=== PATIENT | female | born 1970 | race Caucasian/White ===

== ENCOUNTER → 2016-05-30 | Outpatient (CLI) | payer OTHER ==
--- NOTE | 2016-05-30 16:48 | CT ---
EXAMINATION TYPE: CT iac w con DATE OF EXAM: 05/30/2016 4:41 PM COMPARISON: CT brain April 06, 2016. CT mastoids February 25, 2015. MRI IAC February 23, 2016 HISTORY: Bilateral ear pain per patient. Chronic mastoiditis left ear per order CT DLP: 217 mGycm Automated exposure control for dose reduction was used. CONTRAST: CT scan of the IACs is performed with IV Contrast, patient injected with 100 mL of Omnipaque 300. FINDINGS: The external auditory canals are patent bilaterally. There is redemonstration of left tempo ral or mastoid surgery. There is persistent partial opacification of left sided mastoid air cells. T he middle ear ossicles are symmetric and unremarkable. There is no evidence of suspicious surroundin g soft tissue density to suggest cholesteatoma. The scutum is preserved bilaterally. The cochlea an d the semicircular canals are symmetric and unremarkable. Vestibular aqueduct and internal carotid c anal appear unremarkable. Temporomandibular joints are maintained bilaterally. Small mucous retention cyst or polyp in right sphenoid sinus is redemonstrated. No suspicious enhance ment is seen. IMPRESSION: Prior left mastoid or temporal surgery redemonstrated. Persistent partial opacification o f left mastoid air cells raises concern for mastoiditis. No middle ear infection noted. No significan t change from prior studies.
== END | disposition home or self-care (01) ==
LOC: RADCTMAIN 16:17
PROVIDERS: ATTEND Otolaryngology
DX: R93.0 Abnormal findings on diagnostic imaging of skull and head, not elsewhere classified (principal); Z79.890 Hormone replacement therapy
CPT/HCPCS: 70481; Q9967

== ENCOUNTER 2016-10-15 02:15 | Emergency (ER) | payer OTHER ==
[2016-10-15 02:22] VITALS: RESP 18; TEMP 97.6
[2016-10-15] MEDS ORDERED: diphenhydrAMINE 50 MG/ML 1 ML VIAL IVP STA (02:33)
[2016-10-15] MEDS ORDERED: METOCLOPRAMIDE 5 MG/ML 2 ML VIAL IVP STA (02:34)
[2016-10-15] MEDS ORDERED: DIHYDROERGOTAMINE MESYLATE 1 MG/ML 1 ML AMP IVP STA (02:34)
[2016-10-15] MEDS ORDERED: SODIUM CHLORIDE 0.9% 500 ML IV ONE (02:34)
--- NOTE | 2016-10-15 02:40 | ED ---
General Adult HPI - General Chief complaint: Headache Stated complaint: Headache Time Seen by Provider: 10/15/16 02:20 Source: patient, RN notes reviewed Mode of arrival: ambulatory Limitations: no limitations - History of Present Illness Initial comments: This is a [age] female with past history significant for migraine headaches. Patient states she's had them for years. Patient states this headache is no different than any other headache however her medications are not helping and so she came to the emergency department. Patient states she is photophobic and nauseated. Patient states headache is on the top and goes down to the back of her head a little bit. Patient denies any numbness weakness. Patient denies any features that are new with this headache she states all of her symptoms are similar to the previous migraine she's had for years. Patient denies any recent fever or chills. Patient denies any trauma. Patient denies any chest pain difficulty breathing [place] of breath. Patient denies any abdominal pain patient denies nausea vomiting or diarrhea. - Related Data Home Medications Medication Instructions Recorded Confirmed Cyclobenzaprine [Flexeril] 10 mg PO TID PRN 12/26/15 04/06/16 Cetirizine HCl 10 mg PO DAILY 12/27/15 04/06/16 Meclizine [Antivert] 1 tab PO TID PRN 12/27/15 04/06/16 Nicotine 21Mg/24Hr Patch [Habitrol] 1 patch TOPICAL DAILY 01/23/16 04/06/16 Topiramate [Topamax] 100 mg PO BID 01/23/16 04/06/16 Previous Rx's Medication Instructions Recorded Albuterol Inhaler [Ventolin Hfa 1 puff INHALATION RT-Q6H PRN #0 12/12/15 Inhaler] puff Escitalopram [Lexapro] 20 mg PO DAILY #30 tab 12/12/15 clonazePAM [KlonoPIN] 1 mg PO TID PRN #60 tab 12/12/15 traZODone HCL [Desyrel] 150 mg PO HS #90 tab 12/12/15 Allergies Allergy/AdvReac Type Severity Reaction Status Date / Time Penicillins Allergy Unknown Verified 10/15/16 02:22 sumatriptan [From Imitrex] Allergy Unknown Verified 10/15/16 02:22 sumatriptan succinate Allergy Unknown Verified 10/15/16 02:22 [From Imitrex] NSAIDS (Non-Steroidal AdvReac Unknown Verified 10/15/16 02:22 Anti-Inflamma Review of Systems ROS Statement: Those systems with pertinent positive or pertinent negative responses have been documented in the HPI. ROS Other: All systems not noted in ROS Statement are negative. Past Medical History Past Medical History: Asthma, Hypertension Additional Past Medical History / Comment(s): 2012 mastoditis/L otitis with SIRS , vertigo, falls, migraines, low blood sugars, chronic back pain, DJD. History of Any Multi-Drug Resistant Organisms: None Reported Past Surgical History: Adenoidectomy, Appendectomy, Bariatric Surgery, Breast Surgery, Cholecystectomy, Ear Surgery, Hernia Repair, Hysterectomy, Orthopedic Surgery, Tonsillectomy, Tubal Ligation Additional Past Surgical History / Comment(s): Gastric bypass in 2008 with weight loss of 170 pounds, abdominoplasty, L ear perforation with surgery, R knee surgery x 2 arthroscopic, R breast bx-benign, 2 umbilical hernias and 1 diaphragmatic hernia repairs, arthroscopic bilateral knee meniscus repair, mastoidectomy with Dr. Valderrama at [facility]. Past Anesthesia/Blood Transfusion Reactions: No Reported Reaction Past Psychological History: Anxiety, Depression Additional Psychological History / Comment(s): Pt states she attempted suicide after her father's May 2015. Pt resides with her boyfriend. She is independent normally. She has had falls r/t vertigo from L ear problems. Smoking Status: Former smoker Past Alcohol Use History: None Reported Additional Past Alcohol Use History / Comment(s): Pt started smoking at age 13 or 14 yrs. She smokes about 1 1/[address] She denies any street drug or alcohol use. Past Drug Use History: None Reported - Past Family History Father Additional Family Medical History / Comment(s): Father from a aneurysm at the age of 72 yrs. he also had history of prostate cancer, aortic aneurysm, renal artery aneurysm. Mother Family Medical History: COPD Additional Family Medical History / Comment(s): Mother is 71 yrs old and has emphysema and hypertension. Brother(s) Additional Family Medical History / Comment(s): She has one brother with hypertension and plaque psoriasis. Sister(s) Additional Family Medical History / Comment(s): She has one sister with hypertension. Son(s) Additional Family Medical History / Comment(s): Patient has 3 children, one boy with ureteral obstruction and renal failure. 2 girls that are healthy without major medical problems. General Exam - General Exam Comments Initial Comments: GENERAL: Patient is well-developed and well-nourished. Patient is nontoxic and well- hydrated and is in mild distress. ENT: Neck is soft and supple. No significant lymphadenopathy is noted. Oropharynx is clear. Moist mucous membranes. Neck has full range of motion without eliciting any pain. EYES: The sclera were anicteric and conjunctiva were pink and moist. Extraocular movements were intact and pupils were equal round and reactive to light. Eyelids were unremarkable. PULMONARY: Unlabored respirations. Good breath sounds bilaterally. No audible rales rhonchi or wheezing was noted. CARDIOVASCULAR: There is a regular rate and rhythm without any murmurs gallops or rubs. ABDOMEN: Soft and nontender with normal bowel sounds. No palpable organomegaly was noted. There is no palpable pulsatile mass. SKIN: Skin is clear with no lesions or rashes and otherwise unremarkable. NEUROLOGIC: Patient is alert and oriented x3. Cranial nerves II through XII are grossly intact. Motor and sensory are also intact. Normal speech, volume and content. Symmetrical smile. MUSCULOSKELETAL: Normal extremities with adequate strength and full range of motion. No lower extremity swelling or edema. No calf tenderness. LYMPHATICS: No significant lymphadenopathy is noted PSYCHIATRIC: Normal psychiatric evaluation. Limitations: no limitations Course Vital Signs 10/15/16 02:21 Temperature 97.6 F Pulse Rate 73 Respiratory 18 Rate Blood Pressure 127/83 O2 Sat by Pulse 99 Oximetry Medical Decision Making - Medical Decision Making Patient's headache is vastly improved with the medication. Patient states she' s a 2 out of 10 patient is comfortable going home at this time. Disposition Clinical Impression: Migraine Disposition: HOME SELF-CARE Condition: Good Instructions: Migraine Headache (ED) Referrals: Saleem Page DO [Primary Care Provider] - 1-2 days Time of Disposition: 03:52
[2016-10-15] MEDS ORDERED: KETOROLAC 30 MG/ML 1 ML VIAL IVP STA (03:27)
[2016-10-15 04:02] VITALS: BP 140/88; PULSE 77
== END 2016-10-15 04:01 | disposition home or self-care (01) ==
LOC: EC 02:15
DX: G43.909 Migraine, unspecified, not intractable, without status migrainosus (principal); Z87.891 Personal history of nicotine dependence; Z79.899 Other long term (current) drug therapy; Z88.0 Allergy status to penicillin; Z88.6 Allergy status to analgesic agent; Z88.8 Allergy status to other drugs, medicaments and biological substances
CPT/HCPCS: 99283; 96374; 96375 ×3; 96361; J1110; J1200; J2765; J1885

== ENCOUNTER 2017-01-02 13:00 | Emergency (ER) | payer OTHER ==
[2017-01-02 13:07] VITALS: RESP 18
--- NOTE | 2017-01-02 13:52 | ED ---
General Adult HPI - General Chief complaint: Extremity Injury, Lower Stated complaint: Leg Injury Time Seen by Provider: 01/02/17 13:11 Source: patient Mode of arrival: wheelchair Limitations: no limitations - Related Data Home Medications Medication Instructions Recorded Confirmed Cyclobenzaprine [Flexeril] 10 mg PO TID PRN 12/26/15 01/02/17 Cetirizine HCl 10 mg PO DAILY PRN 12/27/15 01/02/17 Topiramate [Topamax] 100 mg PO BID 01/23/16 01/02/17 HYDROcodone/APAP 10-325MG [[place] 1 tab PO TID 01/02/17 01/02/17 10-325] buPROPion XL [Wellbutrin Xl] 300 mg PO DAILY 01/02/17 01/02/17 Previous Rx's Medication Instructions Recorded Albuterol Inhaler [Ventolin Hfa 1 puff INHALATION RT-Q6H PRN #0 12/12/15 Inhaler] puff Allergies Allergy/AdvReac Type Severity Reaction Status Date / Time Penicillins Allergy Unknown Verified 01/02/17 13:24 sumatriptan [From Imitrex] Allergy Unknown Verified 01/02/17 13:24 sumatriptan succinate Allergy Unknown Verified 01/02/17 13:24 [From Imitrex] NSAIDS (Non-Steroidal AdvReac Unknown Verified 01/02/17 13:24 Anti-Inflamma Review of Systems ROS Statement: Those systems with pertinent positive or pertinent negative responses have been documented in the HPI. ROS Other: All systems not noted in ROS Statement are negative. Past Medical History Past Medical History: Asthma, Hypertension Additional Past Medical History / Comment(s): 2013 mastoditis/L otitis with SIRS , vertigo, falls, migraines, low blood sugars, chronic back pain, DJD. History of Any Multi-Drug Resistant Organisms: None Reported Past Surgical History: Adenoidectomy, Appendectomy, Bariatric Surgery, Breast Surgery, Cholecystectomy, Ear Surgery, Hernia Repair, Hysterectomy, Orthopedic Surgery, Tonsillectomy, Tubal Ligation Additional Past Surgical History / Comment(s): Gastric bypass in 2008 with weight loss of 170 pounds, abdominoplasty, L ear perforation with surgery, R knee surgery x 2 arthroscopic, R breast bx-benign, 2 umbilical hernias and 1 diaphragmatic hernia repairs, arthroscopic bilateral knee meniscus repair, mastoidectomy with Dr. Valderrama at [facility]. Past Anesthesia/Blood Transfusion Reactions: No Reported Reaction Past Psychological History: Anxiety, Depression Smoking Status: Former smoker Past Alcohol Use History: None Reported Past Drug Use History: None Reported - Past Family History Father Additional Family Medical History / Comment(s): Father from a aneurysm at the age of 72 yrs. he also had history of prostate cancer, aortic aneurysm, renal artery aneurysm. Mother Family Medical History: COPD Additional Family Medical History / Comment(s): Mother is 71 yrs old and has emphysema and hypertension. Brother(s) Additional Family Medical History / Comment(s): She has one brother with hypertension and plaque psoriasis. Sister(s) Additional Family Medical History / Comment(s): She has one sister with hypertension. Son(s) Additional Family Medical History / Comment(s): Patient has 3 children, one boy with ureteral obstruction and renal failure. 2 girls that are healthy without major medical problems. General Exam Limitations: no limitations Course Vital Signs 01/02/17 13:04 Temperature 98.7 F Pulse Rate 80 Respiratory 18 Rate Blood Pressure 167/96 O2 Sat by Pulse 100 Oximetry Medical Decision Making - Medical Decision Making Patient's x-ray reviewed and is negative for any acute fracture dislocation. Was discussed with patient about following up in 7-10 days for repeat x-rays if symptoms persist. Patient states understanding at this time. Patient used Tylenol. She states she has not allowed to take NSAIDs. Advised to continue to ice elevate affected area. Disposition Clinical Impression: Contusion of leg, left Disposition: HOME SELF-CARE Condition: Good Instructions: Contusion in Adults (ED) Additional Instructions: Please use medication as discussed. Please follow-up with family doctor in 7- 10 days if symptoms persist. Please return to emergency room if the symptoms increase or worsen or for any other concerns. Referrals: Saleem Page DO [Primary Care Provider] - 1-2 days Time of Disposition: 14:28
--- NOTE | 2017-01-02 14:25 | XR ---
Left leg HISTORY: Trauma and pain 2 views of the left leg Correlation to prior exam 04/06/2016 There is soft tissue swelling suspected. Bone mineralization is mildly reduced. Alignment and joint s paces are maintained. IMPRESSION: No fracture or dislocation is evident, follow-up as indicated.
[2017-01-02 14:47] VITALS: BP 177/95; PULSE 94; TEMP 98.1
--- NOTE | 2017-01-05 08:58 | CDI ---
Documentation Clarification OP Dear Dr. Rufus Bazan Please do addendum to ED report for missing HPI and Physical examination. Thank you, Zina Hutson Ballet Teacher If you have any questions, please contact [employer] at [phone] [facility]
== END 2017-01-02 14:47 | disposition home or self-care (01) ==
LOC: EC 13:00
DX: S80.12XA Contusion of left lower leg, initial encounter (principal); G89.29 Other chronic pain; F32.9 Major depressive disorder, single episode, unspecified; Z87.891 Personal history of nicotine dependence; Z79.891 Long term (current) use of opiate analgesic; Z79.899 Other long term (current) drug therapy; Z88.0 Allergy status to penicillin; Z88.6 Allergy status to analgesic agent; Z88.8 Allergy status to other drugs, medicaments and biological substances; Z86.69 Personal history of other diseases of the nervous system and sense organs; Z98.890 Other specified postprocedural states; W20.8XXA Other cause of strike by thrown, projected or falling object, initial encounter; Y93.89 Activity, other specified
CPT/HCPCS: 99283

== ENCOUNTER 2017-12-24 02:36 | Emergency (ER) | payer SELFPAY ==
[2017-12-24] MEDS ORDERED: KETOROLAC 30 MG/ML 1 ML VIAL IVP STA (03:06)
[2017-12-24] MEDS ORDERED: SODIUM CHLORIDE 0.9% 1,000 ML IV ONE (03:06)
[2017-12-24] MEDS ORDERED: diphenhydrAMINE 50 MG/ML 1 ML VIAL IVP STA (03:06)
[2017-12-24] MEDS ORDERED: METOCLOPRAMIDE 5 MG/ML 2 ML VIAL IVP STA (03:06)
--- NOTE | 2017-12-24 03:15 | ED ---
Headache HPI - General Mode of arrival: ambulatory Limitations: no limitations <Yenni Damon - Last Filed: 12/24/17 04:32> <Ember Vallejo - Last Filed: 12/24/17 06:19> - General Chief Complaint: Headache Stated Complaint: Migraine Time Seen by Provider: 12/24/17 02:51 - History of Present Illness Initial Comments: 47-year-old female patient presents to the emergency department today for evaluation of migraine headache. Patient states that the pain encompasses her entire head and is now radiating into her neck. States it started at 12:00 this afternoon. States she has taken Tylenol, Motrin, and Benadryl multiple times without relief of symptoms. Patient states that she is feeling nauseated and dizzy with this. She has not vomited. States that she does have a history of migraine headache and her symptoms are typical of her usual migraine pattern. She denies any numbness, tingling, or weakness to her extremities. Patient denies any recent rash, fever, chills, shortness breath, chest pain, abdominal pain, diarrhea, constipation, back pain, hematuria, dysuria, urinary urgency, urinary frequency, or any other complaints. (Yenni Damon) - Related Data Home Medications Medication Instructions Recorded Confirmed Topiramate [Topamax] 100 mg PO BID 01/23/16 01/02/17 ALPRAZolam [Xanax] 1 mg PO HS 12/24/17 12/24/17 Previous Rx's Medication Instructions Recorded Albuterol Inhaler [Ventolin Hfa 1 puff INHALATION RT-Q6H PRN #0 12/12/15 Inhaler] puff Allergies Allergy/AdvReac Type Severity Reaction Status Date / Time Penicillins Allergy Unknown Verified 12/24/17 02:49 sumatriptan [From Imitrex] Allergy Unknown Verified 12/24/17 02:49 sumatriptan succinate Allergy Unknown Verified 12/24/17 02:49 [From Imitrex] NSAIDS (Non-Steroidal AdvReac Unknown Verified 12/24/17 02:49 Anti-Inflamma Review of Systems ROS Other: All systems not noted in ROS Statement are negative. <Yenni Damon - Last Filed: 12/24/17 04:32> ROS Other: All systems not noted in ROS Statement are negative. <Ember Vallejo P - Last Filed: 12/24/17 06:19> ROS Statement: Those systems with pertinent positive or pertinent negative responses have been documented in the HPI. Past Medical History Past Medical History: Asthma, Hypertension Additional Past Medical History / Comment(s): 2013 mastoditis/L otitis with SIRS , vertigo, falls, migraines, low blood sugars, chronic back pain, DJD. History of Any Multi-Drug Resistant Organisms: None Reported Past Surgical History: Adenoidectomy, Appendectomy, Bariatric Surgery, Breast Surgery, Cholecystectomy, Ear Surgery, Hernia Repair, Hysterectomy, Orthopedic Surgery, Tonsillectomy, Tubal Ligation Additional Past Surgical History / Comment(s): Gastric bypass in 2008 with weight loss of 170 pounds, abdominoplasty, L ear perforation with surgery, R knee surgery x 2 arthroscopic, R breast bx-benign, 2 umbilical hernias and 1 diaphragmatic hernia repairs, arthroscopic bilateral knee meniscus repair, mastoidectomy with Dr. Valderrama at [facility]. Past Anesthesia/Blood Transfusion Reactions: No Reported Reaction Past Psychological History: Anxiety, Depression Smoking Status: Current every day smoker Past Alcohol Use History: None Reported Past Drug Use History: None Reported - Past Family History Father Additional Family Medical History / Comment(s): Father from a aneurysm at the age of 72 yrs. he also had history of prostate cancer, aortic aneurysm, renal artery aneurysm. Mother Family Medical History: COPD Additional Family Medical History / Comment(s): Mother is 71 yrs old and has emphysema and hypertension. Brother(s) Additional Family Medical History / Comment(s): She has one brother with hypertension and plaque psoriasis. Sister(s) Additional Family Medical History / Comment(s): She has one sister with hypertension. Son(s) Additional Family Medical History / Comment(s): Patient has 3 children, one boy with ureteral obstruction and renal failure. 2 girls that are healthy without major medical problems. <Yenni Damon M - Last Filed: 12/24/17 04:32> General Exam Limitations: no limitations General appearance: alert, in no apparent distress, other (This is a well- developed, well-nourished adult female patient in no acute distress. Vital signs upon presentation are temperature 97.8F, pulse 79, respirations 20, blood pressure 136/92, pulse ox 100% on room air.) Eye exam: Present: normal appearance, PERRL, EOMI. Absent: scleral icterus, conjunctival injection, periorbital swelling ENT exam: Present: normal exam, normal oropharynx, mucous membranes moist Neck exam: Present: normal inspection. Absent: tenderness, meningismus, lymphadenopathy Respiratory exam: Present: normal lung sounds bilaterally. Absent: respiratory distress, wheezes, rales, rhonchi, stridor Cardiovascular Exam: Present: regular rate, normal rhythm, normal heart sounds. Absent: systolic murmur, diastolic murmur, rubs, gallop, clicks GI/Abdominal exam: Present: soft, normal bowel sounds. Absent: distended, tenderness, guarding, rebound, rigid Neurological exam: Present: alert, oriented X3, CN II-XII intact, other ( Strength in all 4 extremities is 5/5) Psychiatric exam: Present: normal affect, normal mood Skin exam: Present: warm, dry, intact, normal color. Absent: rash <Yenni Damon - Last Filed: 12/24/17 04:32> Vital Signs 12/24/17 12/24/17 02:45 04:43 Temperature 97.8 F 97.2 F L Pulse Rate 79 74 Respiratory 20 16 Rate Blood Pressure 136/92 124/85 O2 Sat by Pulse 100 100 Oximetry Medical Decision Making <Yenni Damon - Last Filed: 12/24/17 04:32> <Ember Vallejo - Last Filed: 12/24/17 06:19> - Medical Decision Making 47-year-old female patient presents to the emergency department today for evaluation of migraine headache. Patient reported that symptoms are consistent with her usual migraine pattern. Physical examination was unremarkable, she was neurologically intact. Patient did receive Toradol, Reglan, and Benadryl IV as well as 1 L of normal saline. Patient states her symptoms are much improved upon reevaluation. She'll be discharged home to follow-up with her primary care physician for recheck in 1-2 days. Return parameters discussed in detail. She verbalizes understanding and agrees with this plan. (Yenni Damon) The patient was seen and evaluated by the mid-level provider. I was present and available for consultation regarding the patients care but was not asked to evaluate the patient. I have reviewed and agree with the mid-level provider's findings including all diagnostic interpretations and the treatment plans has written unless otherwise stated in my note. (Ember Vallejo) Disposition Is patient prescribed a controlled substance at d/c from ED?: No Time of Disposition: 04:16 <Yenni Damon - Last Filed: 12/24/17 04:32> <Ember Vallejo - Last Filed: 12/24/17 06:19> Clinical Impression: Migraine headache Disposition: HOME SELF-CARE Condition: Good Instructions: Migraine Headache (ED) Additional Instructions: Increase fluids. Follow-up through primary care physician for recheck in 1-2 days. Return here immediately for any new, worsening, or concerning symptoms. Referrals: Saleem Page DO [Primary Care Provider] - 1-2 days
[2017-12-24 04:44] VITALS: BP 124/85; PULSE 74; RESP 16; TEMP 97.2
== END 2017-12-24 04:47 | disposition home or self-care (01) ==
LOC: EC 02:36
DX: G43.909 Migraine, unspecified, not intractable, without status migrainosus (principal); F41.9 Anxiety disorder, unspecified; F17.200 Nicotine dependence, unspecified, uncomplicated; Z98.84 Bariatric surgery status; Z98.890 Other specified postprocedural states; Z79.899 Other long term (current) drug therapy; Z88.0 Allergy status to penicillin; Z88.6 Allergy status to analgesic agent; Z88.8 Allergy status to other drugs, medicaments and biological substances
CPT/HCPCS: 99283; 96374; 96375 ×2; 96361; J1200; J2765; J1885

== ENCOUNTER 2018-10-07 12:30 | Observation (INO) | payer OTHER ==
[2018-10-07] MEDS ORDERED: HYDROmorphone 0.5 MG/0.5 ML SYRINGE IVP STA ×2 (12:47→14:12)
[2018-10-07] MEDS ORDERED: SODIUM CHLORIDE 0.9% 1,000 ML IV STA (12:47)
[2018-10-07 13:13] LABS: Appearance,Urine Clear (Clear); Bilirubin,Urine Negative (Negative); Blood,Urine Negative (Negative); Color,Urine Light Yellow; Glucose,Urine (UA) Negative (Negative); Ketones,Urine Negative (Negative); Leukocyte Esterase,Urine Negative (Negative); Nitrite,Urine Negative (Negative); PH, Urine 5.5 (5.0-8.0); Protein,Urine Negative (Negative); Specific Gravity,Urine 1.004 (1.001-1.035); Urobilinogen,Urine <2.0 mg/dL (<2.0)
[2018-10-07 13:18] LABS: Basophils # (A) 0.1 k/uL (0-0.2); Basophils % (A) 1 %; Eosinophils # (A) 0.8 k/uL (0-0.7); Eosinophils % (A) 5 %; HCT 39.4 % (34.0-46.0); HGB 12.8 gm/dL (11.4-16.0); Lymphocytes # (A) 2.9 k/uL (1.0-4.8); Lymphocytes % (A) 19 %; MCH 30.5 pg (25.0-35.0); MCHC 32.4 g/dL (31.0-37.0); MCV 94.3 fL (80.0-100.0); Mean Platelet Volume 7.3; Monocytes # (A) 0.4 k/uL (0-1.0); Monocytes % (A) 3 %; Neutrophils # (A) 11.1 k/uL (1.3-7.7); Neutrophils % (A) 72 %; Platelet Count 491 k/uL (150-450); RBC 4.18 m/uL (3.80-5.40); RDW 14.4 % (11.5-15.5); WBC 15.5 k/uL (3.8-10.6)
[2018-10-07 13:19] LABS: ALT 16 U/L (9-52); AST 15 U/L (14-36); Albumin 4.2 g/dL (3.5-5.0); Alkaline Phosphatase 84 U/L (38-126); Amylase 45 U/L (30-110); Anion Gap 7 mmol/L; Blood Urea Nitrogen 10 mg/dL (7-17); Calcium 9.8 mg/dL (8.4-10.2); Carbon Dioxide 24 mmol/L (22-30); Chloride 111 mmol/L (98-107); Glucose 86 mg/dL (74-99); Lipase 82 U/L (23-300); Potassium 4.3 mmol/L (3.5-5.1); Sodium 142 mmol/L (137-145); Total Bilirubin 0.5 mg/dL (0.2-1.3); Total Protein 7.1 g/dL (6.3-8.2)
--- NOTE | 2018-10-07 13:23 | ED ---
General Adult HPI - General Chief complaint: Back Pain/Injury Stated complaint: Poss kidney stone Time Seen by Provider: 10/07/18 12:37 Source: patient, RN notes reviewed, old records reviewed Mode of arrival: ambulatory Limitations: no limitations - History of Present Illness Initial comments: 48-year-old female presented for evaluation of left flank pain. Patient has previous history of kidney stones. She states her pain began suddenly at approximately 6 AM today. Patient also reports left lower quadrant abdominal pain. No change in bowel movements. No diarrhea. She has had some nausea without vomiting. No upper abdominal pain. No chest pain or dyspnea. No fever but states that she has had some chills. - Related Data Home Medications Medication Instructions Recorded Confirmed ALPRAZolam [Xanax] 2 mg PO TID PRN 10/07/18 10/07/18 Acetaminophen Tab [Tylenol Tab] 1,000 mg PO Q6HR PRN 10/07/18 10/07/18 Albuterol Inhaler [Ventolin Hfa 2 puff INHALATION RT-Q6H PRN 10/07/18 10/07/18 Inhaler] Losartan Potassium [Cozaar] 100 mg PO DAILY@1400 10/07/18 10/07/18 Allergies Allergy/AdvReac Type Severity Reaction Status Date / Time Penicillins Allergy Unknown Verified 10/07/18 12:39 sumatriptan [From Imitrex] Allergy Unknown Verified 10/07/18 12:39 sumatriptan succinate Allergy Unknown Verified 10/07/18 12:39 [From Imitrex] NSAIDS (Non-Steroidal AdvReac Unknown Verified 10/07/18 12:39 Anti-Inflamma Review of Systems ROS Statement: Those systems with pertinent positive or pertinent negative responses have been documented in the HPI. ROS Other: All systems not noted in ROS Statement are negative. Past Medical History Past Medical History: Asthma, Hypertension Additional Past Medical History / Comment(s): 2013 mastoditis/L otitis with SIRS, vertigo, falls, migraines, low blood sugars, chronic back pain, DJD, kidney stones History of Any Multi-Drug Resistant Organisms: None Reported Past Surgical History: Adenoidectomy, Appendectomy, Bariatric Surgery, Breast Surgery, Cholecystectomy, Ear Surgery, Hernia Repair, Hysterectomy, Orthopedic Surgery, Tonsillectomy, Tubal Ligation Additional Past Surgical History / Comment(s): Gastric bypass in 2008 with weight loss of 170 pounds, abdominoplasty, L ear perforation with surgery, R knee surgery x 2 arthroscopic, R breast bx-benign, 2 umbilical hernias and 1 diaphragmatic hernia repairs, arthroscopic bilateral knee meniscus repair, mastoidectomy with Dr. Valderrama at [facility]. Past Anesthesia/Blood Transfusion Reactions: No Reported Reaction Past Psychological History: Anxiety, Depression Smoking Status: Current every day smoker Past Alcohol Use History: None Reported Past Drug Use History: None Reported - Past Family History Father Additional Family Medical History / Comment(s): Father from a aneurysm at the age of 72 yrs. he also had history of prostate cancer, aortic aneurysm, renal artery aneurysm. Mother Family Medical History: COPD Additional Family Medical History / Comment(s): Mother is 71 yrs old and has emphysema and hypertension. Brother(s) Additional Family Medical History / Comment(s): She has one brother with hypertension and plaque psoriasis. Sister(s) Additional Family Medical History / Comment(s): She has one sister with hy pertension. Son(s) Additional Family Medical History / Comment(s): Patient has 3 children, one boy with ureteral obstruction and renal failure. 2 girls that are healthy without major medical problems. General Exam Limitations: no limitations General appearance: alert, in no apparent distress Head exam: Present: atraumatic, normocephalic Eye exam: Present: normal appearance, PERRL ENT exam: Present: normal exam Neck exam: Present: normal inspection. Absent: tenderness, meningismus Respiratory exam: Present: normal lung sounds bilaterally. Absent: respiratory distress, wheezes Cardiovascular Exam: Present: regular rate, normal rhythm GI/Abdominal exam: Present: soft, tenderness (Mild left lower quadrant tenderness to palpation). Absent: distended Extremities exam: Present: normal inspection, normal capillary refill. Absent: pedal edema Back exam: Present: normal inspection, full ROM, CVA tenderness (L) Neurological exam: Present: alert, oriented X3, CN II-XII intact. Absent: motor sensory deficit Psychiatric exam: Present: normal affect, normal mood Skin exam: Present: warm, dry, intact. Absent: cyanosis, diaphoretic Course Vital Signs 10/07/18 12:31 Temperature 98.3 F Pulse Rate 90 Respiratory 18 Rate Blood Pressure 142/93 O2 Sat by Pulse 98 Oximetry Medical Decision Making - Medical Decision Making 48-year-old female presenting with left flank pain and left lower quadrant abdominal pain. History is initially concerning for renal colic. She does have previous history of kidney stones. Urinalysis is negative for any hemorrhage or infection. CT was performed of the abdomen with IV contrast. This shows edematous change in the ascending colon. This does not directly correspond with the patient's left-sided abdominal pain. X-ray was obtained and this is negative for obstruction. She has an elevated white blood cell count of 15.4. She has normal CMP, normal urinalysis. She started on antibiotics including Levaquin and Flagyl. She is given multiple doses of pain medication the emergency department without significant improvement in her pain. She does appear to be in moderate to severe pain. She will be admitted for pain control, gastroenterology on consult. Case is discussed with the admitting physician. - Lab Data Result diagrams: 10/07/18 12:58 10/07/18 12:58 Lab Results 10/07/18 10/07/18 10/07/18 Range/Units 12:58 12:58 12:58 WBC 15.5 H (3.8-10.6) k/uL RBC 4.18 (3.80-5.40) m/uL Hgb 12.8 (11.4-16.0) gm/dL Hct 39.4 (34.0-46.0) % MCV 94.3 (80.0-100.0) fL MCH 30.5 (25.0-35.0) pg MCHC 32.4 (31.0-37.0) g/dL RDW 14.4 (11.5-15.5) % Plt Count 491 H (150-450) k/uL Neutrophils % 72 % Lymphocytes % 19 % Monocytes % 3 % Eosinophils % 5 % Basophils % 1 % Neutrophils # 11.1 H (1.3-7.7) k/uL Lymphocytes # 2.9 (1.0-4.8) k/uL Monocytes # 0.4 (0-1.0) k/uL Eosinophils # 0.8 H (0-0.7) k/uL Basophils # 0.1 (0-0.2) k/uL Sodium 142 (137-145) mmol/L Potassium 4.3 (3.5-5.1) mmol/L Chloride 111 H (98-107) mmol/L Carbon Dioxide 24 (22-30) mmol/L Anion Gap 7 mmol/L BUN 10 (7-17) mg/dL Creatinine 0.54 (0.52-1.04) mg/dL Est GFR (CKD-EPI)AfAm >90 (>60 ml/min/1.73 sqM) Est GFR (CKD-EPI)NonAf >90 (>60 ml/min/1.73 sqM) Glucose 86 (74-99) mg/dL Calcium 9.8 (8.4-10.2) mg/dL Total Bilirubin 0.5 (0.2-1.3) mg/dL AST 15 (14-36) U/L ALT 16 (9-52) U/L Alkaline Phosphatase 84 (38-126) U/L Total Protein 7.1 (6.3-8.2) g/dL Albumin 4.2 (3.5-5.0) g/dL Amylase 45 (30-110) U/L Lipase 82 (23-300) U/L Urine Color Light Yellow Urine Appearance Clear (Clear) Urine pH 5.5 (5.0-8.0) Ur Specific [place] 1.004 (1.001-1.035) Urine Protein Negative (Negative) Urine Glucose (UA) Negative (Negative) Urine Ketones Negative (Negative) Urine Blood Negative (Negative) Urine Nitrite Negative (Negative) Urine Bilirubin Negative (Negative) Urine Urobilinogen <2.0 (<2.0) mg/dL Ur Leukocyte Esterase Negative (Negative) Disposition Clinical Impression: Intractable abdominal pain, Colitis Disposition: [facility]MITTED [facility] Condition: Stable Is patient prescribed a controlled substance at d/c from ED?: No Referrals: Saleem Page DO [Primary Care Provider] - 1-2 days Decision to Admit Reason: Admit from EC Decision Date: 10/07/18 Decision Time: 15:31
--- NOTE | 2018-10-07 13:24 | XR ---
EXAMINATION TYPE: XR KUB DATE OF EXAM: 10/07/2018 CLINICAL DATA: 48-year-old female with abdominal pain, PHH COMPARISON: None FINDINGS: Lung bases are clear. No evidence for free intraperitoneal air. Possible enlarged liver measuring up to 25 cm. No dilated small bowel or air-fluid levels. Scattered air and stool seen throughout the colon extendi ng distally into the rectum. Mild overall stool. Cholecystectomy clips. Surgical staple line at the GE junction. Rounded densities in the pelvis measuring up to 4 mm probably represent phleboliths. IMPRESSION: 1. No evidence of bowel obstruction or free intraperitoneal air. 2. Rounded calcifications in the pelvis measuring up to 4 mm probably represent phleboliths. 3. There may be hepatomegaly measuring up to 25 cm.
--- NOTE | 2018-10-07 14:19 | CT ---
EXAMINATION TYPE: CT abdomen pelvis w con DATE OF EXAM: 10/07/2018 COMPARISON: NONE HISTORY: 48-year-old female with right lower quadrant and right flank pain with urination changes TECHNIQUE: Contiguous axial scanning of the abdomen and pelvis following administration of 100 ml Iso abdoulaye 300 IV contrast. Delayed images through the kidneys and coronal/sagittal reconstructions perform ed. CT DLP: 729.3 mGycm Automated exposure control for dose reduction was used. FINDINGS: Normal size without pericardial effusion. Lung bases clear without pleural effusion. Postsurgical changes of Jv-en-Y gastric bypass with a small hiatal hernia demonstrated. There is a focal mural based soft tissue thickening along the anterior wall of the GE junction, axial image 9. No focal liver lesion or biliary ductal dilatation. Portal venous system is patent. Adrenal glands, spleen with hilar splenule, pancreas within normal limits. 1.5 cm cortical cyst posterior upper pole right kidney. Symmetric uptake and excretion of contrast fr om both kidneys. Prior ventral abdominal wall mesh repair. No dilated small bowel, free fluid, or free air. No mesenteric or retroperitoneal lymphadenopathy. Some postsurgical changes at the inferior aspect of the cecum suggest prior appendectomy and can be c orrelated clinically. There is mild generalized colonic wall thickening which may in part be due to nondistention but with more moderate edematous wall thickening of the ascending colon, for example, refer to axial image 37. No pericolonic inflammatory change. Bladder is urine distended. Uterus surgically absent. Left ovary is visualized. Right ovary not clear ly seen. Small amount of cul-de-sac free fluid is noted. No pelvic lymphadenopathy. Bones: Degenerative changes at the hips. Moderate generative disc disease L4-L5 and L5-S1 with facet arthropathy. IMPRESSION: 1. Mild pancolonic wall thickening with more moderate edematous circumferential wall thickening along the ascending colon. Correlate for infectious or inflammatory colitis. 2. Suspect prior appendectomy. 3. Status post Jv-en-Y gastric bypass with a small hiatal hernia. There is some focal soft tissue t hickening along the anterior wall of the GE junction (axial image 9) that could represent redundant m ucosa. Direct visualization as clinically indicated to exclude underlying neoplasm. 4. Small amount of cul-de-sac free fluid likely physiologic. This could also be reactive to the colon ic inflammation.
[2018-10-07] MEDS ORDERED: metroNIDAZOLE-NS PMX 500 MG in SALINE 1 100ML.BAG IVPB STA (14:38)
[2018-10-07] MEDS ORDERED: LEVOFLOXACIN 500MG-D5W PMX 500 MG in DEXTROSE/WATER 1 100ML.BAG IVPB STA (14:38)
[2018-10-07] MEDS ORDERED: HYDROmorphone 1 MG/ML 1 ML SYRINGE IVP STA (15:08)
[2018-10-07] MEDS ORDERED: HYDROmorphone 1 MG/ML 1 ML SYRINGE IVP PRN (15:25)
[2018-10-07] MEDS ORDERED: HYDROmorphone 0.5 MG/0.5 ML SYRINGE IVP PRN (15:25)
[2018-10-07] MEDS ORDERED: NALOXONE 0.4 MG/ML 1 ML VIAL IV PRN (15:25)
[2018-10-07] MEDS ORDERED: ONDANSETRON 4 MG/2 ML VIAL IVP PRN ×2 (15:25→18:56)
[2018-10-07] MEDS ORDERED: SODIUM CHLORIDE 0.9% 1,000 ML IV SCH ×2 (15:30→17:00)
[2018-10-07] MEDS ORDERED: ALPRAZolam 1 MG TAB PO PRN ×2 (15:35→17:01)
[2018-10-07] MEDS ORDERED: traMADol 50 MG TAB PO PRN (17:00)
--- NOTE | 2018-10-07 17:08 | P.HPIM ---
History of Present Illness H&P Date: 10/07/18 48 years old female patient of Dr. Page with past medical history of hypertension and asthma history of gastric bypass in 2009 done in [place], history of anxiety presents in with an acute abdominal pain started at 6 AM in the morning radiating down to the groin. Patient has history of renal stone in the past and thought it to be kidney stone. She denies any nausea or vomiting or any diarrhea episode. Patient denies any melena or bright red blood per rectum. She denies any previous episodes similar to this. On evaluation in the ER, vital signs suggest temp of 98.3 pulse 90 blood pressure 142/93 saturating well on room air. Laboratory evaluation suggestive WBC count of 15.5 hemoglobin 12.8 hematocrit 39.4 with platelet of 491 BNP suggestive sodium 142 potassium 4.3 chloride 111 bicarb 24 B1 [address] abdomen was done suggested pancolonic wall thickening with moderate edematous circumferential wall thickening along the ascending colon. Patient initiated on levofloxacin and Flagyl for colitis. With gastroenterology consult. In normal saline to be continued at 75 mL per hour patient would need colonoscopy in couple of weeks for evaluation. Review of Systems Constitutional: Denies chills, Denies fever, Denies lethargy, Denies malaise, Denies poor appetite, Denies weakness, Denies weight loss Eyes: denies decreased vision, denies diplopia, denies discharge, denies pain Ears: deny: decreased hearing Ears, nose, mouth and throat: Denies dental pain, Denies headache, Denies nasal discharge, Denies nose pain Cardiovascular: Denies chest pain, Denies decreased exercise tolerance, Denies edema, Denies high blood pressure, Denies irregular heart beat, Denies palpitations, Denies paroxysmal nocturnal dyspnea, Denies rapid heart beat, Denies shortness of breath Respiratory: Denies congestion, Denies cough, Denies cough with sputum, Denies dyspnea, Denies home oxygen, Denies wheezing Gastrointestinal: Endorses abdominal pain, Denies change in bowel habits, Denies coffee ground emesis, Denies early satiety, endorses excessive gas, Denies heartburn, Denies hematemesis, Denies hematochezia, Denies loss of appetite, Denies nausea, Denies vomiting Genitourinary: Denies dysuria, Denies flank pain, Denies kidney stones, Denies menorrhagia, Denies urgency, Denies urinary frequency Musculoskeletal: Denies gait dysfunction, Denies limitation of motion, Denies morning stiffness, Denies muscle cramps Integumentary: Denies rash, Denies wounds, Denies brittle nails, Denies change in hair/nails, Denies darkening of skin Neurological: Denies balance difficulties, Denies change in speech, Denies double vision, Denies gait dysfunction, Denies loss of vision, Denies motor disturbance, Denies numbness, Denies paralysis, Denies paresthesias, Denies seizures Psychiatric: Denies anxiety, Denies depression Endocrine: Denies excessive sweating, Denies excessive thirst, Denies high blood sugars, Denies palpitations Hematologic/Lymphatic: Denies easy bruising, Denies lymphadenopathy Past Medical History Past Medical History: Asthma, Hypertension Additional Past Medical History / Comment(s): Past L mastoiditis with L otitis/vertigo and falls-had surgery and no longer a problem, nephrolithiasis, migraines, past chronic low back pain but pt states not much of a problem anymore, DJD, hypoglycemia, History of Any Multi-Drug Resistant Organisms: None Reported Past Surgical History: Adenoidectomy, Appendectomy, Bariatric Surgery, Breast Surgery, Cholecystectomy, Ear Surgery, Hernia Repair, Hysterectomy, Orthopedic Surgery, Tonsillectomy, Tubal Ligation Additional Past Surgical History / Comment(s): Gastric bypass in 2008 with weight loss of 170 pounds, panniculectomy, L ear perforation with surgery, R knee open surgery as a child and x 2 arthroscopicL knee surgeries, R breast bx- benign, 2 umbilical hernias and 1 diaphragmatic hernia repairs, colonoscopy, mastoidectomy with Dr. Valderrama at [facility]. Past Anesthesia/Blood Transfusion Reactions: No Reported Reaction Smoking Status: Current every day smoker (Smokes half a pack a day since age of 16) - Past Family History Father Additional Family Medical History / Comment(s): Father from a aneurysm at the age of 72 yrs. he also had history of prostate cancer, aortic aneurysm, renal artery aneurysm. Mother Family Medical History: COPD Additional Family Medical History / Comment(s): Mother is 75 yrs old and has em physema and hypertension. Brother(s) Additional Family Medical History / Comment(s): She has one brother with hypertension and plaque psoriasis. Sister(s) Additional Family Medical History / Comment(s): She has one sister with hypertension. Son(s) Additional Family Medical History / Comment(s): Patient has 3 children, one boy with ureteral obstruction and renal failure. 2 girls that are healthy without major medical problems. Medications and Allergies Home Medications Medication Instructions Recorded Confirmed Type ALPRAZolam [Xanax] 2 mg PO TID PRN 10/07/18 10/07/18 History Acetaminophen Tab [Tylenol Tab] 1,000 mg PO Q6HR PRN 10/07/18 10/07/18 History Albuterol Inhaler [Ventolin Hfa 2 puff INHALATION RT-Q6H PRN 10/07/18 10/07/18 History Inhaler] Losartan Potassium [Cozaar] 100 mg PO DAILY@1400 10/07/18 10/07/18 History Allergies Allergy/AdvReac Type Severity Reaction Status Date / Time Penicillins Allergy Unknown Verified 10/07/18 12:39 sumatriptan [From Imitrex] Allergy Unknown Verified 10/07/18 12:39 sumatriptan succinate Allergy Unknown Verified 10/07/18 12:39 [From Imitrex] NSAIDS (Non-Steroidal AdvReac Unknown Verified 10/07/18 12:39 Anti-Inflamma Physical Exam Vitals: Vital Signs Temp Pulse Resp BP Pulse Ox 10/07/18 12:31 98.3 F 90 18 142/93 98 Intake and Output 10/07/18 10/07/18 10/07/18 06:59 14:59 22:59 Other: Weight 63.503 kg - Constitutional General appearance: cooperative, no acute distress, obese - EENT Eyes: anicteric sclerae, PERRLA, normal appearance ENT: hearing grossly normal - Neck Neck: no lymphadenopathy, normal ROM, no other, no rigidity, no stridor, no thyromegaly - Respiratory Respiratory: bilateral: CTA, negative: diminished, dullness, rales, rhonchi - Cardiovascular Rhythm: regular Heart sounds: normal: S1, S2 Abnormal Heart Sounds: no systolic murmur, no diastolic murmur, no rub, no S3 Gallop, no S4 Gallop, no click, no other - Gastrointestinal General gastrointestinal: normal bowel sounds, soft tender diffusely, si gnificantly tender in the right lower quadrant and left upper quadrant, no umblicus - Integumentary Integumentary: no rash - Neurologic Neurologic: CNII-XII intact - Musculoskeletal Musculoskeletal: gait normal, strength equal bilaterally - Psychiatric Psychiatric: A&O x's 3, appropriate affect Results CBC & Chem 7: 10/07/18 12:58 10/07/18 12:58 Labs: Abnormal Lab Results - Last 24 Hours (Table) 10/07/18 10/07/18 Range/Units 12:58 12:58 WBC 15.5 H (3.8-10.6) k/uL Plt Count 491 H (150-450) k/uL Neutrophils # 11.1 H (1.3-7.7) k/uL Eosinophils # 0.8 H (0-0.7) k/uL Chloride 111 H (98-107) mmol/L Thrombosis Risk Factor Assmnt - DVT/VTE Prophylaxis DVT/VTE Prophylaxis: Pharmacologic Prophylaxis ordered - Choose All That Apply Any of the Below Risk Factors Present?: Yes Each Factor Represents 1 point: Age 41-60 years Other Risk Factors: No Other congenital or acquired thrombophilia - If yes, enter type in comment: No Thrombosis Risk Factor Assessment Total Risk Factor Score: 1 Thrombosis Risk Factor Assessment Level: Low Risk Assessment and Plan Plan: #1 acute colitis with positive SIRS. We will start patient on Cipro and Flagyl. Gastroenterology consult. Clear liquid diet. Normal saline at [address] abdomen and colitis with moderate edema in the ascending colon lactic acid ordered to rule out ischemic colitis. Differential currently inflammatory versus infectious colitis. Infectious disease consulted , pain controlled on Ultram and morphine as needed #2 hypertension continue losartan 100 mg by mouth daily #3 Anxiety patient is on 2 mg 3 times a day of Xanax was reduced to 1 mg 3 times a day as needed for anxiety #4 tobacco use patient smokes half a pack a day. Declined nicotine patch consult on smoking cessation #5 Code status full code #6 DVT prophylaxis with heparin every 12
[2018-10-07] MEDS: MORPHINE SULFATE 4 MG/ML SYRINGE IVP PRN ×2 (17:45→22:26)
[2018-10-07] MEDS ORDERED: PANTOPRAZOLE 40 MG/10 ML VIAL IVP SCH (21:00)
--- NOTE | 2018-10-07 22:06 | P.CONS ---
History of Present Illness - Reason for Consult Consult date: 10/07/18 Colitis Requesting physician: Madhavi Cage - Chief Complaint Left flank pain since this morning - History of Present Illness Patient is a 48-year-old female presenting to the ER at [facility] with the left flank pain that started about 6:30 this morning patient says she has excruciating pain in the left flank area with intensity of almost 10 out of 10 with some radiation to the front, the patient has felt nauseated but no vomiting did have a normal bowel movement this morning patient denies having any fever or any chills and no other member of the family are sick with similar illnesses patient did not took any antibiotic in the recent past with the Center the patient was evaluated by the physician on arrival to the area the patient has been afebrile she was noticed to have elevated white count of 15.5 lactic acid was normal a CT of abdominal pelvis was completed we did shows evidence of mild pancolitis more marked in the ascending colon area with evidence of previous appendectomy patient has been started on Levaquin and Flagyl admitted to the hospital infectious disease was consulted for further recommendation of antibiotic therapy, patient to have history of penicillin ALLERGY with a rash she has taken Keflex with some GI side effects of nausea but no rash Review of Systems CONSTITUTIONAL: Positive for weakness. Denies any Fever EYES: No complaint. ENT:No complaint. RESPIRATORY: No complaint. CARDIOVASCULAR: No complaint. GENITOURINARY: No complaint. GASTROINTESTINAL: As per history of present illness MUSCULOSKELETAL: No complaint. INTEGUMENTARY: No complaint. PSYCHOLOGICAL: No complaint. ENDOCRINE: No complaint. NEUROLOGIC: No complaint. Past Medical History Past Medical History: Asthma, Hypertension Additional Past Medical History / Comment(s): Past L mastoiditis with L otitis/vertigo and falls-had surgery and no longer a problem, nephrolithiasis, migraines, past chronic low back pain but pt states not much of a problem anymore, DJD, hypoglycemia, History of Any Multi-Drug Resistant Organisms: None Reported Past Surgical History: Adenoidectomy, Appendectomy, Bariatric Surgery, Breast Surgery, Cholecystectomy, Ear Surgery, Hernia Repair, Hysterectomy, Orthopedic Surgery, Tonsillectomy, Tubal Ligation Additional Past Surgical History / Comment(s): Gastric bypass in 2008 with weight loss of 170 pounds, panniculectomy, L ear perforation with surgery, R knee open surgery as a child and x 2 arthroscopicL knee surgeries, R breast bx- benign, 2 umbilical hernias and 1 diaphragmatic hernia repairs, colonoscopy, mastoidectomy with Dr. Valderrama at [facility]. Past Anesthesia/Blood Transfusion Reactions: No Reported Reaction Smoking Status: Current every day smoker (Smokes half a pack a day since age of 16) - Past Family History Father Additional Family Medical History / Comment(s): Father from a aneurysm at the age of 72 yrs. he also had history of prostate cancer, aortic aneurysm, renal artery aneurysm. Mother Family Medical History: COPD Additional Family Medical History / Comment(s): Mother is 75 yrs old and has emphysema and hypertension. Brother(s) Additional Family Medical History / Comment(s): She has one brother with hypertension and plaque psoriasis. Sister(s) Additional Family Medical History / Comment(s): She has one sister with hypertension. Son(s) Additional Family Medical History / Comment(s): Patient has 3 children, one boy with ureteral obstruction and renal failure. 2 girls that are healthy without major medical problems. Medications and Allergies Home Medications Medication Instructions Recorded Confirmed Type ALPRAZolam [Xanax] 2 mg PO TID PRN 10/07/18 10/07/18 History Acetaminophen Tab [Tylenol Tab] 1,000 mg PO Q6HR PRN 10/07/18 10/07/18 History Albuterol Inhaler [Ventolin Hfa 2 puff INHALATION RT-Q6H PRN 10/07/18 10/07/18 History Inhaler] Losartan Potassium [Cozaar] 100 mg PO DAILY@1400 10/07/18 10/07/18 History Allergies Allergy/AdvReac Type Severity Reaction Status Date / Time Penicillins Allergy Unknown Verified 10/07/18 12:39 sumatriptan [From Imitrex] Allergy Unknown Verified 10/07/18 12:39 sumatriptan succinate Allergy Unknown Verified 10/07/18 12:39 [From Imitrex] NSAIDS (Non-Steroidal AdvReac Unknown Verified 10/07/18 12:39 Anti-Inflamma Physical Exam Vitals: Vital Signs Temp Pulse Pulse Resp BP BP Pulse Ox 10/07/18 17:15 97.6 F 67 17 125/84 98 10/07/18 12:31 98.3 F 90 18 142/93 98 Intake and Output 10/07/18 10/07/18 10/07/18 06:59 14:59 22:59 Other: Weight 63.503 kg GENERAL DESCRIPTION: Middle-aged female lying in bed, no distress. No tachypnea or accessory muscle of respiration use. HEENT: Shows Pallor , no scleral icterus. Oral mucous membrane is dry. No pharyngeal erythema or thrush NECK: Trachea central, no thyromegaly. LUNGS: Unlabored breathing. Clear to auscultation anteriorly. No wheeze or crackle. HEART: S1, S2, regular rate and rhythm. No loud murmur ABDOMEN: Soft, mildly tender left lower quadrant tenderness , no guarding or rigidity, no organomegaly EXTREMITIES: No edema of feet. SKIN: No rash, no masses palpable. NEUROLOGICAL: The patient is awake, alert, oriented x3, mood and affect normal. Results CBC & Chem 7: 10/07/18 12:58 10/07/18 12:58 Labs: Abnormal Lab Results - Last 24 Hours (Table) 10/07/18 10/07/18 10/07/18 Range/Units 12:58 12:58 17:09 WBC 15.5 H (3.8-10.6) k/uL Plt Count 491 H (150-450) k/uL Neutrophils # 11.1 H (1.3-7.7) k/uL Eosinophils # 0.8 H (0-0.7) k/uL Chloride 111 H (98-107) mmol/L Plasma Lactic Acid Alexis <0.5 L (0.7-2.0) mmol/L Assessment and Plan Assessment: 1-patient presented to hospital with acute left flank pain with some radiation to the anterior abdominal area and this patient who did have elevated white count but no fever normal lactic acid with evidence of pancolitis more marked in the ascending colitis suspicious is high for possible inflammatory bowel disease underlying infectious colitis less likely but not entirely excluded will need to cover for the enteric gram-negative both aerobes and anaerobes 2-patient with a history of penicillin G with a rash, has taken Keflex with some GI side effects of nausea but no rash Plan: 1-discontinue the Levaquin 2-start the patient on Rocephin 2 g daily and continue with the Flagyl 500 every 8 hours 3-if the patient started with diarrhea to obtain stool studies We will follow-up on clinical condition and cultures to further adjust medication if needed Thank you for this consultation will follow this patient along with you Time with Patient: Greater than 30
[2018-10-07] MEDS: ALPRAZolam 1 MG TAB PO PRN (22:27)
[2018-10-07 23:20] VITALS: RESP 16
[2018-10-08] MEDS: metroNIDAZOLE-NS PMX 500 MG in SALINE 1 100ML.BAG IVPB SCH ×2 (00:17→08:35)
[2018-10-08] MEDS: ACETAMINOPHEN TAB 325 MG TAB PO PRN ×2 (02:54→08:34)
[2018-10-08] MEDS: ALPRAZolam 1 MG TAB PO PRN ×2 (05:43→10:52)
[2018-10-08 08:12] LABS: Basophils % (A) 1 %; Eosinophils # (A) 0.5 k/uL (0-0.7); Eosinophils % (A) 6 %; HCT 34.8 % (34.0-46.0); HGB 10.8 gm/dL (11.4-16.0); Lymphocytes # (A) 3.7 k/uL (1.0-4.8); Lymphocytes % (A) 43 %; Mean Platelet Volume 6.7; Monocytes # (A) 0.4 k/uL (0-1.0); Monocytes % (A) 5 %; Neutrophils # (A) 3.7 k/uL (1.3-7.7); Neutrophils % (A) 44 %; Platelet Count 426 k/uL (150-450); RBC 3.59 m/uL (3.80-5.40); RDW 14.1 % (11.5-15.5); WBC 8.4 k/uL (3.8-10.6)
[2018-10-08 08:18] LABS: ALT 17 U/L (9-52); AST 11 U/L (14-36); Albumin 3.1 g/dL (3.5-5.0); Alkaline Phosphatase 63 U/L (38-126); Anion Gap 4 mmol/L; Blood Urea Nitrogen 5 mg/dL (7-17); Carbon Dioxide 26 mmol/L (22-30); Chloride 110 mmol/L (98-107); Glucose 81 mg/dL (74-99); Potassium 4.3 mmol/L (3.5-5.1); Sodium 140 mmol/L (137-145); Total Bilirubin 0.2 mg/dL (0.2-1.3); Total Protein 5.4 g/dL (6.3-8.2)
--- NOTE | 2018-10-08 09:11 | P.CONS ---
History of Present Illness - Reason for Consult Consult date: 10/08/18 colitis Requesting physician: Alexia arteaga) - Chief Complaint abdominal pain - History of Present Illness 48-year-old female with a past medical history of Jv-en-Y gastric bypass several years ago in [place], nephrolithiasis, asthma, hypertension, multiple abdominal surgeries hernia repairs admitted with left flank/left sided abdominal pain 2 days. Patient thought she was passing a kidney stone. CT abdomen and pelvis reported a mild hernandes colonic wall thickening with more moderate edematous circumferential wall thickening along the ascending colon possible infectious possible inflammatory colitis. Focal soft tissue thickening along the anterior wall of the GE junction that could represent redundant mucosa. Direct visualization clinically indicated to exclude underlying neoplasm. Denies fever chills hematemesis hematochezia or melena. Patient has one to 2 soft bowel movements daily. She's noticed a small address change clerk the past week may be 3 bowel movements a day but would qualify to his diarrhea. No constipation. No weight loss. No recent changes in diet sick contacts or travels. She works in a halfway. No recent antibiotics. No history of personal or familial flatter bowel disease. Last colonoscopy 8 years ago to her memory was normal no polyps removed. Last EGD was just prior to her gastric bypass. Takes Zantac as needed no daily PPI. No aspirin alcohol or NSAIDs. Presently she reports improvement in her abdominal pain. White count 15.5 improved to 8.4. He will been 10.8. LFTs within normal limits. Amylase lipase unremarkable. Review of Systems Constitutional: Denies fever, chills, sweats, weight gain, or loss. HEENT: Negative for migraines, blurred vision or loss, earaches, drainage, tinnitus, oral mucosal lesions, dysphagia, or odynophagia. CARDIAC: Negative for chest pain, arrhythmias, or palpitation. RESPIRATORY: Negative for shortness of breath, hemoptysis, cough, or sputum production. GI: See HPI for pertinent findings. : Negative for hematuria, urgency, frequency, polyuria, or dysuria. GYNc: Denies possibility of . Negative vaginal discharge. MUSCULOSKELETAL: Negative for muscle aches, swelling, arthritis, and arthralgias. NEUROLOGIC: Negative for stroke or TIA. ENDOCRINE: Negative for thyroid problems. SKIN: Negative for rash or itching. PSYCHIATRIC: Negative history for depression and anxiety Past Medical History Past Medical History: Asthma, Hypertension Additional Past Medical History / Comment(s): Past L mastoiditis with L otitis/vertigo and falls-had surgery and no longer a problem, nephrolithiasis, migraines, past chronic low back pain but pt states not much of a problem anymore, DJD, hypoglycemia, History of Any Multi-Drug Resistant Organisms: None Reported Past Surgical History: Adenoidectomy, Appendectomy, Bariatric Surgery, Breast Surgery, Cholecystectomy, Ear Surgery, Hernia Repair, Hysterectomy, Orthopedic Surgery, Tonsillectomy, Tubal Ligation Additional Past Surgical History / Comment(s): Gastric bypass in 2008 with weight loss of 170 pounds, panniculectomy, L ear perforation with surgery, R knee open surgery as a child and x 2 arthroscopicL knee surgeries, R breast bx- benign, 2 umbilical hernias and 1 diaphragmatic hernia repairs, colonoscopy, mas toidectomy with Dr. Valderrama at [facility]. Past Anesthesia/Blood Transfusion Reactions: No Reported Reaction Smoking Status: Current every day smoker (Smokes half a pack a day since age of 16) - Past Family History Father Additional Family Medical History / Comment(s): Father from a aneurysm at the age of 72 yrs. he also had history of prostate cancer, aortic aneurysm, renal artery aneurysm. Mother Family Medical History: COPD Additional Family Medical History / Comment(s): Mother is 75 yrs old and has emphysema and hypertension. Brother(s) Additional Family Medical History / Comment(s): She has one brother with hypertension and plaque psoriasis. Sister(s) Additional Family Medical History / Comment(s): She has one sister with hypertension. Son(s) Additional Family Medical History / Comment(s): Patient has 3 children, one boy with ureteral obstruction and renal failure. 2 girls that are healthy without major medical problems. Medications and Allergies Home Medications Medication Instructions Recorded Confirmed Type ALPRAZolam [Xanax] 2 mg PO TID PRN 10/07/18 10/07/18 History Acetaminophen Tab [Tylenol Tab] 1,000 mg PO Q6HR PRN 10/07/18 10/07/18 History Albuterol Inhaler [Ventolin Hfa 2 puff INHALATION RT-Q6H PRN 10/07/18 10/07/18 History Inhaler] Losartan Potassium [Cozaar] 100 mg PO DAILY@1400 10/07/18 10/07/18 History Allergies Allergy/AdvReac Type Severity Reaction Status Date / Time Penicillins Allergy Unknown Verified 10/07/18 12:39 sumatriptan [From Imitrex] Allergy Unknown Verified 10/07/18 12:39 sumatriptan succinate Allergy Unknown Verified 10/07/18 12:39 [From Imitrex] NSAIDS (Non-Steroidal AdvReac Unknown Verified 10/07/18 12:39 Anti-Inflamma Physical Exam Vitals: Vital Signs Temp Pulse Pulse Resp BP BP Pulse Ox 10/08/18 05:00 97.7 F 75 16 114/72 96 10/07/18 20:45 97.4 F L 76 16 129/86 96 10/07/18 17:15 97.6 F 67 17 125/84 98 10/07/18 12:31 98.3 F 90 18 142/93 98 Intake and Output 10/07/18 10/08/18 10/08/18 22:59 06:59 14:59 Other: Voiding Method Toilet # Voids 2 General appearance: The patient is alert, oriented, in no acute distress. HET: Head is normocephalic and atraumatic. Pupils are equal and reactive. Oropharynx is clear without lesions. Neck: Supple without lymphadenopathy. Trachea midline. Heart: S1 S2. Regular rate and rhythm. Lungs: No crackles or wheezes are heard. Abdomen: Soft, very mild tenderness to the left flank region, nondistended with bowel sounds. No peritoneal signs. No palpable organomegaly or masses. Extremities: Normal skin color and turgor. No cyanosis, rash, ulceration, clubbing, or edema. Radial and pedal pulses are 2/4 bilaterally. Neurological: No focal deficits. Strength and sensation are grossly intact. Results CBC & Chem 7: 10/08/18 07:38 10/08/18 07:38 Labs: Abnormal Lab Results - Last 24 Hours (Table) 10/07/18 10/07/18 10/07/18 Range/Units 12:58 12:58 17:09 WBC 15.5 H (3.8-10.6) k/uL RBC (3.80-5.40) m/uL Hgb (11.4-16.0) gm/dL Plt Count 491 H (150-450) k/uL Neutrophils # 11.1 H (1.3-7.7) k/uL Eosinophils # 0.8 H (0-0.7) k/uL Chloride 111 H (98-107) mmol/L BUN (7-17) mg/dL Plasma Lactic Acid Alexis <0.5 L (0.7-2.0) mmol/L AST (14-36) U/L Total Protein (6.3-8.2) g/dL Albumin (3.5-5.0) g/dL 10/08/18 10/08/18 Range/Units 07:38 07:38 WBC (3.8-10.6) k/uL RBC 3.59 L (3.80-5.40) m/uL Hgb 10.8 L (11.4-16.0) gm/dL Plt Count (150-450) k/uL Neutrophils # (1.3-7.7) k/uL Eosinophils # (0-0.7) k/uL Chloride 110 H (98-107) mmol/L BUN 5 L (7-17) mg/dL Plasma Lactic Acid Alexis (0.7-2.0) mmol/L AST 11 L (14-36) U/L Total Protein 5.4 L (6.3-8.2) g/dL Albumin 3.1 L (3.5-5.0) g/dL CT scan - abdomen: report reviewed (Dr. Steen) Assessment and Plan (1) Abdominal pain Narrative/Plan: 48-year-old female history of Jv-en-Y gastric bypass admitted with acute abdominal pain left flank left-sided abdominal region mild leukocytosis CT reported hernandes colitis possible infectious possible inflammatory with mild leukocy tosis without fever or bleeding. Some focal soft tissue thickening along the anterior wall the GE junction possible redundant mucosa underlying neoplasm could not be excluded. Empiric antibiotic started with clinical improvement. Current Visit: Yes Status: Acute Code(s): R10.9 - UNSPECIFIED ABDOMINAL PAIN SNOMED Code(s): 36700987 (2) Colitis Current Visit: Yes Status: Acute Code(s): K52.9 - NONINFECTIVE GASTROENTERITIS AND COLITIS, UNSPECIFIED SNOMED Code(s): 02162646 (3) History of Jv-en-Y gastric bypass Current Visit: Yes Status: Acute Code(s): Z98.84 - BARIATRIC SURGERY STATUS SNOMED Code(s): 450034371 Plan: 1. EGD colonoscopy was recommended and offered as inpatient however patient declined. Patient states she would like to pursue this as an outpatient and will call the GI office next week with her schedule; to further discuss. She is requesting diet advancement and discharge. Presently reports no abdominal pain. Will allow low residue diet. Antibiotics per ID. Discharge per medicine. Follow-up GI visit provided. Thank you for this kind referral and the opportunity to participate in the care of your patient. This consultation was discussed with Dr. Steen. The impression and plan of care have been directed as dictated.
--- NOTE | 2018-10-08 11:32 | P.DS ---
Providers Date of admission: 10/07/18 15:25 Attending physician: Madhavi Cage MD Consults: 10/07/18 15:25 Consult Physician Routine Consulting Provider: Ayaan Ashton Consult Reason/Comments: Abdominal pain, colitis Do you want consulting provider notified?: Yes 10/07/18 17:08 Consult Physician Routine Consulting Provider: Sona Brandon Consult Reason/Comments: pancolitis Do you want consulting provider notified?: Yes Primary care physician: Saleem Page [facility] Course: 48 years old female patient of Dr. Page with past medical history of hypertension and asthma history of gastric bypass in 2008 done in [place], history of anxiety presents in with an acute abdominal pain started at 6 AM in the morning radiating down to the groin. Patient has history of renal stone in the past and thought it to be kidney stone. She denies any nausea or vomiting or any diarrhea episode. Patient denies any melena or bright red blood per rectum. She denies any previous episodes similar to this. On evaluation in the ER, vital signs suggest temp of 98.3 pulse 90 blood pressure 142/93 saturating well on room air. Laboratory evaluation suggestive WBC count of 15.5 hemoglobin 12.8 hematocrit 39.4 with platelet of 491 BNP suggestive sodium 142 potassium 4.3 chloride 111 bicarb 24 B[address] abdomen was done suggested pancolonic wall thickening with moderate edematous circumferential wall thickening along the ascending colon. Patient initiated on levofloxacin and Flagyl for colitis. With gastroenterology consult. In normal saline to be continued at 75 mL per hour patient would need colonoscopy in couple of weeks for evaluation. Patient hematocrit bedside denies any abdominal pain, nausea, vomiting or diarrhea. She denies any cardiovascular disease in the past denies any history of heart attacks. GI evaluated the patient yesterday and recommended EGD and colonoscopy however patient refused inpatient endoscopy and colonoscopy and would follow up as outpatient. There is pancolitis there is a possibility of inflammatory bowel disease versus infectious bowel disease. Patient is able to tolerate her breakfast without any difficulty. No episode of fever overnight temp 97.7 pulse 75 history rate 16 blood pressure 114/72. WBC is 8.4 hemoglobin 10.8 chloride 110 B UN 5 lactic acid 0.5. Continue antibiotic ciprofloxacin and Flagyl for another 13 days. Patient warned on alarming signs including significant worsening abdominal pain and bloody stools hypertension dizziness nausea and vomiting for an impending perforation and to seek medical help if the symptoms occur Discharge diagnoses #1 acute colitis with positive SIRS. #2 hypertension #3 Anxiety #4 tobacco use #5 history of gastric bypass with possible redundant mucosa requires diuretic visualization to rule out underlying neoplasm CC a copy of discharge to Dr. Worthy disposition home follow up with gastroenterology and ID Patient Condition at Discharge: Stable Plan - Discharge Summary Discharge Rx Participant: No New Discharge Prescriptions: New metroNIDAZOLE [Flagyl] 500 mg PO TID #39 tab Ciprofloxacin HCl [Cipro] 500 mg PO Q12HR #26 tablet Continue Losartan Potassium [Cozaar] 100 mg PO DAILY@1400 ALPRAZolam [Xanax] 2 mg PO TID PRN PRN Reason: Anxiety Discontinued Albuterol Inhaler [Ventolin Hfa Inhaler] 2 puff INHALATION RT-Q6H PRN PRN Reason: Shortness Of Breath Acetaminophen Tab [Tylenol Tab] 1,000 mg PO Q6HR PRN PRN Reason: Pain Discharge Medication List ALPRAZolam [Xanax] 2 mg PO TID PRN 10/07/18 [History] Losartan Potassium [Cozaar] 100 mg PO DAILY@1400 10/07/18 [History] Ciprofloxacin HCl [Cipro] 500 mg PO Q12HR #26 tablet 10/08/18 [Rx] metroNIDAZOLE [Flagyl] 500 mg PO TID #39 tab 10/08/18 [Rx] Follow up Appointment(s)/Referral(s): Saleem Page DO [Primary Care Provider] - 1-2 days Oral Steen MD [STAFF PHYSICIAN] - 10/29/18 8:00 am Discharge Disposition: HOME SELF-CARE
[2018-10-08 12:17] VITALS: BP 128/86; PULSE 70; TEMP 97.5
[2018-10-08] MEDS ORDERED: LOSARTAN 50 MG TAB PO SCH (14:00)
--- NOTE | 2018-10-08 14:42 | PN ---
PROGRESS NOTE DATE OF SERVICE: 10/08/2018. REASON FOR FOLLOW UP: Zepeda colitis, question of infectious versus inflammatory bowel disease. INTERVAL HISTORY: The patient is afebrile. The patient overall is feeling much better. The patient abdominal pain has improved down to about 2 out of 10. No further nausea, vomiting. Has been tolerating regular diet. Did have small bowel movement. PHYSICAL EXAMINATION: Blood pressure 128/86 with a pulse of 70. Temperature 97.5. She is 97% on room air. General description is a middle-aged female up in the bed in no distress. Respiratory system: Unlabored breathing clear to auscultation. Heart: S1, S2. Regular rate and rhythm. Abdomen soft, no tenderness. LABS: Hemoglobin is 10.8, white count 8.4, BUN of 5, creatinine 0.53. DIAGNOSTIC IMPRESSION AND PLAN: Patient admitted to the hospital with acute abdominal pain with evidence of pancolitis mostly involving the ascending colon concern for possible ischemic bowel disease versus infectious. The patient has shown overall clinical improvement very quickly and insists on going home. Antibiotics have been switched over to Cipro and Flagyl for about 10 days with close outpatient followup. GI has seen the patient and will do a colonoscopy in the outpatient setting. Patient advised if any worsening recurrence of abdominal pain or any fever to let us know right away. MMODL / IJN: [id number] /
[2018-10-08] MEDS ORDERED: LEVOFLOXACIN 500MG-D5W PMX 500 MG in DEXTROSE/WATER 1 100ML.BAG IVPB SCH (15:00)
[2018-10-08] MEDS ORDERED: metroNIDAZOLE 500 MG TAB PO SCH (16:00)
== END 2018-10-08 12:50 | disposition home or self-care (01) ==
LOC: EC 12:30 → INTOOBSV 15:25 → 3NMEDONC 15:25
PROVIDERS: ADMIT Internal Medicine; ATTEND Internal Medicine
DX: K52.9 Noninfective gastroenteritis and colitis, unspecified (principal); R65.10 Systemic inflammatory response syndrome (SIRS) of non-infectious origin without acute organ dysfunction; I10 Essential (primary) hypertension; J45.909 Unspecified asthma, uncomplicated; M19.90 Unspecified osteoarthritis, unspecified site; D72.829 Elevated white blood cell count, unspecified; G89.29 Other chronic pain; M54.5 Low back pain; K44.9 Diaphragmatic hernia without obstruction or gangrene; R42 Dizziness and giddiness; G43.909 Migraine, unspecified, not intractable, without status migrainosus; F41.9 Anxiety disorder, unspecified; F32.9 Major depressive disorder, single episode, unspecified; F17.210 Nicotine dependence, cigarettes, uncomplicated; Z79.899 Other long term (current) drug therapy; Z88.0 Allergy status to penicillin; Z88.6 Allergy status to analgesic agent; Z88.8 Allergy status to other drugs, medicaments and biological substances; Z91.81 History of falling; Z90.49 Acquired absence of other specified parts of digestive tract; Z90.710 Acquired absence of both cervix and uterus; Z86.69 Personal history of other diseases of the nervous system and sense organs; Z87.442 Personal history of urinary calculi; Z98.84 Bariatric surgery status; Z82.49 Family history of ischemic heart disease and other diseases of the circulatory system; Z80.42 Family history of malignant neoplasm of prostate; Z82.5 Family history of asthma and other chronic lower respiratory diseases; Z84.0 Family history of diseases of the skin and subcutaneous tissue; Z84.1 Family history of disorders of kidney and ureter
CPT/HCPCS: 96376 ×2; 96366 ×2; 96367; 96375 ×2; 96361; 96365; 99285; 36415; 80053 ×2; 82150; 83605; 83690; 85025 ×2; 81003; 74018; 74177; G0378 ×3; J2270; J2405; J1956; J0696; J1170 ×2; Q9967

== ENCOUNTER 2019-01-20 17:19 | Observation (INO) | payer OTHER ==
[2019-01-20] MEDS ORDERED: NITROGLYCERIN OINT 1 INCH/GM PACKET TOPICAL STA (17:35)
[2019-01-20] MEDS ORDERED: ASPIRIN 81 MG PO STA (17:38)
--- NOTE | 2019-01-20 18:01 | ED ---
Headache HPI - General Chief Complaint: Chest Pain Stated Complaint: chest pressure, SOB, left arm pain Time Seen by Provider: 01/20/19 17:21 Mode of arrival: ambulatory Limitations: no limitations - History of Present Illness Initial Comments: Pleasant 49-year-old female with history of previous gastric bypass, hypertension, every day smoker, chronic migraines presents today for chief complaint chest pressure, shortness of breath, left arm pain. Patient states that 30 minutes prior to arrival she was getting in her car to go to work which she began experiencing chest pressure, shortness of breath and left arm pain. Patient states she was scared to drive. Patient states she also concurrently had a migraine she states this has been ongoing for the past 3 days she states is very typical in character sick of her chronic migraine that she expresses and takes Fioricet for it. Patient denies any specific changes that were alarming about the headache she states if it was only the headaches were not present to the emergency department today. Patient denies any history of coronary artery disease that is known she denies any premature cardiovascular disease within the family. However family does have history of CAD. Patient denies history of DVT or pulmonary embolism denies recent surgical procedures denies hemoptysis leg swelling calf pain. Patient states she did feel slightly nauseous at the time. Denies diaphoresis. Patient states that time she had neck pain. Patient states she is photophobic due to the migraine and this is very typical characteristic of her migraines. Patient denies any fever or neck stiffness. Remaining review of systems negative. Upon arrival patient appears uncomfortable. Vital signs stable. - Related Data Home Medications Medication Instructions Recorded Confirmed Losartan Potassium [Cozaar] 100 mg PO DAILY@1400 10/07/18 01/20/19 ALPRAZolam [Xanax] 1 mg PO HS 01/20/19 01/20/19 Butalb/APAP/Caff 50-325-40Mg 1 tab PO Q4H PRN 01/20/19 01/20/19 [Fioricet 50-325-40] Cyclobenzaprine HCl 10 mg PO HS 01/20/19 01/20/19 diphenhydrAMINE HCL [Benadryl] 25 mg PO HS PRN 01/20/19 01/20/19 Allergies Allergy/AdvReac Type Severity Reaction Status Date / Time Penicillins Allergy Unknown Verified 01/20/19 17:36 sumatriptan [From Imitrex] Allergy Unknown Verified 01/20/19 17:36 sumatriptan succinate Allergy Unknown Verified 01/20/19 17:36 [From Imitrex] NSAIDS (Non-Steroidal AdvReac Unknown Verified 01/20/19 17:36 Anti-Inflamma Review of Systems ROS Statement: Those systems with pertinent positive or pertinent negative responses have been documented in the HPI. ROS Other: All systems not noted in ROS Statement are negative. Past Medical History Past Medical History: Asthma, Hypertension Additional Past Medical History / Comment(s): Past L mastoiditis with L otitis/vertigo and falls-had surgery and no longer a problem, nephrolithiasis, migraines, past chronic low back pain but pt states not much of a problem anymore, DJD, hypoglycemia, History of Any Multi-Drug Resistant Organisms: None Reported Past Surgical History: Adenoidectomy, Appendectomy, Bariatric Surgery, Breast Surgery, Cholecystectomy, Ear Surgery, Hernia Repair, Hysterectomy, Orthopedic Surgery, Tonsillectomy, Tubal Ligation Additional Past Surgical History / Comment(s): Gastric bypass in 2008 with weight loss of 170 pounds, panniculectomy, L ear perforation with surgery, R knee open surgery as a child and x 2 arthroscopicL knee surgeries, R breast bx- benign, 2 umbilical hernias and 1 diaphragmatic hernia repairs, colonoscopy, mastoidectomy with Dr. Valderrama at [facility]. Past Anesthesia/Blood Transfusion Reactions: No Reported Reaction Past Psychological History: Anxiety, Depression Smoking Status: Current every day smoker Past Alcohol Use History: None Reported Past Drug Use History: None Reported - Past Family History Father Additional Family Medical History / Comment(s): Father from a aneurysm at the age of 72 yrs. he also had history of prostate cancer, aortic aneurysm, renal artery aneurysm. Mother Family Medical History: COPD Additional Family Medical History / Comment(s): Mother is 75 yrs old and has emphysema and hypertension. Brother(s) Additional Family Medical History / Comment(s): She has one brother with hypertension and plaque psoriasis. Sister(s) Additional Family Medical History / Comment(s): She has one sister with hypertension. Son(s) Additional Family Medical History / Comment(s): Patient has 3 children, one boy with ureteral obstruction and renal failure. 2 girls that are healthy without major medical problems. General Exam - General Exam Comments Initial Comments: General: The patient is awake and alert, patient was wearing sunglasses initally (removed for eye exam). Eye: +3 mm pupils are equal, round and reactive to light, extra-ocular movements are intact. No nystagmus. There is normal conjunctiva bilaterally. No signs of icterus. Ears, nose, mouth and throat: There are moist mucous membranes and no oral lesions. Neck: The neck is supple, there is no tenderness or JVD. Cardiovascular: There is a regular rate and rhythm. No murmur, rub or gallop is appreciated. Respiratory: Lungs are clear to auscultation, respirations are non-labored, breath sounds are equal. No wheezes, stridor, rales, or rhonchi. Gastrointestinal: Soft, non-distended, non-tender abdomen without masses or organomegaly noted. There is no rebound or guarding present. Musculoskeletal: Normal ROM, no tenderness. Strength 5/5. Sensation intact. Radial pulses equal bilaterally 2+. Neurological: A&O x 3. CN II-XII intact, There are no obvious motor or sensory deficits. Coordination appears grossly intact. Speech is normal. Sensation intact of the upper and lower extremities equal and comparison bilaterally drift of the upper or lower extremities. Skin: Skin is warm and dry and no rashes or lesions are noted. No LE edema. Psychiatric: Cooperative, appropriate mood & affect, normal judgment. Limitations: no limitations Course Vital Signs 01/20/19 01/20/19 01/20/19 17:24 17:38 19:50 Temperature 98.6 F Pulse Rate 100 71 Pulse Rate [ 98 Pulse Oximetery ] Respiratory 16 18 Rate Blood Pressure 127/84 129/92 O2 Sat by Pulse 99 99 Oximetry Medical Decision Making - Medical Decision Making 9-year-old female presenting for atypical chest pain symptoms. Patient is given aspirin chew upon arrival. Patient also concurrent headache. CT of the brain r evealed no acute intracranial process and there is no focal neurological deficits. Patient denies any new character 6 of the headache. Patient was more SO concerned about her heart. Initial troponin negative. No findings consistent with a cute cornea syndrome on EKG. EKG was repeated 30 minutes apart from the initial. Patient was given a Nitrol ointment she states this did alleviate symptoms. Patient's headache was reduced from a 10 to a 4 out of 10 after morphine. Patient was administered Toradol which she states usually takes with her migraines. Patient was evaluated by myself as well as my attending provider at this time we are concerned for acute coronary syndrome such as numbness elevation NE and feel that admission is appropriate for serial troponins, as well as cardiology evaluation and possible stress testing. Patient is agreeable to this admission. She continues to be on telemetry. Currently denies any chest pain or shortness of breath. Headache resolving. Chest CTA was ordered by attending provider, revealing no acute process. No aneurysm are noted pulmonary embolism. No noted nodules. Patient transferred to the floor in stable crit addition. - Lab Data Result diagrams: 01/20/19 17:55 01/20/19 17:55 Lab Results 01/20/19 01/20/19 01/20/19 Range/Units 17:55 17:55 17:55 WBC 10.9 H (3.8-10.6) k/uL RBC 4.18 (3.80-5.40) m/uL Hgb 12.9 (11.4-16.0) gm/dL Hct 39.6 (34.0-46.0) % MCV 94.8 (80.0-100.0) fL MCH 30.8 (25.0-35.0) pg MCHC 32.5 (31.0-37.0) g/dL RDW 14.6 (11.5-15.5) % Plt Count 467 H (150-450) k/uL Neutrophils % 58 % Lymphocytes % 32 % Monocytes % 4 % Eosinophils % 6 % Basophils % 1 % Neutrophils # 6.3 (1.3-7.7) k/uL Lymphocytes # 3.4 (1.0-4.8) k/uL Monocytes # 0.4 (0-1.0) k/uL Eosinophils # 0.6 (0-0.7) k/uL Basophils # 0.1 (0-0.2) k/uL PT 9.5 (9.0-12.0) sec INR 0.9 (<1.2) APTT 26.0 (22.0-30.0) sec D-Dimer 0.44 (<0.60) mg/L FEU Sodium 141 (137-145) mmol/L Potassium 4.4 (3.5-5.1) mmol/L Chloride 110 H (98-107) mmol/L Carbon Dioxide 24 (22-30) mmol/L Anion Gap 7 mmol/L BUN 9 (7-17) mg/dL Creatinine 0.52 (0.52-1.04) mg/dL Est GFR (CKD-EPI)AfAm >90 (>60 ml/min/1.73 sqM) Est GFR (CKD-EPI)NonAf >90 (>60 ml/min/1.73 sqM) Glucose 89 (74-99) mg/dL Calcium 9.6 (8.4-10.2) mg/dL Magnesium 2.1 (1.6-2.3) mg/dL Total Bilirubin 0.2 (0.2-1.3) mg/dL AST 29 (14-36) U/L ALT 32 (9-52) U/L Alkaline Phosphatase 94 (38-126) U/L Troponin I (0.000-0.034) ng/mL Total Protein 7.0 (6.3-8.2) g/dL Albumin 4.0 (3.5-5.0) g/dL 01/20/19 Range/Units 17:55 WBC (3.8-10.6) k/uL RBC (3.80-5.40) m/uL Hgb (11.4-16.0) gm/dL Hct (34.0-46.0) % MCV (80.0-100.0) fL MCH (25.0-35.0) pg MCHC (31.0-37.0) g/dL RDW (11.5-15.5) % Plt Count (150-450) k/uL Neutrophils % % Lymphocytes % % Monocytes % % Eosinophils % % Basophils % % Neutrophils # (1.3-7.7) k/uL Lymphocytes # (1.0-4.8) k/uL Monocytes # (0-1.0) k/uL Eosinophils # (0-0.7) k/uL Basophils # (0-0.2) k/uL PT (9.0-12.0) sec INR (<1.2) APTT (22.0-30.0) sec D-Dimer (<0.60) mg/L FEU Sodium (137-145) mmol/L Potassium (3.5-5.1) mmol/L Chloride (98-107) mmol/L Carbon Dioxide (22-30) mmol/L Anion Gap mmol/L BUN (7-17) mg/dL Creatinine (0.52-1.04) mg/dL Est GFR (CKD-EPI)AfAm (>60 ml/min/1.73 sqM) Est GFR (CKD-EPI)NonAf (>60 ml/min/1.73 sqM) Glucose (74-99) mg/dL Calcium (8.4-10.2) mg/dL Magnesium (1.6-2.3) mg/dL Total Bilirubin (0.2-1.3) mg/dL AST (14-36) U/L ALT (9-52) U/L Alkaline Phosphatase (38-126) U/L Troponin I <0.012 (0.000-0.034) ng/mL Total Protein (6.3-8.2) g/dL Albumin (3.5-5.0) g/dL - EKG Data EKG Comments: EKG #1: Ventricular rate 89 bpm, AK interval 162 ms, QRS duration 88 ms, QT/QTC 384/467 ms. This is normal sinus. possible left atrial enlargement. no st elevation or depression. nonspecific t-wave. ekg obtained at 1741. EKG #2: Ventricular rate 84 bpm, AK interval 156 ms, QRS duration 88 ms, QT/QTC 390/460 ms. Normal sinus rhythm. Again noted left atrial enlargement. No ST elevation or depression nonspecific T-wave. No changes from previous this EKG was obtained at 1810. EKGs were reviewed by my attending provider Dr. Bazan Disposition Clinical Impression: Chest pressure, SOB (shortness of breath), Left arm pain, Headache Disposition: ADMITTED IP TO THIS HOSP Condition: Stable Is patient prescribed a controlled substance at d/c from ED?: No Referrals: Saleem Page DO [Primary Care Provider] - 1-2 days Time of Disposition: 20:49 Decision to Admit Reason: Admit from EC Decision Date: 01/20/19 Decision Time: 18:40
[2019-01-20] MEDS ORDERED: ONDANSETRON 4 MG/2 ML VIAL IVP STA (18:06)
[2019-01-20] MEDS ORDERED: MORPHINE SULFATE 2 MG/ML SYRINGE IVP STA (18:06)
[2019-01-20 18:25] LABS: Basophils # (A) 0.1 k/uL (0-0.2); Basophils % (A) 1 %; Eosinophils # (A) 0.6 k/uL (0-0.7); Eosinophils % (A) 6 %; HCT 39.6 % (34.0-46.0); HGB 12.9 gm/dL (11.4-16.0); Lymphocytes # (A) 3.4 k/uL (1.0-4.8); Lymphocytes % (A) 32 %; MCH 30.8 pg (25.0-35.0); MCHC 32.5 g/dL (31.0-37.0); MCV 94.8 fL (80.0-100.0); Mean Platelet Volume 7.4; Monocytes # (A) 0.4 k/uL (0-1.0); Monocytes % (A) 4 %; Neutrophils # (A) 6.3 k/uL (1.3-7.7); Neutrophils % (A) 58 %; Platelet Count 467 k/uL (150-450); RBC 4.18 m/uL (3.80-5.40); RDW 14.6 % (11.5-15.5); WBC 10.9 k/uL (3.8-10.6)
[2019-01-20 18:29] LABS: D-Dimer 0.44 mg/L FEU (<0.60); INR 0.9 (<1.2); Prothrombin Time 9.5 sec (9.0-12.0)
[2019-01-20 18:31] LABS: ALT 32 U/L (9-52); AST 29 U/L (14-36); African American GFR (CKD) >90 (>60 ml/min/1.73 sqM); Alkaline Phosphatase 94 U/L (38-126); Anion Gap 7 mmol/L; Blood Urea Nitrogen 9 mg/dL (7-17); Calcium 9.6 mg/dL (8.4-10.2); Carbon Dioxide 24 mmol/L (22-30); Chloride 110 mmol/L (98-107); Glucose 89 mg/dL (74-99); Magnesium 2.1 mg/dL (1.6-2.3); Potassium 4.4 mmol/L (3.5-5.1); Sodium 141 mmol/L (137-145); Total Bilirubin 0.2 mg/dL (0.2-1.3)
[2019-01-20] MEDS ORDERED: SODIUM CHLORIDE 0.9% 1,000 ML IV ONE (18:32)
--- NOTE | 2019-01-20 18:34 | XR ---
EXAMINATION TYPE: XR chest 2V DATE OF EXAM: 01/20/2019 COMPARISON: 04/06/2016 HISTORY: Chest pain TECHNIQUE: Frontal and lateral views of the chest are obtained. FINDINGS: Heart and mediastinum are normal. Lungs are clear of infiltrate. There is no pleural effus ion. There are no hilar masses. Bony thorax is intact. IMPRESSION: No active cardiopulmonary disease. There is no evidence of a right pulmonary nodule. Normal heart.
--- NOTE | 2019-01-20 18:57 | CT ---
EXAMINATION TYPE: CT brain wo con DATE OF EXAM: 01/20/2019 COMPARISON: 04/06/2016 HISTORY: Headache. CT DLP: 1099.4 mGycm. Automated Exposure Control for Dose Reduction was Utilized. TECHNIQUE: CT scan of the head is performed without contrast. FINDINGS: Ventricles have normal size. There is no mass effect nor midline shift. There is no sign of intracranial hemorrhage. The calvarium is intact. Skull base is intact. IMPRESSION: Negative CT scan of the brain. No change.
[2019-01-20] MEDS ORDERED: KETOROLAC 30 MG/ML 1 ML VIAL IVP STA (18:59)
[2019-01-20] MEDS ORDERED: NITROGLYCERIN SL TABS 0.4 MG TAB SUBLINGUAL PRN (19:11)
--- NOTE | 2019-01-20 20:34 | CT ---
EXAMINATION TYPE: CT angio chest DATE OF EXAM: 01/20/2019 8:17 PM COMPARISON: None HISTORY: Chest pain and weakness. CT DLP: 278.9 mGycm Automated exposure control for dose reduction was used. CONTRAST: CTA scan of the thorax is performed with IV Contrast, patient injected with 66ml mL of Isovue 370, pu lmonary embolism protocol. . There are 3-D post processed images. FINDINGS: The lungs are clear of infiltrate. There is no pleural effusion. There is mild hiatal hernia. Heart s ize is normal. There is no pericardial effusion. There is no mediastinal adenopathy. There are no hilar masses. There is normal contrast opacification of the pulmonary arteries. I see no filling defect. There is no evidence of aortic aneurysm or dissection. Ascending aorta measures 3.7 cm. The bony thor ax is intact. IMPRESSION: PREVIOUS GASTRIC SURGERY. HIATAL HERNIA. NO EVIDENCE OF PULMONARY EMBOLISM.
[2019-01-20] MEDS ORDERED: NICOTINE 14MG/24HR PATCH TRANSDERM STA (21:11)
[2019-01-20] MEDS ORDERED: ALPRAZolam 0.5 MG TAB PO STA (21:12)
[2019-01-20] MEDS ORDERED: ALPRAZolam 1 MG TAB PO SCH (21:15)
[2019-01-20] MEDS: BUTALB/APAP/CAFF 50-325-40MG TAB PO PRN (21:55)
[2019-01-21] MEDS: BUTALB/APAP/CAFF 50-325-40MG TAB PO PRN ×3 (01:10→07:52)
[2019-01-21 05:28] VITALS: TEMP 97.5
[2019-01-21 06:21] LABS: Cholesterol 154 mg/dL (<200); HDL Cholesterol 38 mg/dL (40-60); LDL Cholesterol,Calculated 102 mg/dL (0-99); Triglycerides 69 mg/dL (<150)
[2019-01-21 08:03] VITALS: BP 97/67; PULSE 71; RESP 16
[2019-01-21] MEDS ORDERED: ALPRAZolam 1 MG TAB PO PRN (08:40)
[2019-01-21] MEDS ORDERED: ASPIRIN 81 MG PO SCH (09:00)
[2019-01-21] MEDS ORDERED: ASPIRIN 325 MG TAB PO SCH (09:00)
--- NOTE | 2019-01-21 10:24 | ECHOF ---
Referral Reason: MEASUREMENTS -------- HEIGHT: 157.5 cm WEIGHT: 61.2 kg BP: 97/67 RVIDd: 3.4 cm (< 3.3) IVSd: 1.2 cm (0.6 - 1.1) LVIDd: 3.2 cm (3.9 - 5.3) LVPWd: 1.1 cm (0.6 - 1.1) IVSs: 1.4 cm LVIDs: 1.9 cm LVPWs: 1.4 cm LA Diam: 2.8 cm (2.7 - 3.8) LAESV Index (A-L): 25.97 ml/m Ao Diam: 3.1 cm (2.0 - 3.7) AV Cusp: 2.1 cm (1.5 - 2.6) MV EXCURSION: 14.967 mm (> 18.000) MV EF SLOPE: 65 mm/s (70 - 150) EPSS: 0.5 cm MV E Freedom: 0.94 m/s MV DecT: 165 ms MV A Freedom: 0.61 m/s MV E/A Ratio: 1.54 RAP: 5.00 mmHg RVSP: 28.31 mmHg FINDINGS -------- Sinus rhythm. This was a technically adequate study. The left ventricular size is normal. There is borderline concentric left ventricular hypertrophy. Overall left ventricular systolic function is normal with, an EF between 60 - 65 %. The right ventricle is mildly enlarged. Normal LA size by volume 22+/-6 ml/m2. The right atrium is normal in size. Aneurysmal Interatrial septum. The aortic valve is trileaflet and appears structurally normal. There is trace mitral regurgitation. Mild tricuspid regurgitation present. Right ventricular systolic pressure is normal at < 35 mmHg. There is no pulmonic regurgitation present. The aortic root size is normal. Normal inferior vena cava with normal inspiratory collapse consistent with estimated right atrial pre ssure of 5 mmHg. The inferior vena cava is mildly dilated. There is no pericardial effusion. CONCLUSIONS -------- 1. Sinus rhythm. 2. This was a technically adequate study. 3. The left ventricular size is normal. 4. There is borderline concentric left ventricular hypertrophy. 5. Overall left ventricular systolic function is normal with, an EF between 60 - 65 %. 6. The right ventricle is mildly enlarged. 7. Normal LA size by volume 22+/-6 ml/m2. 8. The right atrium is normal in size. 9. Aneurysmal Interatrial septum. 10. The aortic valve is trileaflet and appears structurally normal. 11. There is trace mitral regurgitation. 12. Mild tricuspid regurgitation present. 13. Right ventricular systolic pressure is normal at < 35 mmHg. 14. There is no pulmonic regurgitation present. 15. The aortic root size is normal. 16. Normal inferior vena cava with normal inspiratory collapse consistent with estimated right atrial pressure of 5 mmHg. 17. The inferior vena cava is mildly dilated. 18. There is no pericardial effusion. BRUSH HOLDER INSPECTOR: Catherine Ramirez RDCS
--- NOTE | 2019-01-21 11:10 | P.CRDCN ---
History of Present Illness History of present illness: This is a pleasant 49-year-old female past medical history significant for asthma, hypertension and chronic nicotine dependence. We've been asked to see her in consultation secondary to chest discomfort. She states she has had a migraine headache for the previous 3 days. Yesterday she started having some discomfort in her neck as well as shortness of breath and pain down the left arm. This episode lasted for approximately 40 minutes. There is no specific aggravating factor. She states she does suffer from anxiety and has had pain attacks in the past. This did feel somewhat similar to previous panic attack however she did not feel the significant palpitations that she had typically with panic attacks. Upon arrival to the emergency department she continued to have shortness of breath. She was given morphine and Nitropaste and her symptoms did subside after about 25 minutes. She is seen and examined sitting up in bed. She continues to have no ongoing headache. She denies any further symptoms of shortness of breath or discomfort in the left arm. She denies ever having had any symptoms of chest discomfort. EKG reveals sinus mechanism with no acute ST or T wave abnormalities noted. Chest x-ray negative for an acute cardiopulmonary process. CTA chest negative for PE, evidence of hiatal hernia. Laboratory data reviewed, WBC 10.9, hemoglobin 12.9, platelets 467, d-dimer 0.44, sodium 141, potassium 4.4, creatinine 0.52, magnesium 2.1, cardiac enzymes negative 3, proBNP 63, LDL 102 and HDL 38. Current cardiac medications include losartan 100 mg daily. At the time of my exam: CONSTITUTIONAL: Denies fever. Denies chills. EYES: Denies blurred vision. Denies vision changes. Denies eye pain. EARS, NOSE, MOUTH & THROAT: Complains of headache with photophobia. Denies sore throat. Denies ear pain. CARDIOVASCULAR: Denies chest pain. Denies shortness of breath. Denies orthopnea. Denies PND. Denies palpitations. RESPIRATORY: Denies cough. GASTROINTESTINAL: Denies abdominal pain. Denies diarrhea. Denies constipation. Denies nausea. Denies vomiting. MUSCULOSKELETAL: Denies myalgias. INTEGUMENTARY: Denies pruitis. Denies rash. NEUROLOGIC: Denies numbness. Denies tingling. Denies weakness. PSYCHIATRIC: Denies anxiety. Denies depression. ENDOCRINE: Denies fatigue. Denies weight change. Denies polydipsia. Denies polyurina. GENITOURINARY: Denies burning, hematuria or urgency with micturation. HEMATOLOGIC: Denies history of anemia. Denies bleeding. Blood pressure 97/67 heart rate 71 afebrile maintaining oxygen saturation on room air GENERAL: This is a 49-year-old in no apparent distress at the time of my examination. HEENT: Head is atraumatic, normocephalic. Pupils are equal, round. Sclerae anicteric. Conjunctivae are clear. Mucous membranes of the mouth are moist. Neck is supple. There is no jugular venous distention. No carotid bruit is heard. LUNGS: Clear to auscultation no wheezes, rales or rhonchi. No chest wall tenderness is noted on palpation or with deep breathing. HEART: Regular rate and rhythm without murmurs, rubs or gallops. S1 and S2 heard. ABDOMEN: Soft, nontender. Bowel sounds are heard. No organomegaly noted. EXTREMITIES: No evidence of peripheral edema and no calf tenderness noted. VASCULAR: Radial and dorsalis pedis pulses palpated, no evidence of clubbing. NEUROLOGIC: Patient is awake, alert and oriented x3. ASSESSMENT Chest pain, atypical. An acute coronary event has been ruled out. Hypertension, maintained on losartan 100 mg per the patient states her blood pressure has been running on the low side recently. Chronic nicotine dependence PLAN An acute coronary event has been ruled out. Obtain 2-D echocardiogram and Doppler study to assess cardiac structure and function. Recommend close monitoring of blood pressure at home without taking losartan and only take as needed if her blood pressures greater then 130/90. Smoking cessation has been recommended. Outpatient stress testing in the office has been scheduled once her migraine headache has subsided. Follow-up with Dr. Cheek. Thank you kindly for this consultation. Nurse Practitioner note has been reviewed, I agree with a documented findings and plan of care. Patient was seen and examined. Past Medical History Past Medical History: Asthma, Hypertension Additional Past Medical History / Comment(s): Past L mastoiditis with L otitis/vertigo and falls-had surgery and no longer a problem, nephrolithiasis, migraines, past chronic low back pain but pt states not much of a problem anymore, DJD, hypoglycemia, History of Any Multi-Drug Resistant Organisms: None Reported Past Surgical History: Adenoidectomy, Appendectomy, Bariatric Surgery, Breast Surgery, Cholecystectomy, Ear Surgery, Hernia Repair, Hysterectomy, Orthopedic Surgery, Tonsillectomy, Tubal Ligation Additional Past Surgical History / Comment(s): Gastric bypass in 2008 with weight loss of 170 pounds, panniculectomy, L ear perforation with surgery, R knee open surgery as a child and x 2 arthroscopicL knee surgeries, R breast bx- benign, 2 umbilical hernias and 1 diaphragmatic hernia repairs, colonoscopy, mastoidectomy with Dr. Valderrama at [facility]. Past Anesthesia/Blood Transfusion Reactions: No Reported Reaction Past Psychological History: Anxiety, Depression Additional Psychological History / Comment(s): Pt lives with her tishaYenni. She is independent. She states her depression is stable. She has had past suicide attempts but no longer a problem. Smoking Status: Current every day smoker Past Alcohol Use History: None Reported Additional Past Alcohol Use History / Comment(s): Pt started smoking at age 13 or 14 yrs. She smokes about 1/[address] denies [address] drug or alcohol use. Past Drug Use History: None Reported - Past Family History Father Additional Family Medical History / Comment(s): Father from a aneurysm at the age of 72 yrs. he also had history of prostate cancer, aortic aneurysm, renal artery aneurysm. Mother Family Medical History: COPD Additional Family Medical History / Comment(s): Mother is 75 yrs old and has emphysema and hypertension. Brother(s) Additional Family Medical History / Comment(s): She has one brother with hypertension and plaque psoriasis. Sister(s) Additional Family Medical History / Comment(s): She has one sister with hypertension. Son(s) Additional Family Medical History / Comment(s): Patient has 3 children, one boy with ureteral obstruction and renal failure. 2 girls that are healthy without major medical problems. Medications and Allergies Home Medications Medication Instructions Recorded Confirmed Type Losartan Potassium [Cozaar] 100 mg PO DAILY@1400 10/07/18 01/20/19 History ALPRAZolam [Xanax] 1 mg PO HS 01/20/19 01/20/19 History Butalb/APAP/Caff 50-325-40Mg 1 tab PO Q4H PRN 01/20/19 01/20/19 History [Fioricet 50325-40] Cyclobenzaprine HCl 10 mg PO HS 01/20/19 01/20/19 History Phenazopyridine HCl BID 01/20/19 History diphenhydrAMINE HCL [Benadryl] 25 mg PO HS PRN 01/20/19 01/20/19 History Escitalopram [Lexapro] 10 mg PO DAILY #30 tablet 01/21/19 Rx Allergies Allergy/AdvReac Type Severity Reaction Status Date / Time Penicillins Allergy Unknown Verified 01/20/19 17:36 sumatriptan [From Imitrex] Allergy Unknown Verified 01/20/19 17:36 sumatriptan succinate Allergy Unknown Verified 01/20/19 17:36 [From Imitrex] NSAIDS (Non-Steroidal AdvReac Unknown Verified 01/20/19 17:36 Anti-Inflamma Physical Exam Vitals: Vital Signs Temp Pulse Pulse Resp BP BP Pulse Ox 01/21/19 07:35 97.5 F L 71 16 97/67 98 01/21/19 04:00 97.5 F L 67 18 115/76 97 01/21/19 00:00 97.7 F 78 18 105/68 92 L 01/20/19 22:00 84 18 01/20/19 21:50 97.5 F L 84 18 117/81 98 01/20/19 19:50 71 18 129/92 99 01/20/19 17:38 98 01/20/19 17:24 98.6 F 100 16 127/84 99 Intake and Output 01/20/19 01/21/19 01/21/19 22:59 06:59 14:59 Other: # Voids 1 Weight 61.235 kg Results 01/20/19 17:55 01/20/19 17:55 Cardiac Enzymes 01/20/19 01/20/19 01/20/19 Range/Units 00:01 17:55 17:55 AST 29 (14-36) U/L Troponin I <0.012 <0.012 (0.000-0.034) ng/mL 01/21/19 Range/Units 05:58 AST (14-36) U/L Troponin I <0.012 (0.000-0.034) ng/mL Coagulation 01/20/19 Range/Units 17:55 PT 9.5 (9.0-12.0) sec APTT 26.0 (22.0-30.0) sec Lipids 01/21/19 Range/Units 05:58 Triglycerides 69 (<150) mg/dL Cholesterol 154 (<200) mg/dL HDL Cholesterol 38 L (40-60) mg/dL CBC 01/20/19 Range/Units 17:55 WBC 10.9 H (3.8-10.6) k/uL RBC 4.18 (3.80-5.40) m/uL Hgb 12.9 (11.4-16.0) gm/dL Hct 39.6 (34.0-46.0) % Plt Count 467 H (150-450) k/uL Comprehensive Metabolic Panel 01/20/19 Range/Units 17:55 Sodium 141 (137-145) mmol/L Potassium 4.4 (3.5-5.1) mmol/L Chloride 110 H (98-107) mmol/L Carbon Dioxide 24 (22-30) mmol/L BUN 9 (7-17) mg/dL Creatinine 0.52 (0.52-1.04) mg/dL Glucose 89 (74-99) mg/dL Calcium 9.6 (8.4-10.2) mg/dL AST 29 (14-36) U/L ALT 32 (9-52) U/L Alkaline Phosphatase 94 (38-126) U/L Total Protein 7.0 (6.3-8.2) g/dL Albumin 4.0 (3.5-5.0) g/dL Current Medications Generic Name Dose Route Start Last Admin Trade Name Freq PRN Reason Stop Dose Admin Acetaminophen/Butalbital/Caffeine 1 each 01/20/19 21:12 01/21/19 07:52 Fioricet 50-325-40 PO 1 each Q4H PRN Administration Migraine Headache Alprazolam 1 mg 01/20/19 21:15 01/20/19 21:20 Xanax PO 1 mg HS YELENA Administration Aspirin 325 mg 01/21/19 09:00 Aspirin PO DAILY YELENA Nitroglycerin 0.4 mg 01/20/19 19:11 Nitrostat SUBLINGUAL Q5M PRN Chest Pain Intake and Output 01/20/19 01/21/19 01/21/19 22:59 06:59 14:59 Other: # Voids 1 Weight 61.235 kg 01/20/19 17:55 01/20/19 17:55
--- NOTE | 2019-01-25 21:32 | P.HPIM ---
History of Present Illness H&P Date: 01/21/19 Chief Complaint: chest pain This will serve both an h and p and discharge summary 48 years old female patient of Dr. Page with past medical history of hypertension and asthma history of gastric bypass in 2008 done in [place], admitted thru the ER at [facility] secondary to chest pressure. this started having discomfort in the neck radiating to left arm accompanied by shortness of breath, there is no fever or cough or pleurisy. she thinsk this is similar to her preious presentation of panic attacks. she is a current smoker without any history of dvt or pe in the past, no hemoptyisis, she currently smokes. She was getting to her car when chest pain occured, has been having increase in stress as the daughter is getting and is giving up the [facility] residence, pateint has no place to stay next month, as she currently lives with the daughter this time and is moving out of the home as a result of the wedding in the ER, ekg shows sinus rhythm without acute st/t changes. chest xray engatvie for cardiopumonary process, chest CT was negative for pulmonary emboli or disection. she has evidency of hital hernia. troponin is negative x 3, probnp 63 d-dimer 0.44. nitroglycerine had relief of symtpoms but now has a headache, she takes fioricet for mighraines, her brain ct is negative for any pathologies Review of Systems Constitutional: Reports as per HPI, Denies anorexia, Denies chills, Denies chronic headaches, Denies chronic pain, Denies daytime sleepiness, Denies fati anna, Denies fever, Denies lethargy, Denies malaise, Denies night sweats, Denies poor appetite, Denies sweats, Denies weakness, Denies weight gain, Denies weight loss Ears, nose, mouth and throat: Reports as per HPI, Denies ant. neck pain, Denies bleeding gums, Denies dental pain, Denies dysphagia, Denies epistaxis, Denies headache, Denies hoarseness, Denies mouth pain, Denies nasal congestion, Denies nasal discharge, Denies neck fullness/pressure, Denies neck lump, Denies nose pain, Denies odynophagia, Denies post-nasal drip, Denies sinus pain, Denies sinus pressure, Denies swelling in mouth, Denies swelling in throat, Denies sore throat, Denies vertigo, Denies voice changes Cardiovascular: Reports as per HPI, Reports chest pain Respiratory: Denies as per HPI, Denies congestion, Denies cough, Denies cough with sputum, Denies dyspnea, Denies excessive sputum, Denies hemoptysis, Denies home oxygen, Denies pain, Denies pain on inspiration, Denies pleurisy, Denies respiratory infections, Denies sleep apnea, Denies snoring, Denies wheezing Gastrointestinal: Reports as per HPI, Denies abdominal pain, Denies belching, Denies bloating, Denies BRBPR, Denies change in bowel habits, Denies coffee ground emesis, Denies constipation, Denies diarrhea, Denies dyspepsia, Denies early satiety, Denies excessive gas, Denies heartburn, Denies hematemesis, Denies hematochezia, Denies indigestion, Denies jaundice, Denies lactose intolerance, Denies loss of appetite, Denies melena, Denies nausea, Denies vomiting Genitourinary: Reports as per HPI Menstruation: Reports as per HPI Integumentary: Reports as per HPI, Denies acne, Denies boils, Denies brittle nails, Denies change in hair/nails, Denies color changes, Denies darkening of skin, Denies depigmentation, Denies dryness, Denies foot/leg ulcers, Denies growths, Denies hirsutism, Denies lesions, Denies onychomycosis, Denies pruritus, Denies rash, Denies sores, Denies striae, Denies unusual bruising, Denies wounds Neurological: Reports as per HPI Psychiatric: Denies as per HPI, Denies anhedonia, Denies anxiety, Denies anxiety attacks, Denies change in appetite, Denies change in libido, Denies change in sleep habits, Denies confusion, Denies depression, Denies difficulty concentrating, Denies disorientation, Denies hallucinations, Denies hopelessness, Denies hypersomnia, Denies insomnia, Denies irritability, Denies memory loss, Denies mood swings, Denies paranoia, Denies sadness/tearfulness, Denies sleep disturbances, Denies suicidal ideation Endocrine: Reports as per HPI Hematologic/Lymphatic: Reports as per HPI Allergic/Immunologic: Reports as per HPI Past Medical History Past Medical History: Asthma, Hypertension Additional Past Medical History / Comment(s): Past L mastoiditis with L otitis/vertigo and falls-had surgery and no longer a problem, nephrolithiasis, migraines, past chronic low back pain but pt states not much of a problem anymore, DJD, hypoglycemia, History of Any Multi-Drug Resistant Organisms: None Reported Past Surgical History: Adenoidectomy, Appendectomy, Bariatric Surgery, Breast Mcmillan rgery, Cholecystectomy, Ear Surgery, Hernia Repair, Hysterectomy, Orthopedic Surgery, Tonsillectomy, Tubal Ligation Additional Past Surgical History / Comment(s): Gastric bypass in 2009 with weight loss of 170 pounds, panniculectomy, L ear perforation with surgery, R knee open surgery as a child and x 2 arthroscopicL knee surgeries, R breast bx- benign, 2 umbilical hernias and 1 diaphragmatic hernia repairs, colonoscopy, mastoidectomy with Dr. Valderrama at [facility]. Past Anesthesia/Blood Transfusion Reactions: No Reported Reaction Past Psychological History: Anxiety, Depression Additional Psychological History / Comment(s): Pt lives with her tishaYenni. She is independent. She states her depression is stable. She has had past suicide attempts but no longer a problem. Smoking Status: Current every day smoker Past Alcohol Use History: None Reported Additional Past Alcohol Use History / Comment(s): Pt started smoking at age 13 or 14 yrs. She smokes about 1/2 [address] She denies any street drug or alcohol use. Past Drug Use History: None Reported - Past Family History Father Additional Family Medical History / Comment(s): Father from a aneurysm at the age of 72 yrs. he also had history of prostate cancer, aortic aneurysm, renal artery aneurysm. Mother Family Medical History: COPD Additional Family Medical History / Comment(s): Mother is 75 yrs old and has emphysema and hypertension. Brother(s) Additional Family Medical History / Comment(s): She has one brother with hypertension and plaque psoriasis. Sister(s) Additional Family Medical History / Comment(s): She has one sister with hypert ension. Son(s) Additional Family Medical History / Comment(s): Patient has 3 children, one boy with ureteral obstruction and renal failure. 2 girls that are healthy without major medical problems. Medications and Allergies Home Medications Medication Instructions Recorded Confirmed Type ALPRAZolam [Xanax] 1 mg PO HS 01/20/19 01/20/19 History Butalb/APAP/Caff 50-325-40Mg 1 tab PO Q4H PRN 01/20/19 01/20/19 History [Fioricet 50-325-40] Cyclobenzaprine HCl 10 mg PO HS 01/20/19 01/20/19 History Phenazopyridine HCl BID 01/20/19 History diphenhydrAMINE HCL [Benadryl] 25 mg PO HS PRN 01/20/19 01/20/19 History Escitalopram [Lexapro] 10 mg PO DAILY #30 tablet 01/21/19 Rx Losartan [Cozaar] 25 mg PO DAILY #90 tab 01/21/19 Rx Allergies Allergy/AdvReac Type Severity Reaction Status Date / Time Penicillins Allergy Unknown Verified 01/20/19 17:36 sumatriptan [From Imitrex] Allergy Unknown Verified 01/20/19 17:36 sumatriptan succinate Allergy Unknown Verified 01/20/19 17:36 [From Imitrex] NSAIDS (Non-Steroidal AdvReac Unknown Verified 01/20/19 17:36 Anti-Inflamma Physical Exam Vitals: Vital Signs Temp Pulse Pulse Resp BP BP Pulse Ox 01/21/19 07:35 97.5 F L 71 16 97/67 98 01/21/19 04:00 97.5 F L 67 18 115/76 97 01/21/19 00:00 97.7 F 78 18 105/68 92 L 01/20/19 22:00 84 18 01/20/19 21:50 97.5 F L 84 18 117/81 98 01/20/19 19:50 71 18 129/92 99 01/20/19 17:38 98 01/20/19 17:24 98.6 F 100 16 127/84 99 Intake and Output 01/20/19 01/21/19 01/21/19 22:59 06:59 14:59 Other: # Voids 1 Weight 61.235 kg - Constitutional General appearance: average body habitus, cooperative, no acute distress - EENT Eyes: EOMI, PERRLA, normal appearance ENT: NA/AT, normal oropharynx - Neck Neck: normal ROM - Respiratory Respiratory: bilateral: CTA, negative: diminished, dullness - Gastrointestinal General gastrointestinal: no absent bowel sounds, no decreased bowel sounds, no distended, no hepatomegaly, no hyperactive bowel sounds, no normal bowel sounds, no organomegaly, no rigid, no scaphoid, soft, no splenomegaly, no tenderness, no umbilical hernia, no ventral hernia - Integumentary Integumentary: normal - Neurologic Neurologic: CNII-XII intact - Musculoskeletal Musculoskeletal: gait normal, strength equal bilaterally - Psychiatric Psychiatric: A&O x's 3 Results CBC & Chem 7: 01/20/19 17:55 01/20/19 17:55 Labs: Abnormal Lab Results - Last 24 Hours (Table) 01/20/19 01/20/19 01/21/19 Range/Units 17:55 17:55 05:58 WBC 10.9 H (3.8-10.6) k/uL Plt Count 467 H (150-450) k/uL Chloride 110 H (98-107) mmol/L LDL Cholesterol, Calc 102 H (0-99) mg/dL HDL Cholesterol 38 L (40-60) mg/dL Laboratory Results WBC 10.9 k/uL (3.8-10.6) H 01/20/19 17:55 RBC 4.18 m/uL (3.80-5.40) 01/20/19 17:55 Hgb 12.9 gm/dL (11.4-16.0) 01/20/19 17:55 Hct 39.6 % (34.0-46.0) 01/20/19 17:55 MCV 94.8 fL (80.0-100.0) 01/20/19 17:55 MCH 30.8 pg (25.0-35.0) 01/20/19 17:55 MCHC 32.5 g/dL (31.0-37.0) 01/20/19 17:55 RDW 14.6 % (11.5-15.5) 01/20/19 17:55 Plt Count 467 k/uL (150-450) H 01/20/19 17:55 Neutrophils % 58 % 01/20/19 17:55 Lymphocytes % 32 % 01/20/19 17:55 Monocytes % 4 % 01/20/19 17:55 Eosinophils % 6 % 01/20/19 17:55 Basophils % 1 % 01/20/19 17:55 Neutrophils # 6.3 k/uL (1.3-7.7) 01/20/19 17:55 Lymphocytes # 3.4 k/uL (1.0-4.8) 01/20/19 17:55 Monocytes # 0.4 k/uL (0-1.0) 01/20/19 17:55 Eosinophils # 0.6 k/uL (0-0.7) 01/20/19 17:55 Basophils # 0.1 k/uL (0-0.2) 01/20/19 17:55 PT 9.5 sec (9.0-12.0) 01/20/19 17:55 INR 0.9 (<1.2) 01/20/19 17:55 APTT 26.0 sec (22.0-30.0) 01/20/19 17:55 D-Dimer 0.44 mg/L FEU (<0.60) 01/20/19 17:55 Sodium 141 mmol/L (137-145) 01/20/19 17:55 Potassium 4.4 mmol/L (3.5-5.1) 01/20/19 17:55 Chloride 110 mmol/L (98-107) H 01/20/19 17:55 Carbon Dioxide 24 mmol/L (22-30) 01/20/19 17:55 Anion Gap 7 mmol/L 01/20/19 17:55 BUN 9 mg/dL (7-17) 01/20/19 17:55 Creatinine 0.52 mg/dL (0.52-1.04) 01/20/19 17:55 Est GFR (CKD-EPI)AfAm >90 (>60 ml/min/1.73 sqM) 01/20/19 17:55 Est GFR (CKD-EPI)NonAf >90 (>60 ml/min/1.73 sqM) 01/20/19 17:55 Glucose 89 mg/dL (74-99) 01/20/19 17:55 Calcium 9.6 mg/dL (8.4-10.2) 01/20/19 17:55 Magnesium 2.1 mg/dL (1.6-2.3) 01/20/19 17:55 Total Bilirubin 0.2 mg/dL (0.2-1.3) 01/20/19 17:55 AST 29 U/L (14-36) 01/20/19 17:55 ALT 32 U/L (9-52) 01/20/19 17:55 Alkaline Phosphatase 94 U/L (38-126) 01/20/19 17:55 Troponin I <0.012 ng/mL (0.000-0.034) 01/21/19 05:58 NT-Pro-B Natriuret Pep 63 pg/mL 01/21/19 05:58 Total Protein 7.0 g/dL (6.3-8.2) 01/20/19 17:55 Albumin 4.0 g/dL (3.5-5.0) 01/20/19 17:55 Triglycerides 69 mg/dL (<150) 01/21/19 05:58 Cholesterol 154 mg/dL (<200) 01/21/19 05:58 LDL Cholesterol, Calc 102 mg/dL (0-99) H 01/21/19 05:58 HDL Cholesterol 38 mg/dL (40-60) L 01/21/19 05:58 Thrombosis Risk Factor Assmnt - Choose All That Apply Any of the Below Risk Factors Present?: Yes Each Factor Represents 1 point: Acute VA, Age 41-60 years Other Risk Factors: No Other congenital or acquired thrombophilia - If yes, enter type in comment: No Thrombosis Risk Factor Assessment Total Risk Factor Score: 2 Thrombosis Risk Factor Assessment Level: Low Risk Assessment and Plan Plan: 1. atypical chest pain with increase in stressors at home, patient was seen by cardiology and is cleared for discharge to home with stress test that will be done as OP. she has 3 negative cardiac enzymes. lipid profile and echo cardiogram showed ef 60% borderline lvh, aneusrymal interatrial septum, no pulmonary hypertension 2 hypertension continue losartan 100 mg by mouth daily 3 Anxiety patient is on 2 mg 3 times a day of Xanax was reduced to 1 mg 3 times a day as needed for anxiety 4 tobacco use patient smokes half a pack a day. Declined nicotine patch patient was educated on permanent smoking cessation, she currently is not ready to quit tob with increase in family stress 5 Code status full code 6 DVT prophylaxis
== END 2019-01-21 13:35 | disposition home or self-care (01) ==
LOC: EC 17:19 → 1SOBS 20:48
PROVIDERS: ADMIT Family Medicine; ATTEND Family Medicine
DX: R07.89 Other chest pain (principal); I10 Essential (primary) hypertension; G43.909 Migraine, unspecified, not intractable, without status migrainosus; F41.9 Anxiety disorder, unspecified; J45.909 Unspecified asthma, uncomplicated; M19.90 Unspecified osteoarthritis, unspecified site; M79.602 Pain in left arm; Z73.3 Stress, not elsewhere classified; F32.9 Major depressive disorder, single episode, unspecified; F17.210 Nicotine dependence, cigarettes, uncomplicated; K44.9 Diaphragmatic hernia without obstruction or gangrene; F41.0 Panic disorder [episodic paroxysmal anxiety]; Z79.899 Other long term (current) drug therapy; Z88.0 Allergy status to penicillin; Z88.6 Allergy status to analgesic agent; Z88.8 Allergy status to other drugs, medicaments and biological substances; Z98.84 Bariatric surgery status; Z87.442 Personal history of urinary calculi; Z86.39 Personal history of other endocrine, nutritional and metabolic disease; Z90.49 Acquired absence of other specified parts of digestive tract; Z90.710 Acquired absence of both cervix and uterus; Z91.81 History of falling; Z86.69 Personal history of other diseases of the nervous system and sense organs; Z91.5 Personal history of self-harm; Z84.0 Family history of diseases of the skin and subcutaneous tissue; Z82.49 Family history of ischemic heart disease and other diseases of the circulatory system; Z80.42 Family history of malignant neoplasm of prostate; Z82.5 Family history of asthma and other chronic lower respiratory diseases; Z84.1 Family history of disorders of kidney and ureter
CPT/HCPCS: 96361; 96374; 96375; 99285; 36415; 93005; 93306; 85379; 83880; 80061; 80053; 83735; 84484 ×2; 85025; 85610; 85730; 71046; 70450; 71275; G0378 ×2; S4990; J2405; J1885; J2270; Q9967

== ENCOUNTER 2019-03-25 23:39 | Emergency (ER) | payer OTHER ==
[2019-03-25 23:47] VITALS: TEMP 97.4
[2019-03-26 00:07] LABS: Appearance,Urine Slightly Cloudy (Clear)
[2019-03-26 00:08] LABS: Color,Urine Dark Orange
[2019-03-26 00:12] LABS: Bacteria,Urine Rare /hpf; Mucus,Urine Few /hpf; RBC,Urine 3 /hpf (0-5); Squamous Epithelial Cell,Urine 4 /hpf (0-4)
[2019-03-26] MEDS ORDERED: MORPHINE SULFATE 4 MG/ML SYRINGE IV STA (00:25)
[2019-03-26 00:46] LABS: Basophils # (A) 0.2 k/uL (0-0.2); Basophils % (A) 2 %; Eosinophils # (A) 0.6 k/uL (0-0.7); Eosinophils % (A) 5 %; HCT 37.4 % (34.0-46.0); HGB 12.3 gm/dL (11.4-16.0); Lymphocytes # (A) 3.5 k/uL (1.0-4.8); Lymphocytes % (A) 31 %; MCH 31.4 pg (25.0-35.0); MCV 95.1 fL (80.0-100.0); Mean Platelet Volume 6.5; Monocytes # (A) 0.6 k/uL (0-1.0); Monocytes % (A) 5 %; Neutrophils # (A) 6.4 k/uL (1.3-7.7); Neutrophils % (A) 56 %; Platelet Count 426 k/uL (150-450); RBC 3.93 m/uL (3.80-5.40); RDW 13.6 % (11.5-15.5); WBC 11.4 k/uL (3.8-10.6)
[2019-03-26 01:05] LABS: ALT 34 U/L (9-52); AST 29 U/L (14-36); African American GFR (CKD) >90 (>60 ml/min/1.73 sqM); Alkaline Phosphatase 95 U/L (38-126); Amylase 34 U/L (30-110); Anion Gap 5 mmol/L; Blood Urea Nitrogen 11 mg/dL (7-17); Calcium 9.4 mg/dL (8.4-10.2); Carbon Dioxide 26 mmol/L (22-30); Chloride 109 mmol/L (98-107); Glucose 93 mg/dL (74-99); Potassium 4.3 mmol/L (3.5-5.1); Sodium 140 mmol/L (137-145); Total Bilirubin 0.2 mg/dL (0.2-1.3); Total Protein 6.9 g/dL (6.3-8.2)
[2019-03-26] MEDS ORDERED: KETOROLAC 30 MG/ML 1 ML VIAL IVP STA (01:34)
[2019-03-26] MEDS ORDERED: SULFAMETHOX-TMP 800-160MG 1 EACH TAB PO STA (01:35)
--- NOTE | 2019-03-26 02:02 | ED ---
Abdominal Pain HPI - General Chief Complaint: Abdominal Pain Stated Complaint: Abd/ Back Pain Time Seen by Provider: 03/25/19 23:52 Source: patient Mode of arrival: ambulatory Limitations: no limitations - History of Present Illness Initial Comments: is a 49-year-old woman who presents with complaint of suprapubic abdominal pain. The patient states she had been in her usual state of health until yesterday she did have a little bit of bilateral low back pain. She states the low abdominal pain had started couple of hours ago. She states that she was at rest at the time. She did not have any trauma. Patient describes the pain as constant and sharp. She has not noted any relieving factors. The pain is a little bit worse with urination. She denies any nausea or vomiting. There has been no change in bowel movements. MD Complaint: abdominal pain Onset/Timin -: hour(s) Location: suprapubic Radiation: none Severity: moderate Quality: sharp Consistency: constant Improves With: nothing Worsens With: other (Urination) Associated Symptoms: denies other symptoms - Related Data Home Medications Medication Instructions Recorded Confirmed ALPRAZolam [Xanax] 1 mg PO HS 01/20/19 01/20/19 Butalb/APAP/Caff 50-325-40Mg 1 tab PO Q4H PRN 01/20/19 01/20/19 [Fioricet 50-325-40] Cyclobenzaprine HCl 10 mg PO HS 01/20/19 01/20/19 Phenazopyridine HCl BID 01/20/19 diphenhydrAMINE HCL [Benadryl] 25 mg PO HS PRN 01/20/19 01/20/19 Previous Rx's Medication Instructions Recorded Escitalopram [Lexapro] 10 mg PO DAILY #30 tablet 01/21/19 Losartan [Cozaar] 25 mg PO DAILY #90 tab 01/21/19 Phenazopyridine [Pyridium] 100 mg PO TID #6 tablet 03/26/19 Sulfamethox-Tmp 800-160Mg [Bactrim 1 each PO Q12HR #6 tab 03/26/19 Ds] Allergies Allergy/AdvReac Type Severity Reaction Status Date / Time Penicillins Allergy Unknown Verified 01/20/19 17:36 sumatriptan [From Imitrex] Allergy Unknown Verified 01/20/19 17:36 sumatriptan succinate Allergy Unknown Verified 01/20/19 17:36 [From Imitrex] NSAIDS (Non-Steroidal AdvReac Unknown Verified 01/20/19 17:36 Anti-Inflamma Review of Systems ROS Statement: Those systems with pertinent positive or pertinent negative responses have been documented in the HPI. ROS Other: All systems not noted in ROS Statement are negative. Constitutional: Denies: fever, chills Respiratory: Denies: cough, dyspnea Cardiovascular: Denies: chest pain, palpitations, edema Gastrointestinal: Reports: as per HPI, abdominal pain. Denies: nausea, vomiting, diarrhea, constipation Genitourinary: Reports: frequency. Denies: dysuria, hematuria Musculoskeletal: Reports: as per HPI, back pain Skin: Denies: rash Neurological: Denies: headache, weakness, numbness Past Medical History Past Medical History: Asthma, Hypertension Additional Past Medical History / Comment(s): Past L mastoiditis with L otitis/vertigo and falls-had surgery and no longer a problem, nephrolithiasis, migraines, past chronic low back pain but pt states not much of a problem anymore, DJD, hypoglycemia, History of Any Multi-Drug Resistant Organisms: None Reported Past Surgical History: Adenoidectomy, Appendectomy, Bariatric Surgery, Breast Surgery, Cholecystectomy, Ear Surgery, Hernia Repair, Hysterectomy, Orthopedic Surgery, Tonsillectomy, Tubal Ligation Additional Past Surgical History / Comment(s): Gastric bypass in 2008 with weight loss of 170 pounds, panniculectomy, L ear perforation with surgery, R knee open surgery as a child and x 2 arthroscopicL knee surgeries, R breast bx- benign, 2 umbilical hernias and 1 diaphragmatic hernia repairs, colonoscopy, mastoidectomy with Dr. Valderrama at [facility]. Past Anesthesia/Blood Transfusion Reactions: No Reported Reaction Past Psychological History: Anxiety, Depression Smoking Status: Current every day smoker Past Alcohol Use History: None Reported Past Drug Use History: None Reported - Past Family History Father Additional Family Medical History / Comment(s): Father from a aneurysm at the age of 72 yrs. he also had history of prostate cancer, aortic aneurysm, renal artery aneurysm. Mother Family Medical History: COPD Additional Family Medical History / Comment(s): Mother is 75 yrs old and has emphysema and hypertension. Brother(s) Additional Family Medical History / Comment(s): She has one brother with hypertension and plaque psoriasis. Sister(s) Additional Family Medical History / Comment(s): She has one sister with hypertension. Son(s) Additional Family Medical History / Comment(s): Patient has 3 children, one boy with ureteral obstruction and renal failure. 2 girls that are healthy without major medical problems. General Exam Limitations: no limitations General appearance: alert, in no apparent distress Head exam: Present: atraumatic, normocephalic Eye exam: Present: normal appearance. Absent: scleral icterus, conjunctival injection ENT exam: Present: normal oropharynx Respiratory exam: Present: normal lung sounds bilaterally. Absent: respiratory distress, wheezes, rales, rhonchi, stridor Cardiovascular Exam: Present: regular rate (Heart rate is 92 at my exam), normal rhythm, normal heart sounds. Absent: systolic murmur, diastolic murmur, rubs, gallop GI/Abdominal exam: Present: soft, normal bowel sounds. Absent: distended, tenderness, guarding, rebound, rigid, mass, pulsatile mass, hernia Extremities exam: Present: normal inspection, normal capillary refill. Absent: pedal edema, calf tenderness Back exam: Present: normal inspection, paraspinal tenderness. Absent: CVA tenderness (R), CVA tenderness (L) Neurological exam: Present: alert Skin exam: Present: warm, dry, intact, normal color. Absent: rash Course Vital Signs 03/25/19 23:44 Temperature 97.4 F L Pulse Rate 103 H Respiratory 18 Rate Blood Pressure 113/75 O2 Sat by Pulse 98 Oximetry Medical Decision Making - Lab Data Result diagrams: 03/26/19 00:32 03/26/19 00:32 Lab Results 03/25/19 03/26/19 03/26/19 Range/Units 23:56 00:32 00:32 WBC 11.4 H (3.8-10.6) k/uL RBC 3.93 (3.80-5.40) m/uL Hgb 12.3 (11.4-16.0) gm/dL Hct 37.4 (34.0-46.0) % MCV 95.1 (80.0-100.0) fL MCH 31.4 (25.0-35.0) pg MCHC 33.0 (31.0-37.0) g/dL RDW 13.6 (11.5-15.5) % Plt Count 426 (150-450) k/uL Neutrophils % 56 % Lymphocytes % 31 % Monocytes % 5 % Eosinophils % 5 % Basophils % 2 % Neutrophils # 6.4 (1.3-7.7) k/uL Lymphocytes # 3.5 (1.0-4.8) k/uL Monocytes # 0.6 (0-1.0) k/uL Eosinophils # 0.6 (0-0.7) k/uL Basophils # 0.2 (0-0.2) k/uL Sodium 140 (137-145) mmol/L Potassium 4.3 (3.5-5.1) mmol/L Chloride 109 H (98-107) mmol/L Carbon Dioxide 26 (22-30) mmol/L Anion Gap 5 mmol/L BUN 11 (7-17) mg/dL Creatinine 0.74 (0.52-1.04) mg/dL Est GFR (CKD-EPI)AfAm >90 (>60 ml/min/1.73 sqM) Est GFR (CKD-EPI)NonAf >90 (>60 ml/min/1.73 sqM) Glucose 93 (74-99) mg/dL Calcium 9.4 (8.4-10.2) mg/dL Total Bilirubin 0.2 (0.2-1.3) mg/dL AST 29 (14-36) U/L ALT 34 (9-52) U/L Alkaline Phosphatase 95 (38-126) U/L Total Protein 6.9 (6.3-8.2) g/dL Albumin 4.0 (3.5-5.0) g/dL Amylase 34 (30-110) U/L Lipase 147 (23-300) U/L Urine Color Dark [place] Urine Appearance Slightly Cloudy H (Clear) Urine RBC 3 (0-5) /hpf Urine WBC 17 H (0-5) /hpf Ur Squamous Epith Cells 4 (0-4) /hpf Urine Bacteria Rare H (None) /hpf Urine Mucus Few H (None) /hpf Disposition Clinical Impression: Urinary tract infection Disposition: HOME SELF-CARE Condition: Good Instructions (If sedation given, give patient instructions): Urinary Tract Infection in Women (ED) Prescriptions: Sulfamethox-Tmp 800-160Mg [Bactrim Ds] 1 each PO Q12HR #6 tab Phenazopyridine [Pyridium] 100 mg PO TID #6 tablet Is patient prescribed a controlled substance at d/c from ED?: No Referrals: Saleem Page DO [Primary Care Provider] - 1-2 days
[2019-03-26 02:18] VITALS: BP 122/91; PULSE 69; RESP 16
== END 2019-03-26 02:19 | disposition home or self-care (01) ==
LOC: EC 23:39
DX: N39.0 Urinary tract infection, site not specified (principal); F41.9 Anxiety disorder, unspecified; G89.29 Other chronic pain; F17.200 Nicotine dependence, unspecified, uncomplicated; Z88.0 Allergy status to penicillin; Z88.6 Allergy status to analgesic agent; Z88.8 Allergy status to other drugs, medicaments and biological substances; Z79.891 Long term (current) use of opiate analgesic; Z79.899 Other long term (current) drug therapy; Z90.49 Acquired absence of other specified parts of digestive tract; Z98.84 Bariatric surgery status; Z84.1 Family history of disorders of kidney and ureter
CPT/HCPCS: 36415; 80053; 82150; 83690; 85025; 81001; 87086; 99284; 96374; 96375; J2270; J1885

== ENCOUNTER 2019-05-23 08:25 | Emergency (ER) | payer OTHER ==
[2019-05-23 08:34] VITALS: TEMP 98.3
[2019-05-23] MEDS ORDERED: IPRATROPIUM-ALBUTEROL 3 ML NEB INHALATION STA (08:56)
[2019-05-23] MEDS ORDERED: methylPREDNISolone SOD SUCCI 125 MG/2 ML VIAL IV STA (08:56)
[2019-05-23] MEDS ORDERED: SODIUM CHLORIDE 0.9% 500 ML 500 ML IV STA (08:56)
[2019-05-23] MEDS ORDERED: MORPHINE SULFATE 4 MG/ML SYRINGE IV STA (09:01)
--- NOTE | 2019-05-23 09:01 | ED ---
General Adult HPI - General Chief complaint: Shortness of Breath Stated complaint: Sob Time Seen by Provider: 05/23/19 08:47 Source: patient, RN notes reviewed Mode of arrival: wheelchair Limitations: no limitations - History of Present Illness Initial comments: Patient is a pleasant 49-year-old female presenting to the emergency Department with complaints of cough and difficulty in breathing. Onset of symptoms was 6 days ago. Patient has taken azithromycin and prednisone 50 mg without improvement of symptoms. Symptoms continued to worsen. Patient does have cough that is dry nonproductive. Patient occasionally has low-grade fevers. Patient has some right-sided thorax discomfort posterior more than anterior with deep breaths and cough. No leg pain or leg swelling. Patient does have history of asthma with similar symptoms previously. - Related Data Home Medications Medication Instructions Recorded Confirmed ALPRAZolam [Xanax] 1 mg PO TID PRN 01/20/19 05/23/19 Butalb/APAP/Caff 50-325-40Mg 1 tab PO TID PRN 01/20/19 05/23/19 [Fioricet 50-325-40] Acetaminophen Tab [Tylenol Tab] 1,000 mg PO Q6HR PRN 05/23/19 05/23/19 Albuterol Nebulized [Ventolin 2.5 mg INHALATION RT-Q6H PRN 05/23/19 05/23/19 Nebulized] Albuterol Sulfate [Ventolin HFA] 1 - 2 puff INHALATION RT-Q6H PRN 05/23/1904/26 Previous Rx's Medication Instructions Recorded Losartan [Cozaar] 25 mg PO DAILY #90 tab 01/21/19 Levofloxacin [Levaquin] 750 mg PO DAILY #7 tab 05/23/19 Allergies Allergy/AdvReac Type Severity Reaction Status Date / Time Penicillins Allergy Unknown Verified 05/23/19 09:39 sumatriptan [From Imitrex] Allergy Unknown Verified 05/23/19 09:39 sumatriptan succinate Allergy Unknown Verified 05/23/19 09:39 [From Imitrex] NSAIDS (Non-Steroidal AdvReac Unknown Verified 05/23/19 09:39 Anti-Inflamma Review of Systems ROS Statement: Those systems with pertinent positive or pertinent negative responses have been documented in the HPI. ROS Other: All systems not noted in ROS Statement are negative. Constitutional: Reports: as per HPI, fever Eyes: Denies: eye pain ENT: Denies: ear pain Respiratory: Reports: cough, dyspnea Cardiovascular: Reports: as per HPI Endocrine: Denies: fatigue Gastrointestinal: Denies: abdominal pain Genitourinary: Denies: dysuria Musculoskeletal: Reports: as per HPI Skin: Denies: rash Neurological: Denies: weakness Past Medical History Past Medical History: Asthma, Hypertension Additional Past Medical History / Comment(s): Past L mastoiditis with L otitis/vertigo and falls-had surgery and no longer a problem, nephrolithiasis, migraines, past chronic low back pain but pt states not much of a problem anymore, DJD, hypoglycemia, History of Any Multi-Drug Resistant Organisms: None Reported Past Surgical History: Adenoidectomy, Appendectomy, Bariatric Surgery, Breast Surgery, Cholecystectomy, Ear Surgery, Hernia Repair, Hysterectomy, Orthopedic Surgery, Tonsillectomy, Tubal Ligation Additional Past Surgical History / Comment(s): Gastric bypass in 2008 with weight loss of 170 pounds, panniculectomy, L ear perforation with surgery, R knee open surgery as a child and x 2 arthroscopicL knee surgeries, R breast bx- benign, 2 umbilical hernias and 1 diaphragmatic hernia repairs, colonoscopy, mastoidectomy with Dr. Valderrama at [facility]. Past Anesthesia/Blood Transfusion Reactions: No Reported Reaction Past Psychological History: Anxiety, Depression Smoking Status: Current every day smoker Past Alcohol Use History: None Reported Past Drug Use History: None Reported - Past Family History Father Additional Family Medical History / Comment(s): Father from a aneurysm at the age of 72 yrs. he also had history of prostate cancer, aortic aneurysm, renal artery aneurysm. Mother Family Medical History: COPD Additional Family Medical History / Comment(s): Mother is 75 yrs old and has emphysema and hypertension. Brother(s) Additional Family Medical History / Comment(s): She has one brother with hypertension and plaque psoriasis. Sister(s) Additional Family Medical History / Comment(s): She has one sister with hypertension. Son(s) Additional Family Medical History / Comment(s): Patient has 3 children, one boy with ureteral obstruction and renal failure. 2 girls that are healthy without major medical problems. General Exam Limitations: no limitations General appearance: alert, in no apparent distress Head exam: Present: normocephalic Eye exam: Present: normal appearance, PERRL ENT exam: Present: normal oropharynx Neck exam: Present: normal inspection Respiratory exam: Present: wheezes (With cough). Absent: chest wall tenderness Cardiovascular Exam: Present: regular rate, normal rhythm Expanded Peripheral pulses: 2+: Radial (R), Radial (L), Posterior Tibialis (R), Posterior Tibialis (L) GI/Abdominal exam: Present: soft. Absent: distended, tenderness Extremities exam: Present: normal inspection. Absent: pedal edema, calf tender ness Back exam: Present: normal inspection. Absent: tenderness Neurological exam: Present: alert Psychiatric exam: Present: normal affect, normal mood Skin exam: Present: normal color Course Vital Signs 05/23/19 05/23/19 05/23/19 08:32 09:21 09:31 Temperature 98.3 F Pulse Rate 94 92 99 Respiratory 20 Rate Blood Pressure 127/86 O2 Sat by Pulse 97 Oximetry 05/23/19 11:09 Temperature Pulse Rate 79 Respiratory 18 Rate Blood Pressure 131/91 O2 Sat by Pulse 98 Oximetry - Reevaluation(s) Reevaluation #1: 05/23/19 11:08 Patient does meet sepsis criteria diagnosed at 11:08 AM. Blood culture and lactic acid and IV antibiotics will be ordered. EKG Findings - EKG Comments: EKG Findings:: Normal sinus rhythm 84. TX 154. QRS 86. QT 400. QTc 472. Normal axis. Normal QRS. No acute ST change. Medical Decision Making - Medical Decision Making Patient reevaluated and updated. Dr. Thompson has been paged for admission. Patient however refuses admission. Family is present and also attempted to talk patient into admission and I did evaluate patient if third time and she still refuses admission. Lung sounds have improved. Patient is aware that technically she does meet criteria for sepsis although this could be false based on recent steroid use. Patient is strongly recommended for admission. Patient also consult to discontinue smoking. Patient does demonstrate medical decision making. Patient is aware that symptoms worsen this could be life-threatening. Despite this patient refuses admission and will leave AGAINST MEDICAL ADVICE. Patient is agreeable to follow-up with her doctor and to return if symptoms worsen. Patient states family will check on her. - Lab Data Result diagrams: 05/23/19 08:54 05/23/19 08:54 Lab Results 05/23/19 05/23/19 05/23/19 Range/Units 08:54 08:54 08:54 WBC 14.8 H (3.8-10.6) k/uL RBC 3.72 L (3.80-5.40) m/uL Hgb 11.3 L (11.4-16.0) gm/dL Hct 34.4 (34.0-46.0) % MCV 92.6 (80.0-100.0) fL MCH 30.3 (25.0-35.0) pg MCHC 32.7 (31.0-37.0) g/dL RDW 14.6 (11.5-15.5) % Plt Count 811 H (150-450) k/uL Neutrophils % 59 % Lymphocytes % 32 % Monocytes % 5 % Eosinophils % 3 % Basophils % 0 % Neutrophils # 8.7 H (1.3-7.7) k/uL Lymphocytes # 4.8 (1.0-4.8) k/uL Monocytes # 0.7 (0-1.0) k/uL Eosinophils # 0.4 (0-0.7) k/uL Basophils # 0.1 (0-0.2) k/uL PT 9.3 (9.0-12.0) sec INR 0.8 (<1.2) APTT 23.9 (22.0-30.0) sec D-Dimer 1.25 H (<0.60) mg/L FEU Sodium 140 (137-145) mmol/L Potassium 4.4 (3.5-5.1) mmol/L Chloride 110 H (98-107) mmol/L Carbon Dioxide 21 L (22-30) mmol/L Anion Gap 9 mmol/L BUN 7 (7-17) mg/dL Creatinine 0.52 (0.52-1.04) mg/dL Est GFR (CKD-EPI)AfAm >90 (>60 ml/min/1.73 sqM) Est GFR (CKD-EPI)NonAf >90 (>60 ml/min/1.73 sqM) Glucose 81 (74-99) mg/dL Calcium 9.3 (8.4-10.2) mg/dL Magnesium 2.2 (1.6-2.3) mg/dL Total Bilirubin 0.3 (0.2-1.3) mg/dL AST 52 H (14-36) U/L ALT 112 H (4-34) U/L Alkaline Phosphatase 203 H (38-126) U/L NT-Pro-B Natriuret Pep pg/mL Total Protein 6.6 (6.3-8.2) g/dL Albumin 3.6 (3.5-5.0) g/dL Influenza Type A RNA (Not Detectd) Influenza Type B (PCR) (Not Detectd) 05/23/19 05/23/19 Range/Units 08:54 09:21 WBC (3.8-10.6) k/uL RBC (3.80-5.40) m/uL Hgb (11.4-16.0) gm/dL Hct (34.0-46.0) % MCV (80.0-100.0) fL MCH (25.0-35.0) pg MCHC (31.0-37.0) g/dL RDW (11.5-15.5) % Plt Count (150-450) k/uL Neutrophils % % Lymphocytes % % Monocytes % % Eosinophils % % Basophils % % Neutrophils # (1.3-7.7) k/uL Lymphocytes # (1.0-4.8) k/uL Monocytes # (0-1.0) k/uL Eosinophils # (0-0.7) k/uL Basophils # (0-0.2) k/uL PT (9.0-12.0) sec INR (<1.2) APTT (22.0-30.0) sec D-Dimer (<0.60) mg/L FEU Sodium (137-145) mmol/L Potassium (3.5-5.1) mmol/L Chloride (98-107) mmol/L Carbon Dioxide (22-30) mmol/L Anion Gap mmol/L BUN (7-17) mg/dL Creatinine (0.52-1.04) mg/dL Est GFR (CKD-EPI)AfAm (>60 ml/min/1.73 sqM) Est GFR (CKD-EPI)NonAf (>60 ml/min/1.73 sqM) Glucose (74-99) mg/dL Calcium (8.4-10.2) mg/dL Magnesium (1.6-2.3) mg/dL Total Bilirubin (0.2-1.3) mg/dL AST (14-36) U/L ALT (4-34) U/L Alkaline Phosphatase (38-126) U/L NT-Pro-B Natriuret Pep 113 pg/mL Total Protein (6.3-8.2) g/dL Albumin (3.5-5.0) g/dL Influenza Type A RNA Not Detected (Not Detectd) Influenza Type B (PCR) Not Detected (Not Detectd) - Radiology Data Radiology results: report reviewed (Computed tomography scan of the chest negative for pulmonary embolism. New multi lobular infiltrates versus edema), image reviewed (Chest x-ray shows no acute process) Disposition Clinical Impression: Pneumonia Disposition: Left Against Medical Advice Additional Instructions: Please follow-up with primary care physician as soon as possible. Return for increased difficulty in breathing, fevers, discomfort of the chest, any wors ening symptoms or any other concerns. You are leaving AGAINST MEDICAL ADVICE. Recommendation was for admission. Continue inhalers as needed. Prescription sent here pharmacy on Prescriptions: Levofloxacin [Levaquin] 750 mg PO DAILY #7 tab Is patient prescribed a controlled substance at d/c from ED?: No Referrals: Saleem Page DO [Primary Care Provider] - 1-2 days Decision Time: 11:09
[2019-05-23 09:34] LABS: ALT 112 U/L (4-34); AST 52 U/L (14-36); African American GFR (CKD) >90 (>60 ml/min/1.73 sqM); Albumin 3.6 g/dL (3.5-5.0); Alkaline Phosphatase 203 U/L (38-126); Anion Gap 9 mmol/L; Blood Urea Nitrogen 7 mg/dL (7-17); Calcium 9.3 mg/dL (8.4-10.2); Carbon Dioxide 21 mmol/L (22-30); Chloride 110 mmol/L (98-107); Glucose 81 mg/dL (74-99); Magnesium 2.2 mg/dL (1.6-2.3); Non-African American GFR(CKD) >90 (>60 ml/min/1.73 sqM); Potassium 4.4 mmol/L (3.5-5.1); Sodium 140 mmol/L (137-145); Total Bilirubin 0.3 mg/dL (0.2-1.3); Total Protein 6.6 g/dL (6.3-8.2)
[2019-05-23 09:40] LABS: Basophils # (A) 0.1 k/uL (0-0.2); Basophils % (A) 0 %; Eosinophils # (A) 0.4 k/uL (0-0.7); Eosinophils % (A) 3 %; HCT 34.4 % (34.0-46.0); HGB 11.3 gm/dL (11.4-16.0); Lymphocytes # (A) 4.8 k/uL (1.0-4.8); Lymphocytes % (A) 32 %; MCH 30.3 pg (25.0-35.0); MCHC 32.7 g/dL (31.0-37.0); MCV 92.6 fL (80.0-100.0); Mean Platelet Volume 7.3; Monocytes # (A) 0.7 k/uL (0-1.0); Monocytes % (A) 5 %; Neutrophils # (A) 8.7 k/uL (1.3-7.7); Neutrophils % (A) 59 %; Platelet Count 811 k/uL (150-450); RBC 3.72 m/uL (3.80-5.40); RDW 14.6 % (11.5-15.5); WBC 14.8 k/uL (3.8-10.6)
[2019-05-23 09:42] LABS: INR 0.8 (<1.2); Partial Thromboplastin Time 23.9 sec (22.0-30.0); Prothrombin Time 9.3 sec (9.0-12.0)
[2019-05-23 09:54] LABS: D-Dimer 1.25 mg/L FEU (<0.60)
--- NOTE | 2019-05-23 10:13 | XR ---
EXAMINATION TYPE: XR chest 2V DATE OF EXAM: 05/23/2019 COMPARISON: Chest x-ray and CTA chest January 20, 2019 HISTORY: Difficulty in breathing. TECHNIQUE: Frontal and lateral views of the chest are obtained. FINDINGS: Overlying EKG leads are present. There is no focal air space opacity, pleural effusion, or pneumothorax seen. The cardiac silhouette size is within normal limits. Retrocardiac opacity consis tent with small to moderate-sized hiatal hernia redemonstrated. The osseous structures are intact. Ch olecystectomy clips are redemonstrated. IMPRESSION: No suspicious new acute cardiopulmonary process.
[2019-05-23] MEDS ORDERED: KETOROLAC 30 MG/ML 1 ML VIAL IVP STA (10:38)
--- NOTE | 2019-05-23 11:04 | CT ---
EXAMINATION TYPE: CT angio chest DATE OF EXAM: 05/23/2019 COMPARISON: CTA chest January 20, 2019. HISTORY: SOB, Dyspnea CT DLP: 241.3 mGycm. Automated Exposure Control for Dose Reduction was Utilized. CONTRAST: CTA scan of the thorax is performed without and with IV Contrast, patient injected with 100 ml mL of Isovue 370, pulmonary embolism protocol. MIP Images are created on CT scanner and reviewed. FINDINGS: LUNGS: Multifocal areas of groundglass opacity are present bilaterally. Involvement of upper and lowe r lungs. No suspicious focal consolidation. No nodules or masses. No pleural effusion or pneumothorax bilaterally. MEDIASTINUM: There is satisfactory enhancement of the pulmonary artery and its branches, there is no CT evidence for pulmonary embolism. There are persistent enlarged bilateral hilar lymph nodes along with prominent but subcentimeter AP window and subcarinal lymph nodes. No cardiomegaly or pericardi al effusion is seen. OTHER: Persistent surgical change epigastric region with fixed moderate size hiatal hernia. Mild mult ilevel spurring in the spine. IMPRESSION: 1. No CT evidence for acute pulmonary embolism. 2. New bilateral multilobar alveolar edema and/or infiltrates.
[2019-05-23] MEDS ORDERED: IPRATROPIUM-ALBUTEROL 3 ML NEB INHALATION PRN (11:10)
[2019-05-23] MEDS ORDERED: PNEUMONIA PROTOCOL UTILIZED 1 EACH MISC PO PRN (11:10)
[2019-05-23 11:11] VITALS: BP 131/91; PULSE 79; RESP 18
[2019-05-23] MEDS ORDERED: SODIUM CHLORIDE 0.9% 1,000 ML IV SCH (11:15)
[2019-05-23] MEDS ORDERED: LEVOFLOXACIN 750 MG TAB PO STA (11:33)
[2019-05-23] MEDS ORDERED: IPRATROPIUM-ALBUTEROL 3 ML NEB INHALATION SCH (12:00)
== END 2019-05-23 12:10 | disposition left against medical advice (07) ==
LOC: EC 08:25 → UNDOADMIN 11:10 → 6NMEDSUR 11:10 → EC 12:10
DX: J18.9 Pneumonia, unspecified organism (principal); F41.9 Anxiety disorder, unspecified; F32.9 Major depressive disorder, single episode, unspecified; I10 Essential (primary) hypertension; J45.909 Unspecified asthma, uncomplicated; F17.200 Nicotine dependence, unspecified, uncomplicated; Z88.0 Allergy status to penicillin; Z88.6 Allergy status to analgesic agent; Z88.8 Allergy status to other drugs, medicaments and biological substances; Z98.84 Bariatric surgery status
CPT/HCPCS: 99285; 96374; 96375 ×2; 96361 ×2; 36415; 94640; 93005; 85379; 83880; 80053; 83735; 85025; 85610; 85730; 87040; 87502; 71046; 71275; J2270; J2930; J1885; Q9967

== ENCOUNTER 2019-08-12 02:09 | Emergency (ER) | payer OTHER ==
[2019-08-12] MEDS ORDERED: SODIUM CHLORIDE 0.9% 1,000 ML IV STA (02:47)
[2019-08-12] MEDS ORDERED: ONDANSETRON 4 MG/2 ML VIAL IVP STA (02:47)
[2019-08-12] MEDS ORDERED: HYDROmorphone 0.5 MG/0.5 ML SYRINGE IVP STA (02:47)
[2019-08-12] MEDS ORDERED: KETOROLAC 30 MG/ML 1 ML VIAL IVP STA (02:47)
[2019-08-12 03:17] LABS: Glucose,Whole Blood 97 mg/dL (75-99)
[2019-08-12 03:18] LABS: Basophils % (A) 0 %; Eosinophils # (A) 0.4 k/uL (0-0.7); Eosinophils % (A) 3 %; HCT 38.3 % (34.0-46.0); HGB 12.1 gm/dL (11.4-16.0); Lymphocytes # (A) 4.8 k/uL (1.0-4.8); Lymphocytes % (A) 31 %; MCHC 31.7 g/dL (31.0-37.0); MCV 88.5 fL (80.0-100.0); Mean Platelet Volume 7.2; Monocytes # (A) 0.7 k/uL (0-1.0); Monocytes % (A) 5 %; Neutrophils # (A) 9.2 k/uL (1.3-7.7); Neutrophils % (A) 60 %; Platelet Count 524 k/uL (150-450); RBC 4.32 m/uL (3.80-5.40); RDW 15.1 % (11.5-15.5); WBC 15.3 k/uL (3.8-10.6)
--- NOTE | 2019-08-12 03:27 | ED ---
Abdominal Pain HPI - General Chief Complaint: Abdominal Pain Stated Complaint: Abdominal and back pain Time Seen by Provider: 08/12/19 02:31 Source: patient Mode of arrival: ambulatory Limitations: no limitations - History of Present Illness Initial Comments: 49-year-old female patient presents to the emergency department today for evaluation of right upper quadrant pain with radiation through to her back. Patient states she is nauseated with this but has not vomited. Patient denies any hematuria, dysuria, urinary frequency, or urinary urgency. She states the pain started approximately an hour prior to arrival and has been worsening. States her bowel movements have been normal. States that throughout the day she is eating and drinking without difficulty. States that she does have a history of kidney stones but this feels much different. Patient has had cholecystectomy, multiple hernia repairs, and [id number] gastric bypass surgery. - Related Data Home Medications Medication Instructions Recorded Confirmed ALPRAZolam [Xanax] 1 mg PO TID PRN 01/20/19 05/23/19 Butalb/APAP/Caff 50-325-40Mg 1 tab PO TID PRN 01/20/19 05/23/19 [Fioricet 50-325-40] Acetaminophen Tab [Tylenol Tab] 1,000 mg PO Q6HR PRN 05/23/19 05/23/19 Albuterol Nebulized [Ventolin 2.5 mg INHALATION RT-Q6H PRN 05/23/19 05/23/19 Nebulized] Albuterol Sulfate [Ventolin HFA] 1 - 2 puff INHALATION RT-Q6H PRN 05/23/1904/26 Previous Rx's Medication Instructions Recorded Losartan [Cozaar] 25 mg PO DAILY #90 tab 01/21/19 Levofloxacin [Levaquin] 750 mg PO DAILY #7 tab 05/23/19 Allergies Allergy/AdvReac Type Severity Reaction Status Date / Time Penicillins Allergy Unknown Verified 05/23/19 09:39 sumatriptan [From Imitrex] Allergy Unknown Verified 05/23/19 09:39 sumatriptan succinate Allergy Unknown Verified 05/23/19 09:39 [From Imitrex] NSAIDS (Non-Steroidal AdvReac Unknown Verified 05/23/19 09:39 Anti-Inflamma Review of Systems ROS Statement: Those systems with pertinent positive or pertinent negative responses have been documented in the HPI. ROS Other: All systems not noted in ROS Statement are negative. Past Medical History Past Medical History: Asthma, Hypertension Additional Past Medical History / Comment(s): Past L mastoiditis with L otitis/vertigo and falls-had surgery and no longer a problem, nephrolithiasis, migraines, past chronic low back pain but pt states not much of a problem anymore, DJD, hypoglycemia, History of Any Multi-Drug Resistant Organisms: None Reported Past Surgical History: Adenoidectomy, Appendectomy, Bariatric Surgery, Breast Surgery, Cholecystectomy, Ear Surgery, Hernia Repair, Hysterectomy, Orthopedic Surgery, Tonsillectomy, Tubal Ligation Additional Past Surgical History / Comment(s): Gastric bypass in 2009 with weight loss of 170 pounds, panniculectomy, L ear perforation with surgery, R knee open surgery as a child and x 2 arthroscopicL knee surgeries, R breast bx- benign, 2 umbilical hernias and 1 diaphragmatic hernia repairs, colonoscopy, mastoidectomy with Dr. Valderrama at [facility]. Past Anesthesia/Blood Transfusion Reactions: No Reported Reaction Past Psychological History: Anxiety, Depression Smoking Status: Current every day smoker Past Alcohol Use History: None Reported Past Drug Use History: None Reported - Past Family History Father Additional Family Medical History / Comment(s): Father from a aneurysm at the age of 72 yrs. he also had history of prostate cancer, aortic aneurysm, renal artery aneurysm. Mother Family Medical History: COPD Additional Family Medical History / Comment(s): Mother is 75 yrs old and has emphysema and hypertension. Brother(s) Additional Family Medical History / Comment(s): She has one brother with hypertension and plaque psoriasis. Sister(s) Additional Family Medical History / Comment(s): She has one sister with hypertension. Son(s) Additional Family Medical History / Comment(s): Patient has 3 children, one boy with ureteral obstruction and renal failure. 2 girls that are healthy without major medical problems. General Exam Limitations: no limitations General appearance: alert, in no apparent distress, other (This is a well- developed, well-nourished adult female patient in mild distress related to pain. Vital signs upon presentation are temperature 97.8F, pulse 91, respirations 18, blood pressure 131/89, pulse ox 97% on room air.) ENT exam: Present: normal exam, normal oropharynx, mucous membranes moist Respiratory exam: Present: normal lung sounds bilaterally. Absent: respiratory distress, wheezes, rales, rhonchi, stridor Cardiovascular Exam: Present: regular rate, normal rhythm, normal heart sounds. Absent: systolic murmur, diastolic murmur, rubs, gallop, clicks GI/Abdominal exam: Present: soft, tenderness (Right lower quadrant and right upper quadrant tenderness), normal bowel sounds. Absent: distended, guarding, rebound, rigid Neurological exam: Present: alert, oriented X3, CN II-XII intact Psychiatric exam: Present: normal affect, normal mood Skin exam: Present: warm, dry, intact, normal color. Absent: rash Course Vital Signs 08/12/19 08/12/19 08/12/19 02:16 03:00 04:00 Temperature 97.8 F Pulse Rate 91 77 73 Respiratory 18 16 16 Rate Blood Pressure 131/89 117/91 109/79 O2 Sat by Pulse 97 95 97 Oximetry 08/12/19 05:00 Temperature 97.6 F Pulse Rate 78 Respiratory 16 Rate Blood Pressure 110/90 O2 Sat by Pulse 98 Oximetry Medical Decision Making - Medical Decision Making 49-year-old female patient presented to the emergency department today for evaluation of right upper quadrant and right flank pain. Physical examination did reveal tenderness over the right upper quadrant and right flank. There is no skin changes. Labs reviewed and did reveal elevated white blood cell count at 15.3 with no other abnormalities. Urinalysis is negative for infection or signs of red blood cells. KUB was unremarkable. CT abdomen and pelvis was obtained and was unremarkable. Patient is afebrile with normal vital signs. Patient did have some improvement with pain medication but still having pain. We did discuss the possibility of an early shingles infection as a cause for her symptoms. She'll be discharged home to follow-up with her primary care physician for recheck in 1-2 days. Return parameters were discussed in detail. She verbalizes understanding and agrees this plan. - Lab Data Result diagrams: 08/12/19 03:09 08/12/19 03:09 Lab Results 08/12/19 08/12/19 08/12/19 Range/Units 03:09 03:09 03:09 WBC 15.3 H (3.8-10.6) k/uL RBC 4.32 (3.80-5.40) m/uL Hgb 12.1 (11.4-16.0) gm/dL Hct 38.3 (34.0-46.0) % MCV 88.5 (80.0-100.0) fL MCH 28.0 (25.0-35.0) pg MCHC 31.7 (31.0-37.0) g/dL RDW 15.1 (11.5-15.5) % Plt Count 524 H (150-450) k/uL Neutrophils % 60 % Lymphocytes % 31 % Monocytes % 5 % Eosinophils % 3 % Basophils % 0 % Neutrophils # 9.2 H (1.3-7.7) k/uL Lymphocytes # 4.8 (1.0-4.8) k/uL Monocytes # 0.7 (0-1.0) k/uL Eosinophils # 0.4 (0-0.7) k/uL Basophils # 0.0 (0-0.2) k/uL Sodium 137 (137-145) mmol/L Potassium 4.3 (3.5-5.1) mmol/L Chloride 107 (98-107) mmol/L Carbon Dioxide 23 (22-30) mmol/L Anion Gap 7 mmol/L BUN 11 (7-17) mg/dL Creatinine 0.56 (0.52-1.04) mg/dL Est GFR (CKD-EPI)AfAm >90 (>60 ml/min/1.73 sqM) Est GFR (CKD-EPI)NonAf >90 (>60 ml/min/1.73 sqM) Glucose 88 (74-99) mg/dL POC Glucose (mg/dL) (75-99) mg/dL POC Glu [employer] Safe ID Plasma Lactic Acid Alexis 1.1 (0.7-2.0) mmol/L Calcium 9.3 (8.4-10.2) mg/dL Total Bilirubin 0.1 L (0.2-1.3) mg/dL AST 27 (14-36) U/L ALT 18 (4-34) U/L Alkaline Phosphatase 89 (38-126) U/L Total Protein 7.0 (6.3-8.2) g/dL Albumin 4.1 (3.5-5.0) g/dL Amylase 47 (30-110) U/L Lipase 162 (23-300) U/L Urine Color Urine Appearance (Clear) Urine pH (5.0-8.0) Ur Specific [place] (1.001-1.035) Urine Protein (Negative) Urine Glucose (UA) (Negative) Urine Ketones (Negative) Urine Blood (Negative) Urine Nitrite (Negative) Urine Bilirubin (Negative) Urine Urobilinogen (<2.0) mg/dL Ur Leukocyte Esterase (Negative) 08/12/19 08/12/19 Range/Units 03:15 03:44 WBC (3.8-10.6) k/uL RBC (3.80-5.40) m/uL Hgb (11.4-16.0) gm/dL Hct (34.0-46.0) % MCV (80.0-100.0) fL MCH (25.0-35.0) pg MCHC (31.0-37.0) g/dL RDW (11.5-15.5) % Plt Count (150-450) k/uL Neutrophils % % Lymphocytes % % Monocytes % % Eosinophils % % Basophils % % Neutrophils # (1.3-7.7) k/uL Lymphocytes # (1.0-4.8) k/uL Monocytes # (0-1.0) k/uL Eosinophils # (0-0.7) k/uL Basophils # (0-0.2) k/uL Sodium (137-145) mmol/L Potassium (3.5-5.1) mmol/L Chloride (98-107) mmol/L Carbon Dioxide (22-30) mmol/L Anion Gap mmol/L BUN (7-17) mg/dL Creatinine (0.52-1.04) mg/dL Est GFR (CKD-EPI)AfAm (>60 ml/min/1.73 sqM) Est GFR (CKD-EPI)NonAf (>60 ml/min/1.73 sqM) Glucose (74-99) mg/dL POC Glucose (mg/dL) 97 (75-99) mg/dL POC Glu [employer] Safe ID Marta Frederick Plasma Lactic Acid Alexis (0.7-2.0) mmol/L Calcium (8.4-10.2) mg/dL Total Bilirubin (0.2-1.3) mg/dL AST (14-36) U/L ALT (4-34) U/L Alkaline Phosphatase (38-126) U/L Total Protein (6.3-8.2) g/dL Albumin (3.5-5.0) g/dL Amylase (30-110) U/L Lipase (23-300) U/L Urine Color Yellow Urine Appearance Clear (Clear) Urine pH 6.0 (5.0-8.0) Ur Specific [place] 1.029 (1.001-1.035) Urine Protein Trace H (Negative) Urine Glucose (UA) Negative (Negative) Urine Ketones Negative (Negative) Urine Blood Negative (Negative) Urine Nitrite Negative (Negative) Urine Bilirubin Negative (Negative) Urine Urobilinogen 3.0 (<2.0) mg/dL Ur Leukocyte Esterase Negative (Negative) - Radiology Data Radiology results: report reviewed, image reviewed CT abdomen and pelvis with contrast was obtained. Report was reviewed in its entirety. Impression by Dr. Lobo shows no sign of acute abdomen and pelvis. Hiatal hernia. Previous surgery. Do not see across right-sided flank pain. KUB x-ray was obtained. Report was reviewed in its entirety. Impression by Dr. Lobo shows nonacute abdomen. No change. Disposition Clinical Impression: Abdominal pain Disposition: HOME SELF-CARE Condition: Good Instructions (If sedation given, give patient instructions): Abdominal Pain (ED) Additional Instructions: Rest. Increase fluids. Follow up with your primary care physician for recheck in 1-2 days. Return to the emergency department for any new, worsening, or concerning symptoms. Is patient prescribed a controlled substance at d/c from ED?: No Referrals: Saleem Page DO [Primary Care Provider] - 1-2 days Time of Disposition: 05:04
[2019-08-12 03:28] LABS: ALT 18 U/L (4-34); AST 27 U/L (14-36); African American GFR (CKD) >90 (>60 ml/min/1.73 sqM); Albumin 4.1 g/dL (3.5-5.0); Alkaline Phosphatase 89 U/L (38-126); Amylase 47 U/L (30-110); Anion Gap 7 mmol/L; Blood Urea Nitrogen 11 mg/dL (7-17); Calcium 9.3 mg/dL (8.4-10.2); Carbon Dioxide 23 mmol/L (22-30); Chloride 107 mmol/L (98-107); Glucose 88 mg/dL (74-99); Non-African American GFR(CKD) >90 (>60 ml/min/1.73 sqM); Potassium 4.3 mmol/L (3.5-5.1); Sodium 137 mmol/L (137-145); Total Bilirubin 0.1 mg/dL (0.2-1.3)
--- NOTE | 2019-08-12 03:43 | XR ---
EXAMINATION TYPE: XR KUB DATE OF EXAM: 08/12/2019 COMPARISON: 10/07/2018 HISTORY: Flank pain TECHNIQUE: 2 views upright FINDINGS: There is no sign of intestinal obstruction or pneumoperitoneum. Fecal pattern is normal. Th ere are surgical clips over the right mid abdomen. Lung bases are clear. Liver is enlarged and extend s below the right iliac crest. IMPRESSION: Nonacute abdomen. No change.
[2019-08-12] MEDS ORDERED: HYDROmorphone 1 MG/ML 1 ML SYRINGE IVP STA (03:51)
[2019-08-12 03:54] LABS: Appearance,Urine Clear (Clear); Bilirubin,Urine Negative (Negative); Blood,Urine Negative (Negative); Color,Urine Yellow; Glucose,Urine (UA) Negative (Negative); Ketones,Urine Negative (Negative); Leukocyte Esterase,Urine Negative (Negative); Nitrite,Urine Negative (Negative); Protein,Urine Trace (Negative); Specific Gravity,Urine 1.029 (1.001-1.035)
[2019-08-12 04:03] VITALS: RESP 16
--- NOTE | 2019-08-12 04:57 | CT ---
EXAMINATION TYPE: CT abdomen pelvis w con DATE OF EXAM: 08/12/2019 COMPARISON: 10/07/2018 HISTORY: RLQ pain CT DLP: 854.1 mGycm Automated exposure control for dose reduction was used. CONTRAST: Performed with IV Contrast, patient injected with 100 mL of Isovue 300. The lung bases are clear. There is no pleural effusion. There is minimal subsegmental atelectasis at the lung bases. There is hiatal hernia. There is gastric. Surgery. Liver spleen pancreas appear yolanda l. There are clips from cholecystectomy. The bile ducts are not dilated. There is no adrenal mass. Ki dneys show satisfactory contrast opacification. There is no hydronephrosis. There is no retroperitoneal adenopathy. There is no ascites or free air. Ureters are not dilated. Saurabh dder is almost empty. There is no free fluid in the pelvis. There is no inguinal hernia. Appendix is not seen. There is no sign of thickened appendix. There is no mesenteric edema. There are a few distended fluid-filled loops of small bowel in the lowe r abdomen. Small bowel however only measures up to 2.3 cm which is within normal limits. Lumbar vertebra have normal alignment. There is L4-5 disc space narrowing. There is no compression fr acture. Bony pelvis is intact. IMPRESSION: No sign of acute abdomen and pelvis. Hiatal hernia. Previous surgery. I do not see a cause for right- sided flank pain.
[2019-08-12] MEDS ORDERED: ACET/COD 300 MG/30 MG STARTER PACK 6 TAB BTL PO STA (05:05)
[2019-08-12 05:18] VITALS: BP 110/90; PULSE 78; TEMP 97.6
== END 2019-08-12 05:29 | disposition home or self-care (01) ==
LOC: EC 02:09
DX: R10.11 Right upper quadrant pain (principal); M54.9 Dorsalgia, unspecified; J45.909 Unspecified asthma, uncomplicated; I10 Essential (primary) hypertension; F41.9 Anxiety disorder, unspecified; F32.9 Major depressive disorder, single episode, unspecified; F17.200 Nicotine dependence, unspecified, uncomplicated; Z88.0 Allergy status to penicillin; Z88.6 Allergy status to analgesic agent; Z88.8 Allergy status to other drugs, medicaments and biological substances; Z98.84 Bariatric surgery status; Z90.49 Acquired absence of other specified parts of digestive tract; Z90.89 Acquired absence of other organs
CPT/HCPCS: 36415; 80053; 82150; 83605; 83690; 85025; 81003; 74018; 74177; 99284; 96374; 96375 ×2; 96376; 96361; J2405; J1885; J1170 ×2; Q9967

== ENCOUNTER 2019-10-19 13:42 | Emergency (ER) | payer OTHER ==
[2019-10-19 13:52] VITALS: RESP 18; TEMP 98.1
[2019-10-19] MEDS ORDERED: HYDROmorphone 1 MG/ML 1 ML SYRINGE IM STA (15:30)
[2019-10-19] MEDS ORDERED: METOCLOPRAMIDE 5 MG/ML 2 ML VIAL IM STA (15:30)
--- NOTE | 2019-10-19 15:33 | ED ---
General Adult HPI - General Chief complaint: Headache Stated complaint: Headache Time Seen by Provider: 10/19/19 15:00 Source: patient, RN notes reviewed, old records reviewed Mode of arrival: wheelchair Limitations: no limitations - History of Present Illness Initial comments: Patient is a pleasant 49-year-old female presenting to the emergency Department with complaints of headache. Onset of headache was yesterday morning. Headache was gradual onset and has progressively worsened since that time. Headache is starting to become severe. Patient does have nausea. Patient has photophobia. Headache is mostly on the top of the head. Patient does have history of chronic headaches similar to this and previously diagnosed with migraines. No con fusion. No speech problems. No weakness. - Related Data Home Medications Medication Instructions Recorded Confirmed ALPRAZolam [Xanax] 1 mg PO TID PRN 01/20/19 05/23/19 Butalb/APAP/Caff 50-325-40Mg 1 tab PO TID PRN 01/20/19 05/23/19 [Fioricet 50-325-40] Acetaminophen Tab [Tylenol Tab] 1,000 mg PO Q6HR PRN 05/23/19 05/23/19 Albuterol Nebulized [Ventolin 2.5 mg INHALATION RT-Q6H PRN 05/23/19 05/23/19 Nebulized] Albuterol Sulfate [Ventolin HFA] 1 - 2 puff INHALATION RT-Q6H PRN 05/23/19 05/23/19 Previous Rx's Medication Instructions Recorded Losartan [Cozaar] 25 mg PO DAILY #90 tab 01/21/19 Levofloxacin [Levaquin] 750 mg PO DAILY #7 tab 05/23/19 Allergies Allergy/AdvReac Type Severity Reaction Status Date / Time Penicillins Allergy Unknown Verified 10/19/19 13:52 sumatriptan [From Imitrex] Allergy Unknown Verified 10/19/19 13:52 sumatriptan succinate Allergy Unknown Verified 10/19/19 13:52 [From Imitrex] NSAIDS (Non-Steroidal AdvReac Unknown Verified 10/19/19 13:52 Anti-Inflamma Review of Systems ROS Statement: Those systems with pertinent positive or pertinent negative responses have been documented in the HPI. ROS Other: All systems not noted in ROS Statement are negative. Constitutional: Denies: fever Eyes: Denies: eye pain ENT: Denies: ear pain Respiratory: Denies: cough, dyspnea Cardiovascular: Denies: chest pain Endocrine: Denies: fatigue Gastrointestinal: Denies: abdominal pain Genitourinary: Denies: dysuria Musculoskeletal: Denies: back pain Skin: Denies: rash Neurological: Reports: headache. Denies: weakness, confusion Past Medical History Past Medical History: Asthma, Hypertension Additional Past Medical History / Comment(s): Past L mastoiditis with L otitis/vertigo and falls-had surgery and no longer a problem, nephrolithiasis, migraines, past chronic low back pain but pt states not much of a problem an ymore, DJD, hypoglycemia, History of Any Multi-Drug Resistant Organisms: None Reported Past Surgical History: Adenoidectomy, Appendectomy, Bariatric Surgery, Breast Surgery, Cholecystectomy, Ear Surgery, Hernia Repair, Hysterectomy, Orthopedic Surgery, Tonsillectomy, Tubal Ligation Additional Past Surgical History / Comment(s): Gastric bypass in 2008 with weight loss of 170 pounds, panniculectomy, L ear perforation with surgery, R knee open surgery as a child and x 2 arthroscopicL knee surgeries, R breast bx- benign, 2 umbilical hernias and 1 diaphragmatic hernia repairs, colonoscopy, mastoidectomy with Dr. Valderrama at [facility]. Past Anesthesia/Blood Transfusion Reactions: No Reported Reaction Past Psychological History: Anxiety, Depression Smoking Status: Current every day smoker Past Alcohol Use History: None Reported Past Drug Use History: None Reported - Past Family History Father Additional Family Medical History / Comment(s): Father from a aneurysm at the age of 72 yrs. he also had history of prostate cancer, aortic aneurysm, renal artery aneurysm. Mother Family Medical History: COPD Additional Family Medical History / Comment(s): Mother is 75 yrs old and has emphysema and hypertension. Brother(s) Additional Family Medical History / Comment(s): She has one brother with hypertension and plaque psoriasis. Sister(s) Additional Family Medical History / Comment(s): She has one sister with hypertension. Son(s) Additional Family Medical History / Comment(s): Patient has 3 children, one boy with ureteral obstruction and renal failure. 2 girls that are healthy without major medical problems. General Exam Limitations: no limitations General appearance: alert, in no apparent distress Head exam: Present: normocephalic Eye exam: Present: normal appearance, PERRL, EOMI ENT exam: Present: normal oropharynx, TM's normal bilaterally Neck exam: Present: normal inspection Respiratory exam: Present: normal lung sounds bilaterally. Absent: respiratory distress Cardiovascular Exam: Present: regular rate, normal rhythm Extremities exam: Present: normal inspection, full ROM Neurological exam: Present: alert, oriented X3, CN II-XII intact. Absent: motor sensory deficit Expanded Neurological exam: Present: protecting the airway Speech: Present: fluid speech Cranial nerves: EOM's Intact: Normal, Facial Sensation: Normal Sensory exam: Upper Extremity Light Touch: Normal, Lower Extremity Light Touch: Normal Motor strength exam: RUE: 5, LUE: 5, RLE: 5, LLE: 5 Eye Response: (4) open spontaneously Motor Response: (6) obeys commands Verbal Response: (5) oriented Psychiatric exam: Present: normal affect, normal mood Skin exam: Present: normal color Course Vital Signs 10/19/19 13:49 Temperature 98.1 F Pulse Rate 68 Respiratory 18 Rate Blood Pressure 131/87 O2 Sat by Pulse 97 Oximetry Medical Decision Making - Medical Decision Making Patient is receptive to receiving injections for pain and nausea and discharge Disposition Clinical Impression: Headache Disposition: HOME SELF-CARE Condition: Stable Instructions (If sedation given, give patient instructions): Acute Headache (ED) Additional Instructions: Please follow-up with primary care physician in the next couple days for recheck. Return for confusion, weakness, change in mental status, visual changes, persistent vomiting, worsening or changing symptoms or other concerns. Is patient prescribed a controlled substance at d/c from ED?: No Referrals: Saleem Page DO [Primary Care Provider] - 1-2 days Time of Disposition: 15:33
[2019-10-19 16:09] VITALS: BP 128/72; PULSE 78
== END 2019-10-19 16:09 | disposition home or self-care (01) ==
LOC: EC 13:42
DX: R51 Headache (principal); R11.0 Nausea; H53.149 Visual discomfort, unspecified; J45.909 Unspecified asthma, uncomplicated; F17.200 Nicotine dependence, unspecified, uncomplicated; Z79.51 Long term (current) use of inhaled steroids; Z88.0 Allergy status to penicillin; Z88.6 Allergy status to analgesic agent; Z88.8 Allergy status to other drugs, medicaments and biological substances; Z86.69 Personal history of other diseases of the nervous system and sense organs
CPT/HCPCS: 96372 ×2; 99283; J2765; J1170

== ENCOUNTER 2019-10-19 22:37 | Emergency (ER) | payer OTHER ==
[2019-10-19 22:48] VITALS: RESP 18
[2019-10-19] MEDS ORDERED: KETOROLAC 30 MG/ML 1 ML VIAL IVP STA (23:12)
[2019-10-19] MEDS ORDERED: diphenhydrAMINE 50 MG/ML 1 ML VIAL IVP STA (23:12)
[2019-10-19] MEDS ORDERED: SODIUM CHLORIDE 0.9% 1,000 ML IV ONE (23:12)
[2019-10-19] MEDS ORDERED: METOCLOPRAMIDE 5 MG/ML 2 ML VIAL IVP STA (23:12)
--- NOTE | 2019-10-19 23:19 | ED ---
Headache HPI - General Chief Complaint: Headache Stated Complaint: Migraine Time Seen by Provider: 10/19/19 22:56 Mode of arrival: ambulatory Limitations: no limitations - History of Present Illness Initial Comments: This patient is a 49-year-old woman with history of chronic migraines who states that she is having a flareup of one of her usual migraines. She states that the pain is of the same location and sensation as usual it was just not resolving with her home medications. She was seen here earlier in the day and did have good relief but went home and had recurrence of vomiting so could not take any further home medication. The patient denies any new or unusual symptoms related this migraine. No fever, neck stiffness, or neurologic symptoms. MD Complaint: "migraine" Onset/Timin -: days(s) Onset Description: gradual Severity: severe Quality: aching Consistency: constant Improves With: medication Worsens With: light Context: occurred at rest Associated Symptoms: nausea, vomiting, photophobia, sensitivity to sound Treatments Prior to Arrival: migraine medication - Related Data Home Medications Medication Instructions Recorded Confirmed ALPRAZolam [Xanax] 1 mg PO TID PRN 01/20/19 05/23/19 Butalb/APAP/Caff 50-325-40Mg 1 tab PO TID PRN 01/20/19 05/23/19 [Fioricet 50-325-40] Acetaminophen Tab [Tylenol Tab] 1,000 mg PO Q6HR PRN 05/23/19 05/23/19 Albuterol Nebulized [Ventolin 2.5 mg INHALATION RT-Q6H PRN 05/23/19 05/23/19 Nebulized] Albuterol Sulfate [Ventolin HFA] 1 - 2 puff INHALATION RT-Q6H PRN 05/23/19 05/23/19 Previous Rx's Medication Instructions Recorded Losartan [Cozaar] 25 mg PO DAILY #90 tab 01/21/19 Levofloxacin [Levaquin] 750 mg PO DAILY #7 tab 05/23/19 Allergies Allergy/AdvReac Type Severity Reaction Status Date / Time Penicillins Allergy Unknown Verified 10/19/19 22:48 sumatriptan [From Imitrex] Allergy Unknown Verified 10/19/19 22:48 sumatriptan succinate Allergy Unknown Verified 10/19/19 22:48 [From Imitrex] NSAIDS (Non-Steroidal AdvReac Unknown Verified 10/19/19 22:48 Anti-Inflamma Review of Systems ROS Statement: Those systems with pertinent positive or pertinent negative responses have been documented in the HPI. ROS Other: All systems not noted in ROS Statement are negative. Constitutional: Denies: fever, chills Eyes: Denies: eye pain, vision change ENT: Denies: ear pain, hearing loss Respiratory: Denies: cough, dyspnea Cardiovascular: Denies: chest pain, palpitations Gastrointestinal: Reports: nausea, vomiting. Denies: abdominal pain Musculoskeletal: Denies: back pain Neurological: Reports: as per HPI, headache. Denies: weakness, numbness, paresthesias, confusion Past Medical History Past Medical History: Asthma, Hypertension Additional Past Medical History / Comment(s): Past L mastoiditis with L otitis/vertigo and falls-had surgery and no longer a problem, nephrolithiasis, migraines, past chronic low back pain but pt states not much of a problem anymore, DJD, hypoglycemia, History of Any Multi-Drug Resistant Organisms: None Reported Past Surgical History: Adenoidectomy, Appendectomy, Bariatric Surgery, Breast Surgery, Cholecystectomy, Ear Surgery, Hernia Repair, Hysterectomy, Orthopedic Surgery, Tonsillectomy, Tubal Ligation Additional Past Surgical History / Comment(s): Gastric bypass in 2008 with weight loss of 170 pounds, panniculectomy, L ear perforation with surgery, R knee open surgery as a child and x 2 arthroscopicL knee surgeries, R breast bx- benign, 2 umbilical hernias and 1 diaphragmatic hernia repairs, colonoscopy, mastoidectomy with Dr. Valderrama at [facility]. Past Anesthesia/Blood Transfusion Reactions: No Reported Reaction Past Psychological History: Anxiety, Depression Smoking Status: Current every day smoker Past Alcohol Use History: None Reported Past Drug Use History: None Reported - Past Family History Father Additional Family Medical History / Comment(s): Father from a aneurysm at the age of 72 yrs. he also had history of prostate cancer, aortic aneurysm, renal artery aneurysm. Mother Family Medical History: COPD Additional Family Medical History / Comment(s): Mother is 75 yrs old and has emphysema and hypertension. Brother(s) Additional Family Medical History / Comment(s): She has one brother with hypertension and plaque psoriasis. Sister(s) Additional Family Medical History / Comment(s): She has one sister with hypertension. Son(s) Additional Family Medical History / Comment(s): Patient has 3 children, one boy with ureteral obstruction and renal failure. 2 girls that are healthy without major medical problems. General Exam Limitations: no limitations General appearance: alert, in no apparent distress Head exam: Present: atraumatic, normocephalic, normal inspection ENT exam: Present: normal oropharynx Neck exam: Present: normal inspection, full ROM. Absent: meningismus GI/Abdominal exam: Present: soft. Absent: distended, tenderness, guarding, rebound, rigid, mass Extremities exam: Present: normal inspection, normal capillary refill. Absent: pedal edema, calf tenderness Back exam: Present: normal inspection. Absent: CVA tenderness (R), CVA tenderness (L) Neurological exam: Present: alert, oriented X3, CN II-XII intact. Absent: motor sensory deficit Skin exam: Present: warm, dry, intact, normal color. Absent: rash Course Vital Signs 10/19/19 22:44 Temperature 97.5 F L Pulse Rate 96 Respiratory 18 Rate Blood Pressure 107/72 O2 Sat by Pulse 100 Oximetry Disposition Clinical Impression: Migraine headache Disposition: HOME SELF-CARE Condition: Good Instructions (If sedation given, give patient instructions): Acute Headache (ED) Is patient prescribed a controlled substance at d/c from ED?: No Referrals: Saleem Page DO [Primary Care Provider] - 1-2 days
[2019-10-20 01:12] VITALS: BP 119/83; PULSE 67; TEMP 98.4
== END 2019-10-20 01:11 | disposition home or self-care (01) ==
LOC: EC 22:37
DX: G43.709 Chronic migraine without aura, not intractable, without status migrainosus (principal); J45.909 Unspecified asthma, uncomplicated; I10 Essential (primary) hypertension; F41.9 Anxiety disorder, unspecified; F32.9 Major depressive disorder, single episode, unspecified; F17.200 Nicotine dependence, unspecified, uncomplicated; Z88.0 Allergy status to penicillin; Z88.8 Allergy status to other drugs, medicaments and biological substances; Z88.6 Allergy status to analgesic agent; Z98.84 Bariatric surgery status
CPT/HCPCS: 99283 ×3; 96374 ×2; 96375 ×3; 96361 ×2; 96372; J1200; J2765 ×2; J1885; J1170

== ENCOUNTER → 2020-03-06 | Outpatient (CLI) | payer OTHER | END | disposition home or self-care (01) | LOC: LABWHC1 08:31 | PROVIDERS: ATTEND Family Medicine | DX: Z20.828 Contact with and (suspected) exposure to other viral communicable diseases (principal) | CPT/HCPCS: U0003; C9803 ==

== ENCOUNTER 2020-03-29 05:35 | Emergency (ER) | payer OTHER ==
[2020-03-29] MEDS ORDERED: SODIUM CHLORIDE 0.9% 1,000 ML IV ONE (06:06)
[2020-03-29 06:10] LABS: Basophils # (A) 0.1 k/uL (0-0.2); Basophils % (A) 1 %; Eosinophils # (A) 0.8 k/uL (0-0.7); Eosinophils % (A) 6 %; HCT 40.1 % (34.0-46.0); HGB 12.7 gm/dL (11.4-16.0); Lymphocytes # (A) 4.6 k/uL (1.0-4.8); Lymphocytes % (A) 36 %; MCHC 31.7 g/dL (31.0-37.0); MCV 94.6 fL (80.0-100.0); Mean Platelet Volume 6.9; Monocytes # (A) 0.7 k/uL (0-1.0); Monocytes % (A) 5 %; Neutrophils # (A) 6.6 k/uL (1.3-7.7); Neutrophils % (A) 51 %; Platelet Count 556 k/uL (150-450); RBC 4.24 m/uL (3.80-5.40); RDW 14.6 % (11.5-15.5); WBC 12.9 k/uL (3.8-10.6)
[2020-03-29] MEDS ORDERED: MORPHINE SULFATE 4 MG/ML SYRINGE IVP STA (06:11)
[2020-03-29] MEDS ORDERED: ONDANSETRON 4 MG/2 ML VIAL IVP STA (06:11)
[2020-03-29 06:17] LABS: Appearance,Urine Clear (Clear); Bacteria,Urine Rare /hpf; Bilirubin,Urine 1+ (Negative); Blood,Urine Trace (Negative); Color,Urine Dark Brown; Glucose,Urine (UA) Negative (Negative); Ketones,Urine Negative (Negative); Leukocyte Esterase,Urine Negative (Negative); Mucus,Urine Rare /hpf; Nitrite,Urine Positive (Negative); PH, Urine 5.5 (5.0-8.0); Protein,Urine 1+ (Negative); RBC,Urine 9 /hpf (0-5); Specific Gravity,Urine 1.018 (1.001-1.035); Squamous Epithelial Cell,Urine 1 /hpf (0-4); WBC,Urine 2 /hpf (0-5)
[2020-03-29 06:19] LABS: ALT 19 U/L (4-34); AST 27 U/L (14-36); African American GFR (CKD) >90 (>60 ml/min/1.73 sqM); Albumin 4.1 g/dL (3.5-5.0); Alkaline Phosphatase 108 U/L (38-126); Anion Gap 5 mmol/L; Blood Urea Nitrogen 12 mg/dL (7-17); Calcium 9.3 mg/dL (8.4-10.2); Carbon Dioxide 24 mmol/L (22-30); Chloride 111 mmol/L (98-107); Glucose 79 mg/dL (74-99); Non-African American GFR(CKD) >90 (>60 ml/min/1.73 sqM); Potassium 4.4 mmol/L (3.5-5.1); Sodium 140 mmol/L (137-145); Total Bilirubin 0.4 mg/dL (0.2-1.3); Total Protein 7.5 g/dL (6.3-8.2)
--- NOTE | 2020-03-29 06:20 | ED ---
General Adult HPI - General Chief complaint: Back Pain/Injury Stated complaint: poss kidney stone Time Seen by Provider: 03/29/20 06:03 Source: patient, family, RN notes reviewed Mode of arrival: ambulatory Limitations: no limitations - History of Present Illness Initial comments: 50-year-old female with a past medical history of asthma, hypertension, n ephrolithiasis presents to the emergency room for a chief complaint of bilateral flank pain. Patient reports that she notices pain a few days ago but thought it might be due to straining her back from lifting her grandchildren. However she states that progressively this pain has worsened on both sides. Patient states that she started to have bladder spasms last night around 8 PM. These worsen after she urinates. Patient has not noticed any fevers. Patient denies any significant abdominal pain.Patient has no other complaints at this time including shortness of breath, chest pain, abdominal pain, nausea or vomiting, headache, or visual changes. - Related Data Home Medications Medication Instructions Recorded Confirmed ALPRAZolam [Xanax] 1 mg PO TID PRN 01/20/19 05/23/19 Butalb/APAP/Caff 50-325-40Mg 1 tab PO TID PRN 01/20/19 05/23/19 [Fioricet 50-325-40] Acetaminophen Tab [Tylenol Tab] 1,000 mg PO Q6HR PRN 05/23/19 05/23/19 Albuterol Nebulized [Ventolin 2.5 mg INHALATION RT-Q6H PRN 05/23/19 05/23/19 Nebulized] Albuterol Sulfate [Ventolin HFA] 1 - 2 puff INHALATION RT-Q6H PRN 05/23/19 05/23/19 Previous Rx's Medication Instructions Recorded Losartan [Cozaar] 25 mg PO DAILY #90 tab 01/21/19 Levofloxacin [Levaquin] 750 mg PO DAILY #7 tab 05/23/19 Ciprofloxacin HCl [Cipro] 500 mg PO Q12H 7 Days #14 tab 03/29/20 Allergies Allergy/AdvReac Type Severity Reaction Status Date / Time Penicillins Allergy Unknown Verified 03/29/20 05:41 sumatriptan [From Imitrex] Allergy Unknown Verified 03/29/20 05:41 sumatriptan succinate Allergy Unknown Verified 03/29/20 05:41 [From Imitrex] NSAIDS (Non-Steroidal AdvReac Unknown Verified 03/29/20 05:41 Anti-Inflamma Review of Systems ROS Statement: Those systems with pertinent positive or pertinent negative responses have been documented in the HPI. ROS Other: All systems not noted in ROS Statement are negative. Past Medical History Past Medical History: Asthma, Hypertension Additional Past Medical History / Comment(s): Past L mastoiditis with L otitis/vertigo and falls-had surgery and no longer a problem, nephrolithiasis, migraines, past chronic low back pain but pt states not much of a problem anymore, DJD, hypoglycemia, History of Any Multi-Drug Resistant Organisms: None Reported Past Surgical History: Adenoidectomy, Appendectomy, Bariatric Surgery, Breast Surgery, Cholecystectomy, Ear Surgery, Hernia Repair, Hysterectomy, Orthopedic Surgery, Tonsillectomy, Tubal Ligation Additional Past Surgical History / Comment(s): Gastric bypass in 2008 with weight loss of 170 pounds, panniculectomy, L ear perforation with surgery, R knee open surgery as a child and x 2 arthroscopicL knee surgeries, R breast bx- benign, 2 umbilical hernias and 1 diaphragmatic hernia repairs, colonoscopy, mastoidectomy with Dr. Valderrama at [facility]. Past Anesthesia/Blood Transfusion Reactions: No Reported Reaction Past Psychological History: Anxiety, Depression Smoking Status: Current every day smoker Past Alcohol Use History: None Reported Past Drug Use History: None Reported - Past Family History Father Additional Family Medical History / Comment(s): Father from a aneurysm at the age of 72 yrs. he also had history of prostate cancer, aortic aneurysm, renal artery aneurysm. Mother Family Medical History: COPD Additional Family Medical History / Comment(s): Mother is 75 yrs old and has emphysema and hypertension. Brother(s) Additional Family Medical History / Comment(s): She has one brother with hyp ertension and plaque psoriasis. Sister(s) Additional Family Medical History / Comment(s): She has one sister with hypertension. Son(s) Additional Family Medical History / Comment(s): Patient has 3 children, one boy with ureteral obstruction and renal failure. 2 girls that are healthy without major medical problems. General Exam Limitations: no limitations General appearance: alert, in no apparent distress Head exam: Present: atraumatic, normocephalic, normal inspection Eye exam: Present: normal appearance, PERRL, EOMI. Absent: scleral icterus, conjunctival injection, periorbital swelling ENT exam: Present: normal exam, mucous membranes moist Neck exam: Present: normal inspection, full ROM. Absent: tenderness, meningismus, lymphadenopathy Respiratory exam: Present: normal lung sounds bilaterally. Absent: respiratory distress, wheezes, rales, rhonchi, stridor Cardiovascular Exam: Present: regular rate, normal rhythm, normal heart sounds. Absent: systolic murmur, diastolic murmur, rubs, gallop, clicks GI/Abdominal exam: Present: soft, normal bowel sounds. Absent: distended, tend erness, guarding, rebound, rigid Back exam: Present: CVA tenderness (R), CVA tenderness (L) Course Vital Signs 03/29/20 03/29/20 05:38 07:45 Temperature 97.5 F L 97.8 F Pulse Rate 111 H 70 Respiratory 20 18 Rate Blood Pressure 137/88 97/72 O2 Sat by Pulse 97 98 Oximetry Medical Decision Making - Medical Decision Making Vitals are stable. Patient is well-appearing although is uncomfortable at initial examination. CBC shows leukocytosis with reactive ambo cytosis. CMP is unremarkable. Urinalysis does show positive nitrites with rare bacteria and red and white blood cells. Given patient's history of kidney stones with no evidence UTI versus pyelonephritis CT abdomen and pelvis without contrast was ordered. At this time no hydronephrosis or nephrolithiasis. There is a mild hiatal hernia with evidence of prior bowel surgeries. Enlarged liver with mild nodular surface, possibly early cirrhotic morphology. I did discuss these findings with patient and she will follow-up with her doctor. Patient was given pain medication and fluids and IV antibiotics initially much better at this time. Vitals are stable on discharge. Patient was sent home with Tylenol 3. Patient reports that Keflex sometimes causes her reaction and she usually takes Cipro. Therefore I will give patient Cipro to treat a pyelonephritis given her flank pain. She will follow up with primary care. Discussed strict return parameters. - Lab Data Result diagrams: 03/29/20 06:01 03/29/20 06:01 Lab Results 03/29/20 03/29/20 03/29/20 Range/Units 06:01 06:01 06:01 WBC 12.9 H (3.8-10.6) k/uL RBC 4.24 (3.80-5.40) m/uL Hgb 12.7 (11.4-16.0) gm/dL Hct 40.1 (34.0-46.0) % MCV 94.6 (80.0-100.0) fL MCH 30.0 (25.0-35.0) pg MCHC 31.7 (31.0-37.0) g/dL RDW 14.6 (11.5-15.5) % Plt Count 556 H (150-450) k/uL Neutrophils % 51 % Lymphocytes % 36 % Monocytes % 5 % Eosinophils % 6 % Basophils % 1 % Neutrophils # 6.6 (1.3-7.7) k/uL Lymphocytes # 4.6 (1.0-4.8) k/uL Monocytes # 0.7 (0-1.0) k/uL Eosinophils # 0.8 H (0-0.7) k/uL Basophils # 0.1 (0-0.2) k/uL Sodium 140 (137-145) mmol/L Potassium 4.4 (3.5-5.1) mmol/L Chloride 111 H (98-107) mmol/L Carbon Dioxide 24 (22-30) mmol/L Anion Gap 5 mmol/L BUN 12 (7-17) mg/dL Creatinine 0.57 (0.52-1.04) mg/dL Est GFR (CKD-EPI)AfAm >90 (>60 ml/min/1.73 sqM) Est GFR (CKD-EPI)NonAf >90 (>60 ml/min/1.73 sqM) Glucose 79 (74-99) mg/dL Calcium 9.3 (8.4-10.2) mg/dL Total Bilirubin 0.4 (0.2-1.3) mg/dL AST 27 (14-36) U/L ALT 19 (4-34) U/L Alkaline Phosphatase 108 (38-126) U/L Total Protein 7.5 (6.3-8.2) g/dL Albumin 4.1 (3.5-5.0) g/dL Urine Color Dark Brown Urine Appearance Clear (Clear) Urine pH 5.5 (5.0-8.0) Ur Specific [place] 1.018 (1.001-1.035) Urine Protein 1+ H (Negative) Urine Glucose (UA) Negative (Negative) Urine Ketones Negative (Negative) Urine Blood Trace H (Negative) Urine Nitrite Positive H (Negative) Urine Bilirubin 1+ H (Negative) Urine Urobilinogen 6.0 (<2.0) mg/dL Ur Leukocyte Esterase Negative (Negative) Urine RBC 9 H (0-5) /hpf Urine WBC 2 (0-5) /hpf Ur Squamous Epith Cells 1 (0-4) /hpf Urine Bacteria Rare H (None) /hpf Urine Mucus Rare H (None) /hpf Disposition Clinical Impression: Pyelonephritis Disposition: HOME SELF-CARE Condition: Good Instructions (If sedation given, give patient instructions): Kidney Infection (ED) Additional Instructions: Please take antibiotic as directed. Drink plenty of fluids. If you're having worsening symptoms are getting fevers he must return to the emergency room. Otherwise follow-up with your doctor for a recheck and to discuss CT results. Prescriptions: Ciprofloxacin HCl [Cipro] 500 mg PO Q12H 7 Days #14 tab Is patient prescribed a controlled substance at d/c from ED?: No Referrals: Saleem Page DO [Primary Care Provider] - 1-2 days Time of Disposition: 07:37
[2020-03-29] MEDS ORDERED: cefTRIAXone IN SWFI 1,000 MG/10 ML SYRINGE IVP STA (06:28)
[2020-03-29] MEDS ORDERED: HYDROmorphone 0.5 MG/0.5 ML SYRINGE IVP STA (07:02)
--- NOTE | 2020-03-29 07:19 | CT ---
EXAM: CT Abdomen and Pelvis Without Intravenous Contrast CLINICAL HISTORY: ITS.REASON CT Reason: flank pain TECHNIQUE: Axial computed tomography images of the abdomen and pelvis without intravenous contrast. CTDI is 11.47 mGy and DLP is 567.6 mGy-cm. This CT exam was performed using one or more of the following dose reduction techniques: automated exposure control, adjustment of the mA and/or kV according to patient size, and/or use of iterative reconstruction technique. COMPARISON: 08/12/2019 FINDINGS: Lung bases: No mass. No consolidation. ABDOMEN: Liver: Enlarged with mild nodularity. Gallbladder and bile ducts: Removed. Pancreas: No ductal dilation. Spleen: Unremarkable. Adrenals: Unremarkable. Kidneys and ureters: No obstructing stones. No hydronephrosis. Stomach and bowel: No bowel obstruction. No bowel wall thickening. Prior gastric surgery. Mild hiatal hernia. Prior bowel surgery. PELVIS: Appendix: No evidence of appendicitis. Bladder: No stones. Reproductive: Unremarkable. ABDOMEN and PELVIS: Intraperitoneal space: Unremarkable. Bones/joints: No acute fractures. Soft tissues: Unremarkable. Vasculature: No abdominal aortic aneurysm. Lymph nodes: No enlarged lymph nodes. IMPRESSION: 1. No hydronephrosis or nephrolithiasis. 2. Mild hiatal hernia. Prior bowel surgeries. 3. Enlarged liver with mild nodular surface. Possibly early cirrhotic morphology.
[2020-03-29] MEDS ORDERED: ACET/COD 300 MG/30 MG STARTER PACK 6 TAB BTL PO STA (07:57)
[2020-03-29 08:42] VITALS: BP 97/72; PULSE 70; RESP 18; TEMP 97.8
== END 2020-03-29 08:03 | disposition home or self-care (01) ==
LOC: EC 05:35
DX: N12 Tubulo-interstitial nephritis, not specified as acute or chronic (principal); R16.0 Hepatomegaly, not elsewhere classified; F41.9 Anxiety disorder, unspecified; F32.9 Major depressive disorder, single episode, unspecified; J45.909 Unspecified asthma, uncomplicated; F17.200 Nicotine dependence, unspecified, uncomplicated; Z88.0 Allergy status to penicillin; Z88.6 Allergy status to analgesic agent; Z88.8 Allergy status to other drugs, medicaments and biological substances; Z90.49 Acquired absence of other specified parts of digestive tract; Z90.710 Acquired absence of both cervix and uterus; Z98.51 Tubal ligation status
CPT/HCPCS: 36415; 80053; 85025; 81001; 74176; 87086; 99284; 96374; 96375 ×3; 96361 ×2; J2270; J2405; J0696; J1170

== ENCOUNTER 2020-08-10 12:14 | Emergency (ER) | payer OTHER ==
[2020-08-10 12:25] VITALS: RESP 16; TEMP 97.4
--- NOTE | 2020-08-10 12:44 | ED ---
General Adult HPI - General Chief complaint: Recheck/Abnormal Lab/Rx Stated complaint: lab/recheck Time Seen by Provider: 08/10/20 12:42 Source: patient Mode of arrival: ambulatory Limitations: no limitations - History of Present Illness Initial comments: Patient presents the ED with her daughter for evaluation. Patient states that she had lab work ordered by her primary care provider yesterday, and she states that she was told that her hemoglobin level was low, so she was advised to come to the emergency department today. Patient states that she has been feeling generally weak for the past month or so. Patient states that she has also noticed that her stool is been darker than usual and she has been experiencing generalized abdominal cramping over the past 2 months or so. Patient denies having any abdominal pain at this time. Patient admits taking ibuprofen and aspirin almost daily for management of her migraine headaches. Patient denies any other anticoagulant medication use. Patient denies trauma or injury, fever or chills, headache currently, chest pain, dyspnea, palpitations, dizziness, syncope, nausea or vomiting, diarrhea or constipation, bright red blood per rectum, rectal pain, dysuria/hematuria/urinary symptoms, or any other symptoms or complaints. - Related Data Home Medications Medication Instructions Recorded Confirmed ALPRAZolam [Xanax] 1 mg PO BID PRN 01/20/19 08/10/20 Butalb/APAP/Caff 50-325-40Mg 1 tab PO TID PRN 01/20/19 08/10/20 [Fioricet 50-325-40] Albuterol Sulfate [Proair Hfa] 2 puff INHALATION RT-QID PRN 08/10/20 08/10/20 Calc/Magnes/Vit D 1 tab PO DAILY 08/10/20 08/10/20 Losartan Potassium 100 mg PO HS 08/10/20 08/10/20 Allergies Allergy/AdvReac Type Severity Reaction Status Date / Time Penicillins Allergy Unknown Verified 08/10/20 13:43 sumatriptan [From Imitrex] Allergy Unknown Verified 08/10/20 13:43 sumatriptan succinate Allergy Unknown Verified 08/10/20 13:43 [From Imitrex] NSAIDS (Non-Steroidal AdvReac Unknown Verified 08/10/20 13:43 Anti-Inflamma Review of Systems ROS Statement: Those systems with pertinent positive or pertinent negative responses have been documented in the HPI. ROS Other: All systems not noted in ROS Statement are negative. Past Medical History Past Medical History: Asthma, Hypertension Additional Past Medical History / Comment(s): Past L mastoiditis with L otitis/vertigo and falls-had surgery and no longer a problem, nephrolithiasis, migraines, past chronic low back pain but pt states not much of a problem anymore, DJD, hypoglycemia, History of Any Multi-Drug Resistant Organisms: None Reported Past Surgical History: Adenoidectomy, Appendectomy, Bariatric Surgery, Breast Surgery, Cholecystectomy, Ear Surgery, Hernia Repair, Hysterectomy, Orthopedic Surgery, Tonsillectomy, Tubal Ligation Additional Past Surgical History / Comment(s): Gastric bypass in 2009 with weight loss of 170 pounds, panniculectomy, L ear perforation with surgery, R knee open surgery as a child and x 2 arthroscopicL knee surgeries, R breast bx- benign, 2 umbilical hernias and 1 diaphragmatic hernia repairs, colonoscopy, mastoidectomy with Dr. Valderrama at [facility]. Past Anesthesia/Blood Transfusion Reactions: No Reported Reaction Past Psychological History: Anxiety, Depression Smoking Status: Current every day smoker Past Alcohol Use History: None Reported Past Drug Use History: None Reported - Past Family History Father Additional Family Medical History / Comment(s): Father from a aneurysm at the age of 72 yrs. he also had history of prostate cancer, aortic aneurysm, renal artery aneurysm. Mother Family Medical History: COPD Additional Family Medical History / Comment(s): Mother is 75 yrs old and has emphysema and hypertension. Brother(s) Additional Family Medical History / Comment(s): She has one brother with hypertension and plaque psoriasis. Sister(s) Additional Family Medical History / Comment(s): She has one sister with hyperte nsion. Son(s) Additional Family Medical History / Comment(s): Patient has 3 children, one boy with ureteral obstruction and renal failure. 2 girls that are healthy without major medical problems. General Exam Limitations: no limitations General appearance: alert, in no apparent distress Head exam: Present: atraumatic, normocephalic Eye exam: Present: normal appearance, EOMI ENT exam: Present: mucous membranes moist Neck exam: Present: other (Trachea is in midline) Respiratory exam: Present: normal lung sounds bilaterally. Absent: respiratory distress, wheezes, rales, rhonchi, stridor Cardiovascular Exam: Present: regular rate, normal rhythm, normal heart sounds, other (Normal radial pulses bilaterally) GI/Abdominal exam: Present: soft, normal bowel sounds, other (Mild generalized tenderness). Absent: distended, guarding, rebound Rectal exam: Present: normal rectal tone, other (Brown stool was noted in the rectal vault; ED nurse Yasemin Blake was present during rectal examination). Absent: hemorrhoids, tenderness Extremities exam: Absent: tenderness, pedal edema Neurological exam: Present: alert, oriented X3. Absent: motor sensory deficit Psychiatric exam: Present: normal affect, normal mood Skin exam: Present: warm, dry, intact, normal color Course Vital Signs 08/10/20 12:21 Temperature 97.4 F L Pulse Rate 91 Respiratory 16 Rate Blood Pressure 110/76 O2 Sat by Pulse 97 Oximetry - Reevaluation(s) Reevaluation #1: 08/10/20 14:28 Patient denies development of any new symptoms while in the ED. Patient remains alert and breathing comfortably. Patient is aware of her test results, and she feels comfortable going home at this time. Patient was counseled about weakness , and she was clearly explained return and follow-up instructions. Patient was instructed to follow up closely with her primary care provider. Patient feels comfortable with this plan. Medical Decision Making - Medical Decision Making Patient's hemoglobin level today is 12.0 and within normal limits. I strongly suspect that her low hemoglobin level from yesterday (6.6) was due to lab error. Patient's labs are all fairly unremarkable and her stool occult blood is negative. Patient's CT abdomen and pelvis is also negative for any acute f inding. Will discharge patient home at this time with instructions for close outpatient PCP follow-up. Patient feels comfortable with this plan. - Lab Data Result diagrams: 08/10/20 13:12 08/10/20 13:12 Lab Results 08/10/20 08/10/20 08/10/20 Range/Units 13:12 13:12 13:12 WBC 13.8 H (3.8-10.6) k/uL RBC 4.05 (3.80-5.40) m/uL Hgb 12.0 (11.4-16.0) gm/dL Hct 36.1 (34.0-46.0) % MCV 89.2 (80.0-100.0) fL MCH 29.7 (25.0-35.0) pg MCHC 33.3 (31.0-37.0) g/dL RDW 15.2 (11.5-15.5) % Plt Count 427 (150-450) k/uL MPV 7.3 Neutrophils % 67 % Lymphocytes % 22 % Monocytes % 5 % Eosinophils % 5 % Basophils % 0 % Neutrophils # 9.3 H (1.3-7.7) k/uL Lymphocytes # 3.0 (1.0-4.8) k/uL Monocytes # 0.7 (0-1.0) k/uL Eosinophils # 0.7 (0-0.7) k/uL Basophils # 0.0 (0-0.2) k/uL PT 9.5 (9.0-12.0) sec INR 0.9 (<1.2) APTT 24.2 (22.0-30.0) sec Sodium (137-145) mmol/L Potassium (3.5-5.1) mmol/L Chloride (98-107) mmol/L Carbon Dioxide (22-30) mmol/L Anion Gap mmol/L BUN (7-17) mg/dL Creatinine (0.52-1.04) mg/dL Est GFR (CKD-EPI)AfAm (>60 ml/min/1.73 sqM) Est GFR (CKD-EPI)NonAf (>60 ml/min/1.73 sqM) Glucose (74-99) mg/dL Plasma Lactic Acid Alexis (0.7-2.0) mmol/L Calcium (8.4-10.2) mg/dL Total Bilirubin (0.2-1.3) mg/dL AST (14-36) U/L ALT (4-34) U/L Alkaline Phosphatase (38-126) U/L Total Protein (6.3-8.2) g/dL Albumin (3.5-5.0) g/dL Stool Occult Blood Negative (Negative) Blood Type Blood Type Recheck Bld Type Recheck Status Antibody Screen Spec Expiration Date 08/10/20 08/10/20 08/10/20 Range/Units 13:12 13:12 13:19 WBC (3.8-10.6) k/uL RBC (3.80-5.40) m/uL Hgb (11.4-16.0) gm/dL Hct (34.0-46.0) % MCV (80.0-100.0) fL MCH (25.0-35.0) pg MCHC (31.0-37.0) g/dL RDW (11.5-15.5) % Plt Count (150-450) k/uL MPV Neutrophils % % Lymphocytes % % Monocytes % % Eosinophils % % Basophils % % Neutrophils # (1.3-7.7) k/uL Lymphocytes # (1.0-4.8) k/uL Monocytes # (0-1.0) k/uL Eosinophils # (0-0.7) k/uL Basophils # (0-0.2) k/uL PT (9.0-12.0) sec INR (<1.2) APTT (22.0-30.0) sec Sodium 140 (137-145) mmol/L Potassium 4.5 (3.5-5.1) mmol/L Chloride 109 H (98-107) mmol/L Carbon Dioxide 25 (22-30) mmol/L Anion Gap 6 mmol/L BUN 9 (7-17) mg/dL Creatinine 0.54 (0.52-1.04) mg/dL Est GFR (CKD-EPI)AfAm >90 (>60 ml/min/1.73 sqM) Est GFR (CKD-EPI)NonAf >90 (>60 ml/min/1.73 sqM) Glucose 92 (74-99) mg/dL Plasma Lactic Acid Alexis 1.1 (0.7-2.0) mmol/L Calcium 9.8 (8.4-10.2) mg/dL Total Bilirubin 0.4 (0.2-1.3) mg/dL AST 28 (14-36) U/L ALT 22 (4-34) U/L Alkaline Phosphatase 97 (38-126) U/L Total Protein 6.9 (6.3-8.2) g/dL Albumin 4.0 (3.5-5.0) g/dL Stool Occult Blood (Negative) Blood Type A Positive Blood Type Recheck A Pos Bld Type Recheck Status No Antibody Screen NEGATIVE Spec Expiration Date 08/13/20202318 - Radiology Data Radiology results: report reviewed (CT abdomen/pelvis with IV contrast: Gastric bypass changes redemonstrated, no new or acute findings identified) Disposition Clinical Impression: Weakness Narrative: Lab error Disposition: HOME SELF-CARE Condition: Stable Instructions (If sedation given, give patient instructions): Weakness (ED) Additional Instructions: Return to the ER immediately should you develop any bleeding, increased weakness, any significant pain, a fever, chest pain, shortness of breath, feeling dizzy or faint, or new or worsening symptoms. Follow up closely with your primary care provider. Is patient prescribed a controlled substance at d/c from ED?: No Referrals: Saleem Page DO [Primary Care Provider] - 1-2 days Time of Disposition: 14:35
[2020-08-10] MEDS ORDERED: SODIUM CHLORIDE 0.9% 1,000 ML IV STA (12:52)
[2020-08-10 13:36] LABS: Basophils % (A) 0 %; Eosinophils # (A) 0.7 k/uL (0-0.7); Eosinophils % (A) 5 %; HCT 36.1 % (34.0-46.0); Lymphocytes % (A) 22 %; MCH 29.7 pg (25.0-35.0); MCHC 33.3 g/dL (31.0-37.0); MCV 89.2 fL (80.0-100.0); Mean Platelet Volume 7.3; Monocytes # (A) 0.7 k/uL (0-1.0); Monocytes % (A) 5 %; Neutrophils # (A) 9.3 k/uL (1.3-7.7); Neutrophils % (A) 67 %; Platelet Count 427 k/uL (150-450); RBC 4.05 m/uL (3.80-5.40); RDW 15.2 % (11.5-15.5); WBC 13.8 k/uL (3.8-10.6)
[2020-08-10 13:45] LABS: INR 0.9 (<1.2); Partial Thromboplastin Time 24.2 sec (22.0-30.0); Prothrombin Time 9.5 sec (9.0-12.0)
[2020-08-10 13:54] LABS: ALT 22 U/L (4-34); AST 28 U/L (14-36); African American GFR (CKD) >90 (>60 ml/min/1.73 sqM); Alkaline Phosphatase 97 U/L (38-126); Anion Gap 6 mmol/L; Blood Urea Nitrogen 9 mg/dL (7-17); Calcium 9.8 mg/dL (8.4-10.2); Carbon Dioxide 25 mmol/L (22-30); Chloride 109 mmol/L (98-107); Glucose 92 mg/dL (74-99); Non-African American GFR(CKD) >90 (>60 ml/min/1.73 sqM); Potassium 4.5 mmol/L (3.5-5.1); Sodium 140 mmol/L (137-145); Total Bilirubin 0.4 mg/dL (0.2-1.3); Total Protein 6.9 g/dL (6.3-8.2)
--- NOTE | 2020-08-10 14:06 | CT ---
EXAMINATION TYPE: CT abdomen pelvis w con DATE OF EXAM: 08/10/2020 HISTORY: Abdominal pain, Anemia, Melena CT DLP: 929.9mGycm Automated Exposure Control for Dose Reduction was Utilized. CONTRAST: CT scan of the abdomen and pelvis is performed without oral but with IV Contrast, patient injected wi th 100 mL of Isovue 300. COMPARISON: CT abdomen and pelvis March 29, 2020 FINDINGS: LUNG BASES: No significant abnormality is appreciated. LIVER/GB: Cholecystectomy clips redemonstrated. Prominent right hepatic lobe redemonstrated. PANCREAS: No significant abnormality is seen. SPLEEN: No significant abnormality is seen. ADRENALS: No significant abnormality is seen. KIDNEYS: Symmetric cortical medullary uptake and excretion without hydronephrosis seen bilaterally. O ccasional hypodense lesion upper pole bilateral kidneys too small to further characterize presumed be nign noted. BOWEL: Suboptimal evaluation of bowel without enteric contrast. No suspicious small or large bowel di latation. Surgical changes from gastric bypass procedure redemonstrated stable small sized hiatal her tay with air-fluid level in moderately dilated distal esophagus. UTERUS/ADNEXA: Scattered bilateral pelvic phleboliths. Uterus surgically absent. LYMPH NODES: No greater than 1cm abdominal or pelvic lymph nodes are appreciated. OSSEOUS STRUCTURES: No significant abnormality is seen. OTHER: Evidence of prior ventral wall hernia repair surgery with overlying curvilinear mesh on curren t study. IMPRESSION: Gastric bypass changes redemonstrated. No new or acute findings identified.
[2020-08-10 14:52] VITALS: BP 130/82; PULSE 81
== END 2020-08-10 14:52 | disposition home or self-care (01) ==
LOC: EC 12:14
DX: R53.1 Weakness (principal); F17.200 Nicotine dependence, unspecified, uncomplicated; I10 Essential (primary) hypertension; J45.909 Unspecified asthma, uncomplicated; F31.9 Bipolar disorder, unspecified; F41.9 Anxiety disorder, unspecified; Z90.710 Acquired absence of both cervix and uterus; Z90.49 Acquired absence of other specified parts of digestive tract; Z90.09 Acquired absence of other part of head and neck; Z98.51 Tubal ligation status
CPT/HCPCS: 36415; 86900; 86901; 80053; 83605; 85025; 85610; 85730; 86850; 82272; 74177; 99285; 96360; 96361; Q9967; 96376

== ENCOUNTER 2020-09-08 23:00 | Emergency (ER) | payer OTHER ==
--- NOTE | 2020-09-08 23:47 | ED ---
General Adult HPI - General Chief complaint: Shortness of Breath Stated complaint: Sore throat, SOB Time Seen by Provider: 09/08/20 23:13 Source: patient Mode of arrival: ambulatory Limitations: no limitations - Related Data Home Medications Medication Instructions Recorded Confirmed ALPRAZolam [Xanax] 1 mg PO BID PRN 01/20/19 08/10/20 Butalb/APAP/Caff 50-325-40Mg 1 tab PO TID PRN 01/20/19 08/10/20 [Fioricet 50-325-40] Albuterol Sulfate [Proair Hfa] 2 puff INHALATION RT-QID PRN 08/10/20 08/10/20 Calc/Magnes/Vit D 1 tab PO DAILY 08/10/20 08/10/20 Losartan Potassium 100 mg PO HS 08/10/20 08/10/20 Previous Rx's Medication Instructions Recorded Azithromycin [Zithromax Z-pack (6 0 mg PO DIRECTED #1 pack 09/09/20 tabs)] predniSONE 50 mg PO DAILY #4 tab 09/09/20 Allergies Allergy/AdvReac Type Severity Reaction Status Date / Time Penicillins Allergy Unknown Verified 09/08/20 23:10 sumatriptan [From Imitrex] Allergy Unknown Verified 09/08/20 23:10 sumatriptan succinate Allergy Unknown Verified 09/08/20 23:10 [From Imitrex] NSAIDS (Non-Steroidal AdvReac Unknown Verified 09/08/20 23:10 Anti-Inflamma Review of Systems ROS Statement: Those systems with pertinent positive or pertinent negative responses have been documented in the HPI. ROS Other: All systems not noted in ROS Statement are negative. Past Medical History Past Medical History: Asthma, Hypertension Additional Past Medical History / Comment(s): Past L mastoiditis with L otitis/vertigo and falls-had surgery and no longer a problem, nephrolithiasis, migraines, past chronic low back pain but pt states not much of a problem anymore, DJD, hypoglycemia, History of Any Multi-Drug Resistant Organisms: None Reported Past Surgical History: Adenoidectomy, Appendectomy, Bariatric Surgery, Breast Surgery, Cholecystectomy, Ear Surgery, Hernia Repair, Hysterectomy, Orthopedic Surgery, Tonsillectomy, Tubal Ligation Additional Past Surgical History / Comment(s): Gastric bypass in 2008 with weight loss of 170 pounds, panniculectomy, L ear perforation with surgery, R knee open surgery as a child and x 2 arthroscopicL knee surgeries, R breast bx- benign, 2 umbilical hernias and 1 diaphragmatic hernia repairs, colonoscopy, mastoidectomy with Dr. Valderrama at [facility]. Past Anesthesia/Blood Transfusion Reactions: No Reported Reaction Past Psychological History: Anxiety, Depression Smoking Status: Current every day smoker Past Alcohol Use History: None Reported Past Drug Use History: None Reported - Past Family History Father Additional Family Medical History / Comment(s): Father from a aneurysm at the age of 72 yrs. he also had history of prostate cancer, aortic aneurysm, renal artery aneurysm. Mother Family Medical History: COPD Additional Family Medical History / Comment(s): Mother is 75 yrs old and has emphysema and hypertension. Brother(s) Additional Family Medical History / Comment(s): She has one brother with hypertension and plaque psoriasis. Sister(s) Additional Family Medical History / Comment(s): She has one sister with hypertension. Son(s) Additional Family Medical History / Comment(s): Patient has 3 children, one boy with ureteral obstruction and renal failure. 2 girls that are healthy without major medical problems. General Exam Limitations: no limitations Course Vital Signs 09/08/20 09/09/20 23:06 00:04 Temperature 98.2 F 98.7 F Pulse Rate 112 H 92 Respiratory 19 18 Rate Blood Pressure 133/88 115/80 O2 Sat by Pulse 100 99 Oximetry Medical Decision Making - Lab Data Lab Results 09/08/20 Range/Units 23:16 Coronavirus (PCR) Not Detected (Not Detectd) Disposition Clinical Impression: Bronchitis Disposition: HOME SELF-CARE Condition: Stable Instructions (If sedation given, give patient instructions): Acute Bronchitis (ED) Additional Instructions: Take prescribed medication As directed. Return to emergency department if symptoms worsen. Prescriptions: predniSONE 50 mg PO DAILY #4 tab Azithromycin [Zithromax Z-pack (6 tabs)] 0 mg PO DIRECTED #1 pack Is patient prescribed a controlled substance at d/c from ED?: No Referrals: Saleem Page DO [Primary Care Provider] - 1-2 days Time of Disposition: 00:17
--- NOTE | 2020-09-08 23:47 | XR ---
EXAMINATION TYPE: XR chest 2V DATE OF EXAM: 09/08/2020 COMPARISON: 05/23/2019 HISTORY: Cough. Short of breath. TECHNIQUE: FINDINGS: Heart and mediastinum are normal. Lungs are clear of infiltrate. There is no heart failure. There are no hilar masses. Bony thorax is intact. There is probably a hiatal hernia. IMPRESSION: No cardiopulmonary disease. No adverse change. Small hiatal hernia.
[2020-09-09 00:07] VITALS: BP 115/80; PULSE 92; RESP 18; TEMP 98.7
[2020-09-09] MEDS ORDERED: predniSONE 20 MG TAB PO STA (00:14)
== END 2020-09-09 00:35 | disposition home or self-care (01) ==
LOC: EC 23:00
DX: J40 Bronchitis, not specified as acute or chronic (principal)
CPT/HCPCS: 87635; 71046; 99285; J7512

== ENCOUNTER → 2020-09-13 | Outpatient (CLI) | payer OTHER | END | disposition home or self-care (01) | LOC: LABWHC1 16:14 | PROVIDERS: ATTEND Family Medicine | DX: Z03.818 Encounter for observation for suspected exposure to other biological agents ruled out (principal); Z20.822 Contact with and (suspected) exposure to COVID-19 | CPT/HCPCS: U0003; C9803 ==

== ENCOUNTER 2020-10-19 01:03 | Observation (INO) | payer OTHER ==
[2020-10-19] MEDS ORDERED: MORPHINE SULFATE 4 MG/ML SYRINGE IV STA ×2 (01:24→03:06)
[2020-10-19] MEDS ORDERED: METOCLOPRAMIDE 5 MG/ML 2 ML VIAL IVP STA (01:24)
[2020-10-19] MEDS ORDERED: diphenhydrAMINE 50 MG/ML 1 ML VIAL IVP STA (01:24)
[2020-10-19] MEDS ORDERED: SODIUM CHLORIDE 0.9% 500 ML 500 ML IV STA (01:25)
--- NOTE | 2020-10-19 01:25 | CT ---
EXAMINATION TYPE: CT brain wo con for TPA DATE OF EXAM: 10/19/2020 COMPARISON: 01/20/2019 HISTORY: Code Stroke CT DLP: 1065 mGycm Automated exposure control for dose reduction was used. Ventricles and sulci appear normal. There is no mass effect nor midline shift. There is no sign of in tracranial hemorrhage. Calvarium is intact. There is previous surgery on the left mastoid sinus. Ther e is mild mucosal thickening in the maxillary and ethmoid sinuses. IMPRESSION: No acute intracranial abnormality. Brain unchanged compared to old exam. Mild sinusitis is increased compared to old exam.
--- NOTE | 2020-10-19 01:28 | XR ---
EXAMINATION TYPE: XR chest 1V DATE OF EXAM: 10/19/2020 COMPARISON: 09/08/2020 HISTORY: Cough TECHNIQUE: Single view FINDINGS: Heart and mediastinum are normal. Lungs are clear. Diaphragm is normal. Bony thorax is inta ct. IMPRESSION: Normal chest. No change.
[2020-10-19 01:29] LABS: Glucose,Whole Blood 90 mg/dL (75-99)
[2020-10-19 01:31] LABS: Basophils # (A) 0.1 k/uL (0-0.2); Basophils % (A) 1 %; Eosinophils # (A) 0.6 k/uL (0-0.7); Eosinophils % (A) 5 %; HCT 33.2 % (34.0-46.0); HGB 11.1 gm/dL (11.4-16.0); Lymphocytes # (A) 4.6 k/uL (1.0-4.8); Lymphocytes % (A) 41 %; MCH 28.9 pg (25.0-35.0); MCHC 33.5 g/dL (31.0-37.0); MCV 86.3 fL (80.0-100.0); Monocytes # (A) 0.5 k/uL (0-1.0); Monocytes % (A) 4 %; Neutrophils # (A) 5.3 k/uL (1.3-7.7); Neutrophils % (A) 48 %; Platelet Count 437 k/uL (150-450); RBC 3.84 m/uL (3.80-5.40); RDW 14.8 % (11.5-15.5); WBC 11.2 k/uL (3.8-10.6)
[2020-10-19] MEDS ORDERED: Alteplase PER PHARMACY Stroke 1 EACH MISC MISCELLANE PRN (01:32)
--- NOTE | 2020-10-19 01:33 | CT ---
EXAMINATION TYPE: CT angio head neck DATE OF EXAM: 10/19/2020 COMPARISON: None HISTORY: Code Stroke, Left Side weakness CT DLP: 408.9 mGycm Automated exposure control for dose reduction was used. CONTRAST: Performed with IV Contrast, patient injected with 65 mL of Isovue 370. Images obtained from the aortic arch to the vertex of the brain with IV contrast. There are 3-D post processed images. There is normal branching pattern of the great vessels on the aortic arch. There is bilateral arteria l flow in the subclavian arteries. There is arterial flow in the common internal and external carotid arteries bilaterally. There is wid e patency of the carotid artery bifurcations. There is arterial flow in both vertebral arteries. Ther e is no evidence of carotid or vertebral artery aneurysm or dissection. There is normal arterial flow in the vertebrobasilar artery system. There is arterial flow in the anterior middle and posterior cerebral arteries. I see no evidence of i ntracranial hemodynamic stenosis. There is no mass effect. There is no sign of intracranial aneurysm or neovascularity. There is normal contrast opacification of the venous sinuses. IMPRESSION: Negative CT angiogram of the neck. Negative CT angiogram of the brain.
[2020-10-19 01:40] LABS: ALT 11 U/L (4-34); AST 17 U/L (14-36); African American GFR (CKD) >90 (>60 ml/min/1.73 sqM); Albumin 3.3 g/dL (3.5-5.0); Alkaline Phosphatase 87 U/L (38-126); Anion Gap 4 mmol/L; Blood Urea Nitrogen 9 mg/dL (7-17); Carbon Dioxide 23 mmol/L (22-30); Chloride 111 mmol/L (98-107); Glucose 80 mg/dL (74-99); Non-African American GFR(CKD) >90 (>60 ml/min/1.73 sqM); Potassium 3.8 mmol/L (3.5-5.1); Sodium 138 mmol/L (137-145); Total Bilirubin <0.1 mg/dL (0.2-1.3)
[2020-10-19 01:44] LABS: INR 0.9 (<1.2); Prothrombin Time 9.7 sec (9.0-12.0)
[2020-10-19] MEDS ORDERED: ALTEPLASE 55 MG in EMPTY BAG 1 BAG IV ONE (01:45)
[2020-10-19] MEDS ORDERED: ALTEPLASE BOLUS 6 MG in EMPTY SYRINGE 1 SYR IV ONE (01:45)
--- NOTE | 2020-10-19 02:34 | ED ---
Neuro HPI - General Chief Complaint: Neuro Symptoms/Deficit Stated Complaint: Stroke Time Seen by Provider: 10/19/20 01:05 Source: patient, EMS Mode of arrival: EMS Limitations: no limitations - History of Present Illness Is the patient presenting with stroke symptoms?: Yes Last Known Well Date: 10/19/20 Last Known Well Time: 12:08 -: minutes(s) Initial Comments: This patient is a 50-year-old woman who presents with complaint of weakness of the left arm and left facial droop. The patient states that she was watching television just after midnight when she had the onset of numbness of the left arm. This was followed rapidly by developing weakness and left facial droop. The patient called her daughter at 1208, when this was coming on. EMS was then called and they brought the patient directly here. Patient other than the neck is complaining of what which she is describing as migraine headache which had been going on for most of the day. She did take fioricet, but it did not provide relief. Location: left face, left arm History of same: No Place: home Severity: moderate Quality: weak, numb Improves With: none Worsens With: none On Anticoagulants: No Context: sudden onset Associated Symptoms: headaches Treatments Prior to Arrival: other medication (Fioricet) - Related Data Home Medications: Home Medications Medication Instructions Recorded Confirmed ALPRAZolam [Xanax] 1 mg PO BID PRN 01/20/19 10/19/20 Butalb/APAP/Caff 50-325-40Mg 1 tab PO TID PRN 01/20/19 10/19/20 [Fioricet 50-325-40] Albuterol Sulfate [Proair Hfa] 2 puff INHALATION RT-QID PRN 08/10/20 10/19/20 Calc/Magnes/Vit D 1 tab PO DAILY 08/10/20 10/19/20 Losartan Potassium 100 mg PO HS 08/10/20 10/19/20 Previous Rx's Medication Instructions Recorded Amitriptyline HCl [Elavil] 25 mg PO HS #30 tab 10/20/20 Atorvastatin [Lipitor] 40 mg PO DAILY #30 tab 10/20/20 Clopidogrel [Plavix] 75 mg PO DAILY #30 tab 10/20/20 Nicotine 14Mg/24Hr Patch [Habitrol] 1 patch TRANSDERM DAILY #30 patch 10/20/20 amLODIPine [Norvasc] 2.5 mg PO BID PRN #60 tab 10/20/20 amLODIPine [Norvasc] 5 mg PO DAILY #30 tab 10/20/20 Allergies/Adverse Reactions: Allergies Allergy/AdvReac Type Severity Reaction Status Date / Time Penicillins Allergy Unknown Verified 10/19/20 06:13 sumatriptan [From Imitrex] Allergy Unknown Verified 10/19/20 06:13 sumatriptan succinate Allergy Unknown Verified 10/19/20 06:13 [From Imitrex] NSAIDS (Non-Steroidal AdvReac Unknown Verified 10/19/20 06:13 Anti-Inflamma Review of Systems ROS Statement: Those systems with pertinent positive or pertinent negative responses have been documented in the HPI. ROS Other: All systems not noted in ROS Statement are negative. Constitutional: Denies: fever, chills, weakness Eyes: Denies: eye pain, vision change ENT: Denies: ear pain, hearing loss Respiratory: Denies: cough, dyspnea Cardiovascular: Denies: chest pain, palpitations, syncope Gastrointestinal: Denies: abdominal pain, nausea, vomiting Genitourinary: Denies: dysuria, hematuria Musculoskeletal: Denies: back pain Skin: Denies: rash, lesions Neurological: Reports: as per HPI, headache, weakness, numbness. Denies: confusion, vertigo Hematological/Lymphatic: Denies: easy bleeding General Exam Limitations: no limitations General appearance: alert, in no apparent distress Head exam: Present: atraumatic, normocephalic Eye exam: Present: normal appearance, PERRL, EOMI. Absent: scleral icterus, conjunctival injection, nystagmus ENT exam: Present: normal exam, mucous membranes moist Neck exam: Present: normal inspection, full ROM. Absent: tenderness, meningismus Respiratory exam: Present: normal lung sounds bilaterally. Absent: respiratory distress, wheezes, rales, rhonchi, stridor Cardiovascular Exam: Present: regular rate, normal rhythm, normal heart sounds. Absent: systolic murmur, diastolic murmur, rubs, gallop GI/Abdominal exam: Present: soft. Absent: distended, tenderness, guarding, rebound, rigid Extremities exam: Present: normal inspection, normal capillary refill. Absent: pedal edema, calf tenderness Back exam: Present: normal inspection Neurological exam: Present: alert, oriented X3 Expanded Neurological exam: Present: protecting the airway. Absent: inattentive, memory loss-remote event, memory loss-recent event, ataxia, receptive aphasia, expressive aphasia, total aphasia, tremor Patient oriented to: Present: person, place, time Speech: Present: fluid speech. Absent: receptive aphasia, expressive aphasia, total aphasia Cranial nerves: EOM's Intact: Normal, Gag Reflex: Normal, Tongue Deviation: Abnormal Left, Nystagmus: Normal, Facial Sensation: Normal, Facial Palsy without Forehead Movement: Abnormal Left Upper motor neuron: Cal[place] Neglect: Normal Motor strength exam: RUE: 5, LUE: 4, RLE: 5, LLE: 4 Eye Response: (4) open spontaneously Motor Response: (6) obeys commands Verbal Response: (5) oriented [place] Total: 15 Skin exam: Present: warm, dry, intact, normal color. Absent: rash Stroke MDM - Lab Data Result diagrams: 10/20/20 04:19 10/20/20 04:19 Lab Results 10/19/20 10/19/20 10/19/20 Range/Units 01:20 01:22 01:22 WBC 11.2 H (3.8-10.6) k/uL RBC 3.84 (3.80-5.40) m/uL Hgb 11.1 L (11.4-16.0) gm/dL Hct 33.2 L (34.0-46.0) % MCV 86.3 (80.0-100.0) fL MCH 28.9 (25.0-35.0) pg MCHC 33.5 (31.0-37.0) g/dL RDW 14.8 (11.5-15.5) % Plt Count 437 (150-450) k/uL MPV 7.0 Neutrophils % 48 % Lymphocytes % 41 % Monocytes % 4 % Eosinophils % 5 % Basophils % 1 % Neutrophils # 5.3 (1.3-7.7) k/uL Lymphocytes # 4.6 (1.0-4.8) k/uL Monocytes # 0.5 (0-1.0) k/uL Eosinophils # 0.6 (0-0.7) k/uL Basophils # 0.1 (0-0.2) k/uL PT 9.7 (9.0-12.0) sec INR 0.9 (<1.2) APTT 24.0 (22.0-30.0) sec Sodium (137-145) mmol/L Potassium (3.5-5.1) mmol/L Chloride (98-107) mmol/L Carbon Dioxide (22-30) mmol/L Anion Gap mmol/L BUN (7-17) mg/dL Creatinine (0.52-1.04) mg/dL Est GFR (CKD-EPI)AfAm (>60 ml/min/1.73 sqM) Est GFR (CKD-EPI)NonAf (>60 ml/min/1.73 sqM) Glucose (74-99) mg/dL POC Glucose (mg/dL) 90 (75-99) mg/dL POC Glu Case Management Director ID Oliva [address] Glu mg/dL Hemoglobin A1c (4.0-6.0) % Calcium (8.4-10.2) mg/dL Total Bilirubin (0.2-1.3) mg/dL AST (14-36) U/L ALT (4-34) U/L Alkaline Phosphatase (38-126) U/L Troponin I (0.000-0.034) ng/mL Total Protein (6.3-8.2) g/dL Albumin (3.5-5.0) g/dL TSH (0.465-4.680) mIU/L 10/19/20 10/19/20 10/19/20 Range/Units 01:22 01:22 01:22 WBC (3.8-10.6) k/uL RBC (3.80-5.40) m/uL Hgb (11.4-16.0) gm/dL Hct (34.0-46.0) % MCV (80.0-100.0) fL MCH (25.0-35.0) pg MCHC (31.0-37.0) g/dL RDW (11.5-15.5) % Plt Count (150-450) k/uL MPV Neutrophils % % Lymphocytes % % Monocytes % % Eosinophils % % Basophils % % Neutrophils # (1.3-7.7) k/uL Lymphocytes # (1.0-4.8) k/uL Monocytes # (0-1.0) k/uL Eosinophils # (0-0.7) k/uL Basophils # (0-0.2) k/uL PT (9.0-12.0) sec INR (<1.2) APTT (22.0-30.0) sec Sodium 138 (137-145) mmol/L Potassium 3.8 (3.5-5.1) mmol/L Chloride 111 H (98-107) mmol/L Carbon Dioxide 23 (22-30) mmol/L Anion Gap 4 mmol/L BUN 9 (7-17) mg/dL Creatinine 0.60 (0.52-1.04) mg/dL Est GFR (CKD-EPI)AfAm >90 (>60 ml/min/1.73 sqM) Est GFR (CKD-EPI)NonAf >90 (>60 ml/min/1.73 sqM) Glucose 80 (74-99) mg/dL POC Glucose (mg/dL) (75-99) mg/dL POC Glu Case Management Director ID Estimated Ave Glu mg/dL Hemoglobin A1c (4.0-6.0) % Calcium 9.0 (8.4-10.2) mg/dL Total Bilirubin <0.1 L (0.2-1.3) mg/dL AST 17 (14-36) U/L ALT 11 (4-34) U/L Alkaline Phosphatase 87 (38-126) U/L Troponin I <0.012 (0.000-0.034) ng/mL Total Protein 6.0 L (6.3-8.2) g/dL Albumin 3.3 L (3.5-5.0) g/dL TSH 2.770 (0.465-4.680) mIU/L 10/19/20 Range/Units 01:22 WBC (3.8-10.6) k/uL RBC (3.80-5.40) m/uL Hgb (11.4-16.0) gm/dL Hct (34.0-46.0) % MCV (80.0-100.0) fL MCH (25.0-35.0) pg MCHC (31.0-37.0) g/dL RDW (11.5-15.5) % Plt Count (150-450) k/uL MPV Neutrophils % % Lymphocytes % % Monocytes % % Eosinophils % % Basophils % % Neutrophils # (1.3-7.7) k/uL Lymphocytes # (1.0-4.8) k/uL Monocytes # (0-1.0) k/uL Eosinophils # (0-0.7) k/uL Basophils # (0-0.2) k/uL PT (9.0-12.0) sec INR (<1.2) APTT (22.0-30.0) sec Sodium (137-145) mmol/L Potassium (3.5-5.1) mmol/L Chloride (98-107) mmol/L Carbon Dioxide (22-30) mmol/L Anion Gap mmol/L BUN (7-17) mg/dL Creatinine (0.52-1.04) mg/dL Est GFR (CKD-EPI)AfAm (>60 ml/min/1.73 sqM) Est GFR (CKD-EPI)NonAf (>60 ml/min/1.73 sqM) Glucose (74-99) mg/dL POC Glucose (mg/dL) (75-99) mg/dL POC Glu Case Management Director ID Estimated Ave Glu mg/dL 117 Hemoglobin A1c 5.7 (4.0-6.0) % Calcium (8.4-10.2) mg/dL Total Bilirubin (0.2-1.3) mg/dL AST (14-36) U/L ALT (4-34) U/L Alkaline Phosphatase (38-126) U/L Troponin I (0.000-0.034) ng/mL Total Protein (6.3-8.2) g/dL Albumin (3.5-5.0) g/dL TSH (0.465-4.680) mIU/L - EKG Data -: EKG Interpreted by [facility] EKG shows normal: sinus rhythm (Rate 95 bpm), axis (Normal), intervals (HI interval 150 ms, QRS duration 88 ms, both normal. QTC 487 ms, prolonged.), QRS complexes (Normal), ST-T waves (Normal) Rate: normal Past Medical History Past Medical History: Asthma, Hypertension Additional Past Medical History / Comment(s): Past L mastoiditis with L otiti s/vertigo and falls-had surgery and no longer a problem, nephrolithiasis, migraines, past chronic low back pain but pt states not much of a problem anymore, DJD, hypoglycemia, History of Any Multi-Drug Resistant Organisms: None Reported Past Surgical History: Adenoidectomy, Appendectomy, Bariatric Surgery, Breast Surgery, Cholecystectomy, Ear Surgery, Hernia Repair, Hysterectomy, Orthopedic Surgery, Tonsillectomy, Tubal Ligation Additional Past Surgical History / Comment(s): Gastric bypass in 2009 with weight loss of 170 pounds, panniculectomy, L ear perforation with surgery, R knee open surgery as a child and x 2 arthroscopicL knee surgeries, R breast bx- benign, 2 umbilical hernias and 1 diaphragmatic hernia repairs, colonoscopy, mastoidectomy with Dr. Valderrama at [facility]. Past Anesthesia/Blood Transfusion Reactions: No Reported Reaction Past Psychological History: Anxiety, Depression Smoking Status: Current every day smoker Past Alcohol Use History: None Reported Past Drug Use History: None Reported - Past Family History Father Additional Family Medical History / Comment(s): Father from a aneurysm at the age of 72 yrs. he also had history of prostate cancer, aortic aneurysm, renal artery aneurysm. Mother Family Medical History: COPD Additional Family Medical History / Comment(s): Mother is 75 yrs old and has emphysema and hypertension. Brother(s) Additional Family Medical History / Comment(s): She has one brother with hypertension and plaque psoriasis. Sister(s) Additional Family Medical History / Comment(s): She has one sister with hypertension. Son(s) Additional Family Medical History / Comment(s): Patient has 3 children, one boy with ureteral obstruction and renal failure. 2 girls that are healthy without major medical problems. Course Vital Signs 10/19/20 10/19/20 10/19/20 01:15 01:18 01:30 Temperature 97.6 F Pulse Rate 92 91 83 Respiratory 18 25 H 18 Rate Blood Pressure 144/96 149/106 O2 Sat by Pulse 99 99 100 Oximetry 10/19/20 10/19/20 10/19/20 01:45 02:00 02:15 Temperature Pulse Rate 82 75 75 Respiratory 18 18 18 Rate Blood Pressure 117/80 117/80 117/82 O2 Sat by Pulse 95 93 L 95 Oximetry 10/19/20 10/19/20 10/19/20 02:30 02:45 03:00 Temperature Pulse Rate 77 81 82 Respiratory 18 18 12 Rate Blood Pressure 115/87 113/80 113/80 O2 Sat by Pulse 95 98 97 Oximetry 10/19/20 10/19/20 10/19/20 03:15 03:30 03:45 Temperature Pulse Rate 81 83 83 Respiratory 18 18 18 Rate Blood Pressure 104/78 102/73 98/62 O2 Sat by Pulse 99 97 97 Oximetry 10/19/20 10/19/20 10/19/20 04:00 04:15 04:45 Temperature Pulse Rate 86 80 80 Respiratory 16 16 16 Rate Blood Pressure 91/60 91/66 92/63 O2 Sat by Pulse 96 96 96 Oximetry 10/19/20 10/19/20 10/19/20 05:15 05:45 06:15 Temperature Pulse Rate 79 79 84 Respiratory 16 18 16 Rate Blood Pressure 100/56 94/66 102/74 O2 Sat by Pulse 96 99 95 Oximetry 10/19/20 10/19/20 10/19/20 06:45 07:15 07:37 Temperature Pulse Rate 82 84 80 Respiratory 16 16 Rate Blood Pressure 91/68 94/64 O2 Sat by Pulse 98 97 Oximetry 10/19/20 10/19/20 10/19/20 07:44 07:45 08:15 Temperature 98 F 97.9 F Pulse Rate 78 80 79 Respiratory 16 16 Rate Blood Pressure 94/65 91/62 O2 Sat by Pulse 95 96 Oximetry 10/19/20 10/19/20 10/19/20 08:45 09:15 09:45 Temperature 97.8 F 97.9 F 98 F Pulse Rate 74 75 74 Respiratory 16 18 16 Rate Blood Pressure 115/75 111/75 109/76 O2 Sat by Pulse 97 98 97 Oximetry 10/19/20 10/19/20 10/19/20 10:15 11:15 12:15 Temperature 97.9 F 98 F 98 F Pulse Rate 68 76 70 Respiratory 16 18 18 Rate Blood Pressure 104/74 111/68 109/76 O2 Sat by Pulse 97 98 98 Oximetry - Reevaluation(s) Reevaluation #1: 10/19/20 02:34 This patient is a 50-year-old woman presenting with acute onset of left sided face and arm weakness. The patient is triaged directly to computed tomography scan. I saw the patient directly after computed tomography scan and also then discussed case with Dr. Snyder from the stroke team. He directs that the pa tient does sound as TPA candidate and he will look at the computed tomography scan and then recommends TPA. The case is also discussed with admitting physician and marketing administrative assistant. Critical Care Time Critical Care Time: Yes (40 minutes) Disposition Clinical Impression: Acute ischemic stroke Disposition: ADMITTED IP TO THIS HOSP Condition: Serious Is patient prescribed a controlled substance at d/c from ED?: No
[2020-10-19] MEDS ORDERED: SODIUM CHLORIDE 0.9% 50 ML MINI-BAG IV ONE (02:45)
[2020-10-19] MEDS: SODIUM CHLORIDE 0.9% 1,000 ML IV SCH ×3 (02:49→20:57)
[2020-10-19] MEDS ORDERED: BUTALB/APAP/CAFF 50-325-40MG TAB PO PRN (07:14)
[2020-10-19] MEDS ORDERED: ALBUTEROL NEBULIZED 2.5 MG/3 ML INHALATION PRN (07:14)
[2020-10-19] MEDS: ALPRAZolam 1 MG TAB PO PRN ×2 (09:34→23:09)
[2020-10-19] MEDS ORDERED: GABAPENTIN 100 MG CAP PO PRN (09:35)
[2020-10-19] MEDS: ACETAMINOPHEN TAB 325 MG TAB PO PRN ×2 (09:35→17:22)
--- NOTE | 2020-10-19 09:35 | P.CNNES ---
History of Present Illness Consult date: 10/19/20 Requesting physician: Kieran Chamberlain Reason for Consult: stroke History of Present Illness: This is a 50-year-old woman with medical history of migraine with aura, hypertension, gastric bypass (2008), tobacco use who presented to [facility] emergency department on 10/19/2020 for left arm and facial droop. She presented to our ED around 01:03 AM. Patient stated that the when she woke up at 8:00 in the morning his stay she was having a headache throughout the day. She stated that the she was having bilateral occipital headache and she felt like was radiating forward anteriorly. She also had flickering of the light over the left eye but denies any vision loss, had photophobia and some phonophobia denies any nausea or vomiting. Then she was watching TV and just after midnight she noticed that she had numbness over the left arm followed by weakness and left facial droop. She also had numbness over the left lower extremity and tongue was thick and was repeating herself. She felt she was drifting to left. Tamara nicole contacted that her daughter around 12:08 AM and the called the EMS which brought her to the hospital. She denies of any similar presentation in the past. Denies stroke or TIA in the past. She has history of Migraine since 2000 and has 2-3 headaches in a weeks and can last 1-2 days. She smokes 1/2 pack per day since 15 years of age. Denies alcohol or illicit drug use. She denies history of atrial fibrillation. She denies being on antiplatelets or anticoagulation. Her mother had history of stroke in her 60's years of age. Regarding her history of Migraine (since 2000). She said she would get left eye flickering prior to headaches to moves across the eye the has vision loss the wo uld have headaches in bilateral occipital region, feels pounding, has photophobia and some phonophobia but denies nausea or vomitting. She is on Fiorcet PRN and her migraines are being managed by her PCP. She was tried on Imitrex but did not tolerate it. Tried Topamax for 2-3 years but side-effects (make her feel funny according to patient). On initial presentation to our hospital her NIH in the ED was a 9 (4 face, 2 for the left arm, 1 for the left leg, 1 for ataxia, 1 for sensation, 1 for language, 1 for aphasia). Some of the workup consisted of: Initial vitals his blood pressure of 144/96, heart rate of that was first initially done and is 94, respiratory of 18, temperature of 97.6 Fahrenheit and pulse ox were percent at room air. CT of the head is reported as no acute intracranial abnormality. A brain on change compared to old exam. Mild sinusitis is increased compared to old exam. CT angiography of the head and neck was reported as negative White blood cells 11.2 with a slightly elevated. Initial serum glucose is 80 and the POC glucose is 90. Coagulation study as PT of 9.7, INR 0.9 and PTT of 24.0. Stroke/interventions neurology evaluated the patient and the patient was a TPA candidate therefore the patient received IV TPA with the bolus of 6 mg given around 1:46 AM and remaining 55 mg over the one hour given at 1:47 AM. Her symptoms resolved and the per the patient's nurse her NIH improved down to a 0. Review of Systems Review of system: The 12 point system was reviewed and apparent positive and negative per HPI. Past Medical History Past Medical History: Asthma, Hypertension Additional Past Medical History / Comment(s): Past L mastoiditis with L otitis/vertigo and falls-had surgery and no longer a problem, nephrolithiasis, migraines, past chronic low back pain but pt states not much of a problem anymore, DJD, hypoglycemia, History of Any Multi-Drug Resistant Organisms: None Reported Past Surgical History: Adenoidectomy, Appendectomy, Bariatric Surgery, Breast Surgery, Cholecystectomy, Ear Surgery, Hernia Repair, Hysterectomy, Orthopedic Surgery, Tonsillectomy, Tubal Ligation Additional Past Surgical History / Comment(s): Gastric bypass in 2008 with weight loss of 170 pounds, panniculectomy, L ear perforation with surgery, R knee open surgery as a child and x 2 arthroscopicL knee surgeries, R breast bx- benign, 2 umbilical hernias and 1 diaphragmatic hernia repairs, colonoscopy, mastoidectomy with Dr. Valderrama at [facility]. Past Anesthesia/Blood Transfusion Reactions: No Reported Reaction Past Psychological History: Anxiety, Depression Smoking Status: Current every day smoker Past Alcohol Use History: None Reported Past Drug Use History: None Reported - Past Family History Father Additional Family Medical History / Comment(s): Father from a aneurysm at the age of 72 yrs. he also had history of prostate cancer, aortic aneurysm, renal artery aneurysm. Mother Family Medical History: COPD Additional Family Medical History / Comment(s): Mother is 75 yrs old and has emphysema and hypertension. Brother(s) Additional Family Medical History / Comment(s): She has one brother with hypertension and plaque psoriasis. Sister(s) Additional Family Medical History / Comment(s): She has one sister with hypertension. Son(s) Additional Family Medical History / Comment(s): Patient has 3 children, one boy with ureteral obstruction and renal failure. 2 girls that are healthy without major medical problems. Medications and Allergies Home Medications Medication Instructions Recorded Confirmed Type ALPRAZolam [Xanax] 1 mg PO BID PRN 01/20/19 10/19/20 History Butalb/APAP/Caff 50-325-40Mg 1 tab PO TID PRN 01/20/19 10/19/20 History [Fioricet 50-325-40] Albuterol Sulfate [Proair Hfa] 2 puff INHALATION RT-QID PRN 08/10/20 10/19/20 History Calc/Magnes/Vit D 1 tab PO DAILY 08/10/20 10/19/20 History Losartan Potassium 100 mg PO HS 08/10/20 10/19/20 History Allergies Allergy/AdvReac Type Severity Reaction Status Date / Time Penicillins Allergy Unknown Verified 10/19/20 06:13 sumatriptan [From Imitrex] Allergy Unknown Verified 10/19/20 06:13 sumatriptan succinate Allergy Unknown Verified 10/19/20 06:13 [From Imitrex] NSAIDS (Non-Steroidal AdvReac Unknown Verified 10/19/20 06:13 Anti-Inflamma Physical Examination - Vital Signs Vital Signs: Vital Signs Temp Pulse Resp BP Pulse Ox 10/19/20 07:44 78 10/19/20 07:37 80 10/19/20 07:15 84 16 94/64 97 10/19/20 06:45 82 16 91/68 98 10/19/20 06:15 84 16 102/74 95 10/19/20 05:45 79 18 94/66 99 10/19/20 05:15 79 16 100/56 96 10/19/20 04:45 80 16 92/63 96 10/19/20 04:15 80 16 91/66 96 10/19/20 04:00 86 16 91/60 96 10/19/20 03:45 83 18 98/62 97 10/19/20 03:30 83 18 102/73 97 10/19/20 03:15 81 18 104/78 99 10/19/20 03:00 85 18 108/80 97 10/19/20 02:45 81 18 113/80 98 10/19/20 02:30 77 18 115/87 95 10/19/20 02:15 75 18 117/82 95 10/19/20 02:00 77 18 122/80 94 L 10/19/20 01:45 82 18 117/80 95 10/19/20 01:30 83 18 149/106 100 10/19/20 01:15 97.6 F 92 18 144/96 99 Intake and Output 10/18/20 10/19/20 10/19/20 22:59 06:59 14:59 Other: Weight 68.039 kg GENERAL: The patient is lying in bed and is not in acute distress. CHEST: The heart rate is regular rate rhythm. No murmurs to auscultation. No carotid bruit bilaterally. LUNG: Clear to auscultation bilaterally no wheezing noted throughout. Not labored breathing. ABDOMEN/GI: Bowel sounds present in all 4 quadrants. No tenderness to palpation throughout. NEUROLOGICAL: Higher mental function: The patient is awake, alert, oriented to self, place and time. Patient is following commands. No aphasia and no neglect. Cranial nerves: The pupils are round, equal and reactive to light and accommodation. Visual garza are full to confrontation throughout. Extraocular movement is intact no nystagmus is noted. Facial sensation is normal to touch throughout. The facial strength is normal throughout. Hearing is normal bilaterally to hand rub. Tongue is midline and moved [id number] without any difficulty. No dysarthria is noted. Shoulder shrug is normal bilaterally. Motor: Gait is normal with normal arm swings. The strength is 5 over 5 throughout. Normal tone and bulk. Cerebellum: Normal finger to nose heel to chin bilaterally. Sensation: Sensation is normal to touch throughout. Reflexes (right/left):2+ throughout. Plantars are downgoing bilaterally. NIH stroke scale: 0 Results Aguiar virus PCR was not detected. - Laboratory Findings CBC and BMP: 10/19/20 01:22 10/19/20 01:22 Abnormal Lab Findings: Abnormal Labs 10/19/20 10/19/20 01:22 01:22 WBC 11.2 H Hgb 11.1 L Hct 33.2 L Chloride 111 H Total Bilirubin <0.1 L Total Protein 6.0 L Albumin 3.3 L Assessment and Plan Assessment: * Acute ischemic stroke status post IV TPA (left facial and upper extremity weakness. NIH 9-->0). Her history of migraine with aura, tobacco use and family hx of stroke increases her risk of stroke. Possibly this could have been complicated migraine (especially since uncontrolled). * Migraine with aura since 2000 * Hypertension * History of Gastric bypass 2008 * History of tobacco use (1/2 PPD since age 15 y/o) Plan: * CT of the head is reported as no acute intracranial abnormality. A brain on change compared to old exam. Mild sinusitis is increased compared to old exam. * CT angiography of the head and neck was reported as negative * Will get a repeat CT head 24 hours post tpa (1:47am on 10/20/2020). Likely will get MRI Brain by tomorrow to assess for stroke if not seen on CT head. * Please avoid any antiplateletes or anticoagulation for 24 hours after tpa and after imaging if no bleed then recommend the patient to be started on ASA 81mg and Plavix 75mg daily. Continue Lipitor 40mg daily for secondary stroke prophylaxis. * 2-D echo (need with buble study), lipid panel are ordered are pending. * Continue neuro checks as per TPA protocol. * Placed on continous cardiac monitoring. * PT/OT and LINSEED OIL TEMPERER are consulted * Please avoid SBP >185 and DBP >110 as per IV tpa protocol. Will defer management to the Primary and ICU team. * I started the patient on Elavil 25mg qhs for migraine prophylaxis. And Gabapentin 100mg PRN as abortive. Please avoid Fiorcet since causes vascontriction. * Counseled on tobacco cessation. Place on nicotine patch. * Will defer the rest of medical management to the primary and ICU team. The plan is discussed with the patient and her daughter (Yenni) who is at bedside. Thank you for the consultation. Chavez Shin MD Neuro-Hospitalist Time with Patient: Greater than 30
[2020-10-19] MEDS: FAMOTIDINE 20 MG/2 ML VIAL IV SCH ×2 (09:36→20:55)
[2020-10-19] MEDS: ATORVASTATIN 40 MG TAB PO SCH (10:42)
[2020-10-19] MEDS: NICOTINE 14MG/24HR PATCH TRANSDERM SCH (10:42)
[2020-10-19] MEDS: DOCUSATE 100 MG CAP PO SCH ×3 (10:42→23:07)
--- NOTE | 2020-10-19 11:48 | P.CNPUL ---
History of Present Illness Consult date: 10/19/20 Chief complaint: left facial and arm weakness History of present illness: This 50-year-old female patient was going to be transferred to the intensive care unit for further monitoring of the patient has been received TPA for new onset neurologic deficit. The patient was at home and around midnight she developed a sudden onset left arm and facial weakness and that she had a facial droop. She came into the emergency department within an hour and she further workup including a CAT scan of the brain that was negative and a CT angiogram was also negative and the patient was consulted neuro interventionalists and the patient was given TPA. She has been successful and the patient did not have any bleeding complications. Initial NIH score was 9 and current NIH score is down to 0. Note that she also has history of migraines and please refer to the neurologist note regarding the details of her migraine history. She hasn't been able to take Imitrex and the patient has been taking Fioricet for pain control. She has no history of cardiac arrhythmias or atrial fibrillation. No previous history of CVA. No previous history of DVT or pulmonary embolism. No head trauma. No seizure activity. Mental status is normal. Speech is normal. Currently she is resting comfortably in bed. Hemodynamically stable and she is normotensive. Review of Systems Constitutional: Denies chills, Denies fever Eyes: denies as per HPI, denies blurred vision, denies bulging eye, denies decreased vision, denies diplopia, denies discharge, denies dry eye, denies irritation, denies itching, denies pain, denies photophobia, denies loss of peripheral vision, denies loss of vision, denies tunnel vision/blind spots Ears: deny: decreased hearing, ear discharge, earache, tinnitus Ears, nose, mouth and throat: Reports as per HPI Breasts: absent: as per HPI, change in shape, gynecomastia, masses, nipple discharge, pain, skin changes, swelling Cardiovascular: Reports as per HPI Respiratory: Reports as per HPI Gastrointestinal: Reports as per HPI Genitourinary: Reports as per HPI Menstruation: Reports as per HPI Musculoskeletal: Reports as per HPI Musculoskeletal: absent: ankle pain, ankle stiffness, ankle swelling, as per HPI, elbow pain, elbow stiffness, elbow swelling, foot pain, foot stiffness, foot swelling, hand pain, hand stiffness, hand swelling, hip pain, hip stiffness, hip swelling, knee pain, knee stiffness, knee swelling, shoulder pain, shoulder stiffness, shoulder swelling, wrist pain, wrist stiffness, wrist swelling Integumentary: Reports as per HPI Neurological: Reports as per HPI, Reports headaches, Reports weakness Psychiatric: Reports as per HPI Endocrine: Reports as per HPI Hematologic/Lymphatic: Reports as per HPI Allergic/Immunologic: Reports as per HPI Past Medical History Past Medical History: Asthma, Hypertension Additional Past Medical History / Comment(s): Past L mastoiditis with L otitis/vertigo and falls-had surgery and no longer a problem, nephrolithiasis, migraines, past chronic low back pain but pt states not much of a problem anymore, DJD, hypoglycemia, History of Any Multi-Drug Resistant Organisms: None Reported Past Surgical History: Adenoidectomy, Appendectomy, Bariatric Surgery, Breast Surgery, Cholecystectomy, Ear Surgery, Hernia Repair, Hysterectomy, Orthopedic Surgery, Tonsillectomy, Tubal Ligation Additional Past Surgical History / Comment(s): Gastric bypass in 2008 with weight loss of 170 pounds, panniculectomy, L ear perforation with surgery, R knee open surgery as a child and x 2 arthroscopicL knee surgeries, R breast bx- benign, 2 umbilical hernias and 1 diaphragmatic hernia repairs, colonoscopy, mastoidectomy with Dr. Valderrama at [facility]. Past Anesthesia/Blood Transfusion Reactions: No Reported Reaction Past Psychological History: Anxiety, Depression Smoking Status: Current every day smoker Past Alcohol Use History: None Reported Past Drug Use History: None Reported - Past Family History Father Additional Family Medical History / Comment(s): Father from a aneurysm at the age of 72 yrs. he also had history of prostate cancer, aortic aneurysm, renal artery aneurysm. Mother Family Medical History: COPD Additional Family Medical History / Comment(s): Mother is 75 yrs old and has emphysema and hypertension. Brother(s) Additional Family Medical History / Comment(s): She has one brother with hypertension and plaque psoriasis. Sister(s) Additional Family Medical History / Comment(s): She has one sister with hypertension. Son(s) Additional Family Medical History / Comment(s): Patient has 3 children, one boy with ureteral obstruction and renal failure. 2 girls that are healthy without major medical problems. Medications and Allergies Home Medications Medication Instructions Recorded Confirmed Type ALPRAZolam [Xanax] 1 mg PO BID PRN 01/20/19 10/19/20 History Butalb/APAP/Caff 50-325-40Mg 1 tab PO TID PRN 01/20/19 10/19/20 History [Fioricet 50-325-40] Albuterol Sulfate [Proair Hfa] 2 puff INHALATION RT-QID PRN 08/10/20 10/19/20 History Calc/Magnes/Vit D 1 tab PO DAILY 08/10/20 10/19/20 History Losartan Potassium 100 mg PO HS 08/10/20 10/19/20 History Allergies Allergy/AdvReac Type Severity Reaction Status Date / Time Penicillins Allergy Unknown Verified 10/19/20 06:13 sumatriptan [From Imitrex] Allergy Unknown Verified 10/19/20 06:13 sumatriptan succinate Allergy Unknown Verified 10/19/20 06:13 [From Imitrex] NSAIDS (Non-Steroidal AdvReac Unknown Verified 10/19/20 06:13 Anti-Inflamma Physical Exam Vitals: Vital Signs Temp Pulse Resp BP Pulse Ox 10/19/20 10:15 97.9 F 68 16 104/74 97 10/19/20 09:45 98 F 74 16 109/76 97 10/19/20 09:15 97.9 F 75 18 111/75 98 10/19/20 08:45 97.8 F 74 16 115/75 97 10/19/20 08:15 97.9 F 79 16 91/62 96 10/19/20 07:45 98 F 80 16 94/65 95 10/19/20 07:44 78 10/19/20 07:37 80 10/19/20 07:15 84 16 94/64 97 10/19/20 06:45 82 16 91/68 98 10/19/20 06:15 84 16 102/74 95 10/19/20 05:45 79 18 94/66 99 10/19/20 05:15 79 16 100/56 96 10/19/20 04:45 80 16 92/63 96 10/19/20 04:15 80 16 91/66 96 10/19/20 04:00 86 16 91/60 96 10/19/20 03:45 83 18 98/62 97 10/19/20 03:30 83 18 102/73 97 10/19/20 03:15 81 18 104/78 99 10/19/20 03:00 85 18 108/80 97 10/19/20 02:45 81 18 113/80 98 10/19/20 02:30 77 18 115/87 95 10/19/20 02:15 75 18 117/82 95 10/19/20 02:00 77 18 122/80 94 L 10/19/20 01:45 82 18 117/80 95 10/19/20 01:30 83 18 149/106 100 10/19/20 01:15 97.6 F 92 18 144/96 99 Intake and Output 10/18/20 10/19/20 10/19/20 22:59 06:59 14:59 Other: Weight 68.039 kg The patient appeared well nourished and normally developed. Vital signs as documented. Head exam is unremarkable. No scleral icterus or corneal arcus noted. Neck is without jugular venous distension, thyromegaly, or carotid bruits. Carotid upstrokes are brisk bilaterally. Lungs are clear to auscultation and percussion. Cardiac exam reveals the PMI to be normally sized and situated. Rhythm is regular. First and second heart sounds normal. No murmurs, rubs or gallops. Abdominal exam reveals normal bowel sounds, no masses, no organomegaly and no aortic enlargement. Extremities are nonedematous and both femoral and pedal pulses are normal. Higher mental function: The patient is awake, alert, oriented to self, place and time. Patient is following commands. No aphasia and no neglect. Cranial nerves: The pupils are round, equal and reactive to light and accommodation. Visual garza are full to confrontation throughout. Extraocular movement is intact no nystagmus is noted. Facial sensation is normal to touch throughout. The facial strength is normal throughout. Hearing is normal bilaterally to hand rub. Tongue is midline and moved [id number] without any difficulty. No dysarthria is noted. Shoulder shrug is normal bilaterally. Motor: Gait is normal with normal arm swings. The strength is 5 over 5 throughout. Normal tone and bulk. Cerebellum: Normal finger to nose heel to chin bilaterally.Sensation: Sensation is normal to touch throughout.Reflexes (right/left):2+ throughout. Plantars are downgoing bilaterally. Results - Laboratory Findings CBC and BMP: 10/19/20 01:22 10/19/20 01:22 PT/INR, D-dimer PT 9.7 sec (9.0-12.0) 10/19/20 01:22 INR 0.9 (<1.2) 10/19/20 01:22 Abnormal lab findings: Abnormal Labs 10/19/20 10/19/20 01:22 01:22 WBC 11.2 H Hgb 11.1 L Hct 33.2 L Chloride 111 H Total Bilirubin <0.1 L Total Protein 6.0 L Albumin 3.3 L Assessment and Plan Plan: 1 acute CVA with left facial droop and left upper extremity weakness post TPA administration. NIH score has dropped from 9 down to 0 with and the patient has received the thrombolytics without any complications. 2 history of migraines with aura since 2000 3 hypertension 4 smoker 5 history of obesity post gastric bypass surgery 6 history of nephrolithiasis 7 history of chronic back pain 8 degenerative arthritis 9 history of left mastoiditis/otitis and vertigo Plan We'll transfer this patient to the intensive care unit for monitoring for the next 24 hours post the administration. We'll continue with neuro checks every 1 hour. We'll obtain a follow-up CAT scan of the brain with a 24 hours post. Would ultimately like an MRI of the brain per neurology recommendation. We will avoid antiplatelet agents for the next 24 hours. We will start the patient tomorrow on aspirin 81 mg . We'll check lipid profile. We'll start high-dose statins. Monitor blood pressure. We will order an echocardiogram We'll continue to follow.
[2020-10-19] MEDS: CALCIUM CARB-VIT D 500 MG-5 MCG TAB PO SCH (15:31)
[2020-10-19] MEDS ORDERED: ALBUTEROL HFA INHALER INHALATION STA (15:56)
[2020-10-19] MEDS: ALBUTEROL HFA INHALER INHALATION PRN ×2 (16:14→23:30)
[2020-10-19 18:26] LABS: Hemoglobin A1C 5.7 % (4.0-6.0)
--- NOTE | 2020-10-19 20:53 | P.HPIM ---
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 She continue to become progressively worse with weaker on the left side ended up asking her around midnight to bring her to the emergency department at [facility] by then she had left arm facial and left leg weakness with droopy face. At the time was seen at the emergency department her NIH score was 9 she had no absolute contraindication for TPA after contacting the stroke center patient ended up receiving TPA successfully with no complication dose was giving around 1 within short. Of time her stroke symptoms start resolved and her NIH score improve and down to 0. Patient was admitted to the intensive care unit to be seen neurology and employment specialist. She is feeling much better so far and no complication. Neurology will have patient go for another CT or MRI and repeat another CT in 24 hours to make sure there is no further complication or bleed afterward. The meanwhile continue the workup she had with CT angiography CT of the brain did not show any bleed at the time CT angiography was perform a [facility] department and was negative in both the neck and the brain. Laboratory value showed mildly elevated white blood cell her chemistry was normal troponin was very low patient COVID-19 was negative. Patient was hospitalized at this point with above problem. REVIEW OF SYSTEMS Constitutional: No fever, no chills, no night sweats. No weight change. had generalized fatigue weakness EENT: had headache and migraine around her stroke no further symptoms.. No blurred vision or double vision, no loss of vision. No loss of Hearing, no r inging in the ears, no dizziness. No nasal drainage or congestion. No epistaxis. No sore throat. Lungs: No shortness of breath, cough, no sputum production. No wheezing. Cardiovascular: No chest pain, no lower extremity edema. No palpitations. No paroxysmal nocturnal dyspnea. No orthopnea. No lightheadedness or dizziness. No syncopal episodes. Abdominal: No abdominal pain. No nausea, vomiting. No diarrhea. No constipation. No bloody or tarry stools.. No loss of appetite. Genitourinary: No dysuria, increased frequency, urgency. No urinary retention. Musculoskeletal: No myalgias. No muscle weakness, no gait dysfunction, no frequent falls. No back pain. No neck pain. Integumentary: No wounds, no lesions. No rash or pruritus. No unusual bruising. No change in hair or nails. Neurologic:slurred speech, paresthesias, weakness in the left side and droopy face. Psychiatric: No depression. No anxiety. No mood swings. Endocrine: No abnormal blood sugars. No weight change. No excessive sweating or thirst. No cold intolerance. 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 FAMILY HISTORY she has 3 children are all living and well. Patient had 1 brother who is hypertension and Crohn disease one sister is living and well. Her father a 72 from aneurysm mother is living at 76 COPD and hypertension. PHYSICAL EXAMINATION Gen: This is well-developed does not look in any respiratory distress. HEENT: Head is atraumatic, normocephalic. Pupils equal, round. Sclerae is anicteric.no sinus droopy face at this time. NECK: Supple. No JVD. No lymphadenopathy. No thyromegaly. LUNGS: decrease breath some bilaterally with fine rhonchi no crackles or wheezes. HEART: Regular rate and rhythm. No murmur. ABDOMEN: Soft. Bowel sounds are present. No masses. No tenderness. EXTREMITIES: No pedal edema. No calf tenderness. NEUROLOGICAL: Patient is awake, alert and oriented x3. Cranial nerves 2 through 12 are grossly intact. evaluation of the time was seen director of assessing which is few hours after her TPA was done patient had no near loss of the time. Her seun nce and gait is normal coordination is very normal as well. ASSESSMENT AND PLAN 1 CVA: Patient had significant weakness in the left side along with paresthesia slurred speech NIH score was 9, patient ended up having TPA after was evaluated by the stroke team on telemedicine, patient was admitted to the hospital after her CT of the brain and CTA was done with no major abnormality. Patient had no complications so far will continue further workup including echocardiogram with bubble study, MRI of the brain will continue neuro exam every 2 hours and continue secondary prevention at this point with statin, hypertensive agent, Plavix will be delayed at least 48 hours along with using aspirin as an anticoagulation. 2 acute migraine: Symptoms has result so far patient apparently had history of migraine been treated in the past with Fioricet along with Excedrin. 3 hypertension: Blood pressure has been elevated resume losartan 100 mg a day patient can benefit from smaller dose of calcium channel kita below 140 systolic and below 88 diastolic. 4 hyperlipidemia: Was started on atorvastatin 40 mg a day with target LDL below 70. 5 hyperglycemia: Patient has been on diet control Accu-Chek with sliding scales coverage and be done. 6 chronic history of smoking: Patient be started nicotine patch at 14 mg a day, or Chantix can be another good option. 7 history of gastric bypass: Continue her multivitamin continue her regular follow-up with bariatric center. 8 history of mastoiditis: Causing patient to have chronic vertigo continue to manage with Antivert on an as-needed basis. 9 GI prophylaxis: Patient be started on pantoprazole 40 mg daily. 10 DVT prophylaxis: No anticoagulation be use at this point knee-high GEORGE hose and Venodyne boots can be done in 24 hours are 1 use Plavix if patient is still at high risk we will add subcu heparin. 11. COVID-19 testing.was negative. Patient will be admitted to the hospital for a minimum of 2 night stay. Past Medical History Past Medical History: Asthma, Hypertension Additional Past Medical History / Comment(s): Past L mastoiditis with L otitis/vertigo and falls-had surgery and no longer a problem, nephrolithiasis, migraines, past chronic low back pain but pt states not much of a problem anymore, DJD, hypoglycemia, History of Any Multi-Drug Resistant Organisms: None Reported Past Surgical History: Adenoidectomy, Appendectomy, Bariatric Surgery, Breast Surgery, Cholecystectomy, Ear Surgery, Hernia Repair, Hysterectomy, Orthopedic Surgery, Tonsillectomy, Tubal Ligation Additional Past Surgical History / Comment(s): Gastric bypass in 2008 with weight loss of 170 pounds, panniculectomy, L ear perforation with surgery, R knee open surgery as a child and x 2 arthroscopicL knee surgeries, R breast bx- benign, 2 umbilical hernias and 1 diaphragmatic hernia repairs, colonoscopy, mastoidectomy with Dr. Valderrama at [facility]. Past Anesthesia/Blood Transfusion Reactions: No Reported Reaction Past Psychological History: Anxiety, Depression Smoking Status: Current every day smoker Past Alcohol Use History: None Reported Past Drug Use History: None Reported - Past Family History Father Additional Family Medical History / Comment(s): Father from a aneurysm at the age of 72 yrs. he also had history of prostate cancer, aortic aneurysm, renal artery aneurysm. Mother Family Medical History: COPD Additional Family Medical History / Comment(s): Mother is 75 yrs old and has emphysema and hypertension. Brother(s) Additional Family Medical History / Comment(s): She has one brother with hypertension and plaque psoriasis. Sister(s) Additional Family Medical History / Comment(s): She has one sister with hypertension. Son(s) Additional Family Medical History / Comment(s): Patient has 3 children, one boy with ureteral obstruction and renal failure. 2 girls that are healthy without major medical problems. Medications and Allergies Home Medications Medication Instructions Recorded Confirmed Type ALPRAZolam [Xanax] 1 mg PO BID PRN 01/20/19 10/19/20 History Butalb/APAP/Caff 50-325-40Mg 1 tab PO TID PRN 01/20/19 10/19/20 History [Fioricet 50-325-40] Albuterol Sulfate [Proair Hfa] 2 puff INHALATION RT-QID PRN 08/10/20 10/19/20 History Calc/Magnes/Vit D 1 tab PO DAILY 08/10/20 10/19/20 History Losartan Potassium 100 mg PO HS 08/10/20 10/19/20 History Allergies Allergy/AdvReac Type Severity Reaction Status Date / Time Penicillins Allergy Unknown Verified 10/19/20 06:13 sumatriptan [From Imitrex] Allergy Unknown Verified 10/19/20 06:13 sumatriptan succinate Allergy Unknown Verified 10/19/20 06:13 [From Imitrex] NSAIDS (Non-Steroidal AdvReac Unknown Verified 10/19/20 06:13 Anti-Inflamma Physical Exam Vitals: Vital Signs Temp Pulse Resp BP Pulse Ox 10/19/20 05:45 79 18 94/66 99 10/19/20 05:15 79 16 100/56 96 10/19/20 04:45 80 16 92/63 96 10/19/20 04:15 80 16 91/66 96 10/19/20 04:00 86 16 91/60 96 10/19/20 03:45 83 18 98/62 97 10/19/20 03:30 83 18 102/73 97 10/19/20 03:15 81 18 104/78 99 10/19/20 03:00 85 18 108/80 97 10/19/20 02:45 81 18 113/80 98 10/19/20 02:30 77 18 115/87 95 10/19/20 02:15 75 18 117/82 95 10/19/20 02:00 77 18 122/80 94 L 10/19/20 01:45 82 18 117/80 95 10/19/20 01:30 83 18 149/106 100 10/19/20 01:15 97.6 F 92 18 144/96 99 Intake and Output 10/18/20 10/18/20 10/19/20 14:59 22:59 06:59 Other: Weight 68.039 kg Results CBC & Chem 7: 10/19/20 01:22 10/19/20 01:22 Labs: Abnormal Lab Results - Last 24 Hours (Table) 10/19/20 10/19/20 Range/Units 01:22 01:22 WBC 11.2 H (3.8-10.6) k/uL Hgb 11.1 L (11.4-16.0) gm/dL Hct 33.2 L (34.0-46.0) % Chloride 111 H (98-107) mmol/L Total Bilirubin <0.1 L (0.2-1.3) mg/dL Total Protein 6.0 L (6.3-8.2) g/dL Albumin 3.3 L (3.5-5.0) g/dL
[2020-10-19] MEDS ORDERED: LOSARTAN 50 MG TAB PO SCH (21:00)
[2020-10-19] MEDS ORDERED: amLODIPine 2.5 MG TAB PO PRN (21:00)
[2020-10-19] MEDS ORDERED: AMITRIPTYLINE HCL 25 MG TAB PO SCH (21:00)
[2020-10-20 04:57] LABS: HCT 32.8 % (34.0-46.0); HGB 10.2 gm/dL (11.4-16.0); Hypochromasia Moderate; MCH 27.6 pg (25.0-35.0); MCHC 31.1 g/dL (31.0-37.0); MCV 88.7 fL (80.0-100.0); Mean Platelet Volume 6.7; Platelet Count 433 k/uL (150-450); RBC 3.69 m/uL (3.80-5.40); RDW 14.9 % (11.5-15.5); WBC 9.1 k/uL (3.8-10.6)
[2020-10-20 05:37] LABS: African American GFR (CKD) >90 (>60 ml/min/1.73 sqM); Anion Gap 3 mmol/L; Blood Urea Nitrogen 9 mg/dL (7-17); Calcium 8.9 mg/dL (8.4-10.2); Carbon Dioxide 24 mmol/L (22-30); Chloride 111 mmol/L (98-107); Glucose 81 mg/dL (74-99); Non-African American GFR(CKD) >90 (>60 ml/min/1.73 sqM); Potassium 4.5 mmol/L (3.5-5.1); Sodium 138 mmol/L (137-145)
[2020-10-20] MEDS ORDERED: PANTOPRAZOLE 40 MG TABLET PO SCH (07:30)
[2020-10-20] MEDS: ALBUTEROL HFA INHALER INHALATION PRN ×2 (08:25→16:23)
--- NOTE | 2020-10-20 08:43 | P.PN ---
Subjective Progress Note Date: 10/20/20 This 50-year-old female patient was going to be transferred to the intensive ca re unit for further monitoring of the patient has been received TPA for new onset neurologic deficit. The patient was at home and around midnight she developed a sudden onset left arm and facial weakness and that she had a facial droop. She came into the emergency department within an hour and she further workup including a CAT scan of the brain that was negative and a CT angiogram was also negative and the patient was consulted neuro interventionalists and the patient was given TPA. She has been successful and the patient did not have any bleeding complications. Initial NIH score was 9 and current NIH score is down to 0. Note that she also has history of migraines and please refer to the neurologist note regarding the details of her migraine history. She hasn't been able to take Imitrex and the patient has been taking Fioricet for pain control. She has no history of cardiac arrhythmias or atrial fibrillation. No previous history of CVA. No previous history of DVT or pulmonary embolism. No head trauma. No seizure activity. Mental status is normal. Speech is normal. Curr ently she is resting comfortably in bed. Hemodynamically stable and she is normotensive. 10/20/2020, the patient is completely back to normal. No headaches. No numbness. No tingling. No facial droop. No speech changes. No focal neurological deficit. No bleeding complications. Hemodynamically stable. Blood pressure is under adequate control for now. She is going to be started on aspirin and Plavix and the patient is also going to have an MRI done. Is on room air oxygen. Echocardiogram results are still pending for now. Heart rhythm is sinus. No atrial fibrillation. We'll was at 10.2 with some mild drop compared to yesterday from 11.1. No signs of any GI bleed. Coagulation profile has been normal by the time of admission. COVID-19 testing is been negative. Objective - Vital Signs Vital signs: Vital Signs Temp 97.6 F 10/20/20 08:00 Pulse 74 10/20/20 08:00 Resp 15 10/20/20 08:00 BP 142/96 10/20/20 08:00 Pulse Ox 97 10/20/20 08:00 Intake & Output 10/19/20 10/20/20 10/20/20 18:59 06:59 18:59 Intake Total 700 1040 100 Output Total 1100 0 Balance 700 -60 100 Weight 68.039 kg 74.9 kg Intake: IV 700 700 Sodium Chloride 0.9% 1, 700 700 000 ml @ 100 mls/hr IV . Q10H [facility] Rx#:[id number] Oral 340 100 Output: Urine 1100 0 Other: Voiding Method Toilet Toilet # Voids 1 - Exam The patient appeared well nourished and normally developed. Vital signs as documented. Head exam is unremarkable. No scleral icterus or corneal arcus noted. Neck is without jugular venous distension, thyromegaly, or carotid bruits. Carotid upstrokes are brisk bilaterally. Lungs are clear to auscultation and percussion. Cardiac exam reveals the PMI to be normally sized and situated. Rhythm is regular. First and second heart sounds normal. No murmurs, rubs or gallops. Abdominal exam reveals normal bowel sounds, no masses, no organomegaly and no aortic enlargement. Extremities are nonedematous and both femoral and pedal pulses are normal.Neurologically, the patient is awake and alert and the patient does not have any focal neurological deficit. Cranial nerves are essentially intact.Examination of the skin revealed no evidence of significant rashes, suspicious appearing nevi or other concerning lesions. - Labs CBC & Chem 7: 10/20/20 04:19 10/20/20 04:19 Labs: Abnormal Lab Results - Last 24 Hours (Table) 10/20/20 10/20/20 Range/Units 04:19 04:19 RBC 3.69 L (3.80-5.40) m/uL Hgb 10.2 L (11.4-16.0) gm/dL Hct 32.8 L (34.0-46.0) % Chloride 111 H (98-107) mmol/L Assessment and Plan Plan: 1 acute CVA with left facial droop and left upper extremity weakness post TPA administration. NIH score has dropped from 9 down to 0 with and the patient has received the thrombolytics without any complications. The patient is completely back to normal. No complications related to TPA. I'm wondering whether representation was migraine related and this is a very plausible alternative diagnoses. . 2 history of migraines with aura since 2000 3 hypertension 4 smoker 5 history of obesity post gastric bypass surgery 6 history of nephrolithiasis 7 history of chronic back pain 8 degenerative arthritis 9 history of left mastoiditis/otitis and vertigo Plan We'll transfer to medical floor with remote telemetry MRI of the brain is pending Echo results are still pending Agree with aspirin and Plavix Neurology follow-up and pulmonary critical care services we'll sign off
--- NOTE | 2020-10-20 08:50 | CT ---
EXAMINATION TYPE: CT brain wo con DATE OF EXAM: 10/20/2020 COMPARISON: CT 11/01/2021 HISTORY: Follow up scan, TPA administration for cerebrovascular accident. CT DLP: 1159.4 mGycm Automated exposure control for dose reduction was used. Helical imaging through the brain FINDINGS: There is no significant interval change. Some mucosal disease present in the maxillary sinus on the r ight, possible polyp or mucus retention cyst in the sphenoid sinus on the right, postop changes are n oted to the temporal bone on the left. IMPRESSION: STABLE EXAM, NO ACUTE ABNORMALITY, CONSIDER BRAIN MRI INDICATED. THERE IS UNDERLYING MILD ATROPHY.
[2020-10-20] MEDS: SODIUM CHLORIDE 0.9% 1,000 ML IV SCH (08:55)
[2020-10-20] MEDS ORDERED: CLOPIDOGREL 75 MG TAB PO SCH (09:00)
[2020-10-20] MEDS ORDERED: ASPIRIN 325 MG TAB PO SCH (09:00)
[2020-10-20] MEDS: DOCUSATE 100 MG CAP PO SCH ×2 (09:29→15:16)
[2020-10-20] MEDS: ALPRAZolam 1 MG TAB PO PRN (09:40)
[2020-10-20] MEDS: CALCIUM CARB-VIT D 500 MG-5 MCG TAB PO SCH (09:41)
[2020-10-20] MEDS: FAMOTIDINE 20 MG/2 ML VIAL IV SCH (09:41)
[2020-10-20] MEDS: ATORVASTATIN 40 MG TAB PO SCH (09:41)
[2020-10-20] MEDS: NICOTINE 14MG/24HR PATCH TRANSDERM SCH (09:41)
[2020-10-20] MEDS: ACETAMINOPHEN TAB 325 MG TAB PO PRN (10:05)
[2020-10-20 10:10] LABS: Chol/HDL Ratio 4.29; Cholesterol 146 mg/dL (0-200); LDL Cholesterol,Calculated 78.8 mg/dL (0.0-131.0)
--- NOTE | 2020-10-20 12:33 | P.PN ---
Subjective Progress Note Date: 10/20/20 The patient continues to be doing well. Denies any further weakness numbness or any visual disturbance. CT of the head 24 hour post tpa is reported as stable exam, no acute abnormality. Consider brain MRI as indicated. There is underlying mild atrophy. Objective - Vital Signs Vital signs: Vital Signs Temp 97.6 F 10/20/20 12:00 Pulse 69 10/20/20 12:00 Resp 17 10/20/20 12:00 BP 126/82 10/20/20 12:00 Pulse Ox 95 10/20/20 12:00 Intake & Output 10/19/20 10/20/20 10/20/20 18:59 06:59 18:59 Intake Total 700 1040 200 Output Total 1100 600 Balance 700 -60 -400 Weight 68.039 kg 74.9 kg Intake: IV 700 700 Sodium Chloride 0.9% 1, 700 700 000 ml @ 100 mls/hr IV . Q10H [facility] Rx#:[id number] Oral 340 200 Output: Urine 1100 600 Other: Voiding Method Toilet Toilet Toilet # Voids 1 - Exam GENERAL: The patient is lying in bed and is not in acute distress. NEUROLOGICAL: Higher mental function: The patient is awake, alert, oriented to self, place and time. Patient is following commands. No aphasia and no neglect. Cranial nerves: The pupils are round, equal and reactive to light and accommodation. Visual garza are full to confrontation throughout. Extraocular movement is intact no nystagmus is noted. Facial sensation is normal to touch throughout. The facial strength is normal throughout. Hearing is normal bilaterally to hand rub. Tongue is midline and moved [id number] without any difficulty. No dysarthria is noted. Shoulder shrug is normal bilaterally. Motor: Gait is normal with normal arm swings. The strength is 5 over 5 throughout. Normal tone and bulk. Cerebellum: Normal finger to nose heel to chin bilaterally. Sensation: Sensation is normal to touch throughout. Reflexes (right/left):2+ throughout. Plantars are downgoing bilaterally. - Labs CBC & Chem 7: 10/20/20 04:19 10/20/20 04:19 Labs: Abnormal Lab Results - Last 24 Hours (Table) 10/20/20 10/20/20 Range/Units 04:19 04:19 RBC 3.69 L (3.80-5.40) m/uL Hgb 10.2 L (11.4-16.0) gm/dL Hct 32.8 L (34.0-46.0) % Chloride 111 H (98-107) mmol/L Triglycerides 166.0 H (0.0-149.0) mg/dL HDL Cholesterol 34.0 L (40.0-60.0) mg/dL Assessment and Plan Assessment: * Acute ischemic stroke status post IV TPA (left facial and upper extremity weakness. NIH 9-->0). Her history of migraine with aura, tobacco use and family hx of stroke increases her risk of stroke. Possibly this could have been complicated migraine (especially since uncontrolled). * Migraine with aura since 2000 * Hypertension * History of Gastric bypass 2008 * History of tobacco use (1/2 PPD since age 15 y/o) Plan: * CT of the head is reported as no acute intracranial abnormality. A brain on change compared to old exam. Mild sinusitis is increased compared to old exam. * CT angiography of the head and neck was reported as negative * CT of the head 24 hour post tpa is reported as stable exam, no acute abnormality. Consider brain MRI as indicated. There is underlying mild atrophy. * Lipid panel: Triglyceride of 166, cholesterol 146, LDL 78 and HDL is 34. And strokes the LDL goal is less than 70. * TSH is 2.77 which is normal. * Ordered MRI of the brain: It is reported as no significant abnormality. Sinus disease. * I started the patient on Plavix 75 mg daily (patient stated she cannot tolerate ASA because of her history of Gastric bypass). Continue Lipitor 40mg daily for secondary stroke prophylaxis. * 2-D echo (need with buble study) is pending. * Continue neuro checks as per TPA protocol. * Placed on continous cardiac monitoring. * PT/OT and SEMICONDUCTOR LAB TECHNICIAN are consulted * I started the patient on Elavil 25mg qhs for migraine prophylaxis. And Gabape ntin 100mg PRN as abortive. Please avoid Fiorcet since causes vascontriction. * Counseled on tobacco cessation. Place on nicotine patch. * Will defer the rest of medical management to the primary. * The patient does not want any further neurological work-up and want to have done as outpatient (such as GABO if needed). Recommend the patient follow up with a neurologist within 1-2 weeks as an outpatient. The plan is discussed with the patient and her nurse. Chavez Shin MD Neuro-Hospitalist Time with Patient: Less than 30
--- NOTE | 2020-10-20 13:15 | MR ---
MR brain without contrast HISTORY: Cerebrovascular accident, post TPA administration Multiplanar multisequence imaging through the brain Correlation to CT brain 10/20/2020 There is no restricted diffusion. There is no hemorrhage or hydrocephalus. Brain signal is maintained . There is inflammatory change within the maxillary sinuses right greater than left, ethmoid sinus. T here are normal vascular flow voids. Inflammatory changes are present in the mastoid air cells on the left. Cerebellopontine angles, corpus callosum, pituitary, cervical medullary junction are within no rmal limits, there is a partially empty sella. IMPRESSION: No significant brain abnormality. Sinus disease.
--- NOTE | 2020-10-20 14:05 | P.DS ---
Providers Date of admission: 10/19/20 02:42 Attending physician: Larry Crowe Consults: 10/19/20 02:37 Consult Physician Routine Consulting Provider: Deidre Garza Consult Reason/Comments: stroke patient after TPA administration Do you want consulting provider notified?: Yes Consult Physician Routine Consulting Provider: Chavez Shin Consult Reason/Comments: Acute ischemic stroke, with left sided weakness. Do you want consulting provider notified?: Yes Primary care physician: 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 She continue to become progressively worse with weaker on the left side ended up asking her around midnight to bring her to the emergency department at [facility] by then she had left arm facial and left leg weakness with droopy face. At the time was seen at the emergency department her NIH score was 9 she had no absolute contraindication for TPA after contacting the stroke center patient ended up receiving TPA successfully with no complication dose was giving around 1 within short. Of time her stroke symptoms start resolved and her NIH score improve and down to 0. Patient was admitted to the intensive care unit to be seen neurology and manager speech. She is feeling much better so far and no complication. Neurology will have patient go for another CT or MRI and repeat another CT in 24 hours to make sure there is no further complication or bleed afterward. The meanwhile continue the workup she had with CT angiography CT of the brain did not show any bleed at the time CT angiography was perform a demurs department and was negative in both the neck and the brain. Laboratory value showed mildly elevated white blood cell her chemistry was normal troponin was very low patient COVID-19 was negative. Patient was hospitalized at this point with above problem. 10/20 patient examined bedside. Denies any weakness motor or sensory deficit. She still has some facial droop on the left side of her face but denies any visual disturbance or gait instability. MRI of brain was reviewed denies any acute significant change. Patient's echocardiogram is still pending rest of the labs are normal. Vitals are stable patient has a temp of 97.6 pulse 69 and respiratory rate 17 and blood pressure 126/82. Labs reviewed hemoglobin 10.2 chloride 111 sodium 138 potassium 4.5 BUN 9 creatinine 0.64 LDL 146. Patient is started on Lipitor, aspirin and Plavix per neurology recommendation. R Amorello started for migraine prophylaxis. Patient to follow with primary care physician for further recommendation. She needs to follow with cardiology for possible GABO and neurology as outpatient. Discharge diagnoses 1 CVA 2 acute migraine: 3 hypertension 4 hyperlipidemia: 5 hyperglycemia 6 chronic history of smokin history of gastric bypass: 8 history of mastoiditis: Disposition home with self-care Patient Condition at Discharge: Serious Plan - Discharge Summary Discharge Rx Participant: Yes New Discharge Prescriptions: New Nicotine 14Mg/24Hr Patch [Habitrol] 1 patch TRANSDERM DAILY #30 patch Clopidogrel [Plavix] 75 mg PO DAILY #30 tab Amitriptyline HCl [Elavil] 25 mg PO HS #30 tab Atorvastatin [Lipitor] 40 mg PO DAILY #30 tab amLODIPine [Norvasc] 2.5 mg PO BID PRN #60 tab PRN Reason: Blood Pressure - High Continue Butalb/APAP/Caff 50-325-40Mg [Fioricet 50-325-40] 1 tab PO TID PRN PRN Reason: Migraine Headache ALPRAZolam [Xanax] 1 mg PO BID PRN PRN Reason: Anxiety Albuterol Sulfate [Proair Hfa] 2 puff INHALATION RT-QID PRN PRN Reason: Shortness Of Breath Losartan Potassium 100 mg PO HS Calc/Magnes/Vit D 1 tab PO DAILY Discharge Medication List ALPRAZolam [Xanax] 1 mg PO BID PRN 01/20/19 [History] Butalb/APAP/Caff 50-325-40Mg [Fioricet 50-325-40] 1 tab PO TID PRN 01/20/19 [History] Albuterol Sulfate [Proair Hfa] 2 puff INHALATION RT-QID PRN 08/10/20 [History] Calc/Magnes/Vit D 1 tab PO DAILY 08/10/20 [History] Losartan Potassium 100 mg PO HS 08/10/20 [History] Amitriptyline HCl [Elavil] 25 mg PO HS #30 tab 10/20/20 [Rx] Atorvastatin [Lipitor] 40 mg PO DAILY #30 tab 10/20/20 [Rx] Clopidogrel [Plavix] 75 mg PO DAILY #30 tab 10/20/20 [Rx] Nicotine 14Mg/24Hr Patch [Habitrol] 1 patch TRANSDERM DAILY #30 patch 10/20/20 [Rx] amLODIPine [Norvasc] 2.5 mg PO BID PRN #60 tab 10/20/20 [Rx] Follow up Appointment(s)/Referral(s): Jj Herndon MD [REFERRING] - 1 Week Saleem Page DO [Primary Care Provider] - 1-2 days Discharge Disposition: HOME SELF-CARE
--- NOTE | 2020-10-20 15:34 | ECHOF ---
Referral Reason:Thrombus MEASUREMENTS -------- HEIGHT: 160.0 cm WEIGHT: 68.0 kg BP: IVSd: 0.9 cm (0.6 - 1.1) LVIDd: 3.3 cm (3.9 - 5.3) LVPWd: 0.9 cm (0.6 - 1.1) EDV(Teich): 44 ml IVSs: 1.2 cm LVIDs: 2.6 cm LVPWs: 1.2 cm %IVS Thck: 36 % ESV(Teich): 26 ml EF(Teich): 41 % %FS: 20 % SV(Teich): 18 ml RVIDd: 3.2 cm (< 3.3) LALs A4C: 3.9 cm LAAs A4C: 11.8 cm LAESV A-L A4C: 30 ml LAESV MOD A4C: 29 ml LALs A2C: 4.2 cm LAAs A2C: 14.8 cm LAESV A-L A2C: 45 ml LAESV MOD A2C: 42 ml LAESV(A-L): 38 ml LAESV Index (A-L): 22.00 ml/m Ao Diam: 2.8 cm (2.0 - 3.7) AV Cusp: 1.9 cm (1.5 - 2.6) EPSS: 0.2 cm MV E Freedom: 0.85 m/s MV DecT: 196 ms MV Dec Toombs: 4.4 m/s MV A Freedom: 0.84 m/s MV E/A Ratio: 1.01 MV PHT: 57 ms TR Vmax: 2.35 m/s TR maxP.16 mmHg RAP: 5.00 mmHg RVSP: 27.16 mmHg MV EF SLOPE: 124.72 mm/s (70 - 150) MV EXCURSION: 21.52 mm (> 18.000) FINDINGS -------- Sinus rhythm. This was a technically good study. LV size, wall thickness and systolic function are normal, with an EF greater than 55%. The left evelin tricular size is normal. The right ventricle is normal in size. Normal LA size by volume 22+/-6 ml/m2. The right atrial size is normal. Agitated Saline study is negative, no crossing at atrial level or right to left shunt noted. The aortic valve is trileaflet, and appears structurally normal. No aortic stenosis or regurgitation. There is trace mitral regurgitation. Mild tricuspid regurgitation present. Right ventricular systolic pressure is normal at < 35 mmHg. There is no pulmonic regurgitation present. There is no pericardial effusion. CONCLUSIONS -------- 1. LV size, wall thickness and systolic function are normal, with an EF greater than 55%. 2. The left ventricular size is normal. 3. The right ventricle is normal in size. 4. Normal LA size by volume 22+/-6 ml/m2. 5. The right atrial size is normal. 6. Agitated Saline study is negative, no crossing at atrial level or right to left shunt noted. 7. The aortic valve is trileaflet, and appears structurally normal. No aortic stenosis or regurgitati on. 8. There is trace mitral regurgitation. 9. Mild tricuspid regurgitation present. 10. There is no pericardial effusion. LEAD DENTAL ASSISTANT: Azucena Hoskins RDCS
[2020-10-20 15:37] VITALS: BP 130/88; PULSE 81; RESP 18; TEMP 98
== END 2020-10-20 16:26 | disposition home or self-care (01) ==
LOC: EC 01:03 → INTOOBSV 02:42 → 2SICU 02:42 → UNDODISIN 10-20 16:26
PROVIDERS: ADMIT Internal Medicine Geriatric Medicine; ATTEND Internal Medicine Geriatric Medicine
DX: I63.9 Cerebral infarction, unspecified (principal); G81.94 Hemiplegia, unspecified affecting left nondominant side; R29.810 Facial weakness; R47.01 Aphasia; G43.109 Migraine with aura, not intractable, without status migrainosus; I10 Essential (primary) hypertension; J45.909 Unspecified asthma, uncomplicated; R29.709 NIHSS score 9; E78.5 Hyperlipidemia, unspecified; R73.9 Hyperglycemia, unspecified; F17.210 Nicotine dependence, cigarettes, uncomplicated; F32.9 Major depressive disorder, single episode, unspecified; F41.9 Anxiety disorder, unspecified; Z20.822 Contact with and (suspected) exposure to COVID-19; Z71.6 Tobacco abuse counseling; Z79.02 Long term (current) use of antithrombotics/antiplatelets; Z79.899 Other long term (current) drug therapy; Z88.0 Allergy status to penicillin; Z88.6 Allergy status to analgesic agent; Z88.8 Allergy status to other drugs, medicaments and biological substances; Z90.49 Acquired absence of other specified parts of digestive tract; Z98.84 Bariatric surgery status; Z90.710 Acquired absence of both cervix and uterus; Z98.51 Tubal ligation status; Z98.890 Other specified postprocedural states; Z91.81 History of falling; Z82.49 Family history of ischemic heart disease and other diseases of the circulatory system; Z82.5 Family history of asthma and other chronic lower respiratory diseases; Z84.0 Family history of diseases of the skin and subcutaneous tissue; Z84.1 Family history of disorders of kidney and ureter; Z80.42 Family history of malignant neoplasm of prostate; Z83.79 Family history of other diseases of the digestive system; Z82.3 Family history of stroke
CPT/HCPCS: 96376 ×3; 96361 ×3; 96365; 96375; 99291; 36415; 94640 ×4; 93005; 93306; 92610; 92523; 80061; 80053; 80048; 84443; 84484; 85025; 85027; 85610; 85730; 83036; 87635; 71045; 70496; 70450 ×2; 70498; 70551; G0378 ×2; S4990 ×2; J2997; J2270; J1200; J2765; Q9967

== ENCOUNTER → 2020-11-22 | Outpatient (CLI) | payer OTHER ==
--- NOTE | 2020-11-22 13:11 | XR ---
EXAMINATION TYPE: XR knee complete LT DATE OF EXAM: 11/22/2020 COMPARISON: NONE HISTORY: Pain TECHNIQUE: Three views are submitted. FINDINGS: Mild diffuse osteopenia. There is mild narrowing of the medial compartment of the knee joint and ther e is spurring along the upper margin. Small amount of fluid in the suprapatellar bursa.. Osseous str uctures are intact. No acute fracture seen. IMPRESSION: 1. Mild arthropathy. 2. Mild osteopenia. Small amount of fluid in the suprapatellar bursa correlate with MRI as clinically warranted..
--- NOTE | 2020-12-12 13:36 | EM ---
EVENT MONITOR AGE:: 50 years SEX:: F INDICATIONS:: TIA. The provided rhythm strips show sinus rhythm without any episodes of atrial fibrillation. CONCLUSION: This event monitor revealed sinus rhythm without significant cardiac arrhythmia. MMYAMEL / YARELYN: [id number] /
== END | disposition home or self-care (01) ==
LOC: RADECHMAIN 12:01
PROVIDERS: ATTEND Family Medicine
DX: M12.862 Other specific arthropathies, not elsewhere classified, left knee (principal); M85.862 Other specified disorders of bone density and structure, left lower leg
CPT/HCPCS: 93270

== ENCOUNTER 2020-12-02 | Emergency (ER) | payer OTHER | END 2020-12-02 17:23 | disposition home or self-care (01) ==

== ENCOUNTER → 2020-12-03 | Outpatient (CLI) | payer OTHER ==
--- NOTE | 2020-12-03 15:57 | XR ---
EXAMINATION TYPE: XR hand complete RT, XR wrist complete RT DATE OF EXAM: 12/03/2020 CLINICAL HISTORY: Pain, fall. Pain of distal ulna. TECHNIQUE: AP, oblique, and lateral views of the right hand and right wrist obtained. Scaphoid view o f the right wrist also obtained. COMPARISON: None. FINDINGS: No acute fracture or dislocation of the right hand or right wrist. No soft tissue swelling. Normal osseous mineralization. IMPRESSION: There is no acute fracture or dislocation.
== END | disposition home or self-care (01) ==
LOC: RADXRMAIN 14:47
PROVIDERS: ATTEND Family Medicine
DX: M25.531 Pain in right wrist (principal); M79.641 Pain in right hand; W19.XXXA Unspecified fall, initial encounter

== ENCOUNTER 2021-02-18 13:12 | Emergency (ER) | payer OTHER ==
[2021-02-18 13:36] VITALS: TEMP 97.8
[2021-02-18] MEDS ORDERED: SODIUM CHLORIDE 0.9% 1,000 ML IV STA (13:51)
[2021-02-18] MEDS ORDERED: MORPHINE SULFATE 4 MG/ML SYRINGE IV STA ×2 (13:51→16:02)
[2021-02-18] MEDS ORDERED: diphenhydrAMINE 50 MG/ML 1 ML VIAL IVP STA (13:51)
[2021-02-18] MEDS ORDERED: DEXAMETHASONE SOD PHOSPHATE 10 MG/ML 1 ML VIAL IV STA (13:51)
[2021-02-18] MEDS ORDERED: ONDANSETRON 4 MG/2 ML VIAL IVP STA (13:51)
--- NOTE | 2021-02-18 14:15 | ED ---
General Adult HPI - General Chief complaint: Upper Respiratory Infection Stated complaint: Fever,Cough,SOB Time Seen by Provider: 02/18/21 13:41 Source: patient Mode of arrival: ambulatory Limitations: no limitations - History of Present Illness Initial comments: Dictation was produced using [employer] dictation software. please excuse any grammatical, word or spelling errors. Chief Complaint: 51-year-old female presents with URI symptoms for the last 3 days History of Present Illness: Patient is a 51-year-old female she states that she's been having cough and fevers for the last 2 days. Patient complains of associated frontal headaches per she has history of migraines. Patient is not sure how she got sick. She does not report any obvious sick contacts. Her lives at home also got sick but started showing symptoms after the patient. Denies any chest pain. No sore throat. She has mild rhinorrhea. He's been having a productive cough. The ROS documented in this emergency department record has been reviewed and confirmed by me. Those systems with pertinent positive or negative responses have been documented in the HPI. All other systems are other negative and/or noncontributory. PHYSICAL EXAM: General Impression: Alert and oriented x3, not in acute distress HEENT: Normocephalic atraumatic, extra-ocular movements intact, pupils equal and reactive to light bilaterally, mucous membranes moist. Cardiovascular: Heart regular rate and rhythm Chest: Able to complete full sentences, no retractions, no tachypnea, diffuse lung crackles Abdomen: abdomen soft, non-tender, non-distended, no organomegaly Musculoskeletal: Pulses present and equal in all extremities, no peripheral edema Motor: no focal deficits noted Neurological: CN II-XII grossly intact, no focal motor or sensory deficits noted Skin: Intact with no visualized rashes Psych: Normal affect and mood ED course: 51-year-old female presents to the emergency department for acute respiratory infectious symptoms signs upon arrival are within acceptable limits. Patient afebrile. She has positive auscultatory sounds. Patient states she has a history of headaches. She states she is having a migraine exacerbation. Patient given headache cocktail. Viral panel is negative. Chest x-ray shows no infiltrate. Patient given headache cocktail and reevaluated after analgesics with improvement of symptoms. He was concerned that perhaps patient has bacterial pneumonia without radiographic evidence per she is given Zithromax pack prescription that he is told to hold. She is told to reevaluate her symptoms over the next 2-3 days and if she's not getting better to begin taking the antibiotics. Patient also given a albuteroll inhaler. - Related Data Home Medications Medication Instructions Recorded Confirmed ALPRAZolam [Xanax] 1 mg PO BID PRN 01/20/19 10/19/20 Butalb/APAP/Caff 50-325-40Mg 1 tab PO TID PRN 01/20/19 10/19/20 [Fioricet 50-325-40] Albuterol Sulfate [Proair Hfa] 2 puff INHALATION RT-QID PRN 08/10/20 10/19/20 Calc/Magnes/Vit D 1 tab PO DAILY 08/10/20 10/19/20 Losartan Potassium 100 mg PO HS 08/10/20 10/19/20 Previous Rx's Medication Instructions Recorded Amitriptyline HCl [Elavil] 25 mg PO HS #30 tab 10/20/20 Atorvastatin [Lipitor] 40 mg PO DAILY #30 tab 10/20/20 Clopidogrel [Plavix] 75 mg PO DAILY #30 tab 10/20/20 Nicotine 14Mg/24Hr Patch [Habitrol] 1 patch TRANSDERM DAILY #30 patch 10/20/20 amLODIPine [Norvasc] 2.5 mg PO BID PRN #60 tab 10/20/20 amLODIPine [Norvasc] 5 mg PO DAILY #30 tab 10/20/20 HYDROcodone/APAP 5-325MG [[place] 1 tab PO Q6HR PRN 8 Days #12 tab 12/02/20 5-325] Albuterol Sulfate [Proair Hfa] 1 - 2 puff INHALATION Q6HR PRN 02/18/21 #8.5 gm Azithromycin [Zithromax Z-pack] 0 mg PO DIRECTED #6 tab 02/18/21 Allergies Allergy/AdvReac Type Severity Reaction Status Date / Time Penicillins Allergy Unknown Verified 02/18/21 13:36 sumatriptan [From Imitrex] Allergy Unknown Verified 02/18/21 13:36 sumatriptan succinate Allergy Unknown Verified 02/18/21 13:36 [From Imitrex] NSAIDS (Non-Steroidal AdvReac Unknown Verified 02/18/21 13:36 Anti-Inflamma Review of Systems ROS Statement: Those systems with pertinent positive or pertinent negative responses have been documented in the HPI. ROS Other: All systems not noted in ROS Statement are negative. Past Medical History Past Medical History: Asthma, Hypertension Additional Past Medical History / Comment(s): Past L mastoiditis with L otitis/vertigo and falls-had surgery and no longer a problem, nephrolithiasis, migraines, past chronic low back pain but pt states not much of a problem anymore, DJD, hypoglycemia, History of Any Multi-Drug Resistant Organisms: None Reported Past Surgical History: Adenoidectomy, Appendectomy, Bariatric Surgery, Breast Surgery, Cholecystectomy, Ear Surgery, Hernia Repair, Hysterectomy, Orthopedic Surgery, Tonsillectomy, Tubal Ligation Additional Past Surgical History / Comment(s): Gastric bypass in 2008 with weight loss of 170 pounds, panniculectomy, L ear perforation with surgery, R knee open surgery as a child and x 2 arthroscopicL knee surgeries, R breast bx- benign, 2 umbilical hernias and 1 diaphragmatic hernia repairs, colonoscopy, mastoidectomy with Dr. Valderrama at [facility]. Past Anesthesia/Blood Transfusion Reactions: No Reported Reaction Past Psychological History: Anxiety, Depression Smoking Status: Current every day smoker Past Alcohol Use History: None Reported Past Drug Use History: None Reported - Past Family History Father Additional Family Medical History / Comment(s): Father from a aneurysm at the age of 72 yrs. he also had history of prostate cancer, aortic aneurysm, renal artery aneurysm. Mother Family Medical History: COPD Additional Family Medical History / Comment(s): Mother is 75 yrs old and has emphysema and hypertension. Brother(s) Additional Family Medical History / Comment(s): She has one brother with hypertension and plaque psoriasis. Sister(s) Additional Family Medical History / Comment(s): She has one sister with hypertension. Son(s) Additional Family Medical History / Comment(s): Patient has 3 children, one boy with ureteral obstruction and renal failure. 2 girls that are healthy without major medical problems. General Exam Limitations: no limitations Course Vital Signs 02/18/21 13:33 Temperature 97.8 F Pulse Rate 85 Respiratory 22 Rate Blood Pressure 104/75 O2 Sat by Pulse 96 Oximetry Medical Decision Making - Lab Data Lab Results 02/18/21 Range/Units 14:17 Influenza Type A (PCR) Not Detected (Not Detectd) Influenza Type B (PCR) Not Detected (Not Detectd) RSV (PCR) Not Detected (Not Detectd) SARS-CoV-2 (PCR) Not Detected (Not Detectd) Disposition Clinical Impression: Common cold Disposition: HOME SELF-CARE Condition: Good Instructions (If sedation given, give patient instructions): Upper Respiratory Infection (ED) Additional Instructions: reevaluate your symptoms in 2-3 days. if you're not improving please begin taking antibiotics Prescriptions: Albuterol Sulfate [Proair Hfa] 1 - 2 puff INHALATION Q6HR PRN #8.5 gm PRN Reason: Dyspnea Azithromycin [Zithromax Z-pack] 0 mg PO DIRECTED #6 tab Is patient prescribed a controlled substance at d/c from ED?: No Referrals: Saleem Page DO [Primary Care Provider] - 1-2 days
--- NOTE | 2021-02-18 14:15 | XR ---
EXAMINATION TYPE: XR chest 1V portable DATE OF EXAM: 02/18/2021 COMPARISON: Chest x-ray 10/19/2020 HISTORY: Cough, fever and shortness of breath TECHNIQUE: Single frontal view of the chest is obtained. FINDINGS: There is no focal air space opacity, pleural effusion, or pneumothorax seen. The cardiac silhouette size is within normal limits. Surgical clips are present in the right upper quadrant. Ther e is slight spinal curvature. The osseous structures are intact. IMPRESSION: No acute process.
[2021-02-18 16:22] VITALS: BP 114/82; PULSE 77; RESP 18
== END 2021-02-18 16:22 | disposition home or self-care (01) ==
LOC: EC 13:12
DX: J00 Acute nasopharyngitis [common cold] (principal); I10 Essential (primary) hypertension; J45.909 Unspecified asthma, uncomplicated; F41.9 Anxiety disorder, unspecified; F32.9 Major depressive disorder, single episode, unspecified; F17.200 Nicotine dependence, unspecified, uncomplicated; Z79.02 Long term (current) use of antithrombotics/antiplatelets; Z88.0 Allergy status to penicillin; Z90.49 Acquired absence of other specified parts of digestive tract; Z88.6 Allergy status to analgesic agent; Z90.89 Acquired absence of other organs; Z98.84 Bariatric surgery status; Z90.710 Acquired absence of both cervix and uterus; Z20.822 Contact with and (suspected) exposure to COVID-19
CPT/HCPCS: 99284; 96374; 96375 ×3; 96376; 96361; 87636; 71045; J2270; J1200; J1100; J2405

== ENCOUNTER → 2021-04-03 | Outpatient (CLI) | payer OTHER ==
--- NOTE | 2021-04-04 05:51 | MR ---
EXAMINATION TYPE: MR ankle RT wo con DATE OF EXAM: 04/03/2021 COMPARISON: None HISTORY: Rt achilles pain, rt 5th metatarsal fracture. Multiplanar multiecho imaging of the right ankle without contrast. Achilles tendon is intact. There is Achilles calcaneal spurring. On the T2 images there is some incre ased signal in the posterior calcaneus consistent with edema or bone bruise. This measures 1.5 cm in thickness. No fracture line seen. Plantar fascia appears intact. The medial and lateral flexor tendon s of the ankle appear intact. There is some mild subcutaneous edema around the ankle. The collateral ligaments are intact. I see no bony destructive process. Ankle joint space is fairly normal. IMPRESSION: No evidence of ligament or tendon tear. No fracture. Subcutaneous edema around the lower leg and ankl e. Achilles calcaneal spurring. No evidence of Achilles tendon tear. There is some posterior calcanea l edema on the T2 images and consistent with a bone bruise.
== END | disposition home or self-care (01) ==
LOC: RADMRIMAIN 21:32
PROVIDERS: ATTEND Family Medicine
DX: R60.0 Localized edema (principal)

== ENCOUNTER 2021-05-12 14:51 | Emergency (ER) | payer OTHER ==
--- NOTE | 2021-05-12 16:25 | XR ---
EXAMINATION TYPE: XR foot complete RT DATE OF EXAM: 05/12/2021 COMPARISON: 12/02/2020 HISTORY: Foot pain TECHNIQUE: 3 views FINDINGS: There is plantar and Achilles calcaneal spurring. Metatarsals are intact. Toes are intact. There is some spurring at the tarsometatarsal joints. IMPRESSION: There are some arthritic changes at the tarsometatarsal joints that have progressed suzanne red to old exam. No acute fracture seen. Calcaneal spurring noted.
[2021-05-12] MEDS ORDERED: ACET/COD 300 MG/30 MG STARTER PACK 6 TAB BTL PO STA (16:43)
[2021-05-12] MEDS ORDERED: HYDROcodone/APAP 5-325MG 1 EACH TAB PO STA (16:43)
--- NOTE | 2021-05-12 16:46 | ED ---
Lower Extremity Injury HPI - General Chief Complaint: Extremity Injury, Lower Stated Complaint: Rt Foot Pain Time Seen by Provider: 05/12/21 16:02 Source: patient, RN notes reviewed Mode of arrival: ambulatory Limitations: no limitations - History of Present Illness Initial Comments: 51-year-old female presents emergency Department with chief complaint of foot pain. Patient states she had a fracture earlier this year she just got out of her walking boot one month ago. She started working symptoms of anxiety getting worse to the point where it's very painful Her foot, swollen. No new trauma no paresthesias no other complaints. - Related Data Home Medications Medication Instructions Recorded Confirmed ALPRAZolam [Xanax] 1 mg PO BID PRN 01/20/19 10/19/20 Butalb/APAP/Caff 50-325-40Mg 1 tab PO TID PRN 01/20/19 10/19/20 [Fioricet 50-325-40] Albuterol Sulfate [Proair Hfa] 2 puff INHALATION RT-QID PRN 08/10/20 10/19/20 Calc/Magnes/Vit D 1 tab PO DAILY 08/10/20 10/19/20 Losartan Potassium 100 mg PO HS 08/10/20 10/19/20 Previous Rx's Medication Instructions Recorded Amitriptyline HCl [Elavil] 25 mg PO HS #30 tab 10/20/20 Atorvastatin [Lipitor] 40 mg PO DAILY #30 tab 10/20/20 Clopidogrel [Plavix] 75 mg PO DAILY #30 tab 10/20/20 Nicotine 14Mg/24Hr Patch [Habitrol] 1 patch TRANSDERM DAILY #30 patch 10/20/20 amLODIPine [Norvasc] 2.5 mg PO BID PRN #60 tab 10/20/20 amLODIPine [Norvasc] 5 mg PO DAILY #30 tab 10/20/20 HYDROcodone/APAP 5-325MG [[place] 1 tab PO Q6HR PRN 8 Days #12 tab 12/02/20 5-325] Albuterol Sulfate [Proair Hfa] 1 - 2 puff INHALATION Q6HR PRN 02/18/21 #8.5 gm Azithromycin [Zithromax Z-pack] 0 mg PO DIRECTED #6 tab 02/18/21 predniSONE 50 mg PO DAILY #5 tab 05/12/21 Allergies Allergy/AdvReac Type Severity Reaction Status Date / Time Penicillins Allergy Unknown Verified 05/12/21 15:23 sumatriptan [From Imitrex] Allergy Unknown Verified 05/12/21 15:23 sumatriptan succinate Allergy Unknown Verified 05/12/21 15:23 [From Imitrex] NSAIDS (Non-Steroidal AdvReac Unknown Verified 05/12/21 15:23 Anti-Inflamma Review of Systems ROS Statement: Those systems with pertinent positive or pertinent negative responses have been documented in the HPI. ROS Other: All systems not noted in ROS Statement are negative. Past Medical History Past Medical History: Asthma, Hypertension Additional Past Medical History / Comment(s): Past L mastoiditis with L otitis/vertigo and falls-had surgery and no longer a problem, nephrolithiasis, migraines, past chronic low back pain but pt states not much of a problem anymore, DJD, hypoglycemia, History of Any Multi-Drug Resistant Organisms: None Reported Past Surgical History: Adenoidectomy, Appendectomy, Bariatric Surgery, Breast Surgery, Cholecystectomy, Ear Surgery, Hernia Repair, Hysterectomy, Orthopedic Surgery, Tonsillectomy, Tubal Ligation Additional Past Surgical History / Comment(s): Gastric bypass in 2008 with weight loss of 170 pounds, panniculectomy, L ear perforation with surgery, R knee open surgery as a child and x 2 arthroscopicL knee surgeries, R breast bx- benign, 2 umbilical hernias and 1 diaphragmatic hernia repairs, colonoscopy, mastoidectomy with Dr. Valderrama at [facility]. Past Anesthesia/Blood Transfusion Reactions: No Reported Reaction Past Psychological History: Anxiety, Depression Smoking Status: Current every day smoker Past Alcohol Use History: None Reported Past Drug Use History: None Reported - Past Family History Father Additional Family Medical History / Comment(s): Father from a aneurysm at the age of 72 yrs. he also had history of prostate cancer, aortic aneurysm, renal artery aneurysm. Mother Family Medical History: COPD Additional Family Medical History / Comment(s): Mother is 75 yrs old and has emphysema and hypertension. Brother(s) Additional Family Medical History / Comment(s): She has one brother with hypertension and plaque psoriasis. Sister(s) Additional Family Medical History / Comment(s): She has one sister with hypertension. Son(s) Additional Family Medical History / Comment(s): Patient has 3 children, one boy with ureteral obstruction and renal failure. 2 girls that are healthy without major medical problems. General Exam Limitations: no limitations General appearance: alert, in no apparent distress Head exam: Present: atraumatic, normocephalic, normal inspection Eye exam: Present: normal appearance, PERRL, EOMI. Absent: scleral icterus, conjunctival injection, periorbital swelling Neck exam: Present: normal inspection, full ROM. Absent: tenderness, meni ngismus, lymphadenopathy Respiratory exam: Present: normal lung sounds bilaterally. Absent: respiratory distress, wheezes, rales, rhonchi, stridor Cardiovascular Exam: Present: regular rate, normal rhythm, normal heart sounds. Absent: systolic murmur, diastolic murmur, rubs, gallop, clicks Extremities exam: Present: other (Right foot there is tenderness over the first and third metatarsal region mild swelling neurovascular intact no erythema) Skin exam: Present: warm, dry, intact, normal color. Absent: rash Course Vital Signs 05/12/21 15:18 Temperature 97.8 F Pulse Rate 75 Respiratory 18 Rate Blood Pressure 109/82 O2 Sat by Pulse 98 Oximetry Medical Decision Making - Medical Decision Making X-ray does not show any acute fracture there are some degenerative changes noted. Patient symptoms may related to tendinitis, information secondary to being in a walking boot for several months. She'll follow-up with orthopedics and return for any worsening changes symptoms. Disposition Clinical Impression: Right foot pain, Tendonitis of foot, Arthritis of right foot Disposition: HOME SELF-CARE Condition: Stable Instructions (If sedation given, give patient instructions): Tendinitis (ED), Arthralgia (ED) Additional Instructions: Please return to the Emergency Department if symptoms worsen or any other concerns. Prescriptions: predniSONE 50 mg PO DAILY #5 tab Is patient prescribed a controlled substance at d/c from ED?: No Referrals: Saleem Page DO [Primary Care Provider] - 1-2 days Time of Disposition: 16:46
[2021-05-12 17:08] VITALS: BP 110/80; PULSE 74; RESP 16; TEMP 98.2
== END 2021-05-12 17:09 | disposition home or self-care (01) ==
LOC: EC 14:51
DX: M19.071 Primary osteoarthritis, right ankle and foot (principal); M77.8 Other enthesopathies, not elsewhere classified; I10 Essential (primary) hypertension; J45.909 Unspecified asthma, uncomplicated; F41.9 Anxiety disorder, unspecified; F32.A Depression, unspecified; F17.200 Nicotine dependence, unspecified, uncomplicated; Z79.02 Long term (current) use of antithrombotics/antiplatelets; Z88.0 Allergy status to penicillin; Z90.49 Acquired absence of other specified parts of digestive tract; Z98.84 Bariatric surgery status; Z90.710 Acquired absence of both cervix and uterus; Z98.51 Tubal ligation status
CPT/HCPCS: 99283

== ENCOUNTER → 2021-05-22 | Outpatient (CLI) | payer OTHER | END | disposition home or self-care (01) | LOC: LABMAIN 17:48 | PROVIDERS: ATTEND Nurse Practitioner | DX: Z20.822 Contact with and (suspected) exposure to COVID-19 (principal) | CPT/HCPCS: 87635 ==

== ENCOUNTER 2021-12-27 11:29 | Emergency (ER) | payer OTHER ==
[2021-12-27 11:36] VITALS: TEMP 97.6
[2021-12-27] MEDS ORDERED: SODIUM CHLORIDE 0.9% 1,000 ML IV STA (12:04)
[2021-12-27] MEDS ORDERED: KETOROLAC 15 MG/ML 1 ML VIAL IVP STA (12:04)
[2021-12-27 12:34] LABS: Basophils # (A) 0.1 k/uL (0-0.2); Basophils % (A) 0 %; Eosinophils # (A) 0.5 k/uL (0-0.7); Eosinophils % (A) 4 %; HGB 11.7 gm/dL (11.4-16.0); Hypochromasia Slight; Lymphocytes # (A) 3.1 k/uL (1.0-4.8); Lymphocytes % (A) 22 %; MCH 27.8 pg (25.0-35.0); MCHC 30.9 g/dL (31.0-37.0); MCV 90.2 fL (80.0-100.0); Mean Platelet Volume 7.3; Monocytes # (A) 0.6 k/uL (0-1.0); Monocytes % (A) 4 %; Neutrophils # (A) 9.6 k/uL (1.3-7.7); Neutrophils % (A) 69 %; Platelet Count 521 k/uL (150-450); RBC 4.21 m/uL (3.80-5.40); RDW 15.3 % (11.5-15.5); WBC 13.9 k/uL (3.8-10.6)
[2021-12-27 12:49] LABS: ALT 18 U/L (4-34); African American GFR (CKD) >90 (>60 ml/min/1.73 sqM); Albumin 4.2 g/dL (3.5-5.0); Anion Gap 6 mmol/L; Blood Urea Nitrogen 8 mg/dL (7-17); Calcium 9.4 mg/dL (8.4-10.2); Carbon Dioxide 23 mmol/L (22-30); Chloride 112 mmol/L (98-107); Glucose 86 mg/dL (74-99); Non-African American GFR(CKD) >90 (>60 ml/min/1.73 sqM); Sodium 141 mmol/L (137-145); Total Bilirubin 0.3 mg/dL (0.2-1.3); Total Protein 7.2 g/dL (6.3-8.2)
[2021-12-27 13:00] LABS: AST 30 U/L (14-36); Alkaline Phosphatase 106 U/L (38-126); Potassium 4.8 mmol/L (3.5-5.1)
--- NOTE | 2021-12-27 13:04 | ED ---
General Adult HPI - General Chief complaint: Abdominal Pain Stated complaint: back pain Time Seen by Provider: 12/27/21 11:53 Source: patient, RN notes reviewed Mode of arrival: ambulatory Limitations: no limitations - History of Present Illness Initial comments: Patient is a 51-year-old female presents the emergency room with complaints of right-sided flank pain ongoing since earlier today. She reports that the pain is severe and radiating into her abdomen. She reports that due to her history of gastric bypass surgery she is unable to take NSAIDs to help with her pain. She does report a history of kidney stones along with multiple upper respiratory infections recently that she has been treated by her primary care provider for. She states she is not currently on any antibiotic therapy. She denies any aggravating or alleviating factors to her right flank pain. She reports that the pain is severe enough that it has caused some nausea but she denies any nausea not associated with pain, vomiting, abdominal pain not directly related to flank radiation, hematuria, dysuria, urinary frequency, chest pain, shortness of breath fevers or chills. - Related Data Home Medications Medication Instructions Recorded Confirmed ALPRAZolam [Xanax] 1 mg PO BID PRN 01/20/19 10/19/20 Butalb/APAP/Caff 50-325-40Mg 1 tab PO TID PRN 01/20/19 10/19/20 [Fioricet 50-325-40] Albuterol Sulfate [Proair Hfa] 2 puff INHALATION RT-QID PRN 08/10/20 10/19/20 Calc/Magnes/Vit D 1 tab PO DAILY 08/10/20 10/19/20 Losartan Potassium 100 mg PO HS 08/10/20 10/19/20 Previous Rx's Medication Instructions Recorded Amitriptyline HCl [Elavil] 25 mg PO HS #30 tab 10/20/20 Atorvastatin [Lipitor] 40 mg PO DAILY #30 tab 10/20/20 Clopidogrel [Plavix] 75 mg PO DAILY #30 tab 10/20/20 Nicotine 14Mg/24Hr Patch [Habitrol] 1 patch TRANSDERM DAILY #30 patch 10/20/20 amLODIPine [Norvasc] 2.5 mg PO BID PRN #60 tab 10/20/20 amLODIPine [Norvasc] 5 mg PO DAILY #30 tab 10/20/20 HYDROcodone/APAP 5-325MG [[place] 1 tab PO Q6HR PRN 8 Days #12 tab 12/02/20 5-325] Albuterol Sulfate [Proair Hfa] 1 - 2 puff INHALATION Q6HR PRN 02/18/21 #8.5 gm Azithromycin [Zithromax Z-pack] 0 mg PO DIRECTED #6 tab 02/18/21 predniSONE 50 mg PO DAILY #5 tab 05/12/21 Butalb/APAP/Caff 50-325-40Mg 1 tab PO Q4H PRN #20 tablet 08/12/21 [Fioricet 50-325-40] Allergies Allergy/AdvReac Type Severity Reaction Status Date / Time Penicillins Allergy Unknown Verified 12/27/21 11:35 sumatriptan [From Imitrex] Allergy Unknown Verified 12/27/21 11:35 sumatriptan succinate Allergy Unknown Verified 12/27/21 11:35 [From Imitrex] NSAIDS (Non-Steroidal AdvReac Unknown Verified 12/27/21 11:35 Anti-Inflamma Review of Systems ROS Statement: Those systems with pertinent positive or pertinent negative responses have been documented in the HPI. ROS Other: All systems not noted in ROS Statement are negative. Past Medical History Past Medical History: No Reported History (Without she is for her and she is1. The), Asthma, Hypertension Additional Past Medical History / Comment(s): Past L mastoiditis with L jessa tis/vertigo and falls-had surgery and no longer a problem, nephrolithiasis, migraines, past chronic low back pain but pt states not much of a problem anymore, DJD, hypoglycemia, History of Any Multi-Drug Resistant Organisms: None Reported Past Surgical History: Adenoidectomy, Appendectomy, Bariatric Surgery, Breast Surgery, Cholecystectomy, Ear Surgery, Hernia Repair, Hysterectomy, Orthopedic Surgery, Tonsillectomy, Tubal Ligation Additional Past Surgical History / Comment(s): Gastric bypass in 2008 with weight loss of 170 pounds, panniculectomy, L ear perforation with surgery, R knee open surgery as a child and x 2 arthroscopicL knee surgeries, R breast bx- benign, 2 umbilical hernias and 1 diaphragmatic hernia repairs, colonoscopy, mastoidectomy with Dr. Valderrama at [facility]. Past Anesthesia/Blood Transfusion Reactions: No Reported Reaction Past Psychological History: Anxiety, Depression Smoking Status: Current every day smoker Past Alcohol Use History: None Reported Past Drug Use History: None Reported - Past Family History Father Additional Family Medical History / Comment(s): Father from a aneurysm at the age of 72 yrs. he also had history of prostate cancer, aortic aneurysm, renal artery aneurysm. Mother Family Medical History: COPD Additional Family Medical History / Comment(s): Mother is 75 yrs old and has emphysema and hypertension. Brother(s) Additional Family Medical History / Comment(s): She has one brother with hypertension and plaque psoriasis. Sister(s) Additional Family Medical History / Comment(s): She has one sister with hypertension. Son(s) Additional Family Medical History / Comment(s): Patient has 3 children, one boy with ureteral obstruction and renal failure. 2 girls that are healthy without major medical problems. General Exam Limitations: no limitations General appearance: alert, in no apparent distress Head exam: Present: atraumatic, normocephalic, normal inspection Eye exam: Present: normal appearance, PERRL, EOMI. Absent: scleral icterus, conjunctival injection, periorbital swelling ENT exam: Present: normal exam, mucous membranes moist Neck exam: Present: normal inspection. Absent: tenderness, meningismus, lymphadenopathy Respiratory exam: Present: normal lung sounds bilaterally. Absent: respiratory distress, wheezes, rales, rhonchi, stridor, accessory muscle use Cardiovascular Exam: Present: regular rate, normal rhythm, normal heart sounds. Absent: systolic murmur, diastolic murmur, rubs, gallop, clicks GI/Abdominal exam: Present: soft, normal bowel sounds. Absent: distended, tenderness, guarding, rebound, rigid Extremities exam: Present: normal inspection, full ROM, normal capillary refill. Absent: tenderness, pedal edema, joint swelling, calf tenderness Back exam: Present: normal inspection, CVA tenderness (R). Absent: CVA tenderness (L) Neurological exam: Present: alert, oriented X3, CN II-XII intact Psychiatric exam: Present: normal affect, normal mood Skin exam: Present: warm, dry, intact, normal color. Absent: rash Course Vital Signs 12/27/21 12/27/21 12/27/21 11:32 13:16 14:35 Temperature 97.6 F Pulse Rate 95 70 76 Respiratory 22 18 16 Rate Blood Pressure 137/80 111/81 120/92 O2 Sat by Pulse 98 98 98 Oximetry Medical Decision Making - Medical Decision Making Right flank pain with CVA tenderness and known kidney stones. Will check CT of the abdomen and pelvis without contrast to evaluate for kidney stones. No concern for appendicitis or cholecystitis in the setting of previous surgical intervention. Will check urinalysis, CBC and CMP to evaluate electrolytes renal function and infectious etiology. CMP with leukocytosis and thrombo-cytosis at patient's baseline. CMP shows elevated chloride at 112 otherwise no abnormalities. Urinalysis negative for abnormalities including leukocytosis or blood. CT of the abdomen demonstrates hiatal hernia, surgical changes to the gastric lumen and esophagus, hepatomegaly, fusiform and aortic infrarenal dilatation mild uptake 2.6 cm. No evidence of right-sided abdominal pathology hydronephrosis or renal calculi. No response to pain from Toradol given. Morphine given with improved pain response. 1 L IV fluid bolus given as well. Will discharge home with follow-up with her primary care provider with Ultram dose pack. Unable to take NSAIDs due to previous bypass surgery. Results and plan of care discussed at length with patient and she is agreeable to current plan of care. Case discussed with Dr. Acevedo. - Lab Data Result diagrams: 12/27/21 12:25 12/27/21 12:25 Lab Results 12/27/21 12/27/21 12/27/21 Range/Units 12:00 12:25 12:25 WBC 13.9 H (3.8-10.6) k/uL RBC 4.21 (3.80-5.40) m/uL Hgb 11.7 (11.4-16.0) gm/dL Hct 38.0 (34.0-46.0) % MCV 90.2 (80.0-100.0) fL MCH 27.8 (25.0-35.0) pg MCHC 30.9 L (31.0-37.0) g/dL RDW 15.3 (11.5-15.5) % Plt Count 521 H (150-450) k/uL MPV 7.3 Neutrophils % 69 % Lymphocytes % 22 % Monocytes % 4 % Eosinophils % 4 % Basophils % 0 % Neutrophils # 9.6 H (1.3-7.7) k/uL Lymphocytes # 3.1 (1.0-4.8) k/uL Monocytes # 0.6 (0-1.0) k/uL Eosinophils # 0.5 (0-0.7) k/uL Basophils # 0.1 (0-0.2) k/uL Hypochromasia Slight Sodium 141 (137-145) mmol/L Potassium 4.8 (3.5-5.1) mmol/L Chloride 112 H (98-107) mmol/L Carbon Dioxide 23 (22-30) mmol/L Anion Gap 6 mmol/L BUN 8 (7-17) mg/dL Creatinine 0.50 L (0.52-1.04) mg/dL Est GFR (CKD-EPI)AfAm >90 (>60 ml/min/1.73 sqM) Est GFR (CKD-EPI)NonAf >90 (>60 ml/min/1.73 sqM) Glucose 86 (74-99) mg/dL Calcium 9.4 (8.4-10.2) mg/dL Total Bilirubin 0.3 (0.2-1.3) mg/dL AST 30 (14-36) U/L ALT 18 (4-34) U/L Alkaline Phosphatase 106 (38-126) U/L Total Protein 7.2 (6.3-8.2) g/dL Albumin 4.2 (3.5-5.0) g/dL Urine Color Light Yellow Urine Appearance Clear (Clear) Urine pH 5.5 (5.0-8.0) Ur Specific [place] 1.003 (1.001-1.035) Urine Protein Negative (Negative) Urine Glucose (UA) Negative (Negative) Urine Ketones Negative (Negative) Urine Blood Negative (Negative) Urine Nitrite Negative (Negative) Urine Bilirubin Negative (Negative) Urine Urobilinogen <2.0 (<2.0) mg/dL Ur Leukocyte Esterase Negative (Negative) - Radiology Data Radiology results: report reviewed, image reviewed CT the abdomen and pelvis without contrast impression. No evidence of right- sided abdominal pathology to correlate with patient's pain. Appendix is surgically absent, gallbladder surgically absent, no evidence of hydro-kyphosis or renal calculi. There is a small bowel feces which could represent underlying motility. Postsurgical changes of the gastric lumen and esophagus with hiatal hernia present. Hepatomegaly. Fusiform aortic infrarenal dilatation measuring up to 2.6 cm. Disposition Clinical Impression: Right flank pain Disposition: HOME SELF-CARE Condition: Stable Additional Instructions: Please utilize tramadol starter pack for pain as needed. Please continue to drink plenty of fluids. Please follow-up with your primary care provider regarding further evaluation and workup of right flank pain. Please return to the Emergency Department if symptoms worsen or any other concerns. Is patient prescribed a controlled substance at d/c from ED?: No Referrals: Saleem Page DO [Primary Care Provider] - 1-2 days Time of Disposition: 14:12
--- NOTE | 2021-12-27 13:12 | CT ---
EXAMINATION TYPE: CT abdomen pelvis wo con CT DLP: 588.2 mGycm, Automated exposure control for dose reduction was used. DATE OF EXAM: 12/27/2021 12:56 PM COMPARISON: CT abdomen pelvis 08/10/2020 CLINICAL INDICATION:Female, 51 years old with history of abdominal pain; Rt flank pain TECHNIQUE: Axial CT of the abdomen and pelvis. Sagittal and coronal reformats were created on a [employer] workstation. Contrast used: None Oral contrast used: without Oral Contrast FINDINGS: LOWER CHEST: Lipomatous hypertrophy of interatrial septum. Dilated esophagus with postsurgical change s. ABDOMEN LIVER: The liver is enlarged measuring up to 22.7 cm. GALLBLADDER AND BILE DUCTS: The gallbladder is surgically absent. PANCREAS: Unremarkable. SPLEEN: Unremarkable. ADRENAL GLANDS: Unremarkable. KIDNEYS AND URETERS: No evidence of hydronephrosis or renal calculus. The ureters are unremarkable. PELVIS BLADDER: Incompletely distended and suboptimally evaluated. REPRODUCTIVE: Unremarkable. ABDOMEN & PELVIS STOMACH AND BOWEL: No evidence of bowel obstruction. Post surgical changes to the bowel. The appendix is surgically absent. Postsurgical changes of the gastric lumen and distal esophagus. Small bowel fe la is seen within the left upper quadrant jejunum. PERITONEUM: No evidence of pneumoperitoneum or free fluid. VASCULATURE: Mild fusiform dilation of the infrarenal aorta measuring up to 2.6 and 2.1 cm. MUSCULOSKELETAL: No acute osseous abnormalities, mild multilevel disc degeneration changes. LYMPH NODES: No gross evidence for lymphadenopathy. SOFT TISSUE/ABDOMINAL WALL: Unremarkable IMPRESSION: 1. No evidence for right-sided abdominal pathology to correlate with patient's pain. Appendix is calin gically absent, the gallbladder surgically absent, no evidence of hydronephrosis or renal calculus. T here is small bowel feces which could represent underlying slow motility. 2. Post surgical changes of the gastric lumen and esophagus with hiatal hernia present. 3. Hepatomegaly. 4. Fusiform aortic infrarenal dilation measuring up to 2.6 cm.
[2021-12-27] MEDS ORDERED: MORPHINE SULFATE 4 MG/ML SYRINGE IVP STA (13:28)
[2021-12-27 13:56] LABS: Appearance,Urine Clear (Clear); Bilirubin,Urine Negative (Negative); Blood,Urine Negative (Negative); Color,Urine Light Yellow; Glucose,Urine (UA) Negative (Negative); Ketones,Urine Negative (Negative); Leukocyte Esterase,Urine Negative (Negative); Nitrite,Urine Negative (Negative); PH, Urine 5.5 (5.0-8.0); Protein,Urine Negative (Negative); Specific Gravity,Urine 1.003 (1.001-1.035); Urobilinogen,Urine <2.0 mg/dL (<2.0)
[2021-12-27] MEDS ORDERED: traMADol 50 MG STARTER PACK 3 TAB BTL PO STA (14:11)
[2021-12-27 14:36] VITALS: BP 120/92; PULSE 76; RESP 16
== END 2021-12-27 14:36 | disposition home or self-care (01) ==
LOC: EC 11:29
DX: R10.9 Unspecified abdominal pain (principal); J45.909 Unspecified asthma, uncomplicated; I10 Essential (primary) hypertension; F17.200 Nicotine dependence, unspecified, uncomplicated; Z88.0 Allergy status to penicillin; Z88.8 Allergy status to other drugs, medicaments and biological substances; Z88.6 Allergy status to analgesic agent
CPT/HCPCS: 36415; 80053; 85025; 81003; 74176; 99284; 96374; 96375; 96361; J2270; J1885

== ENCOUNTER 2022-02-14 10:39 | Emergency (ER) | payer OTHER ==
[2022-02-14 11:16] VITALS: BP 112/81; PULSE 98; RESP 18; TEMP 98
[2022-02-14] MEDS ORDERED: dexAMETHasone 2 MG TAB PO STA (12:18)
--- NOTE | 2022-02-14 12:34 | XR ---
EXAMINATION TYPE: XR chest 2V DATE OF EXAM: 02/14/2022 12:27 PM COMPARISON: Chest radiographs from 02/18/2021. TECHNIQUE: XR chest 2V Frontal and lateral views of the chest. CLINICAL INDICATION:Female, 52 years old with history of Cough, BRANDO; FINDINGS: Lungs/Pleura: There is no evidence of pleural effusion, focal consolidation, or pneumothorax. Pulmonary vascularity: Unremarkable. Heart/mediastinum: Cardiomediastinal silhouette is unremarkable. Atherosclerotic calcifications are seen in the aorta. Musculoskeletal: No acute osseous pathology. IMPRESSION: No acute cardiopulmonary disease/process. No significant change from prior examination.
--- NOTE | 2022-02-14 12:57 | ED ---
URI HPI - General Chief Complaint: Upper Respiratory Infection Stated Complaint: Cough, SOB Time Seen by Provider: 02/14/22 12:09 Source: patient, RN notes reviewed Mode of arrival: ambulatory Limitations: no limitations - History of Present Illness Initial Comments: This is a 52-year-old female who presents to the emergency department for coughing, congestion, fevers, and difficulty breathing. Symptoms have been present for 2 days. She does have a past medical history of asthma and smokes daily. She has been taking Robitussin with no relief in terms of the cough. The cough is described as productive. She has been using albuterol and DuoNeb treatments at home for the asthma with little relief. She has been taking Tylenol for her fever, but states that it has not been effective in reducing it, however the patient is afebrile here. Denies any chest pain or sick contacts. Denies any chills, sore throat, chest pain, palpitations, abdominal pain, nausea, vomiting, diarrhea, back pain, or headaches. MD Complaint: fever, cough, nasal congestion Onset/Timin -: days(s) Associated Symptoms: shortness of breath Treatments Prior to Arrival: Acetaminophen - Related Data Home Medications Medication Instructions Recorded Confirmed ALPRAZolam [Xanax] 1 mg PO BID PRN 01/20/19 10/19/20 Butalb/APAP/Caff 50-325-40Mg 1 tab PO TID PRN 01/20/19 10/19/20 [Fioricet 50-325-40] Albuterol Sulfate [Proair Hfa] 2 puff INHALATION RT-QID PRN 08/10/20 10/19/20 Calc/Magnes/Vit D 1 tab PO DAILY 08/10/20 10/19/20 Losartan Potassium 100 mg PO HS 08/10/20 10/19/20 Previous Rx's Medication Instructions Recorded Amitriptyline HCl [Elavil] 25 mg PO HS #30 tab 10/20/20 Atorvastatin [Lipitor] 40 mg PO DAILY #30 tab 10/20/20 Clopidogrel [Plavix] 75 mg PO DAILY #30 tab 10/20/20 Nicotine 14Mg/24Hr Patch [Habitrol] 1 patch TRANSDERM DAILY #30 patch 10/20/20 amLODIPine [Norvasc] 2.5 mg PO BID PRN #60 tab 10/20/20 amLODIPine [Norvasc] 5 mg PO DAILY #30 tab 10/20/20 HYDROcodone/APAP 5-325MG [[place] 1 tab PO Q6HR PRN 8 Days #12 tab 12/02/20 5-325] Albuterol Sulfate [Proair Hfa] 1 - 2 puff INHALATION Q6HR PRN 02/18/21 #8.5 gm Azithromycin [Zithromax Z-pack] 0 mg PO DIRECTED #6 tab 02/18/21 predniSONE 50 mg PO DAILY #5 tab 05/12/21 Butalb/APAP/Caff 50-325-40Mg 1 tab PO Q4H PRN #20 tablet 08/12/21 [Fioricet 50-325-40] Azithromycin [Zithromax Z Pack] 1 tab PO DIRECTED #6 tab 02/14/22 Benzonatate [Tessalon Perle] 200 mg PO TID PRN #20 capsule 02/14/22 predniSONE 50 mg PO QAM 5 Days #5 tablet 02/14/22 Allergies Allergy/AdvReac Type Severity Reaction Status Date / Time Penicillins Allergy Unknown Verified 02/14/22 11:16 sumatriptan [From Imitrex] Allergy Unknown Verified 02/14/22 11:16 sumatriptan succinate Allergy Unknown Verified 02/14/22 11:16 [From Imitrex] NSAIDS (Non-Steroidal AdvReac Unknown Verified 02/14/22 11:16 Anti-Inflamma Review of Systems ROS Statement: Those systems with pertinent positive or pertinent negative responses have been documented in the HPI. ROS Other: All systems not noted in ROS Statement are negative. Past Medical History Past Medical History: No Reported History, Asthma, Hypertension Additional Past Medical History / Comment(s): Past L mastoiditis with L otitis/vertigo and falls-had surgery and no longer a problem, nephrolithiasis, migraines, past chronic low back pain but pt states not much of a problem anymore, DJD, hypoglycemia, History of Any Multi-Drug Resistant Organisms: None Reported Past Surgical History: Adenoidectomy, Appendectomy, Bariatric Surgery, Breast Surgery, Cholecystectomy, Ear Surgery, Hernia Repair, Hysterectomy, Orthopedic Surgery, Tonsillectomy, Tubal Ligation Additional Past Surgical History / Comment(s): Gastric bypass in 2008 with weight loss of 170 pounds, panniculectomy, L ear perforation with surgery, R knee open surgery as a child and x 2 arthroscopicL knee surgeries, R breast bx- benign, 2 umbilical hernias and 1 diaphragmatic hernia repairs, colonoscopy, mastoidectomy with Dr. Valderrama at [facility]. Past Anesthesia/Blood Transfusion Reactions: No Reported Reaction Past Psychological History: Anxiety, Depression Smoking Status: Current every day smoker Past Alcohol Use History: None Reported Past Drug Use History: None Reported - Past Family History Father Additional Family Medical History / Comment(s): Father from a aneurysm at the age of 72 yrs. he also had history of prostate cancer, aortic aneurysm, renal artery aneurysm. Mother Family Medical History: COPD Additional Family Medical History / Comment(s): Mother is 75 yrs old and has emphysema and hypertension. Brother(s) Additional Family Medical History / Comment(s): She has one brother with hypertension and plaque psoriasis. Sister(s) Additional Family Medical History / Comment(s): She has one sister with hypertension. Son(s) Additional Family Medical History / Comment(s): Patient has 3 children, one boy with ureteral obstruction and renal failure. 2 girls that are healthy without major medical problems. General Exam Limitations: no limitations General appearance: alert, in no apparent distress Head exam: Present: atraumatic, normocephalic, normal inspection Respiratory exam: Present: wheezes (Minor diffuse expiratory) Cardiovascular Exam: Present: regular rate, normal rhythm, normal heart sounds. Absent: systolic murmur, diastolic murmur, rubs, gallop, clicks Neurological exam: Present: alert, oriented X3, CN II-XII intact Psychiatric exam: Present: normal affect, normal mood Skin exam: Present: warm, dry, intact, normal color. Absent: rash Course Vital Signs 02/14/22 11:13 Temperature 98.0 F Pulse Rate 98 Respiratory 18 Rate Blood Pressure 112/81 O2 Sat by Pulse 98 Oximetry Medical Decision Making - Medical Decision Making This is a 52-year-old female who presents to the emergency department for coughing and difficulty breathing. COVID and influenza negative. Chest x-ray revealed no acute cardiopulmonary process. Patient given a dose of Decadron in the emergency department. She declined another DuoNeb, as she just had one prior to leaving home. Symptoms likely related to an asthmatic bronchitis. Prescription for 5 day course of prednisone provided as well as a Z-Thien and Tessalon Perles. Advised she continue to use her DuoNeb treatments at home as needed for additional relief. Return precautions reviewed in depth, the patient is instructed to return to the emergency department with any new, worsening, or concerning symptoms. Patient verbalized understanding. This case was discussed in detail with the attending ED physician. Presentation, findings, and treatment plan discussed in detail as well. - Lab Data Lab Results 02/14/22 02/14/22 Range/Units 12:53 12:53 Coronavirus (PCR) Not Detected (Not Detectd) Influenza Type A RNA Not Detected (Not Detectd) Influenza Type B (PCR) Not Detected (Not Detectd) - Radiology Data Radiology results: report reviewed, image reviewed Disposition Clinical Impression: Asthmatic bronchitis Disposition: HOME SELF-CARE Instructions (If sedation given, give patient instructions): Asthma (ED), Acute Bronchitis (ED) Additional Instructions: Return to the emergency department with any new, worsening, or concerning symptoms. Take the prednisone daily for 5 days. Take the Z-Thien as prescribed. The Tessalon Perles can be taken up to 3 times daily as needed for the cough. Continue to use your DuoNeb treatments as needed. Prescriptions: predniSONE 50 mg PO QAM 5 Days #5 tablet Benzonatate [Tessalon Perle] 200 mg PO TID PRN #20 capsule PRN Reason: Cough Azithromycin [Zithromax Z Pack] 1 tab PO DIRECTED #6 tab Is patient prescribed a controlled substance at d/c from ED?: No Referrals: Saleem Page DO [Primary Care Provider] - 1-2 days
== END 2022-02-14 14:02 | disposition home or self-care (01) ==
LOC: EC 10:39
DX: J45.909 Unspecified asthma, uncomplicated (principal); F17.200 Nicotine dependence, unspecified, uncomplicated; Z20.822 Contact with and (suspected) exposure to COVID-19; Z88.0 Allergy status to penicillin; Z88.9 Allergy status to unspecified drugs, medicaments and biological substances; Z88.6 Allergy status to analgesic agent
CPT/HCPCS: 87502; 87635; 71046; 99285; J8540

== ENCOUNTER 2022-03-30 18:35 | Emergency (ER) | payer OTHER ==
[2022-03-30] MEDS ORDERED: ACETAMINOPHEN TAB 325 MG TAB PO STA (19:46)
[2022-03-30] MEDS ORDERED: traMADol 50 MG TAB PO STA (20:03)
[2022-03-30 21:21] VITALS: BP 104/83; PULSE 103; RESP 17
--- NOTE | 2022-03-30 21:54 | XR ---
EXAMINATION TYPE: XR chest 1V portable DATE OF EXAM: 03/30/2022 9:28 PM COMPARISON: Chest x-ray 10/14/2021 TECHNIQUE: XR chest 1V portable . CLINICAL INDICATION:Female, 52 years old with history of covid. Dyspnea; FINDINGS: Lungs/Pleura: There is no evidence of pleural effusion, focal consolidation, or pneumothorax. Pulmonary vascularity: Unremarkable. Heart/mediastinum: Cardiomediastinal silhouette is unremarkable. Musculoskeletal: No acute osseous pathology. IMPRESSION: No acute cardiopulmonary disease/process.
--- NOTE | 2022-03-30 22:00 | ED ---
URI HPI - General Chief Complaint: Upper Respiratory Infection Stated Complaint: Fever/Coughing Time Seen by Provider: 03/30/22 19:46 Source: patient, family Mode of arrival: ambulatory Limitations: no limitations - History of Present Illness MD Complaint: fever, cough, nasal congestion Onset/Timin -: days(s) Consistency: constant Improves With: nothing Worsens With: nothing Context: sick contacts Associated Symptoms: fever, chills, myalgias, nasal congestion, cough Treatments Prior to Arrival: none - Related Data Home Medications Medication Instructions Recorded Confirmed ALPRAZolam [Xanax] 1 mg PO BID PRN 01/20/19 10/19/20 Butalb/APAP/Caff 50-325-40Mg 1 tab PO TID PRN 01/20/19 10/19/20 [Fioricet 50-325-40] Albuterol Sulfate [Proair Hfa] 2 puff INHALATION RT-QID PRN 08/10/20 10/19/20 Calc/Magnes/Vit D 1 tab PO DAILY 08/10/20 10/19/20 Losartan Potassium 100 mg PO HS 08/10/20 10/19/20 Previous Rx's Medication Instructions Recorded Amitriptyline HCl [Elavil] 25 mg PO HS #30 tab 10/20/20 Atorvastatin [Lipitor] 40 mg PO DAILY #30 tab 10/20/20 Clopidogrel [Plavix] 75 mg PO DAILY #30 tab 10/20/20 Nicotine 14Mg/24Hr Patch [Habitrol] 1 patch TRANSDERM DAILY #30 patch 10/20/20 amLODIPine [Norvasc] 2.5 mg PO BID PRN #60 tab 10/20/20 amLODIPine [Norvasc] 5 mg PO DAILY #30 tab 10/20/20 HYDROcodone/APAP 5-325MG [[place] 1 tab PO Q6HR PRN 8 Days #12 tab 12/02/20 5-325] Albuterol Sulfate [Proair Hfa] 1 - 2 puff INHALATION Q6HR PRN 02/18/21 #8.5 gm Azithromycin [Zithromax Z-pack] 0 mg PO DIRECTED #6 tab 02/18/21 predniSONE 50 mg PO DAILY #5 tab 05/12/21 Butalb/APAP/Caff 50-325-40Mg 1 tab PO Q4H PRN #20 tablet 08/12/21 [Fioricet 50-325-40] Azithromycin [Zithromax Z Pack] 1 tab PO DIRECTED #6 tab 02/14/22 Benzonatate [Tessalon Perle] 200 mg PO TID PRN #20 capsule 02/14/22 predniSONE 50 mg PO QAM 5 Days #5 tablet 02/14/22 Allergies Allergy/AdvReac Type Severity Reaction Status Date / Time Penicillins Allergy Unknown Verified 03/30/22 18:48 sumatriptan [From Imitrex] Allergy Unknown Verified 03/30/22 18:48 sumatriptan succinate Allergy Unknown Verified 03/30/22 18:48 [From Imitrex] NSAIDS (Non-Steroidal AdvReac Unknown Verified 03/30/22 18:48 Anti-Inflamma Review of Systems ROS Statement: Those systems with pertinent positive or pertinent negative responses have been documented in the HPI. ROS Other: All systems not noted in ROS Statement are negative. Constitutional: Reports: fever ENT: Reports: congestion Respiratory: Reports: cough, dyspnea, wheezes Cardiovascular: Denies: chest pain, palpitations, orthopnea, edema, syncope Gastrointestinal: Denies: abdominal pain, nausea, vomiting, diarrhea Genitourinary: Denies: dysuria, hematuria Musculoskeletal: Denies: back pain Skin: Denies: rash Neurological: Denies: headache, weakness Past Medical History Past Medical History: No Reported History, Asthma, Hypertension Additional Past Medical History / Comment(s): Past L mastoiditis with L otitis/vertigo and falls-had surgery and no longer a problem, nephrolithiasis, migraines, past chronic low back pain but pt states not much of a problem anymore, DJD, hypoglycemia, History of Any Multi-Drug Resistant Organisms: None Reported Past Surgical History: Adenoidectomy, Appendectomy, Bariatric Surgery, Breast Surgery, Cholecystectomy, Ear Surgery, Hernia Repair, Hysterectomy, Orthopedic Surgery, Tonsillectomy, Tubal Ligation Additional Past Surgical History / Comment(s): Gastric bypass in 2008 with weight loss of 170 pounds, panniculectomy, L ear perforation with surgery, R knee open surgery as a child and x 2 arthroscopicL knee surgeries, R breast bx- benign, 2 umbilical hernias and 1 diaphragmatic hernia repairs, colonoscopy, mastoidectomy with Dr. Valderrama at [facility]. Past Anesthesia/Blood Transfusion Reactions: No Reported Reaction Past Psychological History: Anxiety, Depression Smoking Status: Current every day smoker Past Alcohol Use History: None Reported Past Drug Use History: None Reported - Past Family History Father Additional Family Medical History / Comment(s): Father from a aneurysm at the age of 72 yrs. he also had history of prostate cancer, aortic aneurysm, renal artery aneurysm. Mother Family Medical History: COPD Additional Family Medical History / Comment(s): Mother is 75 yrs old and has emphysema and hypertension. Brother(s) Additional Family Medical History / Comment(s): She has one brother with hypertension and plaque psoriasis. Sister(s) Additional Family Medical History / Comment(s): She has one sister with hypertension. Son(s) Additional Family Medical History / Comment(s): Patient has 3 children, one boy with ureteral obstruction and renal failure. 2 girls that are healthy without major medical problems. General Exam Limitations: no limitations General appearance: alert, in no apparent distress Head exam: Present: atraumatic, normocephalic Eye exam: Present: normal appearance. Absent: scleral icterus, conjunctival injection Neck exam: Present: normal inspection Respiratory exam: Present: wheezes. Absent: respiratory distress, rales, rhonch i, stridor, chest wall tenderness, accessory muscle use Cardiovascular Exam: Present: regular rate, tachycardia, normal heart sounds. Absent: systolic murmur, diastolic murmur, rubs, gallop GI/Abdominal exam: Present: soft. Absent: distended, tenderness, guarding, rebound, rigid, mass Extremities exam: Present: normal inspection, normal capillary refill. Absent: pedal edema, calf tenderness Back exam: Present: normal inspection. Absent: CVA tenderness (R), CVA tenderness (L) Neurological exam: Present: alert Skin exam: Present: warm, dry, intact, normal color. Absent: rash Course Vital Signs 03/30/22 03/30/22 03/30/22 18:37 21:20 22:14 Temperature 101.1 F H 99 F Pulse Rate 118 H 103 H Respiratory 16 17 Rate Blood Pressure 112/72 104/83 O2 Sat by Pulse 99 97 Oximetry Medical Decision Making - Lab Data Lab Results 03/30/22 Range/Units 19:29 Influenza Type A (PCR) Not Detected (Not Detectd) Influenza Type B (PCR) Not Detected (Not Detectd) RSV (PCR) Not Detected (Not Detectd) SARS-CoV-2 (PCR) Detected A (Not Detectd) Disposition Clinical Impression: COVID-19 Disposition: HOME SELF-CARE Condition: Good Instructions (If sedation given, give patient instructions): COVID-19 (Coronavirus Disease 2019) (ED) Is patient prescribed a controlled substance at d/c from ED?: No Referrals: Saleem Page DO [Primary Care Provider] - 1-2 days
[2022-03-30 22:14] VITALS: TEMP 99
== END 2022-03-30 22:18 | disposition home or self-care (01) ==
LOC: EC 18:35
DX: U07.1 COVID-19 (principal); J45.909 Unspecified asthma, uncomplicated; I10 Essential (primary) hypertension; F41.9 Anxiety disorder, unspecified; F32.A Depression, unspecified; F17.200 Nicotine dependence, unspecified, uncomplicated; Z88.0 Allergy status to penicillin; Z88.2 Allergy status to sulfonamides; Z88.6 Allergy status to analgesic agent; Z79.899 Other long term (current) drug therapy
CPT/HCPCS: 71045; 87636; 99283

== ENCOUNTER 2022-05-05 17:38 | Emergency (ER) | payer OTHER ==
[2022-05-05 18:33] VITALS: PULSE 92; TEMP 98.1
[2022-05-05] MEDS ORDERED: dexAMETHasone 4 MG TAB PO STA (20:48)
--- NOTE | 2022-05-05 21:00 | XR ---
EXAMINATION TYPE: XR chest 2V DATE OF EXAM: 05/05/2022 8:55 PM COMPARISON: Chest radiographs from 03/30/2022 TECHNIQUE: XR chest 2V Frontal and lateral views of the chest. CLINICAL INDICATION:Female, 52 years old with history of cough; FINDINGS: Lungs/Pleura: There is no evidence of pleural effusion, focal consolidation, or pneumothorax. Pulmonary vascularity: Unremarkable. Heart/mediastinum: Cardiomediastinal silhouette is unremarkable. Musculoskeletal: No acute osseous pathology. IMPRESSION: No acute cardiopulmonary disease/process.
--- NOTE | 2022-05-05 21:08 | ED ---
General Adult HPI - General Chief complaint: Upper Respiratory Infection Stated complaint: cough, SOB Time Seen by Provider: 05/05/22 20:22 Source: patient, RN notes reviewed, old records reviewed Mode of arrival: ambulatory Limitations: no limitations - History of Present Illness Initial comments: Patient is a 52-year-old female who presents with complaints of upper respiratory symptoms for one week. She has a significant history of asthma on rescue inhaler at home. Also history of hypertension. States she has been having severe coughing attacks for the last week. Minimally productive cough which is atypical for her. No documented fevers. No nausea, vomiting, abdominal pain, diarrhea. No known sick contacts. No chest pain. No sore thro at. Presents over concern for upper respiratory infection at this time. - Related Data Home Medications Medication Instructions Recorded Confirmed ALPRAZolam [Xanax] 1 mg PO BID PRN 01/20/19 10/19/20 Butalb/APAP/Caff 50-325-40Mg 1 tab PO TID PRN 01/20/19 10/19/20 [Fioricet 50-325-40] Albuterol Sulfate [Proair Hfa] 2 puff INHALATION RT-QID PRN 08/10/20 10/19/20 Calc/Magnes/Vit D 1 tab PO DAILY 08/10/20 10/19/20 Losartan Potassium 100 mg PO HS 08/10/20 10/19/20 Previous Rx's Medication Instructions Recorded Amitriptyline HCl [Elavil] 25 mg PO HS #30 tab 10/20/20 Atorvastatin [Lipitor] 40 mg PO DAILY #30 tab 10/20/20 Clopidogrel [Plavix] 75 mg PO DAILY #30 tab 10/20/20 Nicotine 14Mg/24Hr Patch [Habitrol] 1 patch TRANSDERM DAILY #30 patch 10/20/20 amLODIPine [Norvasc] 2.5 mg PO BID PRN #60 tab 10/20/20 amLODIPine [Norvasc] 5 mg PO DAILY #30 tab 10/20/20 HYDROcodone/APAP 5-325MG [[place] 1 tab PO Q6HR PRN 8 Days #12 tab 12/02/20 5-325] Albuterol Sulfate [Proair Hfa] 1 - 2 puff INHALATION Q6HR PRN 02/18/21 #8.5 gm Azithromycin [Zithromax Z-pack] 0 mg PO DIRECTED #6 tab 02/18/21 predniSONE 50 mg PO DAILY #5 tab 05/12/21 Butalb/APAP/Caff 50-325-40Mg 1 tab PO Q4H PRN #20 tablet 08/12/21 [Fioricet 50-325-40] Azithromycin [Zithromax Z Pack] 1 tab PO DIRECTED #6 tab 02/14/22 Benzonatate [Tessalon Perle] 200 mg PO TID PRN #20 capsule 02/14/22 predniSONE 50 mg PO QAM 5 Days #5 tablet 02/14/22 Albuterol Inhaler [Ventolin Hfa 1 puff INHALATION TID #8 gm 05/05/22 Inhaler] Doxycycline Hyclate 100 mg PO BID 7 Days #14 capsule 05/05/22 predniSONE [Deltasone] 40 mg PO DAILY 5 Days #10 tab 05/05/22 Allergies Allergy/AdvReac Type Severity Reaction Status Date / Time Penicillins Allergy Unknown Verified 05/05/22 18:33 sumatriptan [From Imitrex] Allergy Unknown Verified 05/05/22 18:33 sumatriptan succinate Allergy Unknown Verified 05/05/22 18:33 [From Imitrex] NSAIDS (Non-Steroidal AdvReac Unknown Verified 05/05/22 18:33 Anti-Inflamma Review of Systems ROS Statement: Those systems with pertinent positive or pertinent negative responses have been documented in the HPI. Review of Systems: CONST: Denies fever EYES: Denies blurry vision ENT: Endorses nasal congestion C/V: Denies Chest pain RESP: Endorses cough GI: Denies abdominal pain : Denies dysuria SKIN: Denies rash. MSK: Denies joint pain. NEURO: Denies headache ROS Other: All systems not noted in ROS Statement are negative. Past Medical History Past Medical History: No Reported History, Asthma, Hypertension Additional Past Medical History / Comment(s): Past L mastoiditis with L otitis/vertigo and falls-had surgery and no longer a problem, nephrolithiasis, migraines, past chronic low back pain but pt states not much of a problem anymore, DJD, hypoglycemia, History of Any Multi-Drug Resistant Organisms: None Reported Past Surgical History: Adenoidectomy, Appendectomy, Bariatric Surgery, Breast Surgery, Cholecystectomy, Ear Surgery, Hernia Repair, Hysterectomy, Orthopedic Surgery, Tonsillectomy, Tubal Ligation Additional Past Surgical History / Comment(s): Gastric bypass in 2009 with weight loss of 170 pounds, panniculectomy, L ear perforation with surgery, R knee open surgery as a child and x 2 arthroscopicL knee surgeries, R breast bx- benign, 2 umbilical hernias and 1 diaphragmatic hernia repairs, colonoscopy, mastoidectomy with Dr. Valderrama at [facility]. Past Anesthesia/Blood Transfusion Reactions: No Reported Reaction Past Psychological History: Anxiety, Depression Smoking Status: Current every day smoker Past Alcohol Use History: None Reported Past Drug Use History: None Reported - Past Family History Father Additional Family Medical History / Comment(s): Father from a aneurysm at the age of 72 yrs. he also had history of prostate cancer, aortic aneurysm, renal artery aneurysm. Mother Family Medical History: COPD Additional Family Medical History / Comment(s): Mother is 75 yrs old and has emphysema and hypertension. Brother(s) Additional Family Medical History / Comment(s): She has one brother with hypertension and plaque psoriasis. Sister(s) Additional Family Medical History / Comment(s): She has one sister with hypertension. Son(s) Additional Family Medical History / Comment(s): Patient has 3 children, one boy with ureteral obstruction and renal failure. 2 girls that are healthy without major medical problems. General Exam - General Exam Comments Initial Comments: General: Appears in no acute distress. HEAD: Normal with no signs of head trauma. EYES: EOMI ENT: Nasal congestion RESPIRATORY: Mild bilateral end expiratory wheezing. No rhonchi. No increased work of breathing. No hypoxia. C/V: Regular rate and rhythm. S1 and S2 auscultated. Peripheral pulses are 2+ and intact throughout. ABD: Nondistended EXT: No obvious deformity. SKIN: No rashes or lesions observed on exposed skin. NEURO: Alert and oriented 4. Limitations: no limitations Course Vital Signs 05/05/22 05/05/22 18:31 21:30 Temperature 98.1 F Pulse Rate 92 92 Respiratory 20 18 Rate Blood Pressure 131/74 114/80 O2 Sat by Pulse 98 99 Oximetry Medical Decision Making - Medical Decision Making Based on the patient's presentation and physical exam, I'm concerned for an acute asthma exacerbation this time but cannot rule out upper as per infectious etiology at this time either. I discussed this with the patient and she was in agreement this plan. Vital signs are within acceptable limits. She wants to us e her home albuterol inhaler and I will provide her with a dose of Decadron at this time for asthma exacerbation. She was in agreement this plan. I did recommend vital signs as well as a chest x-ray which she was in agreement with. Chest x-ray as interpreted by myself reveals no signs of acute cardiopulmonary process. No acute infiltrate. Patient is negative for Covid, flu, RSV. On reevaluation, patient remains unchanged. Wheezing is improved. We discussed results. Due to her increased productive cough history of asthma, we will cover her for bronchitis with doxycycline. She was in agreement with this plan. She'll receive presents with his for steroids as well. Strict return precautions were discussed. I will provide the patient with a prescription for prednisone, albuterol inhaler, doxycycline. I instructed the patient to follow up with their PCP in the next 1-3 days . I explained that the patient should return to the emergency department if they experience any worsening symptoms. Strict return precautions were discussed with the patient. The patient expressed understanding of these instructions. I answered all questions that the patient had. The patient was discharged home in good condition with their prescriptions and follow up information. - Lab Data Lab Results 05/05/22 Range/Units 18:37 Influenza Type A (PCR) Not Detected (Not Detectd) Influenza Type B (PCR) Not Detected (Not Detectd) RSV (PCR) Not Detected (Not Detectd) SARS-CoV-2 (PCR) Not Detected (Not Detectd) Disposition Clinical Impression: Bronchitis, Asthma exacerbation Disposition: HOME SELF-CARE Condition: Good Instructions (If sedation given, give patient instructions): Asthma (ED), Upper Respiratory Infection (ED) Prescriptions: predniSONE [Deltasone] 40 mg PO DAILY 5 Days #10 tab Doxycycline Hyclate 100 mg PO BID 7 Days #14 capsule Albuterol Inhaler [Ventolin Hfa Inhaler] 1 puff INHALATION TID #8 gm Is patient prescribed a controlled substance at d/c from ED?: No Referrals: Saleem Page DO [Primary Care Provider] - 1-2 days Time of Disposition: 21:00
[2022-05-05] MEDS ORDERED: DOXYCYCLINE 100 MG CAP PO STA (21:13)
[2022-05-05 21:38] VITALS: BP 114/80; RESP 18
== END 2022-05-05 21:30 | disposition home or self-care (01) ==
LOC: EC 17:38
DX: J45.901 Unspecified asthma with (acute) exacerbation (principal); I10 Essential (primary) hypertension; F17.200 Nicotine dependence, unspecified, uncomplicated; Z20.822 Contact with and (suspected) exposure to COVID-19; Z88.0 Allergy status to penicillin; Z88.8 Allergy status to other drugs, medicaments and biological substances; Z88.6 Allergy status to analgesic agent; Z90.710 Acquired absence of both cervix and uterus; Z90.49 Acquired absence of other specified parts of digestive tract; Z98.51 Tubal ligation status; Z98.84 Bariatric surgery status; Z79.899 Other long term (current) drug therapy
CPT/HCPCS: 99285; 87636; 71046; J8540

== ENCOUNTER 2022-09-14 19:28 | Emergency (ER) | payer OTHER ==
[2022-09-14 19:48] VITALS: TEMP 97.7
[2022-09-14] MEDS ORDERED: METOCLOPRAMIDE 5 MG/ML 2 ML VIAL IVP STA (19:58)
[2022-09-14] MEDS ORDERED: ACETAMINOPHEN TAB 500 MG TAB PO STA (19:58)
[2022-09-14] MEDS ORDERED: KETOROLAC 15 MG/ML 1 ML VIAL IVP STA (19:58)
[2022-09-14] MEDS ORDERED: HYDROmorphone 0.5 MG/0.5 ML SYRINGE IVP STA ×2 (19:58→21:09)
[2022-09-14] MEDS ORDERED: SODIUM CHLORIDE 0.9% 1,000 ML IV ONE (19:59)
--- NOTE | 2022-09-14 20:18 | ED ---
General Adult HPI - General Chief complaint: Headache Stated complaint: MIGRAINE Time Seen by Provider: 09/14/22 19:52 Source: patient, family, RN notes reviewed, old records reviewed Mode of arrival: ambulatory Limitations: no limitations - History of Present Illness Initial comments: 52-year-old female who presents for evaluation of headache. Patient has history of migraine headache and states this headache is similar in character to previous headaches. She states that she has attempted to use her medication at home without relief. She does have nausea without vomiting. No fever. She is sensitive to light. She states that this happens to her several times a month. Headache was gradual in onset and associated with her typical aura. - Related Data Home Medications Medication Instructions Recorded Confirmed ALPRAZolam [Xanax] 1 mg PO BID PRN 01/20/19 10/19/20 Butalb/APAP/Caff 50-325-40Mg 1 tab PO TID PRN 01/20/19 10/19/20 [Fioricet 50-325-40] Albuterol Sulfate [Proair Hfa] 2 puff INHALATION RT-QID PRN 08/10/20 10/19/20 Calc/Magnes/Vit D 1 tab PO DAILY 08/10/20 10/19/20 Losartan Potassium 100 mg PO HS 08/10/20 10/19/20 Previous Rx's Medication Instructions Recorded Amitriptyline HCl [Elavil] 25 mg PO HS #30 tab 10/20/20 Atorvastatin [Lipitor] 40 mg PO DAILY #30 tab 10/20/20 Clopidogrel [Plavix] 75 mg PO DAILY #30 tab 10/20/20 Nicotine 14Mg/24Hr Patch [Habitrol] 1 patch TRANSDERM DAILY #30 patch 10/20/20 amLODIPine [Norvasc] 2.5 mg PO BID PRN #60 tab 10/20/20 amLODIPine [Norvasc] 5 mg PO DAILY #30 tab 10/20/20 HYDROcodone/APAP 5-325MG [[place] 1 tab PO Q6HR PRN 8 Days #12 tab 12/02/20 5-325] Albuterol Sulfate [Proair Hfa] 1 - 2 puff INHALATION Q6HR PRN 02/18/21 #8.5 gm Azithromycin [Zithromax Z-pack] 0 mg PO DIRECTED #6 tab 09/27/21 predniSONE 50 mg PO DAILY #5 tab 05/12/21 Butalb/APAP/Caff 50-325-40Mg 1 tab PO Q4H PRN #20 tablet 08/12/21 [Fioricet 50-325-40] Azithromycin [Zithromax Z Pack] 1 tab PO DIRECTED #6 tab 02/14/22 Benzonatate [Tessalon Perle] 200 mg PO TID PRN #20 capsule 02/14/22 predniSONE 50 mg PO QAM 5 Days #5 tablet 02/14/22 Albuterol Inhaler [Ventolin Hfa 1 puff INHALATION TID #8 gm 05/05/22 Inhaler] Doxycycline Hyclate 100 mg PO BID 7 Days #14 capsule 05/05/22 predniSONE [Deltasone] 40 mg PO DAILY 5 Days #10 tab 05/05/22 Allergies Allergy/AdvReac Type Severity Reaction Status Date / Time Penicillins Allergy Unknown Verified 05/05/22 18:33 sumatriptan [From Imitrex] Allergy Unknown Verified 05/05/22 18:33 sumatriptan succinate Allergy Unknown Verified 05/05/22 18:33 [From Imitrex] NSAIDS (Non-Steroidal AdvReac Unknown Verified 05/05/22 18:33 Anti-Inflamma Review of Systems ROS Statement: Those systems with pertinent positive or pertinent negative responses have been documented in the HPI. ROS Other: All systems not noted in ROS Statement are negative. Past Medical History Past Medical History: No Reported History, Asthma, Hypertension Additional Past Medical History / Comment(s): Past L mastoiditis with L otitis/vertigo and falls-had surgery and no longer a problem, nephrolithiasis, migraines, past chronic low back pain but pt states not much of a problem anymore, DJD, hypoglycemia, History of Any Multi-Drug Resistant Organisms: None Reported Past Surgical History: Adenoidectomy, Appendectomy, Bariatric Surgery, Breast Surgery, Cholecystectomy, Ear Surgery, Hernia Repair, Hysterectomy, Orthopedic Surgery, Tonsillectomy, Tubal Ligation Additional Past Surgical History / Comment(s): Gastric bypass in 2008 with weight loss of 170 pounds, panniculectomy, L ear perforation with surgery, R knee open surgery as a child and x 2 arthroscopicL knee surgeries, R breast bx- benign, 2 umbilical hernias and 1 diaphragmatic hernia repairs, colonoscopy, mastoidectomy with Dr. Valderrama at [facility]. Past Anesthesia/Blood Transfusion Reactions: No Reported Reaction Past Psychological History: Anxiety, Depression Smoking Status: Current every day smoker Past Alcohol Use History: None Reported Past Drug Use History: None Reported - Past Family History Father Additional Family Medical History / Comment(s): Father from a aneurysm at the age of 72 yrs. he also had history of prostate cancer, aortic aneurysm, renal artery aneurysm. Mother Family Medical History: COPD Additional Family Medical History / Comment(s): Mother is 75 yrs old and has emphysema and hypertension. Brother(s) Additional Family Medical History / Comment(s): She has one brother with hypertension and plaque psoriasis. Sister(s) Additional Family Medical History / Comment(s): She has one sister with hypertension. Son(s) Additional Family Medical History / Comment(s): Patient has 3 children, one boy with ureteral obstruction and renal failure. 2 girls that are healthy without major medical problems. General Exam Limitations: no limitations General appearance: alert, in no apparent distress Head exam: Present: atraumatic, normocephalic Eye exam: Present: normal appearance, PERRL ENT exam: Present: normal exam Neck exam: Present: normal inspection. Absent: tenderness, meningismus Respiratory exam: Present: normal lung sounds bilaterally. Absent: respiratory distress, wheezes Cardiovascular Exam: Present: regular rate, normal rhythm GI/Abdominal exam: Present: soft. Absent: distended, tenderness Extremities exam: Present: normal inspection Neurological exam: Present: alert, oriented X3, CN II-XII intact. Absent: motor sensory deficit Psychiatric exam: Present: normal affect, normal mood Skin exam: Present: warm, dry, intact. Absent: cyanosis, diaphoretic Course Vital Signs 09/14/22 19:45 Temperature 97.7 F Pulse Rate 98 Respiratory 20 Rate Blood Pressure 107/75 O2 Sat by Pulse 96 Oximetry Medical Decision Making - Medical Decision Making Was pt. sent in by a medical professional or institution (RY Davis, [employer] ST[employer] AND REPA[employer]ER, urgent care, hospital, or penitentiary...) When possible be specific @ -No Did you speak to anyone other than the patient for history (EMS, parent, family, police, friend...)? What history was obtained from this source @ -No Did you review nursing and triage notes (agree or disagree)? Why? @ -I reviewed and agree with nursing and triage notes Were old charts reviewed (outside hosp., previous admission, EMS record, old EKG, old radiological studies, urgent care reports/EKG's, penitentiary records)? Report findings @ -No old charts were reviewed Differential Diagnosis (chest pain, altered mental status, abdominal pain women, abdominal pain men, vaginal bleeding, weakness, fever, dyspnea, syncope, headache, dizziness, GI bleed, back pain, seizure, CVA, palpatations, mental health, musculoskeletal)? @ -Differential Headache: Migraine, tension, cluster, carbon monoxide, central venous thrombosis, pension karma temporal arteritis, acute closure glaucoma, intercranial hemorrhage, mastoiditis, sinusitis, head injury, this is not meant to be an all-inclusive list. EKG interpreted by me (3pts min.). @ -As above X-rays interpreted by me (1pt min.). @ -None done CT interpreted by me (1pt min.). @ -None done U/S interpreted by me (1pt. min.). @ -None done What testing was considered but not performed or refused? (CT, X-rays, U/S, labs)? Why? @ -None What meds were considered but not given or refused? Why? @ -None Did you discuss the management of the patient with other professionals (professionals i.e. , PA, MOLD STAMPER AND REPAIRER, lab, RT, psych nurse, social group worker, stock preparation supervisor, teacher, financial aid officer, case management specialist)? Give summary @ -No Was smoking cessation discussed for >3mins.? @ -No Was critical care preformed (if so, how long)? @ -No Were there social determinants of health that impacted care today? How? (Homelessness, low income, unemployed, alcoholism, drug addiction, transportation, low edu. Level, literacy, decrease access to med. care, senior care, rehab)? @ -No Was there de-escalation of care discussed even if they declined (Discuss DNR or withdrawal of care, Hospice)? DNR status @ -No What co-morbidities impacted this encounter? (DM, HTN, Smoking, COPD, CAD, Cancer, CVA, ARF, Chemo, Hep., AIDS, mental health diagnosis, sleep apnea, morbid obesity)? @ -[Migraine headaches Was patient admitted / discharged? Hospital course, mention meds given and route, prescriptions, significant lab abnormalities, going to OR and other pertinent info. @ -52-year-old female with history of migraine headache presenting with headache today which was typical of her usual migraine but not relieved by home medication. Patient well-appearing with stable vitals, nonfocal neurologic exam, no alarming features. Patient given medication the emergency department with significant improvement in headache. She is given strict return parameters. She will follow with her primary care physician. Undiagnosed new problem with uncertain prognosis? @ -No Drug Therapy requiring intensive monitoring for toxicity (Heparin, Nitro, Insulin, Cardizem)? @ -No Were any procedures done? @ -No Diagnosis/symptom? @ -Headache Acute, or Chronic, or Acute on Chronic? @ -Acute on chronic Uncomplicated (without systemic symptoms) or Complicated (systemic symptoms)? @ -Complicated Side effects of treatment? @ -No Exacerbation, Progression, or Severe Exacerbation? @ -No Poses a threat to life or bodily function? How? (Chest pain, [place], [place], pneumonia, PE, COPD, DKA, ARF, appy, cholecystitis, CVA, Diverticulitis, Homicidal, Suicidal, threat to staff... and all critical care pts) @ -No - Lab Data Result diagrams: 09/14/22 20:13 09/14/22 20:13 Lab Results 09/14/22 09/14/22 Range/Units 20:13 20:13 WBC 11.8 H (3.8-10.6) k/uL RBC 4.13 (3.80-5.40) m/uL Hgb 12.1 (11.4-16.0) gm/dL Hct 37.5 (34.0-46.0) % MCV 90.8 (80.0-100.0) fL MCH 29.4 (25.0-35.0) pg MCHC 32.3 (31.0-37.0) g/dL RDW 15.8 H (11.5-15.5) % Plt Count 561 H (150-450) k/uL MPV 7.7 Neutrophils % 61 % Lymphocytes % 31 % Monocytes % 3 % Eosinophils % 3 % Basophils % 0 % Neutrophils # 7.2 (1.3-7.7) k/uL Lymphocytes # 3.7 (1.0-4.8) k/uL Monocytes # 0.4 (0-1.0) k/uL Eosinophils # 0.4 (0-0.7) k/uL Basophils # 0.0 (0-0.2) k/uL Sodium 139 (137-145) mmol/L Potassium 4.3 (3.5-5.1) mmol/L Chloride 106 (98-107) mmol/L Carbon Dioxide 28 (22-30) mmol/L Anion Gap 5 mmol/L BUN 6 L (7-17) mg/dL Creatinine 0.60 (0.52-1.04) mg/dL Est GFR (CKD-EPI)AfAm >90 (>60 ml/min/1.73 sqM) Est GFR (CKD-EPI)NonAf >90 (>60 ml/min/1.73 sqM) Glucose 85 (74-99) mg/dL Calcium 9.5 (8.4-10.2) mg/dL Total Bilirubin 0.3 (0.2-1.3) mg/dL AST 22 (14-36) U/L ALT 17 (4-34) U/L Alkaline Phosphatase 91 (38-126) U/L Total Protein 6.8 (6.3-8.2) g/dL Albumin 3.9 (3.5-5.0) g/dL Disposition Clinical Impression: Headache Disposition: HOME SELF-CARE Condition: Fair Instructions (If sedation given, give patient instructions): Acute Headache (ED) Is patient prescribed a controlled substance at d/c from ED?: No Referrals: Saleem Page DO [Primary Care Provider] - 1-2 days
[2022-09-14 20:47] LABS: Basophils % (A) 0 %; Eosinophils # (A) 0.4 k/uL (0-0.7); Eosinophils % (A) 3 %; HCT 37.5 % (34.0-46.0); HGB 12.1 gm/dL (11.4-16.0); Lymphocytes # (A) 3.7 k/uL (1.0-4.8); Lymphocytes % (A) 31 %; MCH 29.4 pg (25.0-35.0); MCHC 32.3 g/dL (31.0-37.0); MCV 90.8 fL (80.0-100.0); Mean Platelet Volume 7.7; Monocytes # (A) 0.4 k/uL (0-1.0); Monocytes % (A) 3 %; Neutrophils # (A) 7.2 k/uL (1.3-7.7); Neutrophils % (A) 61 %; Platelet Count 561 k/uL (150-450); RBC 4.13 m/uL (3.80-5.40); RDW 15.8 % (11.5-15.5); WBC 11.8 k/uL (3.8-10.6)
[2022-09-14 21:01] LABS: ALT 17 U/L (4-34); AST 22 U/L (14-36); African American GFR (CKD) >90 (>60 ml/min/1.73 sqM); Albumin 3.9 g/dL (3.5-5.0); Alkaline Phosphatase 91 U/L (38-126); Anion Gap 5 mmol/L; Blood Urea Nitrogen 6 mg/dL (7-17); Calcium 9.5 mg/dL (8.4-10.2); Carbon Dioxide 28 mmol/L (22-30); Chloride 106 mmol/L (98-107); Glucose 85 mg/dL (74-99); Non-African American GFR(CKD) >90 (>60 ml/min/1.73 sqM); Potassium 4.3 mmol/L (3.5-5.1); Sodium 139 mmol/L (137-145); Total Bilirubin 0.3 mg/dL (0.2-1.3); Total Protein 6.8 g/dL (6.3-8.2)
[2022-09-14] MEDS ORDERED: diphenhydrAMINE 50 MG/ML 1 ML VIAL IVP STA (21:09)
[2022-09-14 21:51] VITALS: BP 110/72; PULSE 82; RESP 18
== END 2022-09-14 22:08 | disposition home or self-care (01) ==
LOC: EC 19:28
DX: G43.909 Migraine, unspecified, not intractable, without status migrainosus (principal); J45.909 Unspecified asthma, uncomplicated; I10 Essential (primary) hypertension; F41.9 Anxiety disorder, unspecified; F32.A Depression, unspecified; F17.200 Nicotine dependence, unspecified, uncomplicated; Z79.899 Other long term (current) drug therapy; Z88.0 Allergy status to penicillin; Z88.6 Allergy status to analgesic agent; Z88.8 Allergy status to other drugs, medicaments and biological substances
CPT/HCPCS: 99283; 96374; 96375 ×3; 96376; 96361; 36415; 80053; 85025; J1200; J2765; J1885; J1170

== ENCOUNTER 2023-03-02 16:47 | Inpatient (IN) | payer OTHER ==
--- NOTE | 2023-03-02 17:09 | ED ---
General Adult HPI <Vinny Yates - Last Filed: 03/02/23 19:08> - General Source: patient, RN notes reviewed <Cleopatra Argueta - Last Filed: 03/02/23 21:47> - General Chief complaint: ENT Stated complaint: fluid leaking out L ear Time Seen by Provider: 03/02/23 17:06 - History of Present Illness Initial comments: 53-year-old female presents to the ED with a chief complaint of left ear pain. Patient states for the last 2-3 days has had pain of her left ear with clear drainage. Was seen at urgent care and was prescribed eardrops however contacted ENT and was advised not to use it. Advised not to use it due to her not having any eardrum which which she reports was removed a few years back. Patient does report a history of mastoiditis. She does report that she does have a follow-up appointment with ENT this Thursday. Denies fever. No chest pain or shortness of breath. No other complaints. (Vinny Yates) 53 year old female presents to the emergency department for chief complaint of left ear pain x3 days. She states that the pain is an 8/10. She was evaluated at urgent care and was given ciprofloxicin drops but states that she is unable to use ear drops as she does not have an ear drum. She admits to clear to yellow drainage from the ear. She does have history of mastoiditis. Denies fever. (Cleopatra Argueta) - Related Data Home Medications Medication Instructions Recorded Confirmed ALPRAZolam [Xanax] 1 mg PO BID PRN 01/20/19 10/19/20 Losartan Potassium 100 mg PO HS 08/10/20 10/19/20 Albuterol Sulfate [Proair Hfa] 2 puff INHALATION RT-Q6H PRN 03/02/23 03/02/23 Allergies Allergy/AdvReac Type Severity Reaction Status Date / Time Penicillins Allergy Anaphylaxis Verified 03/02/23 20:11 sumatriptan [From Imitrex] Allergy Unknown Verified 03/02/23 20:11 sumatriptan succinate Allergy Unknown Verified 03/02/23 20:11 [From Imitrex] NSAIDS (Non-Steroidal AdvReac Unknown Verified 03/02/23 20:11 Anti-Inflamma Review of Systems ROS Other: All systems not noted in ROS Statement are negative. <Vinny Yates - Last Filed: 03/02/23 19:08> ROS Other: All systems not noted in ROS Statement are negative. <Cleoaptra Argueta - Last Filed: 03/02/23 21:47> ROS Statement: Those systems with pertinent positive or pertinent negative responses have been documented in the HPI. Past Medical History Past Medical History: No Reported History, Asthma, Hypertension Additional Past Medical History / Comment(s): Past L mastoiditis with L otitis/vertigo and falls-had surgery and no longer a problem, nephrolithiasis, migraines, past chronic low back pain but pt states not much of a problem anymore, DJD, hypoglycemia, History of Any Multi-Drug Resistant Organisms: None Reported Past Surgical History: Adenoidectomy, Appendectomy, Bariatric Surgery, Breast Surgery, Cholecystectomy, Ear Surgery, Hernia Repair, Hysterectomy, Orthopedic Surgery, Tonsillectomy, Tubal Ligation Additional Past Surgical History / Comment(s): Gastric bypass in 2008 with weight loss of 170 pounds, panniculectomy, L ear perforation with surgery, R knee open surgery as a child and x 2 arthroscopicL knee surgeries, R breast bx- benign, 2 umbilical hernias and 1 diaphragmatic hernia repairs, colonoscopy, mastoidectomy with Dr. Valderrama at [facility]. Past Anesthesia/Blood Transfusion Reactions: No Reported Reaction Past Psychological History: Anxiety, Depression Smoking Status: Current every day smoker Past Alcohol Use History: None Reported Past Drug Use History: None Reported - Past Family History Father Additional Family Medical History / Comment(s): Father from a aneurysm at the age of 72 yrs. he also had history of prostate cancer, aortic aneurysm, renal artery aneurysm. Mother Family Medical History: COPD Additional Family Medical History / Comment(s): Mother is 75 yrs old and has emphysema and hypertension. Brother(s) Additional Family Medical History / Comment(s): She has one brother with hypertension and plaque psoriasis. Sister(s) Additional Family Medical History / Comment(s): She has one sister with hypertension. Son(s) Additional Family Medical History / Comment(s): Patient has 3 children, one boy with ureteral obstruction and renal failure. 2 girls that are healthy without major medical problems. <Cleopatra Argueta - Last Filed: 03/02/23 21:47> General Exam General appearance: alert, in no apparent distress Eye exam: Present: normal appearance ENT exam: Present: other (Left TM not visualized. Canal has no significant erythema but does have serous drainage. Patient does have mastoid process tenderness to palpation on the left however no surrounding erythema edema or warmth.) Respiratory exam: Present: normal lung sounds bilaterally Cardiovascular Exam: Present: regular rate, normal rhythm GI/Abdominal exam: Present: soft Neurological exam: Present: alert, oriented X3 Skin exam: Present: warm, dry <Vinny Yates - Last Filed: 03/02/23 19:08> <Cleopatra Argueta - Last Filed: 03/02/23 21:47> - General Exam Comments Initial Comments: Visual Physical Exam Vital signs reviewed General: Well-appearing, nontoxic, no acute distress. Head: Normocephalic, atraumatic Eyes: PERRLA, EOMI ENT: Airway patent Chest: Nonlabored breathing Skin: No visual rash, normal skin tone Neuro: Alert and oriented 3 Musculoskeletal: No gross abnormalities (Cleopatra Argueta) Course Vital Signs 03/02/23 03/02/23 17:06 21:01 Temperature 97.9 F 98.4 F Pulse Rate 78 75 Respiratory 18 16 Rate Blood Pressure 111/79 113/75 O2 Sat by Pulse 98 98 Oximetry Medical Decision Making <Vinny Yates - Last Filed: 03/02/23 19:08> - Lab Data Result diagrams: 03/02/23 18:47 03/02/23 18:47 <Cleopatra Argueta - Last Filed: 03/02/23 21:47> - Medical Decision Making Was pt. sent in by a medical professional or institution (, PA, [employer] P[employer]ER, urgent care, hospital, or skilled nursing...) When possible be specific @ -[No] Did you speak to anyone other than the patient for history (EMS, parent, family, police, friend...)? What history was obtained from this source @ -[No] Did you review nursing and triage notes (agree or disagree)? Why? @ -[I reviewed and agree with nursing and triage notes] Were old charts reviewed (outside hosp., previous admission, EMS record, old EKG, old radiological studies, urgent care reports/EKG's, skilled nursing records)? Report findings @ -[No old charts were reviewed] Differential Diagnosis (chest pain, altered mental status, abdominal pain women, abdominal pain men, vaginal bleeding, weakness, fever, dyspnea, syncope, headache, dizziness, GI bleed, back pain, seizure, CVA, palpatations, mental health, musculoskeletal)? @ -Malignant otitis externa, otitis media, otitis externa. This not meant to be an all-inclusive list. EKG interpreted by me (3pts min.). @ -[As above] X-rays interpreted by me (1pt min.). @ -[None done] CT interpreted by me (1pt min.). @ -[None done] U/S interpreted by me (1pt. min.). @ -[None done] What testing was considered but not performed or refused? (CT, X-rays, U/S, labs)? Why? @ -[None] What meds were considered but not given or refused? Why? @ -[None] Did you discuss the management of the patient with other professionals (professionals i.e. , PA, SELECTOR P[employer]ER, lab, RT, psych nurse, forensic social worker, grinder machine setter, teacher, human resource officer, piano case and bench assembler)? Give summary @ -[No] Was smoking cessation discussed for >3mins.? @ -[No] Was critical care preformed (if so, how long)? @ -[No] Were there social determinants of health that impacted care today? How? (Homelessness, low income, unemployed, alcoholism, drug addiction, transportation, low edu. Level, literacy, decrease access to med. care, half-way, rehab)? @ -[No] Was there de-escalation of care discussed even if they declined (Discuss DNR or withdrawal of care, Hospice)? DNR status @ -[No] What co-morbidities impacted this encounter? (DM, HTN, Smoking, COPD, CAD, Cancer, CVA, ARF, Chemo, Hep., AIDS, mental health diagnosis, sleep apnea, morbid obesity)? @ -[None] Was patient admitted / discharged? Hospital course, mention meds given and route, prescriptions, significant lab abnormalities, going to OR and other pertinent info. Pending 53 old female with a chief history of mastoiditis and movable of left TM presenting to the ED with 2 day history of pain and drainage. Exam did not show any mastoid process erythema however was tender on palpation. Ear canals are now erythematous but did have serous drainage. TM missing on exam. At this time laboratory workup and CT mastoid pending. Case signed out to Cleopatra TILLEY. (Vinny Yates) I preformed the quick note portion of this chart. Electronically signed by Cleopatra Argueta PA-C. This case was signed out to me by Ernst Murry PA-C pending CT results. CT mastoid showed Left mastoid air cell effusion which is new, osseous erosion similar to CT from 08/12/21, findings likely represent post surgical change with superimposed new acute infection. Patient will be admitted to medicine with ENT and ID consult. Case discussed with Dr. Diaz who is accepting of the admission. Patient started on IV clindamycin. Patient stable at time of admission (Cleopatra Argueta) - Lab Data Lab Results 03/02/23 03/02/23 03/02/23 Range/Units 18:47 18:47 18:47 WBC 14.5 H (3.8-10.6) k/uL RBC 4.29 (3.80-5.40) m/uL Hgb 13.5 (11.4-16.0) gm/dL Hct 41.1 (34.0-46.0) % MCV 95.7 (80.0-100.0) fL MCH 31.6 (25.0-35.0) pg MCHC 33.0 (31.0-37.0) g/dL RDW 15.5 (11.5-15.5) % Plt Count 479 H (150-450) k/uL MPV 7.0 Neutrophils % 66 % Lymphocytes % 28 % Monocytes % 3 % Eosinophils % 3 % Basophils % 0 % Neutrophils # 9.6 H (1.3-7.7) k/uL Lymphocytes # 4.1 (1.0-4.8) k/uL Monocytes # 0.4 (0-1.0) k/uL Eosinophils # 0.4 (0-0.7) k/uL Basophils # 0.0 (0-0.2) k/uL Sodium 140 (137-145) mmol/L Potassium 4.5 (3.5-5.1) mmol/L Chloride 107 (98-107) mmol/L Carbon Dioxide 25 (22-30) mmol/L Anion Gap 8 mmol/L BUN 11 (7-17) mg/dL Creatinine 0.54 (0.52-1.04) mg/dL Est GFR (CKD-EPI)AfAm >90 (>60 ml/min/1.73 sqM) Est GFR (CKD-EPI)NonAf >90 (>60 ml/min/1.73 sqM) Glucose 87 (74-99) mg/dL Plasma Lactic Acid Alexis (0.7-2.0) mmol/L Calcium 9.6 (8.4-10.2) mg/dL Total Bilirubin 0.3 (0.2-1.3) mg/dL AST 21 (14-36) U/L ALT 23 (4-34) U/L Alkaline Phosphatase 108 (38-126) U/L C-Reactive Protein 0.6 (<1.0) mg/dL Total Protein 7.2 (6.3-8.2) g/dL Albumin 4.1 (3.5-5.0) g/dL Urine Color Colorless Urine Appearance Clear (Clear) Urine pH 6.0 (5.0-8.0) Ur Specific [place] 1.010 (1.001-1.035) Urine Protein Negative (Negative) Urine Glucose (UA) Negative (Negative) Urine Ketones Negative (Negative) Urine Blood Negative (Negative) Urine Nitrite Negative (Negative) Urine Bilirubin Negative (Negative) Urine Urobilinogen <2.0 (<2.0) mg/dL Ur Leukocyte Esterase Negative (Negative) 03/02/23 Range/Units 18:47 WBC (3.8-10.6) k/uL RBC (3.80-5.40) m/uL Hgb (11.4-16.0) gm/dL Hct (34.0-46.0) % MCV (80.0-100.0) fL MCH (25.0-35.0) pg MCHC (31.0-37.0) g/dL RDW (11.5-15.5) % Plt Count (150-450) k/uL MPV Neutrophils % % Lymphocytes % % Monocytes % % Eosinophils % % Basophils % % Neutrophils # (1.3-7.7) k/uL Lymphocytes # (1.0-4.8) k/uL Monocytes # (0-1.0) k/uL Eosinophils # (0-0.7) k/uL Basophils # (0-0.2) k/uL Sodium (137-145) mmol/L Potassium (3.5-5.1) mmol/L Chloride (98-107) mmol/L Carbon Dioxide (22-30) mmol/L Anion Gap mmol/L BUN (7-17) mg/dL Creatinine (0.52-1.04) mg/dL Est GFR (CKD-EPI)AfAm (>60 ml/min/1.73 sqM) Est GFR (CKD-EPI)NonAf (>60 ml/min/1.73 sqM) Glucose (74-99) mg/dL Plasma Lactic Acid Alexis 1.1 (0.7-2.0) mmol/L Calcium (8.4-10.2) mg/dL Total Bilirubin (0.2-1.3) mg/dL AST (14-36) U/L ALT (4-34) U/L Alkaline Phosphatase (38-126) U/L C-Reactive Protein (<1.0) mg/dL Total Protein (6.3-8.2) g/dL Albumin (3.5-5.0) g/dL Urine Color Urine Appearance (Clear) Urine pH (5.0-8.0) Ur Specific [place] (1.001-1.035) Urine Protein (Negative) Urine Glucose (UA) (Negative) Urine Ketones (Negative) Urine Blood (Negative) Urine Nitrite (Negative) Urine Bilirubin (Negative) Urine Urobilinogen (<2.0) mg/dL Ur Leukocyte Esterase (Negative) Disposition <Vinny Yates - Last Filed: 03/02/23 19:08> Is patient prescribed a controlled substance at d/c from ED?: No <Cleopatra Argueta - Last Filed: 03/02/23 21:47> Clinical Impression: Mastoiditis Disposition: ADMITTED IP TO THIS HOSP Condition: Stable Referrals: Saleem Page DO [Primary Care Provider] - 1-2 days
[2023-03-02] MEDS ORDERED: ONDANSETRON 4 MG/2 ML VIAL IVP STA (18:32)
[2023-03-02] MEDS ORDERED: KETOROLAC 15 MG/ML 1 ML VIAL IVP STA (19:08)
[2023-03-02 19:17] LABS: Basophils % (A) 0 %; Eosinophils # (A) 0.4 k/uL (0-0.7); Eosinophils % (A) 3 %; HCT 41.1 % (34.0-46.0); HGB 13.5 gm/dL (11.4-16.0); Lymphocytes # (A) 4.1 k/uL (1.0-4.8); Lymphocytes % (A) 28 %; MCH 31.6 pg (25.0-35.0); MCV 95.7 fL (80.0-100.0); Monocytes # (A) 0.4 k/uL (0-1.0); Monocytes % (A) 3 %; Neutrophils # (A) 9.6 k/uL (1.3-7.7); Neutrophils % (A) 66 %; Platelet Count 479 k/uL (150-450); RBC 4.29 m/uL (3.80-5.40); RDW 15.5 % (11.5-15.5); WBC 14.5 k/uL (3.8-10.6)
--- NOTE | 2023-03-02 19:22 | CT ---
EXAMINATION TYPE: CT mastoid wo con CT DLP: 218.9 mGycm, Automated exposure control for dose reduction was used. DATE OF EXAM: 03/02/2023 6:52 PM INDICATION: Patient age:Female; 53 years old; Reason for study: L mastoid process TTP; PHH. COMPARISON: None 08/12/2021.. TECHNIQUE: Multiple thin axial images were obtained through the temporal bones and internal auditory canals. Additional coronal reformatted images were obtained. No IV contrast was utilized. STENVER a nd POSCHL views were created on a separate work station. CT Contrast: Contrast used: mL of , none. FINDINGS: Right Temporal Bone: External Ear: The external auditory canal is unremarkable, The tympanic membrane is present and unrem arkable. Middle Ear: The ossicles demonstrate a normal appearance. Prussak's space is clear and the scutum i s intact. There is no evidence of osseous erosion and the tegmen tympani is intact. Inner Ear: Cochlea, vestibule and semi circular canals are unremarkable. No evidence of carotid daniel l dehiscence. Two and a half turns of the cochlea are identified. The vestibular aqueduct is not enl arged. Mastoid Air Cells: The mastoid air cells are clear. The tegmen mastoideum is intact. The aditus ad an trum is clear. Internal Auditory Canal: The internal auditory canal is unremarkable. Left Temporal Bone: External Ear: The external auditory canal demonstrates some soft tissue debris throughout the canal., The tympanic membrane is present and has some debris along the membrane.. Middle Ear: The ossicles demonstrate a normal appearance. Prussak's space is opacified, the scutum is intact. There is no evidence of osseous erosion and the tegmen tympani is intact. Inner Ear: Cochlea, vestibule and semi circular canals are unremarkable. No evidence of carotid daniel l dehiscence. Two and a half turns of the cochlea are identified. The vestibular aqueduct is not enl arged. Mastoid Air Cells: Erosion of multiple mastoid air cells with opacification of a few air cells. The o bstruction extends towards the soft tissues.. The tegmen mastoideum is intact. The aditus ad antrum i s partially opacified.. Internal Auditory Canal: The internal auditory canal is unremarkable. IMPRESSION: Evidence of otomastoiditis which has progressed from 08/12/2021. * Left mastoid air cell effusion which is new and osseous erosion which is similar to CT CT from 07/24. Findings likely represent postsurgical change with superimposed new acute infection. * Debris within the external auditory canal and on the tympanic membrane. * Opacification within the middle ear predominantly the epitympanum and hypotympanum with opacificat ion of Prussak's space.
[2023-03-02 19:23] LABS: Chloride 107 mmol/L (98-107)
[2023-03-02 19:27] LABS: ALT 23 U/L (4-34); AST 21 U/L (14-36); African American GFR (CKD) >90 (>60 ml/min/1.73 sqM); Albumin 4.1 g/dL (3.5-5.0); Alkaline Phosphatase 108 U/L (38-126); Anion Gap 8 mmol/L; Blood Urea Nitrogen 11 mg/dL (7-17); C Reactive Protein 0.6 mg/dL (<1.0); Calcium 9.6 mg/dL (8.4-10.2); Carbon Dioxide 25 mmol/L (22-30); Glucose 87 mg/dL (74-99); Non-African American GFR(CKD) >90 (>60 ml/min/1.73 sqM); Potassium 4.5 mmol/L (3.5-5.1); Sodium 140 mmol/L (137-145); Total Bilirubin 0.3 mg/dL (0.2-1.3); Total Protein 7.2 g/dL (6.3-8.2)
[2023-03-02] MEDS ORDERED: CLINDAMYCIN 600 MG in DEXTROSE 5% IN WATER 50 ML IVPB STA ×2 (19:54)
[2023-03-02 20:26] LABS: Appearance,Urine Clear (Clear); Bilirubin,Urine Negative (Negative); Blood,Urine Negative (Negative); Color,Urine Colorless; Glucose,Urine (UA) Negative (Negative); Ketones,Urine Negative (Negative); Leukocyte Esterase,Urine Negative (Negative); Nitrite,Urine Negative (Negative); Protein,Urine Negative (Negative); Urobilinogen,Urine <2.0 mg/dL (<2.0)
[2023-03-02] MEDS ORDERED: NALOXONE 0.4 MG/ML 1 ML VIAL IV PRN (20:26)
[2023-03-02] MEDS: SODIUM CHLORIDE 0.9% 1,000 ML IV SCH (20:48)
[2023-03-02] MEDS: MORPHINE SULFATE 4 MG/ML SYRINGE IV PRN (21:02)
[2023-03-03] MEDS: MORPHINE SULFATE 4 MG/ML SYRINGE IV PRN ×5 (01:07→20:28)
[2023-03-03] MEDS: ACETAMINOPHEN TAB 325 MG TAB PO PRN (09:02)
[2023-03-03] MEDS ORDERED: ALBUTEROL NEBULIZED 2.5 MG/3 ML INHALATION PRN (10:24)
[2023-03-03] MEDS: SODIUM CHLORIDE 0.9% 1,000 ML IV SCH ×4 (10:29→22:54)
[2023-03-03] MEDS ORDERED: VANCOMYCIN IV PER PHARMACY 1 EACH MISC MISCELLANE PRN (11:55)
[2023-03-03] MEDS ORDERED: VANCOMYCIN 1,250 MG in SODIUM CHLORIDE 0.9% 250 ML IVPB ONE (12:15)
[2023-03-03] MEDS: CEFEPIME 2 GM in SODIUM CHLORIDE 0.9% 100 ML IVPB SCH ×2 (13:21→20:29)
[2023-03-03] MEDS: HEPARIN SODIUM,PORCINE 5,000 UNIT/ML 1 ML VIAL SQ SCH (18:26)
[2023-03-03] MEDS: ALPRAZolam 1 MG TAB PO SCH (21:19)
[2023-03-03] MEDS: ONDANSETRON 4 MG/2 ML VIAL IVP PRN (21:22)
[2023-03-03] MEDS: VANCOMYCIN 1,000 MG in SODIUM CHLORIDE 0.9% 250 ML IVPB SCH (21:57)
--- NOTE | 2023-03-03 22:01 | P.HPIM ---
History of Present Illness H&P Date: 03/03/23 Chief Complaint: Left ear pain and discharge Patient is a 53-year-old female with a past medical history of hypertension, asthma, currently everyday smoker, anxiety/depression prior history of left mastoiditis with left otitis s/p surgery and loss of tympanic membrane, migraine headaches and chronic low back pain and prior history of gastric bypass surgery 2009 presents to ER with complaints of left ear pain and serous discharge along with pain over the mastoid region. Patient was seen at urgent care facility and was prescribed ciprofloxacin eardrops and was recommended to follow-up with the ENT. Patient had a follow-up appointment with ENT and was recommended not to use eardrops due to lack of eardrum. Denies any fever. No chills. No complaints of chest pain or shortness of breath and no headache. No dizziness or lightheadedness. CT head/mastoid showed evidence of otomastoiditis which has progressed up from 08/12/2021 Left mastoid air cell effusion which is new and osseous erosion which is similar to CT from 08/12/2021 findings may represent postsurgical change with superimposed new acute infection. Debris is within the external auditory canal and on the tympanic membrane. Opacification within the middle ear predominantly the AP tympanogram and hypotympanum with opacification of Prussak space. Laboratory pressure WBC 14.5 hemoglobin 13.5 and platelets 479 Other laboratory reviewed. Urinalysis is negative for infection. Review of Systems Constitutional: Patient denies any fever or chills . no Generalized weakness. Abdomen: Patient denied any nausea or vomiting or abd. pain Cardiovascular: Patient denies any chest pain or short of breath no palpitations. Respiratory: patient denied any cough . no sputum production. No shortness of breath Neurologic: Patient denied any numbness or tingling headache. Musculoskeletal: Patient denies any complaints of joint swelling or deformity. Skin: Negative Psychiatric: Negative Endocrine: No heat or cold intolerance. No recent weight gain. Genitourinary: No dysuria or hematuria. All other 14 point ROS negative except the above Past Medical History Past Medical History: No Reported History, Asthma, Hypertension Additional Past Medical History / Comment(s): Past L mastoiditis with L otitis/vertigo and falls-had surgery and no longer a problem, nephrolithiasis, migraines, past chronic low back pain but pt states not much of a problem anymore, DJD, hypoglycemia, History of Any Multi-Drug Resistant Organisms: None Reported Past Surgical History: Adenoidectomy, Appendectomy, Bariatric Surgery, Breast Surgery, Cholecystectomy, Ear Surgery, Hernia Repair, Hysterectomy, Orthopedic Surgery, Tonsillectomy, Tubal Ligation Additional Past Surgical History / Comment(s): Gastric bypass in 2008 with weight loss of 170 pounds, panniculectomy, L ear perforation with surgery, R knee open surgery as a child and x 2 arthroscopicL knee surgeries, R breast bx- benign, 2 umbilical hernias and 1 diaphragmatic hernia repairs, colonoscopy, mastoidectomy with Dr. Valderrama at [facility]. Past Anesthesia/Blood Transfusion Reactions: No Reported Reaction Past Psychological History: Anxiety, Depression Smoking Status: Current every day smoker Past Alcohol Use History: None Reported Past Drug Use History: None Reported - Past Family History Father Additional Family Medical History / Comment(s): Father from a aneurysm at the age of 72 yrs. he also had history of prostate cancer, aortic aneurysm, renal artery aneurysm. Mother Family Medical History: COPD Additional Family Medical History / Comment(s): Mother is 75 yrs old and has emphysema and hypertension. Brother(s) Additional Family Medical History / Comment(s): She has one brother with hypertension and plaque psoriasis. Sister(s) Additional Family Medical History / Comment(s): She has one sister with hypertension. Son(s) Additional Family Medical History / Comment(s): Patient has 3 children, one boy with ureteral obstruction and renal failure. 2 girls that are healthy without major medical problems. Medications and Allergies Home Medications Medication Instructions Recorded Confirmed Type ALPRAZolam [Xanax] 1 mg PO HS 01/20/19 03/02/23 History Losartan Potassium 100 mg PO DAILY 08/10/20 03/02/23 History Albuterol Sulfate [Proair Hfa] 2 puff INHALATION RT-Q6H PRN 03/02/23 03/02/23 History Allergies Allergy/AdvReac Type Severity Reaction Status Date / Time Penicillins Allergy Anaphylaxis Verified 03/02/23 20:11 sumatriptan [From Imitrex] Allergy Unknown Verified 03/02/23 20:11 sumatriptan succinate Allergy Unknown Verified 03/02/23 20:11 [From Imitrex] NSAIDS (Non-Steroidal AdvReac Unknown Verified 03/02/23 20:11 Anti-Inflamma Physical Exam Vitals: Vital Signs Temp Pulse Pulse Resp BP BP Pulse Ox 03/03/23 08:51 97.9 F 68 16 106/80 03/03/23 05:58 73 16 106/73 93 L 03/03/23 04:30 16 03/03/23 02:32 66 16 109/70 96 03/03/23 00:00 80 16 110/76 98 03/02/23 21:01 98.4 F 75 16 113/75 98 03/02/23 17:06 97.9 F 78 18 111/79 98 Intake and Output 03/02/23 03/03/23 03/03/23 22:59 06:59 14:59 Other: Weight 68.039 kg PHYSICAL EXAMINATION: Patient is lying in the bed comfortably, no acute distress, awake alert and oriented.. HEENT: Normocephalic. Neck is supple. Pupils reactive. Nostrils clear. Oral cavity is moist. Tenderness over left mastoid process. Neck reveals no JVD, carotid bruits, or thyromegaly. CHEST EXAMINATION: Trachea is central. Symmetrical expansion. Lung garza clear to auscultation and percussion. CARDIAC: Normal S1, S2 with no gallops. No murmurs ABDOMEN: Soft. Bowel sounds present. Nontender. No organomegaly. No abdominal bruits. Extremities: reveal no edema. No clubbing or cyanosis Neurologically awake, alert, oriented x3 with well-coordinated movements. No focal deficits noted Skin: No rash or skin lesions. Psychiatric: Coperative. Nonsuicidal, Musculoskeletal: No joint swelling or deformity. Normal range of motion. Results CBC & Chem 7: 03/02/23 18:47 03/02/23 18:47 Labs: Abnormal Lab Results - Last 24 Hours (Table) 03/02/23 Range/Units 18:47 WBC 14.5 H (3.8-10.6) k/uL Plt Count 479 H (150-450) k/uL Neutrophils # 9.6 H (1.3-7.7) k/uL Thrombosis Risk Factor Assmnt - DVT/VTE Prophylaxis DVT/VTE Prophylaxis: Pharmacologic Prophylaxis ordered Assessment and Plan Assessment: Acute left mastoiditis with CT findings of new mastoid air cell effusion with superimposed acute infection. Prior history of left mastoiditis and glottitis and also loss of tympanic membrane. Hypertension Asthma Anxiety/depression Currently everyday smoker History of chronic low back pain DVT prophylaxis with heparin subcu Plan: Patient will be continued on IV antibiotics in the form of clindamycin. Donis nue to vancomycin and cefepime as per ID recommendations. Follow-up culture reports. Continue pain management. Continue with IV hydration and follow-up CBC and BMP tomorrow. Continue to follow closely. ENT and ID is on board. Time with Patient: Greater than 30
[2023-03-04] MEDS: HEPARIN SODIUM,PORCINE 5,000 UNIT/ML 1 ML VIAL SQ SCH ×3 (00:38→16:09)
[2023-03-04] MEDS: MORPHINE SULFATE 4 MG/ML SYRINGE IV PRN ×6 (00:38→21:44)
[2023-03-04] MEDS: CEFEPIME 2 GM in SODIUM CHLORIDE 0.9% 100 ML IVPB SCH ×3 (03:56→21:41)
[2023-03-04] MEDS: VANCOMYCIN 1,000 MG in SODIUM CHLORIDE 0.9% 250 ML IVPB SCH ×3 (04:02→21:51)
[2023-03-04] MEDS: ONDANSETRON 4 MG/2 ML VIAL IVP PRN ×2 (05:14→16:09)
[2023-03-04 06:54] LABS: Basophils % (A) 0 %; Eosinophils # (A) 0.4 k/uL (0-0.7); Eosinophils % (A) 3 %; HCT 33.8 % (34.0-46.0); HGB 10.7 gm/dL (11.4-16.0); Hypochromasia Slight; Lymphocytes # (A) 3.2 k/uL (1.0-4.8); Lymphocytes % (A) 28 %; MCH 30.6 pg (25.0-35.0); MCHC 31.5 g/dL (31.0-37.0); MCV 97.1 fL (80.0-100.0); Mean Platelet Volume 7.2; Monocytes # (A) 0.4 k/uL (0-1.0); Monocytes % (A) 3 %; Neutrophils # (A) 7.2 k/uL (1.3-7.7); Neutrophils % (A) 64 %; Platelet Count 418 k/uL (150-450); RBC 3.48 m/uL (3.80-5.40); RDW 15.6 % (11.5-15.5); WBC 11.2 k/uL (3.8-10.6)
--- NOTE | 2023-03-04 07:11 | P.CONS ---
History of Present Illness - Reason for Consult Consult date: 03/03/23 Mastoiditis Requesting physician: Cleopatra Argueta - Chief Complaint Pain and drainage from the left ear x few days - History of Present Illness Patient is a 53-year-old female with a past medical history significant for asthma and hypertension patient did have a previous history of left-sided mastoiditis requiring surgery and antibiotic therapy, patient was doing okay until about few days ago when the patient started noticing having drainage from the left ear drainage was mild in intensity mostly whitish with yellow tinge no blood patient also complaining of pain to the left ear describing it to be more of a stabbing intensity almost 10 out of 10 without any radiation patient has felt nauseated but no vomiting and did have some chills with the symptoms the patient presented to hospital on arrival to the ER the patient was afebrile and no fever has been recorded subsequently patient did have white count of 14.5 with a left shift kidney function was normal liver exams are normal UA was negative blood cultures obtained which are currently pending patient did have a CT of the head and mastoid area evidence of also otomastoiditis has progressed from a previous CT that is within the external auditory canal and on the tympanic membrane, infectious disease was consulted for further management of antibiotic therapy Review of Systems Positive point and negatives has been mentioned in the HPI, complete review of systems was performed and all other systems are negative Past Medical History Past Medical History: No Reported History, Asthma, Hypertension Additional Past Medical History / Comment(s): Past L mastoiditis with L otitis/vertigo and falls-had surgery and no longer a problem, nephrolithiasis, migraines, past chronic low back pain but pt states not much of a problem anymore, DJD, hypoglycemia, History of Any Multi-Drug Resistant Organisms: None Reported Past Surgical History: Adenoidectomy, Appendectomy, Bariatric Surgery, Breast Surgery, Cholecystectomy, Ear Surgery, Hernia Repair, Hysterectomy, Orthopedic Surgery, Tonsillectomy, Tubal Ligation Additional Past Surgical History / Comment(s): Gastric bypass in 2008 with weight loss of 170 pounds, panniculectomy, L ear perforation with surgery, R knee open surgery as a child and x 2 arthroscopicL knee surgeries, R breast bx- benign, 2 umbilical hernias and 1 diaphragmatic hernia repairs, colonoscopy, mastoidectomy with Dr. Valderrama at [facility]. Past Anesthesia/Blood Transfusion Reactions: No Reported Reaction Past Psychological History: Anxiety, Depression Smoking Status: Current every day smoker Past Alcohol Use History: None Reported Past Drug Use History: None Reported - Past Family History Father Additional Family Medical History / Comment(s): Father from a aneurysm at the age of 72 yrs. he also had history of prostate cancer, aortic aneurysm, renal artery aneurysm. Mother Family Medical History: COPD Additional Family Medical History / Comment(s): Mother is 75 yrs old and has emphysema and hypertension. Brother(s) Additional Family Medical History / Comment(s): She has one brother with hypertension and plaque psoriasis. Sister(s) Additional Family Medical History / Comment(s): She has one sister with hypertension. Son(s) Additional Family Medical History / Comment(s): Patient has 3 children, one boy with ureteral obstruction and renal failure. 2 girls that are healthy without major medical problems. Medications and Allergies Home Medications Medication Instructions Recorded Confirmed Type ALPRAZolam [Xanax] 1 mg PO HS 01/20/19 03/02/23 History Losartan Potassium 100 mg PO DAILY 08/10/20 03/02/23 History Albuterol Sulfate [Proair Hfa] 2 puff INHALATION RT-Q6H PRN 03/02/23 03/02/23 H istory Allergies Allergy/AdvReac Type Severity Reaction Status Date / Time Penicillins Allergy Anaphylaxis Verified 03/02/23 20:11 sumatriptan [From Imitrex] Allergy Unknown Verified 03/02/23 20:11 sumatriptan succinate Allergy Unknown Verified 03/02/23 20:11 [From Imitrex] NSAIDS (Non-Steroidal AdvReac Unknown Verified 03/02/23 20:11 Anti-Inflamma Physical Exam Vitals: Vital Signs Temp Pulse Pulse Resp BP BP Pulse Ox 03/03/23 08:51 97.9 F 68 16 106/80 03/03/23 05:58 73 16 106/73 93 L 03/03/23 04:30 16 03/03/23 02:32 66 16 109/70 96 03/03/23 00:00 80 16 110/76 98 03/02/23 21:01 98.4 F 75 16 113/75 98 03/02/23 17:06 97.9 F 78 18 111/79 98 Intake and Output 03/02/23 03/03/23 03/03/23 22:59 06:59 14:59 Other: Weight 68.039 kg GENERAL DESCRIPTION: Middle-aged female lying in bed, no distress. No tachypnea or accessory muscle of respiration use. HEENT: Shows Pallor , no scleral icterus. Oral mucous membrane is dry. No pharyngeal erythema or thrush, left ear tympanic membrane ruptured with some drainage NECK: Trachea central, no thyromegaly. LUNGS: Unlabored breathing. Clear to auscultation anteriorly. No wheeze or crackle. HEART: S1, S2, regular rate and rhythm. No loud murmur ABDOMEN: Soft, no tenderness , EXTREMITIES: No edema of feet. SKIN: No rash, no masses palpable. NEUROLOGICAL: The patient is awake, alert, oriented x3, mood and affect normal. Results CBC & Chem 7: 03/04/23 06:41 03/04/23 06:41 Labs: Abnormal Lab Results - Last 24 Hours (Table) 03/02/23 Range/Units 18:47 WBC 14.5 H (3.8-10.6) k/uL Plt Count 479 H (150-450) k/uL Neutrophils # 9.6 H (1.3-7.7) k/uL Assessment and Plan (1) Mastoiditis Current Visit: Yes Status: Acute Code(s): H70.90 - UNSPECIFIED MASTOIDITIS, UNSPECIFIED EAR SNOMED Code(s): 12975456 Plan: 1patient presented to hospital with left ear pain drainage in this patient who do have a history of mastoiditis requiring surgery in the past now with abnormal CT elevated white count concerning for another episode of mastoiditis. 2patient with a penicillin allergy that will limit the number of antibiotics safe to use however patient mention she has taken Keflex without any problem 3await ENT evaluation and cultures are will help determine the discharge antibiotics 4we will check inflammatory markers 5we will start the patient on vancomycin pharmacy to dose and cefepime while waiting for the work-up to be completed We will follow on clinical condition and cultures to further adjust medication if needed Thank you for this consultation we will follow the patient along with you Dictation was produced using [employer] dictation software. please excuse any grammatical, word or spelling errors. Time with Patient: Greater than 30
[2023-03-04] MEDS: FAMOTIDINE 20 MG/2 ML VIAL IV SCH (08:45)
[2023-03-04 11:10] LABS: African American GFR (CKD) >90 (>60 ml/min/1.73 sqM); Anion Gap 6 mmol/L; Blood Urea Nitrogen 7 mg/dL (7-17); C Reactive Protein 0.5 mg/dL (<1.0); Calcium 8.5 mg/dL (8.4-10.2); Carbon Dioxide 22 mmol/L (22-30); Chloride 112 mmol/L (98-107); Glucose 95 mg/dL (74-99); Non-African American GFR(CKD) >90 (>60 ml/min/1.73 sqM); Sodium 140 mmol/L (137-145)
[2023-03-04] MEDS: SODIUM CHLORIDE 0.9% 1,000 ML IV SCH (12:19)
[2023-03-04] MEDS: ACETAMINOPHEN TAB 325 MG TAB PO PRN (12:26)
--- NOTE | 2023-03-04 17:19 | P.PN ---
Subjective Progress Note Date: 03/04/23 Principal diagnosis: Left-sided mastoiditis Patient is a 53-year-old female with a past medical history significant for asthma and hypertension patient did have a previous history of left-sided mastoiditis requiring surgery and antibiotic therapy, presenting to the hospital with left ear pain and drainage that has been going on for the last few days, patient did have abnormal CT and elevated white count concerning for left-sided mastoiditis On today's evaluation that is 03/04/2023, the patient denies any fever or any chills, the patient is breathing comfortably on room air and no need for supplemental oxygen, the patient denies chest pain or cough, patient denies nausea/vomiting and no diarrhea has been reported, patient is still complaining of pain and drainage from the left ear. Patient went slightly down to 11.2 and creatinine 0.50, blood cultures are pe nding Objective - Vital Signs Vital signs: Vital Signs Temp 97.9 F 03/04/23 15:21 Pulse 82 03/04/23 15:21 Resp 16 03/04/23 15:21 BP 111/78 03/04/23 15:21 Pulse Ox 100 03/04/23 15:21 FiO2 Intake & Output 03/03/23 03/04/23 03/04/23 18:59 06:59 18:59 Intake Total 1725 Balance 1725 Weight 68.039 kg Intake: Intake, IV Titration 1725 Amount Cefepime 2 gm In Sodium 200 Chloride 0.9% 100 ml @ 25 mls/hr IVPB Q8H YELENA Rx#: [id number] Sodium Chloride 0.9% 1, 1025 000 ml @ 75 mls/hr IV . [id number] YELENA Rx#:[id number] Vancomycin 1,000 mg In 500 Sodium Chloride 0.9% 250 ml @ 125 mls/hr IVPB Q8H YELENA Rx#:[id number] Other: Voiding Method Toilet Toilet # Voids 4 - Exam GENERAL DESCRIPTION: Middle-age female up in the chair in no distress RESPIRATORY SYSTEM: Unlabored breathing , decreased breath sounds at bases HEART: S1 S2 regular rate and rhythm , ABDOMEN: Soft , no tenderness EXTREMITIES: No edema feet - Labs CBC & Chem 7: 03/04/23 06:41 03/04/23 06:41 Labs: Abnormal Lab Results - Last 24 Hours (Table) 03/04/23 03/04/23 Range/Units 06:41 06:41 WBC 11.2 H (3.8-10.6) k/uL RBC 3.48 L (3.80-5.40) m/uL Hgb 10.7 L (11.4-16.0) gm/dL Hct 33.8 L (34.0-46.0) % RDW 15.6 H (11.5-15.5) % Chloride 112 H (98-107) mmol/L Creatinine 0.50 L (0.52-1.04) mg/dL Microbiology - Last 24 Hours (Table) 03/02/23 20:30 Blood Culture - Preliminary Blood 03/02/23 20:45 Blood Culture - Preliminary Blood Assessment and Plan (1) Mastoiditis Current Visit: Yes Status: Acute Code(s): H70.90 - UNSPECIFIED MASTOIDITIS, UNSPECIFIED EAR SNOMED Code(s): 49267063 Plan: 1patient presented to hospital with left ear pain drainage in this patient who do have a history of mastoiditis requiring surgery in the past now with abnormal CT elevated white count concerning for another episode of mastoiditis. 2patient with a penicillin allergy that will limit the number of antibiotics safe to use however patient mention she has taken Keflex without any problem 3await ENT evaluation and cultures as that will will help determine the discharge antibiotics 4we will continue the patient patient on vancomycin pharmacy to dose and cefe pime while waiting for the work-up to be completed Questions and concerns were answered Dictation was produced using [employer] dictation software. please excuse any grammatical, word or spelling errors. Time with Patient: Less than 30
[2023-03-04] MEDS ORDERED: VANCOMYCIN TROUGH DUE 1 EACH MISC MISCELLANE ONE (20:00)
[2023-03-04] MEDS: ALPRAZolam 1 MG TAB PO SCH (21:41)
[2023-03-04] MEDS: CIPROFLOXACIN-DEXAMETH 0.3-0.1% DROPS 7.5 ML BTL LEFT EAR SCH (21:45)
[2023-03-05] MEDS: HEPARIN SODIUM,PORCINE 5,000 UNIT/ML 1 ML VIAL SQ SCH ×4 (00:45→23:36)
[2023-03-05] MEDS: ACETAMINOPHEN TAB 325 MG TAB PO PRN (00:48)
[2023-03-05] MEDS: SODIUM CHLORIDE 0.9% 1,000 ML IV SCH ×2 (00:52→16:10)
--- NOTE | 2023-03-05 01:02 | CONS ---
CONSULTATION REASON FOR CONSULTATION: Left mastoiditis. HISTORY OF PRESENT ILLNESS: This is a 53-year-old white female, who for 4 days now has developed acute onset of left ear drainage and pain. She has a long history of ear issues on the left including left mastoiditis, developed in 2011, having had tympanomastoidectomy on the left in 2013 with failed tympanoplasties and ossiculoplasty and therefore loss of hearing in this ear since then. She generally does not have much exposure of any pain or drainage, however, about 4 days ago, she developed acute onset of purulent discharge from the left ear and pain in the ear and even some in the postauricular area that Tylenol was not controlling. She came to the ER yesterday for evaluation and was evaluated. She was diagnosed with mastoiditis based on the signs, symptoms, and CT. CT showed debris in the ear canal on the left. It does state the ossicles were normal, however, this is unlikely given her previous history opacified and no bony erosion was noted other than the mastoid air cells or opacification of a few air cells. Left mastoid CT from 2021, likely postsurgical change. The patient was admitted and placed on IV antibiotics. She had gone to the urgent care prior to the admission to the ER and was prescribed otic drops, but apparently her ENT had told her not to use these but she does not know why not. She is currently on 2 different IV antibiotics empirically and they are written by the Infectious Disease sr. consultant. Again, she does not have any serviceable hearing in the left ear and has not since her surgery. The right ear has been fine. She has had no fever, chills, or headaches. PAST MEDICAL HISTORY: Asthma, hypertension, history of kidney stones, migraines, low back pain. PAST SURGICAL HISTORY: She had adenotonsillectomy in childhood, appendectomy, bariatric surgery, ear surgery as above, herniorrhaphy, hysterectomy, knee surgery, umbilical herniorrhaphy. SOCIAL HISTORY: She does smoke. Does not drink alcohol. MEDICATIONS AT HOME: 1. Xanax. 2. Losartan. 3. Albuterol. ALLERGIES: Penicillin, Imitrex. REVIEW OF SYSTEMS: FAMILY HISTORY: History of aneurysm, prostate cancer, COPD. PHYSICAL EXAMINATION: VITAL SIGNS: She is afebrile. GENERAL: Well-developed adult white female, in no acute distress. She is conversant, awake, and oriented x3. HEENT: Head is normocephalic and atraumatic. Eyes, extraocular movements are intact. Ears, on the right, canal is clear. Tympanic membranes are unremarkable and mobile. On the left, in the canal, there is a [id number] purulence which is yellow, this was cultured. The tympanic membrane shows a near total perforation with purulence. Minimal erythema of the middle ear mucosa. No mastoid or tragal tenderness on either side. Nose shows no drainage or obstruction. Mouth and throat show no abnormal masses or lesions. NECK: Supple without adenopathy or tenderness. ASSESSMENT: 1. Left acute otitis media with perforation. 2. Left chronic mastoiditis. PLAN: The patient will continue on her empiric IV antibiotics presently. However, a culture was obtained today by the nursing staff for this and we will await culture results. Her further IV antibiotics and/or discharge oral antibiotics would be based on culture and the broad-spectrum coverage to cover Pseudomonas and potentially Staph aureus. I will add antibiotic otic drops as this is indicated with this type of infection and I did review this with the patient. Keep left ear dry. Discharge disposition will be dependent on her status and improvement with symptoms, which may be another day or 2 and then likely to be discharged on oral antibiotics and otic drops. She has a followup appointment already by the family 5 days as an outpatient and she should keep this appointment. She may need further medical and/even more further surgical treatment including revision tympanomastoidectomy in the future if she is not improving and she does understand this and especially if there is any evidence of cholesteatoma . If there are questions or concerns, please feel free to contact me. MMODL / IJN: [id number] /
[2023-03-05] MEDS: MORPHINE SULFATE 4 MG/ML SYRINGE IV PRN ×6 (01:49→23:37)
[2023-03-05] MEDS: CEFEPIME 2 GM in SODIUM CHLORIDE 0.9% 100 ML IVPB SCH ×3 (05:06→19:45)
[2023-03-05] MEDS: VANCOMYCIN 1,000 MG in SODIUM CHLORIDE 0.9% 250 ML IVPB SCH ×3 (05:07→22:03)
[2023-03-05 07:40] LABS: Basophils % (A) 0 %; Eosinophils # (A) 0.3 k/uL (0-0.7); Eosinophils % (A) 3 %; HCT 32.9 % (34.0-46.0); HGB 10.5 gm/dL (11.4-16.0); Hypochromasia Slight; Lymphocytes # (A) 3.1 k/uL (1.0-4.8); Lymphocytes % (A) 32 %; MCH 31.1 pg (25.0-35.0); MCHC 31.8 g/dL (31.0-37.0); MCV 97.9 fL (80.0-100.0); Monocytes # (A) 0.3 k/uL (0-1.0); Monocytes % (A) 3 %; Neutrophils # (A) 5.8 k/uL (1.3-7.7); Neutrophils % (A) 61 %; Platelet Count 430 k/uL (150-450); RBC 3.36 m/uL (3.80-5.40); RDW 15.6 % (11.5-15.5); WBC 9.6 k/uL (3.8-10.6)
[2023-03-05] MEDS: CIPROFLOXACIN-DEXAMETH 0.3-0.1% DROPS 7.5 ML BTL LEFT EAR SCH ×2 (08:20→19:45)
[2023-03-05] MEDS: FAMOTIDINE 20 MG/2 ML VIAL IV SCH (08:22)
--- NOTE | 2023-03-05 10:40 | P.PN ---
Subjective Patient is a 53-year-old female with a past medical history of hypertension, asthma, currently everyday smoker, anxiety/depression prior history of left mastoiditis with left otitis s/p surgery and loss of tympanic membrane, migraine headaches and chronic low back pain and prior history of gastric bypass surgery 2008 presents to ER with complaints of left ear pain and serous discharge along with pain over the mastoid region. Patient was seen at urgent care facility and was prescribed ciprofloxacin eardrops and was recommended to follow-up with the ENT. Patient had a follow-up appointment with ENT and was recommended not to use eardrops due to lack of eardrum. Denies any fever. No chills. No complaints of chest pain or shortness of tamika ath and no headache. No dizziness or lightheadedness. CT head/mastoid showed evidence of otomastoiditis which has progressed up from 08/12/2021 Left mastoid air cell effusion which is new and osseous erosion which is similar to CT from 08/12/2021 findings may represent postsurgical change with superi mposed new acute infection. Debris is within the external auditory canal and on the tympanic membrane. Opacification within the middle ear predominantly the AP tympanogram and hypotympanum with opacification of [place] space. Laboratory pressure WBC 14.5 hemoglobin 13.5 and platelets 479 Other laboratory reviewed. Urinalysis is negative for infection. 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 Zimmer in [place], and she has appointment with him this coming Friday 03/09 per Patient She presents with worsening pain around her left ear and behind it was some yellowish discharge and fullness in the area for the last 5 days. 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 No other new complaint. Patient currently on cefepime and IV vancomycin and normal saline at 50 mL per hour, medication side effect are explained and discussed with patient in detail she agrees to continue on current treatment Objective - Vital Signs Vital signs: Vital Signs Temp 98.3 F 03/04/23 07:41 Pulse 82 03/04/23 07:41 Resp 15 03/04/23 01:32 BP 91/61 03/04/23 07:41 Pulse Ox 93 L 03/04/23 07:41 FiO2 Intake & Output 03/03/23 03/04/23 03/04/23 18:59 06:59 18:59 Intake Total 1725 Balance 1725 Weight 68.039 kg Intake: Intake, IV Titration 1725 Amount Cefepime 2 gm In Sodium 200 Chloride 0.9% 100 ml @ 25 mls/hr IVPB Q8H YELENA Rx#: [id number] Sodium Chloride 0.9% 1, 1025 000 ml @ 75 mls/hr IV . [id number] YELENA Rx#:[id number] Vancomycin 1,000 mg In 500 Sodium Chloride 0.9% 250 ml @ 125 mls/hr IVPB Q8H YELENA Rx#:[id number] Other: Voiding Method Toilet # Voids 4 - Exam GENERAL: The patient is alert and oriented x3, not in any acute distress. Well developed, well nourished. -HEENT: Pupils are round and equally reacting to light. EOMI. No scleral icterus. No conjunctival pallor. Normocephalic, atraumatic. No pharyngeal erythe ma. No thyromegaly. Left ear, yellowish discharge with fullness and tenderness behind and below the left ear auricle CARDIOVASCULAR: S1 and S2 present. No murmurs, rubs, or gallops. PULMONARY: Chest is clear to auscultation, no wheezing , no crackles. ABDOMEN: Soft, nontender, nondistended, normoactive bowel sounds. No palpable organomegaly. MUSCULOSKELETAL: No joint swelling or deformity. EXTREMITIES: No cyanosis, clubbing, or pedal edema. NEUROLOGICAL: Gross neurological examination did not reveal any focal deficits. SKIN: No rashes. no petechiae. - Labs CBC & Chem 7: 03/05/23 07:23 03/04/23 06:41 Labs: Abnormal Lab Results - Last 24 Hours (Table) 03/04/23 Range/Units 06:41 WBC 11.2 H (3.8-10.6) k/uL RBC 3.48 L (3.80-5.40) m/uL Hgb 10.7 L (11.4-16.0) gm/dL Hct 33.8 L (34.0-46.0) % RDW 15.6 H (11.5-15.5) % Microbiology - Last 24 Hours (Table) 03/02/23 20:30 Blood Culture - Preliminary Blood 03/02/23 20:45 Blood Culture - Preliminary Blood Assessment and Plan Assessment: Acute left mastoiditis with CT findings of new mastoid air cell effusion with superimposed acute infection. Prior history of left mastoiditis and glottitis and also loss of tympanic membrane. Hypertension Asthma Anxiety/depression Currently everyday smoker History of chronic low back pain DVT prophylaxis with heparin subcu Plan: Continue with antibiotic from infectious disease to the brachial ENT consult to evaluate the patient Follow-up culture results Labs and medication were reviewed.. Continue same treatment. Continue with symptomatic treatment. Resume home medication. Monitor labs and vitals. DVT and GI prophylaxis. Further recommendations as per clinical course of the patient DVT prophylaxis: Subcutaneous heparin GI Prophylaxis: Pepcid Prognosis is guarded
[2023-03-05] MEDS ORDERED: HYDROcodone/APAP 5-325MG 1 EACH TAB PO STA (13:31)
--- NOTE | 2023-03-05 13:57 | P.PN ---
Subjective Patient is a 53-year-old female with a past medical history of hypertension, asthma, currently everyday smoker, anxiety/depression prior history of left mastoiditis with left otitis s/p surgery and loss of tympanic membrane, migraine headaches and chronic low back pain and prior history of gastric bypass surgery 2008 presents to ER with complaints of left ear pain and serous discharge along with pain over the mastoid region. Patient was seen at urgent care facility and was prescribed ciprofloxacin eardrops and was recommended to follow-up with the ENT. Patient had a follow-up appointment with ENT and was recommended not to use eardrops due to lack of eardrum. Denies any fever. No chills. No complaints of chest pain or shortness of tamika ath and no headache. No dizziness or lightheadedness. CT head/mastoid showed evidence of otomastoiditis which has progressed up from 08/12/2021 Left mastoid air cell effusion which is new and osseous erosion which is similar to CT from 08/12/2021 findings may represent postsurgical change with superi mposed new acute infection. Debris is within the external auditory canal and on the tympanic membrane. Opacification within the middle ear predominantly the AP tympanogram and hypotympanum with opacification of [place] space. Laboratory pressure WBC 14.5 hemoglobin 13.5 and platelets 479 Other laboratory reviewed. Urinalysis is negative for infection. 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 Zimmer in [place], and she has appointment with him this coming Friday 03/09 per Patient She presents with worsening pain around her left ear and behind it was some yellowish discharge and fullness in the area for the last 5 days. 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 No other new complaint. Patient currently on cefepime and IV vancomycin and normal saline at 50 mL per hour, medication side effect are explained and discussed with patient in detail she agrees to continue on current treatment 03/05/2023 Patient still complains from pain behind the left ear however the swelling and tenderness are better no erythema. This discharge. Patient is asking when she can be discharged but she agrees to stay to finish her inpatient course and follow-up culture results. ENT and infectious disease team already on the case. Also patient was started on Cipro eardrops Patient continued on IV morphine and [place] Objective - Vital Signs Vital signs: Vital Signs Temp 98.0 F 03/05/23 07:04 Pulse 85 03/05/23 07:04 Resp 18 03/05/23 07:04 BP 103/71 03/05/23 07:04 Pulse Ox 95 03/05/23 07:04 FiO2 Intake & Output 03/04/23 03/05/23 03/05/23 18:59 06:59 18:59 Other: Voiding Method Toilet # Voids 2 - Exam GENERAL: The patient is alert and oriented x3, not in any acute distress. Well developed, well nourished. -HEENT: Pupils are round and equally reacting to light. EOMI. No scleral icterus. No conjunctival pallor. Normocephalic, atraumatic. No pharyngeal erythema. No thyromegaly. Left ear, yellowish discharge with fullness and tenderness behind and below the left ear auricle CARDIOVASCULAR: S1 and S2 present. No murmurs, rubs, or gallops. PULMONARY: Chest is clear to auscultation, no wheezing , no crackles. ABDOMEN: Soft, nontender, nondistended, normoactive bowel sounds. No palpable organomegaly. MUSCULOSKELETAL: No joint swelling or deformity. EXTREMITIES: No cyanosis, clubbing, or pedal edema. NEUROLOGICAL: Gross neurological examination did not reveal any focal deficits. SKIN: No rashes. no petechiae. - Labs CBC & Chem 7: 03/05/23 07:23 03/04/23 06:41 Labs: Abnormal Lab Results - Last 24 Hours (Table) 03/04/23 03/05/23 Range/Units 06:41 07: RBC 3.36 L (3.80-5.40) m/uL Hgb 10.5 L (11.4-16.0) gm/dL Hct 32.9 L (34.0-46.0) % RDW 15.6 H (11.5-15.5) % Chloride 112 H (98-107) mmol/L Creatinine 0.50 L (0.52-1.04) mg/dL Microbiology - Last 24 Hours (Table) 03/02/23 20:30 Blood Culture - Preliminary Blood 03/02/23 20:45 Blood Culture - Preliminary Blood Assessment and Plan Assessment: Acute left otitis media with perforation Acute on chronic left mastoiditis with CT findings of new mastoid air cell effusion with superimposed acute infection. Prior history of left mastoiditis and glottitis and also loss of tympanic membrane. Hypertension Asthma Anxiety/depression Currently everyday smoker History of chronic low back pain DVT prophylaxis with heparin subcu Plan: Continue with antibiotic from infectious disease on the case. Currently on cefepime and IV vancomycin Continue with IV hydration Continue with pain medicine ENT consult on the case Follow-up culture results Labs and medication were reviewed.. Continue same treatment. Continue with symptomatic treatment. Resume home medication. Monitor labs and vitals. DVT and GI prophylaxis. Further recommendations as per clinical course of the patient DVT prophylaxis: Subcutaneous heparin GI Prophylaxis: Pepcid Prognosis is guarded
--- NOTE | 2023-03-05 16:09 | P.PN ---
Subjective Progress Note Date: 03/05/23 Principal diagnosis: Left-sided mastoiditis Patient is a 53-year-old female with a past medical history significant for asthma and hypertension patient did have a previous history of left-sided mastoiditis requiring surgery and antibiotic therapy, presenting to the hospital with left ear pain and drainage that has been going on for the last few days, patient did have abnormal CT and elevated white count concerning for left-sided mastoiditis On today's evaluation that is 03/05/2023, the patient remains to be afebrile the patient is breathing comfortably on room air, the patient denies chest pain and no significant cough or sputum production, patient denies nausea/vomiting and no diarrhea, no new symptoms, patient is still complaining of pain and drainage from the left ear. Patient white count has normalized to 9.6 2 and creatinine 0.50, blood cultures are negative local cultures are pending Objective - Vital Signs Vital signs: Vital Signs Temp 98.0 F 03/05/23 07:04 Pulse 85 03/05/23 07:04 Resp 18 03/05/23 07:04 BP 103/71 03/05/23 07:04 Pulse Ox 95 03/05/23 07:04 FiO2 Intake & Output 03/04/23 03/05/23 03/05/23 18:59 06:59 18:59 Other: Voiding Method Toilet # Voids 2 - Exam GENERAL DESCRIPTION: Middle-age female up in the chair in no distress RESPIRATORY SYSTEM: Unlabored breathing , decreased breath sounds at bases HEART: S1 S2 regular rate and rhythm , ABDOMEN: Soft , no tenderness EXTREMITIES: No edema feet - Labs CBC & Chem 7: 03/05/23 07:23 03/04/23 06:41 Labs: Abnormal Lab Results - Last 24 Hours (Table) 03/05/23 Range/Units 07: RBC 3.36 L (3.80-5.40) m/uL Hgb 10.5 L (11.4-16.0) gm/dL Hct 32.9 L (34.0-46.0) % RDW 15.6 H (11.5-15.5) % Microbiology - Last 24 Hours (Table) 03/02/23 20:30 Blood Culture - Preliminary Blood 03/02/23 20:45 Blood Culture - Preliminary Blood Assessment and Plan (1) Mastoiditis Current Visit: Yes Status: Acute Code(s): H70.90 - UNSPECIFIED MASTOIDITIS, UNSPECIFIED EAR SNOMED Code(s): 98986197 Plan: 1patient presented to hospital with left ear pain drainage in this patient who do have a history of mastoiditis requiring surgery in the past now with abnormal CT elevated white count concerning for another episode of mastoiditis. 2patient with a penicillin allergy that will limit the number of antibiotics safe to use however patient mention she has taken Keflex without any problem 3patient has been evaluated by ENT culture has been obtained and recommending follow-up with her ENT at [facility] 4patient will continue the patient patient on vancomycin pharmacy to dose and cefepime while waiting for cultures to finalize to determine her discharge antibiotics Questions and concerns were answered Dictation was produced using [employer] dictation software. please excuse any grammatical, word or spelling errors. Time with Patient: Less than 30
[2023-03-05] MEDS: HYDROcodone/APAP 5-325MG 1 EACH TAB PO PRN (17:37)
[2023-03-05] MEDS: ALPRAZolam 1 MG TAB PO SCH (19:44)
[2023-03-06] MEDS: HYDROcodone/APAP 5-325MG 1 EACH TAB PO PRN ×3 (01:16→18:22)
[2023-03-06] MEDS: SODIUM CHLORIDE 0.9% 1,000 ML IV SCH ×2 (01:59→16:49)
[2023-03-06] MEDS ORDERED: VANCOMYCIN TROUGH DUE 1 EACH MISC MISCELLANE ONE (04:00)
[2023-03-06] MEDS: MORPHINE SULFATE 4 MG/ML SYRINGE IV PRN ×5 (04:45→21:24)
[2023-03-06] MEDS: CEFEPIME 2 GM in SODIUM CHLORIDE 0.9% 100 ML IVPB SCH ×3 (04:47→23:21)
[2023-03-06] MEDS: VANCOMYCIN 1,000 MG in SODIUM CHLORIDE 0.9% 250 ML IVPB SCH ×2 (06:17→15:02)
[2023-03-06 06:41] LABS: African American GFR (CKD) >90 (>60 ml/min/1.73 sqM); Non-African American GFR(CKD) >90 (>60 ml/min/1.73 sqM)
[2023-03-06] MEDS: HEPARIN SODIUM,PORCINE 5,000 UNIT/ML 1 ML VIAL SQ SCH ×2 (09:06→18:21)
[2023-03-06] MEDS: CIPROFLOXACIN-DEXAMETH 0.3-0.1% DROPS 7.5 ML BTL LEFT EAR SCH (09:06)
[2023-03-06] MEDS: FAMOTIDINE 20 MG/2 ML VIAL IV SCH (09:06)
--- NOTE | 2023-03-06 10:43 | P.PN ---
Subjective Patient is a 53-year-old female with a past medical history of hypertension, asthma, currently everyday smoker, anxiety/depression prior history of left mastoiditis with left otitis s/p surgery and loss of tympanic membrane, migraine headaches and chronic low back pain and prior history of gastric bypass surgery 2008 presents to ER with complaints of left ear pain and serous discharge along with pain over the mastoid region. Patient was seen at urgent care facility and was prescribed ciprofloxacin eardrops and was recommended to follow-up with the ENT. Patient had a follow-up appointment with ENT and was recommended not to use eardrops due to lack of eardrum. Denies any fever. No chills. No complaints of chest pain or shortness of tamika ath and no headache. No dizziness or lightheadedness. CT head/mastoid showed evidence of otomastoiditis which has progressed up from 08/12/2021 Left mastoid air cell effusion which is new and osseous erosion which is similar to CT from 08/12/2021 findings may represent postsurgical change with superi mposed new acute infection. Debris is within the external auditory canal and on the tympanic membrane. Opacification within the middle ear predominantly the AP tympanogram and hypotympanum with opacification of Prussak space. Laboratory pressure WBC 14.5 hemoglobin 13.5 and platelets 479 Other laboratory reviewed. Urinalysis is negative for infection. 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 Zimmer in [place], and she has appointment with him this coming Friday 03/09 per Patient She presents with worsening pain around her left ear and behind it was some yellowish discharge and fullness in the area for the last 5 days. 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 No other new complaint. Patient currently on cefepime and IV vancomycin and normal saline at 50 mL per hour, medication side effect are explained and discussed with patient in detail she agrees to continue on current treatment 03/05/2023 Patient still complains from pain behind the left ear however the swelling and tenderness are better no erythema. This discharge. Patient is asking when she can be discharged but she agrees to stay to finish her inpatient course and follow-up culture results. ENT and infectious disease team already on the case. Also patient was started on Cipro eardrops Patient continued on IV morphine and [place] 03/06/2023 Patient still complaining from significant pain in her left ear area however the swelling and discharge are decreasing. Yesterday she was started on [place] 5 mg and station states this helped her although the patient does not resolved completely. Risks benefits of medication were explained for the patient as well as the goal of pain and she verbalized understanding and acceptance for this treatment. Currently patient is on IV vancomycin and cefepime and normal saline at 75 mL/h. Wound culture are still pending Objective - Vital Signs Vital signs: Vital Signs Temp 97.6 F 03/06/23 08:28 Pulse 74 03/06/23 08:28 Resp 18 03/06/23 08:28 BP 93/61 03/06/23 08:28 Pulse Ox 92 L 03/06/23 08:28 FiO2 Intake & Output 03/05/23 03/06/23 03/06/23 18:59 06:59 18:59 Intake Total 200 Balance 200 Intake: Oral 200 Other: Voiding Method Toilet # Voids 2 3 - Exam GENERAL: The patient is alert and oriented x3, not in any acute distress. Well developed, well nourished. -HEENT: Pupils are round and equally reacting to light. EOMI. No scleral icterus. No conjunctival pallor. Normocephalic, atraumatic. No pharyngeal erythema. No thyromegaly. Left ear, yellowish discharge with fullness and tenderness behind and below the left ear auricle CARDIOVASCULAR: S1 and S2 present. No murmurs, rubs, or gallops. PULMONARY: Chest is clear to auscultation, no wheezing , no crackles. ABDOMEN: Soft, nontender, nondistended, normoactive bowel sounds. No palpable organomegaly. MUSCULOSKELETAL: No joint swelling or deformity. EXTREMITIES: No cyanosis, clubbing, or pedal edema. NEUROLOGICAL: Gross neurological examination did not reveal any focal deficits. SKIN: No rashes. no petechiae. - Labs CBC & Chem 7: 03/05/23 07:23 03/06/23 05:52 Labs: Microbiology - Last 24 Hours (Table) 03/02/23 20:30 Blood Culture - Preliminary Blood 03/02/23 20:45 Blood Culture - Preliminary Blood 03/04/23 16:30 Gram Stain - Preliminary Ear - Left Assessment and Plan Assessment: Acute left otitis media with perforation Acute on chronic left mastoiditis with CT findings of new mastoid air cell effusion with superimposed acute infection. Prior history of left mastoiditis and glottitis and also loss of tympanic membrane. Hypertension Asthma Anxiety/depression Currently everyday smoker History of chronic low back pain DVT prophylaxis with heparin subcu Plan: Continue with antibiotic from infectious disease on the case. Currently on cefepime and IV vancomycin Continue with IV hydration Continue with pain medicine ENT consult on the case Follow-up culture results Labs and medication were reviewed.. Continue same treatment. Continue with symptomatic treatment. Resume home medication. Monitor labs and vitals. DVT and GI prophylaxis. Further recommendations as per clinical course of the patient DVT prophylaxis: Subcutaneous heparin GI Prophylaxis: Pepcid Prognosis is guarded
[2023-03-06] MEDS: ONDANSETRON 4 MG/2 ML VIAL IVP PRN ×2 (11:27→23:25)
[2023-03-06] MEDS: NICOTINE 21MG/24HR PATCH TRANSDERM SCH (12:08)
[2023-03-06] MEDS ORDERED: ALPRAZolam 0.5 MG TAB PO STA (13:32)
[2023-03-06] MEDS ORDERED: LIDOCAINE 1% INJ 10MG/ML (30 ML VIAL-PF) SQ ONE (14:42)
--- NOTE | 2023-03-06 15:03 | IR ---
PICC LINE PLACEMENT: HISTORY: Infection requiring long-term antibiotic therapy PROCEDURE: Ultrasound and fluoroscopic guidance of PICC line placement. COMPLICATIONS: None ANESTHESIA: 1. 1% Lidocaine locally. FINDINGS/TECHNIQUE: The procedure was explained to the patient. The risks, complications, benefits and alternatives were discussed and any questions were answered. Informed consent was obtained. The patient was placed supine on the fluoroscopic table and prepped and draped in the usual sterile fash ion. Utilizing a 21 gauge needle and sonographic and fluoroscopic guidance, access in the left basi lic vein was achieved and there is placement of a 0.018 guidewire. The vein is patent. A 4-F sheath was placed over the guidewire. The guidewire and dilator were removed and a 4-F. PICC line was plac ed through the sheath with the tip at the level of the SVC. The sheath was removed, the catheter was flushed and sutured into position. The patient was stable throughout the procedure and remained sta ble upon discharge from the Department of Radiology. The vein puncture was patent under ultrasound. A [place] scale image was obtained to document patency of the vein punctured. All elements of the maximal barrier technique were utilized. FLUOROSCOPY TIME: DAP 0.114Gy cm2 IMPRESSION: Successful PICC line placement under ultrasound and fluoroscopic guidance.
--- NOTE | 2023-03-06 23:02 | P.PN ---
Subjective Progress Note Date: 03/06/23 Principal diagnosis: Left-sided mastoiditis Patient is a 53-year-old female with a past medical history significant for asthma and hypertension patient did have a previous history of left-sided mastoiditis requiring surgery and antibiotic therapy, presenting to the hospital with left ear pain and drainage that has been going on for the last few days, patient did have abnormal CT and elevated white count concerning for left-sided mastoiditis On today's evaluation that is 03/06/2023, the patient continues to be afebrile the patient is breathing comfortably on room air, the patient denies chest pain or cough, patient denies abdominal pain and no nausea/vomiting and no diarrhea has been reported, patient is still complaining of pain and drainage from the left ear but no worsening. Patient white count has normalized to 9.62 as of yesterday and creatinine 0.58, blood cultures are negative local cultures are pending Objective - Vital Signs Vital signs: Vital Signs Temp 97.6 F 03/06/23 08:28 Pulse 74 03/06/23 08:28 Resp 18 03/06/23 08:28 BP 93/61 03/06/23 08:28 Pulse Ox 92 L 03/06/23 08:28 FiO2 Intake & Output 03/05/23 03/06/23 03/06/23 18:59 06:59 18:59 Intake Total 200 Balance 200 Intake: Oral 200 Other: Voiding Method Toilet # Voids 2 3 - Exam GENERAL DESCRIPTION: Middle-age female up in the chair in no distress RESPIRATORY SYSTEM: Unlabored breathing , decreased breath sounds at bases HEART: S1 S2 regular rate and rhythm , ABDOMEN: Soft , no tenderness EXTREMITIES: No edema feet - Labs CBC & Chem 7: 03/05/23 07:23 03/06/23 05:52 Labs: Microbiology - Last 24 Hours (Table) 03/02/23 20:30 Blood Culture - Preliminary Blood 03/02/23 20:45 Blood Culture - Preliminary Blood 03/04/23 16:30 Gram Stain - Preliminary Ear - Left Assessment and Plan (1) Mastoiditis Current Visit: Yes Status: Acute Code(s): H70.90 - UNSPECIFIED MASTOIDITIS, UNSPECIFIED EAR SNOMED Code(s): 12272281 Plan: 1patient presented to hospital with left ear pain drainage in this patient who do have a history of mastoiditis requiring surgery in the past now with abnormal CT elevated white count concerning for another episode of mastoiditis. 2patient with a penicillin allergy that will limit the number of antibiotics safe to use however patient mention she has taken Keflex without any problem 3patient has been evaluated by ENT culture has been obtained which are pendingand recommending follow-up with her ENT at [facility] 4patient to continue the patient patient on vancomycin pharmacy to dose and cefepime while waiting for cultures to finalize to determine her discharge antibiotics Dictation was produced using [employer] dictation software. please excuse any grammatical, word or spelling errors. Time with Patient: Less than 30
[2023-03-06] MEDS: ALPRAZolam 1 MG TAB PO SCH (23:22)
[2023-03-07] MEDS: VANCOMYCIN 1,000 MG in SODIUM CHLORIDE 0.9% 250 ML IVPB SCH ×3 (00:22→16:08)
[2023-03-07] MEDS: CIPROFLOXACIN-DEXAMETH 0.3-0.1% DROPS 7.5 ML BTL LEFT EAR SCH ×3 (00:22→20:11)
[2023-03-07] MEDS: HYDROcodone/APAP 5-325MG 1 EACH TAB PO PRN ×3 (00:22→18:10)
[2023-03-07] MEDS: HEPARIN SODIUM,PORCINE 5,000 UNIT/ML 1 ML VIAL SQ SCH ×3 (00:23→16:08)
[2023-03-07] MEDS: MORPHINE SULFATE 4 MG/ML SYRINGE IV PRN ×3 (02:51→14:45)
[2023-03-07] MEDS: CEFEPIME 2 GM in SODIUM CHLORIDE 0.9% 100 ML IVPB SCH ×3 (04:06→20:10)
[2023-03-07] MEDS: SODIUM CHLORIDE 0.9% 1,000 ML IV SCH ×2 (06:07→20:10)
[2023-03-07] MEDS: FAMOTIDINE 20 MG/2 ML VIAL IV SCH (08:12)
[2023-03-07] MEDS: NICOTINE 21MG/24HR PATCH TRANSDERM SCH (08:13)
[2023-03-07] MEDS: ALPRAZolam 0.5 MG TAB PO PRN ×2 (10:50→20:13)
[2023-03-07] MEDS: DOCUSATE 100 MG CAP PO SCH (10:51)
[2023-03-07] MEDS: ONDANSETRON 4 MG/2 ML VIAL IVP PRN (11:56)
--- NOTE | 2023-03-07 13:27 | P.PN ---
Subjective Progress Note Date: 03/07/23 Principal diagnosis: Left-sided mastoiditis Patient is a 53-year-old female with a past medical history significant for asthma and hypertension patient did have a previous history of left-sided mastoiditis requiring surgery and antibiotic therapy, presenting to the hospital with left ear pain and drainage that has been going on for the last few days, patient did have abnormal CT and elevated white count concerning for left-sided mastoiditis On today's evaluation that is 03/07/2023, the patient remains to be afebrile the patient is breathing comfortably on room air and not requiring supplemental oxygen, the patient denies chest pain and no significant cough, patient denies abdominal pain and no nausea/vomiting or diarrhea ,Pt pain and drainage from the left ear has decreased in intensity Patient white count has normalized to 9.62 as of 03/05/23 and creatinine 0.58as of 03/06/23, blood cultures are negative local cultures are pending Objective - Vital Signs Vital signs: Vital Signs Temp 97.9 F 03/07/23 06:59 Pulse 80 03/07/23 08:21 Resp 16 03/07/23 08:21 BP 94/64 03/07/23 06:59 Pulse Ox 91 L 03/07/23 06:59 FiO2 Intake & Output 03/06/23 03/07/23 03/07/23 18:59 06:59 18:59 Intake Total 100 Balance 100 Intake: Oral 100 Other: Voiding Method Toilet Toilet Toilet # Voids 2 1 - Exam GENERAL DESCRIPTION: Middle-age female up in the chair in no distress RESPIRATORY SYSTEM: Unlabored breathing , decreased breath sounds at bases HEART: S1 S2 regular rate and rhythm , ABDOMEN: Soft , no tenderness EXTREMITIES: No edema feet - Labs CBC & Chem 7: 03/05/23 07:23 03/06/23 05:52 Labs: Microbiology - Last 24 Hours (Table) 03/04/23 16:30 Anaerobic Culture - Preliminary Ear - Left Assessment and Plan (1) Mastoiditis Current Visit: Yes Status: Acute Code(s): H70.90 - UNSPECIFIED MASTOIDITIS, UNSPECIFIED EAR SNOMED Code(s): 51290211 Plan: 1patient presented to hospital with left ear pain drainage in this patient who do have a history of mastoiditis requiring surgery in the past now with abnormal CT elevated white count concerning for another episode of mastoiditis. 2patient with a penicillin allergy that will limit the number of antibiotics safe to use however patient mention she has taken Keflex without any problem 3patient has been evaluated by ENT culture has been obtained which are pending and recommending follow-up with her ENT at [facility] 4patient did have some clinical improvment and will continue on vancomycin pharmacy to dose and cefepime while waiting for cultures to finalize to determine her discharge antibiotics Dictation was produced using [employer] dictation software. please excuse any grammatical, word or spelling errors. Time with Patient: Less than 30
--- NOTE | 2023-03-07 19:10 | P.PN ---
Subjective Patient is a 53-year-old female with a past medical history of hypertension, asthma, currently everyday smoker, anxiety/depression prior history of left mastoiditis with left otitis s/p surgery and loss of tympanic membrane, migraine headaches and chronic low back pain and prior history of gastric bypass surgery 2008 presents to ER with complaints of left ear pain and serous discharge along with pain over the mastoid region. Patient was seen at urgent care facility and was prescribed ciprofloxacin eardrops and was recommended to follow-up with the ENT. Patient had a follow-up appointment with ENT and was recommended not to use eardrops due to lack of eardrum. Denies any fever. No chills. No complaints of chest pain or shortness of tamika ath and no headache. No dizziness or lightheadedness. CT head/mastoid showed evidence of otomastoiditis which has progressed up from 08/12/2021 Left mastoid air cell effusion which is new and osseous erosion which is similar to CT from 08/12/2021 findings may represent postsurgical change with superi mposed new acute infection. Debris is within the external auditory canal and on the tympanic membrane. Opacification within the middle ear predominantly the AP tympanogram and hypotympanum with opacification of Prussak space. Laboratory pressure WBC 14.5 hemoglobin 13.5 and platelets 479 Other laboratory reviewed. Urinalysis is negative for infection. 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 Zimmer in [place], and she has appointment with him this coming Friday 03/09 per Patient She presents with worsening pain around her left ear and behind it was some yellowish discharge and fullness in the area for the last 5 days. 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 No other new complaint. Patient currently on cefepime and IV vancomycin and normal saline at 50 mL per hour, medication side effect are explained and discussed with patient in detail she agrees to continue on current treatment 03/05/2023 Patient still complains from pain behind the left ear however the swelling and tenderness are better no erythema. This discharge. Patient is asking when she can be discharged but she agrees to stay to finish her inpatient course and follow-up culture results. ENT and infectious disease team already on the case. Also patient was started on Cipro eardrops Patient continued on IV morphine and [place] 03/06/2023 Patient still complaining from significant pain in her left ear area however the swelling and discharge are decreasing. Yesterday she was started on [place] 5 mg and station states this helped her although the patient does not resolved completely. Risks benefits of medication were explained for the patient as well as the goal of pain and she verbalized understanding and acceptance for this treatment. Currently patient is on IV vancomycin and cefepime and normal saline at 75 mL/h. Wound culture are still pending 03/07/2023 Patient still being treated for her left ear infection and left acute otitis media with perforation. She still complains from pain although she does not look in distress. Since yesterday's patient is been complaining of from anxiety and today asked for extra dose of Xanax which was provided. At the same time I talked to the patient about the risk of benzodiazepine and narcotic with risks benefits alternatives including but not limited to the risk of respiratory depression and/or she verbalized understanding and acceptance and she agrees to cut down her dose of morphine for 4 mg down to 2 mg and also discussed her goals pain. In the meantime she remains on cefepime, IV vancomycin and normal saline at 75 mL/h with systolic blood pressure fluctuating between 90s to 110. Wound culture is also still pending Patient currently have PICC line in her left upper extremity Objective - Vital Signs Vital signs: Vital Signs Temp 97.9 F 03/07/23 14:39 Pulse 77 03/07/23 14:39 Resp 18 03/07/23 14:39 BP 105/77 03/07/23 14:39 Pulse Ox 95 03/07/23 14:39 FiO2 Intake & Output 03/07/23 03/07/23 03/08/23 06:59 18:59 06:59 Intake Total 2160 Balance 2160 Intake: Oral 2160 Other: Voiding Method Toilet Toilet # Voids 1 3 - Exam GENERAL: The patient is alert and oriented x3, not in any acute distress. Well developed, well nourished. -HEENT: Pupils are round and equally reacting to light. EOMI. No scleral icterus. No conjunctival pallor. Normocephalic, atraumatic. No pharyngeal erythema. No thyromegaly. Left ear, yellowish discharge with fullness and tenderness behind and below the left ear auricle CARDIOVASCULAR: S1 and S2 present. No murmurs, rubs, or gallops. PULMONARY: Chest is clear to auscultation, no wheezing , no crackles. ABDOMEN: Soft, nontender, nondistended, normoactive bowel sounds. No palpable organomegaly. MUSCULOSKELETAL: No joint swelling or deformity. EXTREMITIES: No cyanosis, clubbing, or pedal edema. NEUROLOGICAL: Gross neurological examination did not reveal any focal deficits. SKIN: No rashes. no petechiae. - Labs CBC & Chem 7: 03/05/23 07:23 03/06/23 05:52 Labs: Microbiology - Last 24 Hours (Table) 03/04/23 16:30 Anaerobic Culture - Preliminary Ear - Left Assessment and Plan Assessment: Acute left otitis media with perforation Acute on chronic left mastoiditis with CT findings of new mastoid air cell effusion with superimposed acute infection. Prior history of left mastoiditis and glottitis and also loss of tympanic membrane. Hypertension Asthma Anxiety/depression Currently everyday smoker History of chronic low back pain DVT prophylaxis with heparin subcu Plan: Continue with antibiotic from infectious disease on the case. Currently on cefepime and IV vancomycin Continue with IV hydration Continue with pain medicine ENT consult on the case Follow-up culture results Labs and medication were reviewed.. Continue same treatment. Continue with symptomatic treatment. Resume home medication. Monitor labs and vitals. DVT and GI prophylaxis. Further recommendations as per clinical course of the patient DVT prophylaxis: Subcutaneous heparin GI Prophylaxis: Pepcid Prognosis is guarded
[2023-03-07] MEDS: MORPHINE SULFATE 2 MG/ML SYRINGE IV PRN (20:12)
[2023-03-08] MEDS: SENNOSIDES 8.6 MG TAB PO SCH ×2 (01:02→20:27)
[2023-03-08] MEDS: DOCUSATE 100 MG CAP PO SCH ×3 (01:02→20:34)
[2023-03-08] MEDS: HEPARIN SODIUM,PORCINE 5,000 UNIT/ML 1 ML VIAL SQ SCH ×4 (01:03→23:12)
[2023-03-08] MEDS: HYDROcodone/APAP 5-325MG 1 EACH TAB PO PRN ×4 (01:03→20:34)
[2023-03-08] MEDS: VANCOMYCIN 1,000 MG in SODIUM CHLORIDE 0.9% 250 ML IVPB SCH ×4 (01:03→23:23)
[2023-03-08] MEDS: CEFEPIME 2 GM in SODIUM CHLORIDE 0.9% 100 ML IVPB SCH ×3 (03:35→20:33)
[2023-03-08] MEDS: MORPHINE SULFATE 2 MG/ML SYRINGE IV PRN ×3 (05:03→23:25)
[2023-03-08 05:37] LABS: African American GFR (CKD) >90 (>60 ml/min/1.73 sqM); Anion Gap 4 mmol/L; Blood Urea Nitrogen 6 mg/dL (7-17); Calcium 8.8 mg/dL (8.4-10.2); Carbon Dioxide 24 mmol/L (22-30); Chloride 112 mmol/L (98-107); Glucose 83 mg/dL (74-99); Non-African American GFR(CKD) >90 (>60 ml/min/1.73 sqM); Potassium 4.1 mmol/L (3.5-5.1); Sodium 140 mmol/L (137-145)
[2023-03-08] MEDS: ACETAMINOPHEN TAB 325 MG TAB PO PRN (05:45)
[2023-03-08] MEDS ORDERED: VANCOMYCIN TROUGH DUE 1 EACH MISC MISCELLANE ONE (07:00)
[2023-03-08] MEDS: NICOTINE 21MG/24HR PATCH TRANSDERM SCH (07:44)
[2023-03-08] MEDS: FAMOTIDINE 20 MG TAB PO SCH (07:57)
[2023-03-08] MEDS: CIPROFLOXACIN-DEXAMETH 0.3-0.1% DROPS 7.5 ML BTL LEFT EAR SCH ×2 (07:58→20:34)
[2023-03-08] MEDS: SODIUM CHLORIDE 0.9% 1,000 ML IV SCH ×2 (07:58→20:34)
[2023-03-08 08:57] LABS: Basophils # (A) 0.03 X 10*3/uL (0.00-0.10); Basophils % (A) 0.4 %; Eosinophils # (A) 0.48 X 10*3/uL (0.04-0.35); Eosinophils % (A) 5.6 %; HCT 27.8 % (37.2-46.3); HGB 8.9 d/dL (12.0-15.0); Lymphocytes # (A) 2.72 X 10*3/uL (0.90-5.00); Lymphocytes % (A) 31.9 %; MCH 30.2 pg (27.0-32.0); MCV 94.2 FL (80.0-97.0); Mean Platelet Volume 9.7 FL (9.5-12.2); Monocytes # (A) 0.53 X 10*3/uL (0.20-1.00); Monocytes % (A) 6.2 %; NRBC Per 100 WBC 0 X 10*3/uL (0.00-0.01); Neutrophils # (A) 4.74 X 10*3/uL (1.80-7.70); Neutrophils % (A) 55.5 %; Platelet Count 321 X 10*3/uL (140-440); RBC 2.95 X 10*6/uL (4.10-5.20); WBC 8.53 X 10*3/uL (4.50-10.00)
[2023-03-08] MEDS: ALPRAZolam 0.5 MG TAB PO PRN ×2 (13:42→20:35)
[2023-03-08] MEDS: NICOTINE 14MG/24HR PATCH TRANSDERM SCH (13:52)
--- NOTE | 2023-03-08 20:27 | P.PN ---
Subjective Patient is a 53-year-old female with a past medical history of hypertension, asthma, currently everyday smoker, anxiety/depression prior history of left mastoiditis with left otitis s/p surgery and loss of tympanic membrane, migraine headaches and chronic low back pain and prior history of gastric bypass surgery 2008 presents to ER with complaints of left ear pain and serous discharge along with pain over the mastoid region. Patient was seen at urgent care facility and was prescribed ciprofloxacin eardrops and was recommended to follow-up with the ENT. Patient had a follow-up appointment with ENT and was recommended not to use eardrops due to lack of eardrum. Denies any fever. No chills. No complaints of chest pain or shortness of tamika ath and no headache. No dizziness or lightheadedness. CT head/mastoid showed evidence of otomastoiditis which has progressed up from 08/12/2021 Left mastoid air cell effusion which is new and osseous erosion which is similar to CT from 08/12/2021 findings may represent postsurgical change with superi mposed new acute infection. Debris is within the external auditory canal and on the tympanic membrane. Opacification within the middle ear predominantly the AP tympanogram and hypotympanum with opacification of Prussak space. Laboratory pressure WBC 14.5 hemoglobin 13.5 and platelets 479 Other laboratory reviewed. Urinalysis is negative for infection. 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 Zimmer in [place], and she has appointment with him this coming Friday 03/09 per Patient She presents with worsening pain around her left ear and behind it was some yellowish discharge and fullness in the area for the last 5 days. 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 No other new complaint. Patient currently on cefepime and IV vancomycin and normal saline at 50 mL per hour, medication side effect are explained and discussed with patient in detail she agrees to continue on current treatment 03/05/2023 Patient still complains from pain behind the left ear however the swelling and tenderness are better no erythema. This discharge. Patient is asking when she can be discharged but she agrees to stay to finish her inpatient course and follow-up culture results. ENT and infectious disease team already on the case. Also patient was started on Cipro eardrops Patient continued on IV morphine and [place] 03/06/2023 Patient still complaining from significant pain in her left ear area however the swelling and discharge are decreasing. Yesterday she was started on [place] 5 mg and station states this helped her although the patient does not resolved completely. Risks benefits of medication were explained for the patient as well as the goal of pain and she verbalized understanding and acceptance for this treatment. Currently patient is on IV vancomycin and cefepime and normal saline at 75 mL/h. Wound culture are still pending 03/07/2023 Patient still being treated for her left ear infection and left acute otitis media with perforation. She still complains from pain although she does not look in distress. Since yesterday's patient is been complaining of from anxiety and today asked for extra dose of Xanax which was provided. At the same time I talked to the patient about the risk of benzodiazepine and narcotic with risks benefits alternatives including but not limited to the risk of respiratory depression and/or she verbalized understanding and acceptance and she agrees to cut down her dose of morphine for 4 mg down to 2 mg and also discussed her goals pain. In the meantime she remains on cefepime, IV vancomycin and normal saline at 75 mL/h with systolic blood pressure fluctuating between 90s to 110. Wound culture is also still pending Patient currently have PICC line in her left upper extremity 03/08/2023 Today patient left ear pain looks better. No new complaint. In the morning she was eager to leave AMA and go smoke however nicotine patch of 14 g is provided for the patient and she felt better, she slipped after that and she agrees to stay in the hospital and continue treatment She continue with antibiotic, IV vancomycin and cefepime on normal saline at 75 mL/h. Wound culture still pending WBC 8.5 however her hemoglobin went down to 8.9, we will monitor hemoglobin closely. Patient currently on subcu heparin for DVT prophylaxis. There is no overt signs of bleeding and no tachycardia. Patient has PICC line in her left upper extremity Objective - Vital Signs Vital signs: Vital Signs Temp 97.5 F L 03/08/23 12:39 Pulse 72 03/08/23 12:39 Resp 18 03/08/23 12:39 BP 119/78 03/08/23 12:39 Pulse Ox 98 03/08/23 12:39 FiO2 Intake & Output 03/08/23 03/08/23 03/09/23 06:59 18:59 06:59 Other: Voiding Method Toilet Toilet # Voids 4 3 # Bowel Movements 0 - Exam GENERAL: The patient is alert and oriented x3, not in any acute distress. Well developed, well nourished. -HEENT: Pupils are round and equally reacting to light. EOMI. No scleral icterus. No conjunctival pallor. Normocephalic, atraumatic. No pharyngeal erythema. No thyromegaly. Left ear, yellowish discharge with fullness and tenderness behind and below the left ear auricle CARDIOVASCULAR: S1 and S2 present. No murmurs, rubs, or gallops. PULMONARY: Chest is clear to auscultation, no wheezing , no crackles. ABDOMEN: Soft, nontender, nondistended, normoactive bowel sounds. No palpable organomegaly. MUSCULOSKELETAL: No joint swelling or deformity. EXTREMITIES: No cyanosis, clubbing, or pedal edema. NEUROLOGICAL: Gross neurological examination did not reveal any focal deficits. SKIN: No rashes. no petechiae. - Labs CBC & Chem 7: 03/08/23 04:54 03/08/23 04:54 Labs: Abnormal Lab Results - Last 24 Hours (Table) 03/08/23 03/08/23 Range/Units 04:54 04:54 RBC 2.95 L (4.10-5.20) X 10*6/uL Hgb 8.9 L (12.0-15.0) d/dL Hct 27.8 L (37.2-46.3) % RDW 17.0 H (11.5-14.5) % Eosinophils # 0.48 H (0.04-0.35) X 10*3/uL Chloride 112 H (98-107) mmol/L BUN 6 L (7-17) mg/dL Creatinine 0.51 L (0.52-1.04) mg/dL Microbiology - Last 24 Hours (Table) 03/02/23 20:30 Blood Culture - Final Blood 03/02/23 20:45 Blood Culture - Final Blood Assessment and Plan Assessment: Acute left otitis media with perforation Acute on chronic left mastoiditis with CT findings of new mastoid air cell effusion with superimposed acute infection. Prior history of left mastoiditis and glottitis and also loss of tympanic membrane. Hypertension Anemia Asthma Anxiety/depression Currently everyday smoker History of chronic low back pain DVT prophylaxis with heparin subcu Plan: Continue with antibiotic from infectious disease on the case. Currently on cefepime and IV vancomycin Continue with IV hydration Monitor hemoglobin closely Continue with pain medicine ENT consult on the case Follow-up culture results Labs and medication were reviewed.. Continue same treatment. Continue with symptomatic treatment. Resume home medication. Monitor labs and vitals. DVT and GI prophylaxis. Further recommendations as per clinical course of the patient DVT prophylaxis: Subcutaneous heparin GI Prophylaxis: Pepcid Prognosis is guarded
[2023-03-09] MEDS: HYDROcodone/APAP 5-325MG 1 EACH TAB PO PRN ×3 (02:03→15:35)
[2023-03-09] MEDS: CEFEPIME 2 GM in SODIUM CHLORIDE 0.9% 100 ML IVPB SCH (03:44)
[2023-03-09] MEDS: MORPHINE SULFATE 2 MG/ML SYRINGE IV PRN ×2 (05:12→11:51)
[2023-03-09] MEDS: ACETAMINOPHEN TAB 325 MG TAB PO PRN (05:13)
[2023-03-09] MEDS ORDERED: VANCOMYCIN TROUGH DUE 1 EACH MISC MISCELLANE ONE (07:00)
[2023-03-09] MEDS: FAMOTIDINE 20 MG TAB PO SCH (08:03)
[2023-03-09] MEDS: NICOTINE 14MG/24HR PATCH TRANSDERM SCH (08:03)
[2023-03-09] MEDS: DOCUSATE 100 MG CAP PO SCH (08:03)
[2023-03-09] MEDS: HEPARIN SODIUM,PORCINE 5,000 UNIT/ML 1 ML VIAL SQ SCH (08:04)
[2023-03-09] MEDS: CIPROFLOXACIN-DEXAMETH 0.3-0.1% DROPS 7.5 ML BTL LEFT EAR SCH (08:05)
[2023-03-09 08:22] LABS: African American GFR (CKD) >90 (>60 ml/min/1.73 sqM); Anion Gap 7 mmol/L; Blood Urea Nitrogen 7 mg/dL (7-17); Calcium 8.6 mg/dL (8.4-10.2); Carbon Dioxide 22 mmol/L (22-30); Chloride 111 mmol/L (98-107); Glucose 90 mg/dL (74-99); Non-African American GFR(CKD) >90 (>60 ml/min/1.73 sqM); Sodium 140 mmol/L (137-145)
[2023-03-09] MEDS: ALPRAZolam 0.5 MG TAB PO PRN (08:22)
[2023-03-09] MEDS: VANCOMYCIN 1,000 MG in SODIUM CHLORIDE 0.9% 250 ML IVPB SCH (09:13)
[2023-03-09 09:35] VITALS: BMI 27.4
[2023-03-09 11:48] LABS: Basophils # (A) 0.04 X 10*3/uL (0.00-0.10); Basophils % (A) 0.5 %; Eosinophils # (A) 0.38 X 10*3/uL (0.04-0.35); Eosinophils % (A) 4.4 %; HCT 28.5 % (37.2-46.3); HGB 9.1 d/dL (12.0-15.0); Lymphocytes # (A) 2.51 X 10*3/uL (0.90-5.00); MCH 30.3 pg (27.0-32.0); MCHC 31.9 d/dL (32.0-37.0); Mean Platelet Volume 9.6 FL (9.5-12.2); Monocytes # (A) 0.61 X 10*3/uL (0.20-1.00); Monocytes % (A) 7.1 %; NRBC Per 100 WBC 0 X 10*3/uL (0.00-0.01); Neutrophils # (A) 5.08 X 10*3/uL (1.80-7.70); Neutrophils % (A) 58.7 %; Platelet Count 333 X 10*3/uL (140-440); RDW 17.1 % (11.5-14.5); WBC 8.65 X 10*3/uL (4.50-10.00)
[2023-03-09] MEDS: SODIUM CHLORIDE 0.9% 1,000 ML IV SCH (11:51)
--- NOTE | 2023-03-09 12:32 | P.PN ---
Subjective Progress Note Date: 03/08/23 Principal diagnosis: Left-sided mastoiditis Patient is a 53-year-old female with a past medical history significant for asthma and hypertension patient did have a previous history of left-sided mastoiditis requiring surgery and antibiotic therapy, presenting to the hospital with left ear pain and drainage that has been going on for the last few days, patient did have abnormal CT and elevated white count concerning for left-sided mastoiditis On today's evaluation that is 03/08/2023, the patient continues to be afebrile the patient is breathing comfortably on room air, the patient denies chest pain, shortness of breath or cough, patient denies abdominal pain, no nausea/vomiting and no diarrhea has been reported, the patient pain and drainage from the left ear has decreased in intensity Patient white count 8.53 and creatinine is 0.51, blood cultures are negative local cultures are pending Objective - Vital Signs Vital signs: Vital Signs Temp 97.9 F 03/08/23 06:51 Pulse 93 03/08/23 08:10 Resp 18 03/08/23 08:10 BP 99/68 03/08/23 06:51 Pulse Ox 99 03/08/23 06:51 FiO2 Intake & Output 03/07/23 03/08/23 03/08/23 18:59 06:59 18:59 Intake Total 2160 Balance 2160 Intake: Oral 2160 Other: Voiding Method Toilet Toilet Toilet # Voids 3 4 - Exam GENERAL DESCRIPTION: Middle-age female up in the chair in no distress RESPIRATORY SYSTEM: Unlabored breathing , decreased breath sounds at bases HEART: S1 S2 regular rate and rhythm , ABDOMEN: Soft , no tenderness EXTREMITIES: No edema feet - Labs CBC & Chem 7: 03/09/23 07:15 03/09/23 07:15 Labs: Abnormal Lab Results - Last 24 Hours (Table) 03/08/23 03/08/23 Range/Units 04:54 04:54 RBC 2.95 L (4.10-5.20) X 10*6/uL Hgb 8.9 L (12.0-15.0) d/dL Hct 27.8 L (37.2-46.3) % RDW 17.0 H (11.5-14.5) % Eosinophils # 0.48 H (0.04-0.35) X 10*3/uL Chloride 112 H (98-107) mmol/L BUN 6 L (7-17) mg/dL Creatinine 0.51 L (0.52-1.04) mg/dL Microbiology - Last 24 Hours (Table) 03/02/23 20:30 Blood Culture - Final Blood 03/02/23 20:45 Blood Culture - Final Blood Assessment and Plan (1) Mastoiditis Current Visit: Yes Status: Acute Code(s): H70.90 - UNSPECIFIED MASTOIDITIS, UNSPECIFIED EAR SNOMED Code(s): 89898838 Plan: 1patient presented to hospital with left ear pain drainage in this patient who do have a history of mastoiditis requiring surgery in the past now with abnormal CT elevated white count concerning for another episode of mastoiditis. 2patient with a penicillin allergy that will limit the number of antibiotics safe to use however patient mention she has taken Keflex without any problem 3patient has been evaluated by ENT culture has been obtained which are pending and recommending follow-up with her ENT at [facility] 4patient did have some clinical improvment and will continue on vancomycin pharmacy to dose and cefepime however if the cultures remains to be negative we'll switch her to Rocephin Dictation was produced using [employer] dictation software. please excuse any grammatical, word or spelling errors. Time with Patient: Less than 30
--- NOTE | 2023-03-09 12:33 | P.PN ---
Subjective Progress Note Date: 03/09/23 Principal diagnosis: Left-sided mastoiditis Patient is a 53-year-old female with a past medical history significant for asthma and hypertension patient did have a previous history of left-sided mastoiditis requiring surgery and antibiotic therapy, presenting to the hospital with left ear pain and drainage that has been going on for the last few days, patient did have abnormal CT and elevated white count concerning for left-sided mastoiditis On today's evaluation that is 03/09/2023, the patient remains to be afebrile, the patient is breathing comfortably on room air without the need for supplemental oxygen and no shortness of breath, the patient denies having any chest pain or cough, patient denies nausea/vomiting /diarrhea and no abdominal pain, the patient pain and drainage from the left ear has decreased in intensity Patient white count 8.65 and creatinine is 0.54, blood cultures are negative local cultures are so far negative Objective - Vital Signs Vital signs: Vital Signs Temp 97.7 F 03/09/23 07:48 Pulse 66 03/09/23 07:48 Resp 14 03/09/23 07:48 BP 118/81 03/09/23 07:48 Pulse Ox 97 03/09/23 07:48 FiO2 Intake & Output 03/08/23 03/09/23 03/09/23 18:59 06:59 18:59 Weight 68.039 kg Other: Voiding Method Toilet Toilet # Voids 3 4 # Bowel Movements 0 - Exam GENERAL DESCRIPTION: Middle-age female up in the chair in no distress RESPIRATORY SYSTEM: Unlabored breathing , decreased breath sounds at bases HEART: S1 S2 regular rate and rhythm , ABDOMEN: Soft , no tenderness EXTREMITIES: No edema feet - Labs CBC & Chem 7: 03/09/23 07:15 03/09/23 07:15 Labs: Abnormal Lab Results - Last 24 Hours (Table) 03/09/23 Range/Units 07:15 Chloride 111 H (98-107) mmol/L Assessment and Plan (1) Mastoiditis Current Visit: Yes Status: Acute Code(s): H70.90 - UNSPECIFIED MASTOIDITIS, UNSPECIFIED EAR SNOMED Code(s): 61699498 Plan: 1patient presented to hospital with left ear pain drainage in this patient who do have a history of mastoiditis requiring surgery in the past now with abnormal CT elevated white count concerning for another episode of mastoiditis. 2patient with a penicillin allergy that will limit the number of antibiotics s afe to use however patient mention she has taken Keflex without any problem 3patient has been evaluated by ENT culture has been obtained which are so far negative and recommending follow-up with her ENT at [facility] 4patient did have some clinical improvment, however the culture negative for any resistant pathogen we will discontinue vancomycin pharmacy to dose and cefepime and start the patient on Rocephin 2 g daily prescriptions provided to the child welfare caseworker multiple questions concerned were answered and a close patient follow-up Dictation was produced using [employer] dictation software. please excuse any grammatical, word or spelling errors. Time with Patient: Less than 30
[2023-03-09 13:48] VITALS: BP 111/75; PULSE 67; RESP 19; TEMP 98.2
[2023-03-09] MEDS ORDERED: VANCOMYCIN 1,000 MG in SODIUM CHLORIDE 0.9% 250 ML IVPB SCH (21:00)
== END 2023-03-09 15:56 | disposition home health service (06) | DRG 115 ==
LOC: EC 16:47 → 4SSUR 19:31 → 1SOBS 03-03 17:06 → 4SSUR 03-04 15:00
PROVIDERS: ADMIT Hospitalist; ATTEND Hospitalist
PROC: 02HV33Z Insertion of Infusion Device into Superior Vena Cava, Percutaneous Approach (ICD-10-PCS; principal; 2023-03-06 21:30)
DX: H72.92 Unspecified perforation of tympanic membrane, left ear (principal); H70.002 Acute mastoiditis without complications, left ear; H66.92 Otitis media, unspecified, left ear; H70.12 Chronic mastoiditis, left ear; H91.92 Unspecified hearing loss, left ear; F41.9 Anxiety disorder, unspecified; I10 Essential (primary) hypertension; J45.909 Unspecified asthma, uncomplicated; Z82.49 Family history of ischemic heart disease and other diseases of the circulatory system; Z82.5 Family history of asthma and other chronic lower respiratory diseases; Z87.442 Personal history of urinary calculi; Z98.84 Bariatric surgery status; M54.50 Low back pain, unspecified; M19.90 Unspecified osteoarthritis, unspecified site; Z53.29 Procedure and treatment not carried out because of patient's decision for other reasons; G43.909 Migraine, unspecified, not intractable, without status migrainosus; Z88.6 Allergy status to analgesic agent; Z88.0 Allergy status to penicillin; Z88.8 Allergy status to other drugs, medicaments and biological substances; Z71.6 Tobacco abuse counseling; G89.29 Other chronic pain
CPT/HCPCS: 36415; 36573; 70486; 80048; 80053; 80202; 81003; 82565; 83605; 84145; 85025; 86140; 87040; 87070; 87075; 87205; 94640; 96361; 96365; 96366; 96367; 96372; 96375; 99285

== ENCOUNTER 2023-03-20 17:28 | Emergency (ER) | payer OTHER ==
--- NOTE | 2023-03-20 17:39 | ED ---
General Adult HPI - General Chief complaint: ENT Stated complaint: L ear mastoiditis draining Source: patient, RN notes reviewed Mode of arrival: ambulatory Limitations: no limitations - History of Present Illness Initial comments: 53-year-old female presents to the emergency department chief complaint of left ear pain 2 days. She states that she has a history of mastoiditis and was recently admitted to the hospital for treatment. She states that yesterday she noticed worsening pain with associated yellow drainage. She states that she felt a pop followed by the drainage. She denies any changes in hearing. She has a picc line and is getting 2g of Rocephin daily. She follows with Dr. Valderrama through [facility] and has an appointment on Thursday. She denies fever, chills, vomiting, headache. - Related Data Home Medications Medication Instructions Recorded Confirmed Albuterol Sulfate [Proair Hfa] 2 puff INHALATION RT-Q6H PRN 03/02/23 03/02/23 Previous Rx's Medication Instructions Recorded ALPRAZolam [Xanax] 0.5 mg PO HS 7 Days tab 03/09/23 Ciprofloxacin-Dexameth [Ciprodex 4 drops LEFT EAR BID #10 ml 03/09/23 Otic Susp] Docusate [Colace] 100 mg PO BID 10 Days #20 cap 03/09/23 Famotidine [Pepcid] 20 mg PO DAILY #30 tab 03/09/23 HYDROcodone/APAP 5-325MG [[place] 1 each PO Q6HR PRN 7 Days #15 tab 03/09/23 5-325] Nicotine 14Mg/24Hr Patch [Habitrol] 1 patch TRANSDERM DAILY #14 patch 03/09/23 cefTRIAXone [Rocephin] 2,000 mg IVP Q24HR #28 each 03/09/23 Allergies Allergy/AdvReac Type Severity Reaction Status Date / Time Penicillins Allergy Anaphylaxis Verified 03/02/23 20:11 sumatriptan [From Imitrex] Allergy Unknown Verified 03/02/23 20:11 sumatriptan succinate Allergy Unknown Verified 03/02/23 20:11 [From Imitrex] NSAIDS (Non-Steroidal AdvReac Unknown Verified 03/02/23 20:11 Anti-Inflamma Review of Systems ROS Statement: Those systems with pertinent positive or pertinent negative responses have been documented in the HPI. ROS Other: All systems not noted in ROS Statement are negative. Past Medical History Past Medical History: No Reported History, Asthma, Hypertension Additional Past Medical History / Comment(s): Past L mastoiditis with L otitis/vertigo and falls-had surgery and no longer a problem, nephrolithiasis, migraines, past chronic low back pain but pt states not much of a problem anymore, DJD, hypoglycemia, History of Any Multi-Drug Resistant Organisms: None Reported Past Surgical History: Adenoidectomy, Appendectomy, Bariatric Surgery, Breast Surgery, Cholecystectomy, Ear Surgery, Hernia Repair, Hysterectomy, Orthopedic Surgery, Tonsillectomy, Tubal Ligation Additional Past Surgical History / Comment(s): Gastric bypass in 2009 with weight loss of 170 pounds, panniculectomy, L ear perforation with surgery, R knee open surgery as a child and x 2 arthroscopicL knee surgeries, R breast bx- benign, 2 umbilical hernias and 1 diaphragmatic hernia repairs, colonoscopy, mastoidectomy with Dr. Valderrama at [facility]. Past Anesthesia/Blood Transfusion Reactions: No Reported Reaction Past Psychological History: Anxiety, Depression Smoking Status: Current every day smoker Past Alcohol Use History: None Reported Past Drug Use History: None Reported - Past Family History Father Additional Family Medical History / Comment(s): Father from a aneurysm at the age of 72 yrs. he also had history of prostate cancer, aortic aneurysm, renal artery aneurysm. Mother Family Medical History: COPD Additional Family Medical History / Comment(s): Mother is 75 yrs old and has emphysema and hypertension. Brother(s) Additional Family Medical History / Comment(s): She has one brother with hypertension and plaque psoriasis. Sister(s) Additional Family Medical History / Comment(s): She has one sister with hypertension. Son(s) Additional Family Medical History / Comment(s): Patient has 3 children, one boy with ureteral obstruction and renal failure. 2 girls that are healthy without major medical problems. General Exam - General Exam Comments Initial Comments: Visual Physical Exam Vital signs reviewed General: Well-appearing, nontoxic, no acute distress. Head: Normocephalic, atraumatic Eyes: PERRLA, EOMI ENT: Airway patent Chest: Nonlabored breathing Skin: No visual rash, normal skin tone Neuro: Alert and oriented 3 Musculoskeletal: No gross abnormalities Limitations: no limitations General appearance: alert, in no apparent distress Eye exam: Present: normal appearance, PERRL, EOMI. Absent: scleral icterus, conjunctival injection, periorbital swelling ENT exam: Present: other (Mastoid region non erythematous, nonedematous, no displacement of the pinna. Tenderness to the mastoid region). Absent: TM's normal bilaterally, normal external ear exam (Debris present in left ear canal, drainage present, TM not well visualized) Neck exam: Present: normal inspection, full ROM. Absent: tenderness, meningismus, lymphadenopathy Respiratory exam: Present: normal lung sounds bilaterally. Absent: respiratory distress, wheezes, rales, rhonchi, stridor Cardiovascular Exam: Present: regular rate, normal rhythm, normal heart sounds. Absent: systolic murmur, diastolic murmur, rubs, gallop, clicks Back exam: Present: normal inspection Neurological exam: Present: alert, oriented X3 Psychiatric exam: Present: normal affect, normal mood Skin exam: Present: warm, dry, intact, normal color. Absent: rash Course Vital Signs 03/20/23 17:33 Temperature 98.5 F Pulse Rate 87 Respiratory 18 Rate Blood Pressure 127/93 O2 Sat by Pulse 99 Oximetry Medical Decision Making - Medical Decision Making I preformed the quick note portion of this chart. Electronically signed by Cleopatra Argueta PA-C Was pt. sent in by a medical professional or institution ([facility] Davis, PHARMACY GENERAL MANAGER, urgent care, hospital, or longterm...) When possible be specific @ -No Did you speak to anyone other than the patient for history (EMS, parent, family, police, friend...)? What history was obtained from this source @ -No Did you review nursing and triage notes (agree or disagree)? Why? @ -I reviewed and agree with nursing and triage notes Were old charts reviewed (outside hosp., previous admission, EMS record, old EKG, old radiological studies, urgent care reports/EKG's, longterm records)? Report findings @ -No old charts were reviewed Differential Diagnosis (chest pain, altered mental status, abdominal pain women, abdominal pain men, vaginal bleeding, weakness, fever, dyspnea, syncope, headache, dizziness, GI bleed, back pain, seizure, CVA, palpatations, mental health, musculoskeletal)? @ -Otitis media, otitis externa, mastoiditis, malignant otitis externa, this list is not all-inclusive EKG interpreted by me (3pts min.). @ -None X-rays interpreted by me (1pt min.). @ -None done CT interpreted by me (1pt min.). @ -None done U/S interpreted by me (1pt. min.). @ -None done What testing was considered but not performed or refused? (CT, X-rays, U/S, labs)? Why? @ -None What meds were considered but not given or refused? Why? @ -None Did you discuss the management of the patient with other professionals (professionals i.e. DrBrenda, PA, PHARMACY GENERAL MANAGER, lab, RT, psych nurse, community mental health social worker, adult high school instructor, teacher, privacy officer, welfare case worker)? Give summary @ -Case was discussed with Dr. Sampson, ENT who recommends the patient be transferred to another facility where she can be treated with tympanomastoidectomy Was smoking cessation discussed for >3mins.? @ -No Was critical care preformed (if so, how long)? @ -No Were there social determinants of health that impacted care today? How? (Homelessness, low income, unemployed, alcoholism, drug addiction, transportation, low edu. Level, literacy, decrease access to med. care, custodial, rehab)? @ -No Was there de-escalation of care discussed even if they declined (Discuss DNR or withdrawal of care, Hospice)? DNR status @ -No What co-morbidities impacted this encounter? (DM, HTN, Smoking, COPD, CAD, Cancer, CVA, ARF, Chemo, Hep., AIDS, mental health diagnosis, sleep apnea, morbid obesity)? @ -None Was patient admitted / discharged? Hospital course, mention meds given and route, prescriptions, significant lab abnormalities, going to OR and other pertinent info. @ -Patient left against medical advice. Patient presented to emergency department with worsening left ear pain and drainage 1 day. She has history of mastoiditis and is currently being treated with IV Rocephin through a PICC line. Laboratory studies were obtained which show white count of 11.7, CRP less than 0.5. This case was discussed in depth with Dr. Sampson, ENT who recommended that the patient be transferred to another facility for further management. This was discussed with the patient, discussed with patient possibility of contiguous spread and associated risks. Patient would like to leave and not be transferred to another facility. The risks were discussed in detail and patient is understanding of the risks. Patient will leave against medical advise. Case discussed with Dr. Bazan. Undiagnosed new problem with uncertain prognosis? @ -No Drug Therapy requiring intensive monitoring for toxicity (Heparin, Nitro, Insulin, Cardizem)? @ -No Were any procedures done? @ -No Diagnosis/symptom? @ -mastoiditis Acute, or Chronic, or Acute on Chronic? @ -acute on chronic Uncomplicated (without systemic symptoms) or Complicated (systemic symptoms)? @ -uncomplicated Side effects of treatment? @ -No Exacerbation, Progression, or Severe Exacerbation? @ -No Poses a threat to life or bodily function? How? (Chest pain, [place], [place], pneumonia, PE, COPD, DKA, ARF, appy, cholecystitis, CVA, Diverticulitis, Homicidal, Suicidal, threat to staff... and all critical care pts) @ -No - Lab Data Result diagrams: 03/20/23 20:15 03/20/23 20:15 Lab Results 03/20/23 03/20/23 Range/Units 20:15 20:15 WBC 11.7 H (3.8-10.6) k/uL RBC 4.05 (3.80-5.40) m/uL Hgb 12.1 (11.4-16.0) gm/dL Hct 38.3 (34.0-46.0) % MCV 94.7 (80.0-100.0) fL MCH 29.9 (25.0-35.0) pg MCHC 31.5 (31.0-37.0) g/dL RDW 15.3 (11.5-15.5) % Plt Count 466 H (150-450) k/uL MPV 8.1 Neutrophils % 54 % Lymphocytes % 35 % Monocytes % 4 % Eosinophils % 5 % Basophils % 1 % Neutrophils # 6.4 (1.3-7.7) k/uL Lymphocytes # 4.1 (1.0-4.8) k/uL Monocytes # 0.5 (0-1.0) k/uL Eosinophils # 0.6 (0-0.7) k/uL Basophils # 0.1 (0-0.2) k/uL Hypochromasia Slight Sodium 140 (137-145) mmol/L Potassium 4.2 (3.5-5.1) mmol/L Chloride 106 (98-107) mmol/L Carbon Dioxide 22 (22-30) mmol/L Anion Gap 12 mmol/L BUN 8 (7-17) mg/dL Creatinine 0.57 (0.52-1.04) mg/dL Est GFR (CKD-EPI)AfAm >90 (>60 ml/min/1.73 sqM) Est GFR (CKD-EPI)NonAf >90 (>60 ml/min/1.73 sqM) Glucose 113 H (74-99) mg/dL Calcium 9.5 (8.4-10.2) mg/dL Total Bilirubin 0.3 (0.2-1.3) mg/dL AST 29 (14-36) U/L ALT 28 (4-34) U/L Alkaline Phosphatase 91 (38-126) U/L C-Reactive Protein <0.5 (<1.0) mg/dL Total Protein 6.8 (6.3-8.2) g/dL Albumin 3.9 (3.5-5.0) g/dL Disposition Clinical Impression: Left against medical advice, Mastoiditis Disposition: LEFT AGAINST MEDICAL ADVICE Condition: Stable Is patient prescribed a controlled substance at d/c from ED?: No Referrals: Saleem Page DO [Primary Care Provider] - 1-2 days
[2023-03-20 17:40] VITALS: BP 127/93; PULSE 87; RESP 18; TEMP 98.5
[2023-03-20] MEDS ORDERED: KETOROLAC 15 MG/ML 1 ML VIAL IVP STA (21:23)
[2023-03-20 21:56] LABS: Basophils # (A) 0.1 k/uL (0-0.2); Basophils % (A) 1 %; Eosinophils # (A) 0.6 k/uL (0-0.7); Eosinophils % (A) 5 %; HCT 38.3 % (34.0-46.0); HGB 12.1 gm/dL (11.4-16.0); Hypochromasia Slight; Lymphocytes # (A) 4.1 k/uL (1.0-4.8); Lymphocytes % (A) 35 %; MCH 29.9 pg (25.0-35.0); MCHC 31.5 g/dL (31.0-37.0); MCV 94.7 fL (80.0-100.0); Mean Platelet Volume 8.1; Monocytes # (A) 0.5 k/uL (0-1.0); Monocytes % (A) 4 %; Neutrophils # (A) 6.4 k/uL (1.3-7.7); Neutrophils % (A) 54 %; Platelet Count 466 k/uL (150-450); RBC 4.05 m/uL (3.80-5.40); RDW 15.3 % (11.5-15.5); WBC 11.7 k/uL (3.8-10.6)
[2023-03-20 22:14] LABS: ALT 28 U/L (4-34); AST 29 U/L (14-36); African American GFR (CKD) >90 (>60 ml/min/1.73 sqM); Albumin 3.9 g/dL (3.5-5.0); Alkaline Phosphatase 91 U/L (38-126); Anion Gap 12 mmol/L; Blood Urea Nitrogen 8 mg/dL (7-17); Calcium 9.5 mg/dL (8.4-10.2); Carbon Dioxide 22 mmol/L (22-30); Chloride 106 mmol/L (98-107); Glucose 113 mg/dL (74-99); Non-African American GFR(CKD) >90 (>60 ml/min/1.73 sqM); Potassium 4.2 mmol/L (3.5-5.1); Sodium 140 mmol/L (137-145); Total Bilirubin 0.3 mg/dL (0.2-1.3); Total Protein 6.8 g/dL (6.3-8.2)
[2023-03-20 22:18] LABS: C Reactive Protein <0.5 mg/dL (<1.0)
[2023-03-21 01:34] LABS: Erythrocyte Sedimentation Rate 45 mm/Hr (0-30)
== END 2023-03-20 23:23 | disposition left against medical advice (07) ==
LOC: EC 17:28
DX: H70.92 Unspecified mastoiditis, left ear (principal); J45.909 Unspecified asthma, uncomplicated; I10 Essential (primary) hypertension; F17.200 Nicotine dependence, unspecified, uncomplicated; Z53.29 Procedure and treatment not carried out because of patient's decision for other reasons; Z79.899 Other long term (current) drug therapy; Z88.6 Allergy status to analgesic agent; Z88.0 Allergy status to penicillin; Z88.8 Allergy status to other drugs, medicaments and biological substances; Z90.49 Acquired absence of other specified parts of digestive tract
CPT/HCPCS: 99283; 96374; 36415; 80053; 85652; 85025; 86140; J1885

== ENCOUNTER 2023-12-14 20:55 | Inpatient (IN) | payer OTHER ==
[2023-12-14] MEDS ORDERED: NITROGLYCERIN SL TABS 0.4 MG TAB SUBLINGUAL PRN ×2 (21:34→22:55)
--- NOTE | 2023-12-14 21:34 | ED ---
Chest Pain HPI - General Chief Complaint: Chest Pain Stated Complaint: Chest Pain, Jaw Pain Time Seen by Provider: 12/14/23 21:16 Source: patient, RN notes reviewed, old records reviewed Mode of arrival: ambulatory Limitations: no limitations - History of Present Illness Initial Comments: This is a 53-year-old female to the ER for evaluation patient presented today for evaluation regards to chest pain. Patient has persistent chest pain left- sided chest pain anterior chest pain here in the ER holding her left side of her chest as well as pain into her jaw, patient is emotional and secured here in the emergency department does admit to some shortness of breath history of COPD and smoking. Patient also has history of hypertension, no recent cardiac evaluation or stress test MD Complaint: chest pain -: days(s) Onset: during rest, awoke with symptoms (1000 am) Pain Location: substernal, left chest Pain Radiation: jaw/teeth Severity: severe Quality: tightness, heaviness Consistency: constant Improves With: nothing Worsens With: nothing Anginal Symptoms: nausea, dyspnea, sense of impending doom Treatments Prior to Arrival: none - Related Data Home Medications Medication Instructions Recorded Confirmed ALPRAZolam [Xanax] 1 mg PO DAILY PRN 12/15/23 12/15/23 ALPRAZolam [Xanax] 1 mg PO HS 12/15/23 12/15/23 Albuterol Sulfate [Albuterol 2 puff PO RT-BID 12/15/23 12/15/23 Sulfate Hfa] Previous Rx's Medication Instructions Recorded Acetaminophen Tab [Tylenol] 650 mg PO Q6HR PRN tab 12/16/23 Aspirin 81 mg PO DAILY #30 tab 12/16/23 Atorvastatin [Lipitor] 80 mg PO HS #30 tab 12/16/23 Famotidine [Pepcid] 20 mg PO DAILY #14 tab 12/16/23 HYDROcodone/APAP 5-325MG [[place] 1 each PO Q6HR PRN #6 tab 12/16/23 5-325] Metoprolol Tartrate [Lopressor] 12.5 mg PO BID #60 tab 12/16/23 Nicotine 21Mg/24Hr Patch [Habitrol] 1 patch TRANSDERM DAILY #30 patch 12/16/23 Nitroglycerin Sl Tabs [Nitrostat] 0.4 mg SUBLINGUAL Q5M PRN #20 tab 12/16/23 Ticagrelor [Brilinta] 90 mg PO BID #60 tab 12/16/23 Allergies Allergy/AdvReac Type Severity Reaction Status Date / Time cephalexin [From Keflex] Allergy Anaphylaxis Verified 12/15/23 07:36 Penicillins Allergy Anaphylaxis Verified 12/15/23 07:36 sumatriptan [From Imitrex] Allergy Unknown Verified 12/15/23 07:36 sumatriptan succinate Allergy Unknown Verified 12/15/23 07:36 [From Imitrex] NSAIDS (Non-Steroidal AdvReac Unknown Verified 12/15/23 07:36 Anti-Inflamma Review of Systems ROS Statement: Those systems with pertinent positive or pertinent negative responses have been documented in the HPI. ROS Other: All systems not noted in ROS Statement are negative. EKG Findings - EKG Comments: EKG Findings:: EKG is sinus 83 SD 166 QRS 92 QTc 410 - EKG Results: EKG: interpreted by NIKO Past Medical History Past Medical History: No Reported History, Asthma, Hypertension Additional Past Medical History / Comment(s): Past L mastoiditis with L otitis/vertigo and falls-had surgery and no longer a problem, nephrolithiasis, migraines, past chronic low back pain but pt states not much of a problem anymore, DJD, hypoglycemia, History of Any Multi-Drug Resistant Organisms: None Reported Past Surgical History: Adenoidectomy, Appendectomy, Bariatric Surgery, Breast S urgery, Cholecystectomy, Ear Surgery, Hernia Repair, Hysterectomy, Orthopedic Surgery, Tonsillectomy, Tubal Ligation Additional Past Surgical History / Comment(s): Gastric bypass in 2008 with weight loss of 170 pounds, panniculectomy, L ear perforation with surgery, R knee open surgery as a child and x 2 arthroscopicL knee surgeries, R breast bx- benign, 2 umbilical hernias and 1 diaphragmatic hernia repairs, colonoscopy, mastoidectomy with Dr. Valderrama at [facility]. Past Anesthesia/Blood Transfusion Reactions: No Reported Reaction Past Psychological History: Anxiety, Depression Smoking Status: Current every day smoker Past Alcohol Use History: None Reported Past Drug Use History: None Reported - Past Family History Father Additional Family Medical History / Comment(s): Father from a aneurysm at the age of 72 yrs. he also had history of prostate cancer, aortic aneurysm, renal artery aneurysm. Mother Family Medical History: COPD Additional Family Medical History / Comment(s): Mother is 75 yrs old and has emphysema and hypertension. Brother(s) Additional Family Medical History / Comment(s): She has one brother with hypertension and plaque psoriasis. Sister(s) Additional Family Medical History / Comment(s): She has one sister with hypertension. Son(s) Additional Family Medical History / Comment(s): Patient has 3 children, one boy with ureteral obstruction and renal failure. 2 girls that are healthy without major medical problems. General Exam Limitations: no limitations General appearance: alert, in no apparent distress, anxious, in distress Head exam: Present: atraumatic, normocephalic, normal inspection Eye exam: Present: normal appearance, PERRL, EOMI. Absent: scleral icterus, conjunctival injection, periorbital swelling ENT exam: Present: normal exam, mucous membranes moist Neck exam: Present: normal inspection. Absent: tenderness, meningismus, lymphadenopathy Respiratory exam: Present: normal lung sounds bilaterally. Absent: respiratory distress, wheezes, rales, rhonchi, stridor Cardiovascular Exam: Present: regular rate, normal rhythm, normal heart sounds. Absent: systolic murmur, diastolic murmur, rubs, gallop, clicks GI/Abdominal exam: Present: soft, normal bowel sounds. Absent: distended, tenderness, guarding, rebound, rigid Extremities exam: Present: normal inspection, full ROM, normal capillary refill. Absent: tenderness, pedal edema, joint swelling, calf tenderness Back exam: Present: normal inspection Neurological exam: Present: alert, oriented X3, CN II-XII intact Psychiatric exam: Present: normal affect, normal mood Skin exam: Present: warm, dry, intact, normal color. Absent: rash Course Vital Signs 12/14/23 12/14/23 20:56 21:47 Temperature 97.9 F Pulse Rate 87 96 Respiratory 18 18 Rate Blood Pressure 100/69 114/83 O2 Sat by Pulse 99 98 Oximetry - Reevaluation(s) Reevaluation #1: 12/14/23 21:31 Medical records reviewed Reevaluation #2: 12/14/23 21:31 Symptoms improved patient with persistent pain and symptoms here in the ER Reevaluation #3: 12/14/23 21:38 Patient informed of results and questions answered Reevaluation #4: Was pt. sent in by a medical professional or institution (, RY, MULTIMEDIA ARTIST, urgent care, hospital, or usp...) When possible be specific @ -no Did you speak to anyone other than the patient for history (EMS, parent, family, police, friend...)? What history was obtained from this source @ -no Did you review nursing and triage notes (agree or disagree)? Why? @ -agree Are old charts reviewed (outside hosp., previous admission, EMS record, old EKG, old radiological studies, urgent care reports/EKG's, usp records)? Report findings @ -yes Differential Diagnosis (chest pain, altered mental status, abdominal pain women, abdominal pain men, vaginal bleeding, weakness, fever, dyspnea, syncope, headache, dizziness, GI bleed, back pain, seizure, CVA, palpatations, mental health, musculoskeletal)? @ -prior EKG interpreted by me (3pts min.). @ -yes X-rays interpreted by me (1pt min.). @ -yes negative for acute disease CT interpreted by me (1pt min.). @ -no U/S interpreted by me (1pt. min.). @ -no What testing was considered but not performed or refused? (CT, X-rays, U/S, labs)? Why? @ -none What meds were considered but not given or refused? Why? @ -none Did you discuss the management of the patient with other professionals (professionals i.e. , [facility], MULTIMEDIA ARTIST, lab, RT, psych nurse, psych social worker, rim fire priming operator, teacher, admissions officer, heel caser)? Give summary @ -no Was smoking cessation discussed for >3mins.? @ -no Was critical care preformed (if so, how long)? @ -yes31 Were there social determinants of health that impacted care today? How? (H omelessness, low income, unemployed, alcoholism, drug addiction, transportation, low edu. Level, literacy, decrease access to med. care, prison, rehab)? @ -none Was there de-escalation of care discussed even if they declined (Discuss DNR or withdrawal of care, Hospice)? DNR status @ -no What co-morbidities impacted this encounter? (DM, HTN, Smoking, COPD, CAD, Cancer, CVA, ARF, Chemo, Hep., AIDS, mental health diagnosis, sleep apnea, morbid obesity)? @ -none Was patient admitted / discharged? Hospital course, mention meds given and route, prescriptions, significant lab abnormalities, going to OR and other pertinent info. @ - 53 female experiencing typical anginal, chest pain symptoms. History of smoking and high blood pressure, patient does have EKG changes concerning for ischemia, cardiology will see and take patient for catheterization Undiagnosed new problem with uncertain prognosis? @ -no Drug Therapy requiring intensive monitoring for toxicity (Heparin, Nitro, Insulin, Cardizem)? @ -no Were any procedures done? @ -no Diagnosis/symptom? @ -ACS Acute, or Chronic, or Acute on Chronic? @ -Acute Uncomplicated (without systemic symptoms) or Complicated (systemic symptoms)? @ -Complicated Side effects of treatment? @ -no Exacerbation, Progression, or Severe Exacerbation? @ -exacerbation Poses a threat to life or bodily function? How? (Chest pain, [place], [place], pneumonia, PE, COPD, DKA, ARF, appy, cholecystitis, CVA, Diverticulitis, Homicidal, Suicidal, threat to staff... and all critical care pts) @ -yes acute coronary syndrome Reevaluation #5: Differential Chest Pain: Stable Angina, Unstable Angina, STEMI, NSTEMI Aortic Dissection, Pneumothorax, Musculoskeletal, Esophageal Spasm GERD, Cholecystitis, Pancreatitis, Zoster, this is not meant to be an all-inclusive list. - Consultations Consultation #1: Spoke with [facility] who agrees to admit this patient Chest Pain MDM - MDM 53 female experiencing typical anginal, chest pain symptoms. History of smoking and high blood pressure, patient does have EKG changes concerning for ischemia, cardiology will see and take patient for catheterization Critical Care Time Critical Care Time: Yes Total Critical Care Time: 31 Disposition Clinical Impression: ACS (acute coronary syndrome) Disposition: ADMITTED IP TO THIS HOSP Condition: Fair Is patient prescribed a controlled substance at d/c from ED?: No Time of Disposition: 21:30
[2023-12-14 21:39] LABS: ALT 14 U/L (4-34); AST 19 U/L (14-36); African American GFR (CKD) >90 (>60 ml/min/1.73 sqM); Albumin 3.8 g/dL (3.5-5.0); Alkaline Phosphatase 98 U/L (38-126); Anion Gap 6 mmol/L; Blood Urea Nitrogen 16 mg/dL (7-17); Calcium 9.2 mg/dL (8.4-10.2); Carbon Dioxide 22 mmol/L (22-30); Chloride 108 mmol/L (98-107); Glucose 91 mg/dL (74-99); Lipase 95 U/L (23-300); Magnesium 2.2 mg/dL (1.6-2.3); Non-African American GFR(CKD) >90 (>60 ml/min/1.73 sqM); Potassium 3.6 mmol/L (3.5-5.1); Sodium 136 mmol/L (137-145); Total Bilirubin 0.4 mg/dL (0.2-1.3); Total Protein 6.4 g/dL (6.3-8.2)
[2023-12-14] MEDS: MORPHINE SULFATE 4 MG/ML SYRINGE IV PRN (21:39)
[2023-12-14] MEDS: ATORVASTATIN 80 MG TAB PO SCH (21:40)
[2023-12-14] MEDS: HEPARIN SODIUM 1,000 UN/ML (10ML VL) IV ONE ×2 (21:40→22:44)
[2023-12-14] MEDS: HEPARIN SOD,PORK IN 0.45% NACL 25,000 UNIT in 0.45% NACL 1 250ML.BAG IV SCH (21:44)
[2023-12-14 21:47] LABS: NT-Pro-B-Type Natriuretic Pept 216 pg/mL
--- NOTE | 2023-12-14 21:53 | XR ---
EXAMINATION TYPE: XR chest 1V portable DATE OF EXAM: 12/14/2023 9:29 PM CLINICAL INDICATION:Female, 53 years old with history of chest pain COMPARISON: Chest radiograph 05/05/2022 TECHNIQUE: XR chest 1V portable Frontal view of the chest. FINDINGS: Mild interstitial opacities are seen in the bilateral lungs. No focal consolidations. No pneumothorax . The cartilaginous silhouette is unremarkable. No acute osseous abnormalities. IMPRESSION: Mild pulmonary edema versus developing mild interstitial disease.
[2023-12-14 21:59] LABS: Anisocytosis Slight; Basophils # (A) 0.1 k/uL (0-0.2); Basophils % (A) 0 %; Eosinophils # (A) 0.5 k/uL (0-0.7); Eosinophils % (A) 3 %; HCT 37.3 % (34.0-46.0); HGB 12.4 gm/dL (11.4-16.0); Lymphocytes # (A) 6.1 k/uL (1.0-4.8); Lymphocytes % (A) 33 %; MCH 31.4 pg (25.0-35.0); MCHC 33.3 g/dL (31.0-37.0); MCV 94.3 fL (80.0-100.0); Mean Platelet Volume 7.9; Monocytes # (A) 0.9 k/uL (0-1.0); Monocytes % (A) 5 %; Neutrophils # (A) 10.7 k/uL (1.3-7.7); Neutrophils % (A) 58 %; Platelet Count 493 k/uL (150-450); RBC 3.96 m/uL (3.80-5.40); RDW 16.2 % (11.5-15.5); WBC 18.4 k/uL (3.8-10.6)
[2023-12-14] MEDS ORDERED: VERAPAMIL 2.5 MG/ML 2 ML AMP ONE (22:09)
[2023-12-14] MEDS ORDERED: LIDOCAINE 1% INJ 10MG/ML (20 ML MDV) ONE ×2 (22:09→22:20)
[2023-12-14] MEDS: fentaNYL (PF) 50 MCG/ML 2 ML AMP IVP ONE (22:10)
[2023-12-14] MEDS: MIDAZOLAM 2 MG/2 ML VIAL IVP ONE (22:10)
[2023-12-14 22:13] LABS: INR 0.9 (<1.2); Partial Thromboplastin Time 23.4 sec (22.0-30.0); Prothrombin Time 9.7 sec (10.0-12.5)
[2023-12-14] MEDS ORDERED: HEPARIN SODIUM 1,000 UN/ML (10ML VL) ONE (22:13)
[2023-12-14] MEDS ORDERED: fentaNYL (PF) 50 MCG/ML 2 ML AMP ONE (22:14)
[2023-12-14] MEDS: LIDOCAINE 1% INJ 10MG/ML (20 ML MDV) SQ ONE ×2 (22:14→22:18)
[2023-12-14] MEDS: IV FLUID CONTINUATION 1,000 ML IV ONE (22:16)
[2023-12-14] MEDS ORDERED: TICAGRELOR 90 MG TAB ONE (22:36)
[2023-12-14] MEDS: TICAGRELOR 90 MG TAB PO ONE (22:43)
[2023-12-14] MEDS: NITROGLYCERIN 1000MCG/10ML SYRINGE INTRACORON ONE (22:50)
[2023-12-14] MEDS ORDERED: MAG HYDROX/AL HYDROX/SIMETH 30 ML CUP PO PRN (22:55)
[2023-12-14] MEDS ORDERED: RX INFO: IV CONTRAST WAS GIVEN 1 EACH MISC MISCELLANE PRN (22:55)
[2023-12-14] MEDS ORDERED: ZOLPIDEM 5 MG TAB PO PRN (22:55)
[2023-12-14] MEDS ORDERED: ATROPINE SULFATE 0.1 MG/ML 10ML SYRINGE IV PRN (22:55)
--- NOTE | 2023-12-14 23:00 | P.PCN ---
Date of Procedure: 12/14/23 Operative Findings: PERCUTANEOUS CORONARY INTERVENTION Performing physician Wesley Jacob M.D. Procedure Performed: 1. Successful stenting of the mid LAD using 3.5 x 18 mm Xience drug-eluting stent with an excellent angiographic results. 2. Adjunctive use of IVUS Indication: Chest discomfort concerning for angina in this patient who underwent a heart catheterization and that revealed severe disease involving the mid LAD with BOX CAR WASHER of the RCA Approach: Left common femoral artery Complications: None Level of Sedation: Moderate with a sedation length of 23 minutes Procedure Discussion: Please refer to diagnostic heart catheterization was performed earlier. Anticoagulation was initiated using heparin. The left main was engaged using XB 3 5 LAD guide. The LAD was wired using a run-through wire. Subsequently I did intravascular ultrasound which showed a noncalcified lesion with a diameter around 3.0 to 3.5 mm. I did predilated using 3.0 mm balloon before I deployed 3.5 x 18 mm stent which was postdilated using 3.5 mm noncompliant balloon after IVUS was performed. Final IVUS angiogram performed and showed an excellent angiographic results and the procedure was completed with no complication Postprocedure Management: 1. Dual antiplatelet therapy using aspirin and Brilinta for at least 12-month 2. Aggressive cholesterol control 3. Risk factors modification
--- NOTE | 2023-12-14 23:06 | CONS ---
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 She has been having on and off episodes of chest pain from this morning, did not go away and have gotten worse this evening, hence came to the emergency room. We were called in as part of a STEMI alert team, I am seeing the patient in the cardiac roving tester laboratory. EKG shows sinus rhythm with changes of subendocardial ischemia. I advised the patient to undergo emergent cardiac catheterization with a view to performing angioplasty. She understands risks and benefits. PAST MEDICAL HISTORY: Significant for hypertension. MEDICATIONS: Olmesartan. FAMILY HISTORY: Negative for premature coronary artery disease. SOCIAL HISTORY: Smoking. There is no history of EtOH abuse or drug abuse. REVIEW OF SYSTEMS: A review of systems has been performed, pertinence are as documented. PHYSICAL EXAMINATION: GENERAL: Comfortable at rest. VITAL SIGNS: Stable. NECK: There is no jugular venous distention. Carotid upstroke is normal, there is no bruit. CHEST: Reveals good air entry bilaterally. HEART: Reveals first and second heart sounds. No gallop, no murmur. ABDOMEN: Soft. EXTREMITIES: Did not reveal any edema. Peripheral pulses are felt. ASSESSMENT: Acute coronary syndrome. PLAN: The patient will undergo emergent cardiac catheterization. MMODL / IJN: [id number] /
[2023-12-14] MEDS: IOPAMIDOL-370 100ML BTL INJ ONE (23:10)
--- NOTE | 2023-12-14 23:12 | CC ---
CARDIAC CATHETERIZATION REPORT INDICATIONS: Acute coronary syndrome. PROCEDURE NOTE: After obtaining informed consent, left heart catheterization and coronary angiogram was performed via the left femoral artery using standard Leo catheters. The patient tolerated the procedure well without any obvious immediate complications, received moderate conscious sedation. Total sedation time was 17 minutes. We initially wanted to perform radial artery catheterization, but her radial pulses are very poor. I attempted cardiac catheterization via the right femoral artery, but her right femoral pulse is diminished and I could not obtain arterial access, hence I proceeded with the left femoral catheterization and completed it uneventfully. FINDINGS: 1. Hemodynamics: Left ventricular end-diastolic pressure is 22 mm. There is no significant gradient across the aortic valve. 2. Left Ventriculogram: Left ventriculogram is not performed. 3. Angiographic Data: a.Right Coronary Artery: Right coronary artery seems chronically occluded with extensive [id number] collaterals. Left main coronary artery is a normal-sized vessel and is free of stenosis. Divides into left anterior descending coronary artery and circumflex coronary artery. LAD shows a focal 90% stenosis in its midportion. Circumflex coronary artery is a codominant vessel that shows mild nonobstructive disease. CONCLUSION: 1. Chronically occluded right coronary artery with extensive collaterals from the left to the right. 2. Focal 90% stenosis involving mid LAD. PLAN: Angiographic data was reviewed by Dr. Jacob, the on-call investigations consultant who will proceed with percutaneous revascularization of the LAD. CRISTOPHER / DAVID: [id number] /
[2023-12-14 23:19] LABS: Glucose,Whole Blood 84 mg/dL (70-110)
[2023-12-15 02:55] LABS: Mean Platelet Volume 6.5; Platelet Count 575 k/uL (150-450)
[2023-12-15] MEDS: ALPRAZolam 1 MG TAB PO SCH (02:57)
[2023-12-15] MEDS: HYDROcodone/APAP 5-325MG 1 EACH TAB PO PRN (02:57)
[2023-12-15] MEDS: SODIUM CHLORIDE 0.9% 1,000 ML in EMPTY BAG 1 BAG IV SCH (02:57)
--- NOTE | 2023-12-15 07:41 | P.PN ---
Subjective Progress Note Date: 12/15/23 The patient is a 53-year-old female patient who was admitted to the hospital with acute coronary syndrome and underwent a heart catheterization revealed MANAGEMENT TRA[employer]GRAM STORES of the RCA and severe disease involving the LAD patient underwent PCI of the LAD. December 15, 2023 She was seen this morning which she is asymptomatic. Hemodynamically she has marginally low blood pressure with him going to decrease the dose of metoprolol but she is on dual antiplatelet therapy along with a statin. The echo still pending. The examination is remarkable for regular rhythm with a distant heart sounds and clear breathing sounds bilaterally and no edema was noted with tender left groin. Assessment Acute coronary syndrome Status post PCI of the LAD MANAGEMENT TRA[employer] STORES of the RCA Multiple comorbid conditions Plan Decrease the dose of metoprolol Continue dual antiplatelet therapy along with a statin Obtain an ultrasound of the left groin Objective - Vital Signs Vital signs: Vital Signs Temp 98.2 F 12/15/23 00:11 Pulse 64 12/15/23 07:00 Resp 19 12/15/23 07:00 BP 94/72 12/15/23 07:00 Pulse Ox 96 12/15/23 07:00 FiO2 Intake & Output 12/14/23 12/15/23 12/15/23 18:59 06:59 18:59 Intake Total 1000 Output Total 300 0 Balance 700 0 Weight 73.3 kg Intake: IV 1000 Sodium Chloride 0.9% 1, 600 000 ml In Empty Bag 1 bag @ 75 mls/hr IV .[id number] [facility] Rx#:[id number] Output: Urine 300 0 Other: Voiding Method External Catheter ABP, PAP, CO, CI - Last Documented Arterial Blood Pressure 107/61 - Labs CBC & Chem 7: 12/15/23 02:37 12/14/23 21:01 Labs: Abnormal Lab Results - Last 24 Hours (Table) 12/14/23 12/14/23 12/14/23 Range/Units 21:01 21:01 21:01 WBC 18.4 H (3.8-10.6) k/uL RDW 16.2 H (11.5-15.5) % Plt Count 493 H (150-450) k/uL Neutrophils # 10.7 H (1.3-7.7) k/uL Lymphocytes # 6.1 H (1.0-4.8) k/uL PT 9.7 L (10.0-12.5) sec Sodium 136 L (137-145) mmol/L Chloride 108 H (98-107) mmol/L Troponin I (0.000-0.034) ng/mL 12/15/23 12/15/23 12/15/23 Range/Units 00:16 02:37 02:37 WBC (3.8-10.6) k/uL RDW (11.5-15.5) % Plt Count 575 H (150-450) k/uL Neutrophils # (1.3-7.7) k/uL Lymphocytes # (1.0-4.8) k/uL PT (10.0-12.5) sec Sodium (137-145) mmol/L Chloride (98-107) mmol/L Troponin I 0.184 H* 0.243 H* (0.000-0.034) ng/mL
[2023-12-15] MEDS: METOPROLOL TARTRATE 12.5 MG TAB PO SCH (08:34)
[2023-12-15] MEDS: ASPIRIN 81 MG PO SCH (08:36)
[2023-12-15] MEDS: TICAGRELOR 90 MG TAB PO SCH (08:36)
--- NOTE | 2023-12-15 08:59 | US ---
EXAMINATION TYPE: US lower ext pseudo artery LT DATE OF EXAM: 12/15/2023 COMPARISON: NONE CLINICAL INDICATION: Female, 53 years old with history of rule out pseudo aneursym; Patient had left groin approach heart cath last night at 11 pm. EXAM PERFORMED: Grayscale and color Doppler duplex imaging performed of the groin, post cardiac aaron ter to assess for pseudoaneurysm. SIDE PERFORMED: Left Color and Waveform Doppler performed to assess for the presence of pseudoaneurysm; Is there ultrasound evidence of a pseudoaneurysm: No evidence of pseudoaneurysm at this time. Is there evidence of AV shunting: No Is there a fluid collection present: No fluid collection seen. Exam is limited in the upper groin due to edema. IMPRESSION: No diagnostic evidence of pseudoaneurysm
[2023-12-15] MEDS ORDERED: ASPIRIN 325 MG TAB PO SCH (09:00)
[2023-12-15] MEDS ORDERED: METOPROLOL TARTRATE 25 MG TAB PO SCH (09:00)
[2023-12-15] MEDS ORDERED: ALBUTEROL NEBULIZED 2.5 MG/3 ML INHALATION PRN (09:35)
[2023-12-15 09:40] LABS: Chol/HDL Ratio 3.65 Ratio; LDL Cholesterol,Calculated 106.5 mg/dL (0.0-131.0)
[2023-12-15] MEDS ORDERED: ONDANSETRON 4 MG/2 ML VIAL IVP PRN (09:52)
--- NOTE | 2023-12-15 11:06 | CA ---
Transthoracic Echo Report Name: Kell Damon Age: 53 Gender: F : 1970 Exam Date: 12/15/2023 09:37 Exam Location: [facility] Ht (in): 62 Wt (lb): 161 Ordering Physician: Wesley Jacob MD ([id number]) Attending/Referring Phys: Computer Builder Jazmine Erickson RDCS Procedure CPT: Indications: Post STEMI Cardiac Hx: Technical Quality: Good Contrast 1: Total Dose (mL): Contrast 2: Total Dose (mL): MEASUREMENTS (Male / Female) Normal Values 2D ECHO LV Diastolic Diameter PLAX 4.2 cm 4.2 - 5.9 / 3.9 - 5.3 cm LV Systolic Diameter PLAX 3.2 cm IVS Diastolic Thickness 0.7 cm 0.6 - 1.0 / 0.6 - 0.9 cm LVPW Diastolic Thickness 0.9 cm 0.6 - 1.0 / 0.6 - 0.9 cm LV Relative Wall Thickness 0.4 LVOT Diameter 2.1 cm LV Diastolic Volume MOD BP 98.0 cm??? 67 - 155 / 56 - 104 cm??? LV Systolic Volume MOD BP 42.1 cm??? 22 - 58 / 19 - 49 cm??? LV Ejection Fraction MOD BP 57.0 % >= 55 % LV Cardiac Index MOD BP 2064.6 cm???/min???m??? LV Diastolic Volume MOD 4C 98.8 cm??? LV Systolic Volume MOD 4C 41.8 cm??? LV Ejection Fraction MOD 4C 57.7 % LV Cardiac Index MOD 4C 2106.9 cm???/min???m??? LV Diastolic Length 4C 8.5 cm LV Systolic Length 4C 7.4 cm LV Diastolic Volume MOD 2C 95.7 cm??? LV Systolic Volume MOD 2C 43.1 cm??? LV Ejection Fraction MOD 2C 55.0 % LV Cardiac Index MOD 2C 1947.4 cm???/min???m??? LV Diastolic Length 2C 8.7 cm LV Systolic Length 2C 7.4 cm LA Volume 41.0 cm??? 18 - 58 / 22 - 52 cm??? LA Volume Index 22.6 cm???/m??? 16 - 28 cm???/m??? Ascending Aorta Diameter 3.6 cm DOPPLER AV Peak Velocity 111.7 cm/s AV Peak Gradient 5.0 mmHg AV Mean Velocity 80.0 cm/s AV Mean Gradient 2.8 mmHg AV Velocity Time Integral 24.2 cm LVOT Peak Velocity 92.2 cm/s LVOT Peak Gradient 3.4 mmHg LVOT Velocity Time Integral 20.5 cm LVOT Stroke Volume 69.7 cm??? LVOT Stroke Volume Index 40.0 ml/m??? LVOT Cardiac Index 2578.5 cm???/min???m??? AV Area Cont Eq vti 2.9 cm??? AV Area Cont Eq pk 2.8 cm??? MV Area PHT 5.0 cm??? Mitral E Point Velocity 75.7 cm/s Mitral A Point Velocity 47.7 cm/s Mitral E to A Ratio 1.6 MV Deceleration Time 152.8 ms TR Peak Velocity 247.1 cm/s TR Peak Gradient 24.4 mmHg Right Atrial Pressure 10.0 mmHg Pulmonary Artery Systolic Pressu 34.4 mmHg Right Ventricular Systolic Press 34.4 mmHg PV Peak Velocity 78.2 cm/s PV Peak Gradient 2.4 mmHg FINDINGS Left Ventricle Left ventricular ejection fraction is estimated at 55-60 %. Left ventricular cavity size normal. Left ventricular wall thickness normal. Apical lateral hypokinesis wall segment. Right Ventricle Normal right ventricular size and function. Right ventricular systolic pressure within normal limits. Right Atrium Normal right atrial size. Left Atrium Normal left atrial size. Mitral Valve Structurally normal mitral valve. No evidence for mitral valve prolapse. No mitral stenosis. Mild mitral regurgitation. Aortic Valve Trileaflet aortic valve. No aortic valve stenosis or regurgitation. Tricuspid Valve Structurally normal tricuspid valve. No tricuspid stenosis. Mild tricuspid regurgitation. Pulmonic Valve Structurally normal pulmonic valve. No pulmonic stenosis. No pulmonic regurgitation. Pericardium No pericardial effusion. Aorta Normal size aortic root and proximal ascending aorta. CONCLUSIONS Normal LV systolic function with an ejection fraction of 50% Apical lateral wall hypokinesis noted Mild mitral and tricuspid regurgitation noted Previewed by: Dr. Huang Cheek MD (Electronically Signed) Final Date: 15 December 2023 11:06
[2023-12-15 11:39] VITALS: BMI 29.5
[2023-12-15] MEDS: NICOTINE 21MG/24HR PATCH TRANSDERM SCH (12:11)
[2023-12-15 12:16] LABS: African American GFR (CKD) >90 (>60 ml/min/1.73 sqM); Non-African American GFR(CKD) >90 (>60 ml/min/1.73 sqM)
--- NOTE | 2023-12-15 13:04 | P.HPIM ---
History of Present Illness H&P Date: 12/15/23 This is a 53-year-old female with medical history significant for asthma, hypertension, migraines, chronic back pain, coronary artery disease with prior cardiac stenting, gastric bypass, COPD, current smoker. Patient comes into the hospital with chest pain left-sided anterior chest wall with radiation into her jaw also admits to having some shortness of breath. States the pain started in the evening while she had been sitting down. Was not doing any strenuous activity. Pain didnt't get better so she came to the ER for evaluation. Had no dizziness or lightheadedness, no nausea vomiting or diarrhea. Chest x-ray reveals mild pulmonary edema versus developing mild interstitial disease. Patient's initial troponin level was negative, had a sodium level of 136, white blood cell count of 18.4. Patient was evaluated in consultation by cardiology services due to concerns of EKG changes showing ischemia concern for STEMI and patient was taken to the cardiac Fireboat Operator emergently; patient had successful stenting of the mid LAD and has a chronically occluded RCA. Patient has been started on Brilinta 90 mg twice a day and aspirin 81 mg daily as well as Lopressor 12.5 mg twice a day and statin therapy. Patient is now monitored in the intensive care unit and is currently denying any chest pain. REVIEW OF SYSTEMS: CONSTITUTIONAL: No fever, no malaise, no fatigue. HEENT: No recent visual problems or hearing problems. Denied any sore throat. CARDIOVASCULAR: No chest pain, orthopnea, PND, no palpitations, no syncope. PULMONARY: No shortness of breath, no cough, no hemoptysis. GASTROINTESTINAL: No diarrhea, no nausea, no vomiting, no abdominal pain. NEUROLOGICAL: No headaches, no weakness, no numbness. HEMATOLOGICAL: Denies any bleeding or petechiae. GENITOURINARY: Denies any burning micturition, frequency, or urgency. MUSCULOSKELETAL/RHEUMATOLOGICAL: Denies any joint pain, swelling, or any muscle pain. ENDOCRINE: Denies any polyuria or polydipsia. The rest of the 14-point review of systems is negative. PHYSICAL EXAMINATION: GENERAL: The patient is alert and oriented x3, not in any acute distress. Well developed, well nourished. HEENT: Pupils are round and equally reacting to light. EOMI. No scleral icterus. No conjunctival pallor. Normocephalic, atraumatic. No pharyngeal erythema. No thyromegaly. CARDIOVASCULAR: S1 and S2 present. No murmurs, rubs, or gallops. PULMONARY: Chest is clear to auscultation, no wheezing or crackles. ABDOMEN: Soft, nontender, nondistended, normoactive bowel sounds. No palpable organomegaly. MUSCULOSKELETAL: No joint swelling or deformity. EXTREMITIES: No cyanosis, clubbing, or pedal edema. NEUROLOGICAL: Gross neurological examination did not reveal any focal deficits. SKIN: No rashes. Assessment and plan Acute ST elevation myocardial infarction patient underwent emergent cardiac catheterization and underwent successful stenting of the LAD Coronary artery disease with chronic occlusion of the RCA History of hypertension currently low/normal History of asthma with no acute exacerbation History of gastric bypass History of COPD no acute exacerbation Chronic nicotine use, 1 pack per day smoker GI prophylaxis DVT prophylaxis Full code Plan Added nicotine patch counseled on smoking cessation. Patient monitored on the intensive care unit Continue cardiac telemetry Cardiology following closely Patient is instructed on dual antiplatelet therapy with aspirin 81 mg daily and Brilinta 90 mg twice a day Continue on atorvastatin Continue on metoprolol 12.5 mg twice a day Patient has been resumed on albuterol inhaler as needed. Patient is maintained on olmesartan hydrochlorothiazide combination outpatient as needed for high blood pressure patient is running in the 90s to 100s systolic at this time we will recommend to continue holding this medication. Further recommendations made by cardiology. Echocardiogram ordered and pending The impression and plan of care has been dictated by Jaqui Curiel Nurse Practitioner as directed. Dr. Matt MD I have performed a history and physical examination and medical decision making of this patient, discussed the same with the dictator, and agree with the dictators assessment and plan as written, documented as a scribe. Based on total visit time, I have performed more than 50% of this visit. Past Medical History Past Medical History: No Reported History, Asthma, Hypertension Additional Past Medical History / Comment(s): Past L mastoiditis with L otitis/vertigo and falls-had surgery and no longer a problem, nephrolithiasis, migraines, past chronic low back pain but pt states not much of a problem anymore, DJD, hypoglycemia, History of Any Multi-Drug Resistant Organisms: None Reported Past Surgical History: Adenoidectomy, Appendectomy, Bariatric Surgery, Breast Surgery, Cholecystectomy, Ear Surgery, Heart Catheterization With Stent, Hernia Repair, Hysterectomy, Orthopedic Surgery, Tonsillectomy, Tubal Ligation Additional Past Surgical History / Comment(s): Gastric bypass in 2009 with weight loss of 170 pounds, panniculectomy, L ear perforation with surgery, R knee open surgery as a child and x 2 arthroscopicL knee surgeries, R breast bx- benign, 2 umbilical hernias and 1 diaphragmatic hernia repairs, colonoscopy, mastoidectomy with Dr. Valderrama at [facility]. 12/14/23-LAD stent, Chronic RCA occlusion (no stent) Past Anesthesia/Blood Transfusion Reactions: No Reported Reaction Date of Last Stent Placement:: 12/14/23 Past Psychological History: Anxiety, Depression Additional Psychological History / Comment(s): Pt lives with her tishaYenni. She is independent. She states her depression is stable. She has had past suicide attempts but no longer a problem. Smoking Status: Current every day smoker Past Alcohol Use History: None Reported Additional Past Alcohol Use History / Comment(s): Pt started smoking at age 13 or 14 yrs. She smokes about [address] She denies any street drug or alcohol use. Past Drug Use History: None Reported - Past Family History Father Additional Family Medical History / Comment(s): Father from a aneurysm at the age of 72 yrs. he also had history of prostate cancer, aortic aneurysm, renal artery aneurysm. Mother Family Medical History: COPD Additional Family Medical History / Comment(s): Mother is 75 yrs old and has emphysema and hypertension. Brother(s) Additional Family Medical History / Comment(s): She has one brother with hypertension and plaque psoriasis. Sister(s) Additional Family Medical History / Comment(s): She has one sister with hypertension. Son(s) Additional Family Medical History / Comment(s): Patient has 3 children, one boy with ureteral obstruction and renal failure. 2 girls that are healthy without major medical problems. Medications and Allergies Home Medications Medication Instructions Recorded Confirmed Type ALPRAZolam [Xanax] 1 mg PO DAILY PRN 12/15/23 12/15/23 History ALPRAZolam [Xanax] 1 mg PO HS 12/15/23 12/15/23 History Albuterol Sulfate [Albuterol 2 puff PO RT-BID 12/15/23 12/15/23 History Sulfate Hfa] Olmesartan/Hydrochlorothiazide 0.5 tab PO DAILY PRN 12/15/23 12/15/23 History [Olmesartan-Hctz 20-12.5 mg Tab] Allergies Allergy/AdvReac Type Severity Reaction Status Date / Time cephalexin [From Keflex] Allergy Anaphylaxis Verified 12/15/23 07:36 Penicillins Allergy Anaphylaxis Verified 12/15/23 07:36 sumatriptan [From Imitrex] Allergy Unknown Verified 12/15/23 07:36 sumatriptan succinate Allergy Unknown Verified 12/15/23 07:36 [From Imitrex] NSAIDS (Non-Steroidal AdvReac Unknown Verified 12/15/23 07:36 Anti-Inflamma Physical Exam Vitals: Vital Signs Temp Pulse Pulse Pulse Resp BP BP 12/15/23 09:00 63 10 L 104/81 12/15/23 08:00 97.6 F 77 56 L 13 103/80 12/15/23 07:00 64 19 94/72 12/15/23 06:10 65 17 95/69 12/15/23 06:00 64 13 12/15/23 05:50 61 16 12/15/23 05:40 63 16 95/67 12/15/23 05:30 62 14 12/15/23 05:20 61 18 12/15/23 05:15 61 11 L 98/72 12/15/23 05:00 64 15 12/15/23 04:50 65 18 12/15/23 04:40 67 17 85/72 12/15/23 04:30 62 18 12/15/23 04:20 63 18 12/15/23 04:10 67 16 93/68 12/15/23 04:00 66 18 12/15/23 03:50 66 19 12/15/23 03:40 68 19 95/65 12/15/23 03:30 73 20 12/15/23 03:20 70 20 96/68 12/15/23 03:10 71 19 96/68 12/15/23 03:00 70 8 L 95/69 12/15/23 02:50 63 15 95/69 12/15/23 02:40 65 18 95/69 12/15/23 02:30 68 8 L 12/15/23 02:20 71 19 102/73 12/15/23 02:10 72 20 12/15/23 02:00 75 12 102/76 12/15/23 01:50 71 8 L 113/76 12/15/23 01:40 70 12 12/15/23 01:30 67 11 L 12/15/23 01:20 71 17 12/15/23 01:10 70 18 12/15/23 01:00 70 11 L 12/15/23 00:50 73 18 12/15/23 00:40 80 15 12/15/23 00:30 69 8 L 98/72 12/15/23 00:20 82 7 L 98/72 12/15/23 00:11 98.2 F 77 10 L 126/69 12/15/23 00:10 79 12 98/72 12/15/23 00:00 98.2 F 78 11 L 12/14/23 23:50 75 13 12/14/23 23:40 75 8 L 12/14/23 23:30 82 8 L 98/72 12/14/23 23:20 28 H 12/14/23 23:19 98.2 F 12/14/23 22:13 98.2 F 10 L 125/67 12/14/23 21:47 96 18 114/83 12/14/23 20:56 97.9 F 87 18 100/69 Pulse Ox 12/15/23 09:00 95 12/15/23 08:00 97 12/15/23 07:00 96 12/15/23 06:10 94 L 12/15/23 06:00 96 12/15/23 05:50 95 12/15/23 05:40 95 12/15/23 05:30 95 12/15/23 05:20 95 12/15/23 05:15 95 12/15/23 05:00 96 12/15/23 04:50 94 L 12/15/23 04:40 90 L 12/15/23 04:30 95 12/15/23 04:20 94 L 12/15/23 04:10 93 L 12/15/23 04:00 93 L 12/15/23 03:50 93 L 12/15/23 03:40 94 L 12/15/23 03:30 94 L 12/15/23 03:20 96 12/15/23 03:10 97 12/15/23 03:00 97 12/15/23 02:50 97 12/15/23 02:40 97 12/15/23 02:30 96 12/15/23 02:20 95 12/15/23 02:10 97 12/15/23 02:00 98 12/15/23 01:50 98 12/15/23 01:40 97 12/15/23 01:30 97 12/15/23 01:20 95 12/15/23 01:10 96 12/15/23 01:00 97 12/15/23 00:50 96 12/15/23 00:40 97 12/15/23 00:30 97 12/15/23 00:20 97 12/15/23 00:11 97 12/15/23 00:10 95 12/15/23 00:00 96 12/14/23 23:50 96 12/14/23 23:40 96 12/14/23 23:30 98 12/14/23 23:20 96 12/14/23 23:19 95 12/14/23 22:13 96 12/14/23 21:47 98 12/14/23 20:56 99 Intake and Output 12/14/23 12/15/23 12/15/23 22:59 06:59 14:59 Intake Total 400 600 76.163 Output Total 300 700 Balance 400 300 -623.837 Intake: IV 400 600 Sodium Chloride 0.9% 1, 600 000 ml In Empty Bag 1 bag @ 75 mls/hr IV .[id number] [facility] Rx#:[id number] Intake, IV Titration 76.163 Amount Heparin Sod,Pork in 0.45% 76.163 NaCl 25,000 unit In 0.45 % NaCl 1 250ml.bag @ 12 UNITS/KG/HR 8.219 mls/hr IV .Q24H [facility] Rx#: [id number] Output: Urine 300 700 Other: Voiding Method External Catheter Toilet # Voids 1 Weight 68.492 kg 73.3 kg Results CBC & Chem 7: 12/15/23 02:37 12/15/23 11:41 Labs: Abnormal Lab Results - Last 24 Hours (Table) 12/14/23 12/14/23 12/14/23 Range/Units 21:01 21:01 21:01 WBC 18.4 H (3.8-10.6) k/uL RDW 16.2 H (11.5-15.5) % Plt Count 493 H (150-450) k/uL Neutrophils # 10.7 H (1.3-7.7) k/uL Lymphocytes # 6.1 H (1.0-4.8) k/uL PT 9.7 L (10.0-12.5) sec Sodium 136 L (137-145) mmol/L Chloride 108 H (98-107) mmol/L Troponin I (0.000-0.034) ng/mL 12/15/23 12/15/23 12/15/23 Range/Units 00:16 02:37 02:37 WBC (3.8-10.6) k/uL RDW (11.5-15.5) % Plt Count 575 H (150-450) k/uL Neutrophils # (1.3-7.7) k/uL Lymphocytes # (1.0-4.8) k/uL PT (10.0-12.5) sec Sodium (137-145) mmol/L Chloride (98-107) mmol/L Troponin I 0.184 H* 0.243 H* (0.000-0.034) ng/mL Thrombosis Risk Factor Assmnt - Choose All That Apply Any of the Below Risk Factors Present?: Yes Each Factor Represents 1 point: Acute IN, Age 41-60 years, Obesity (BMI >25) Thrombosis Risk Factor Assessment Total Risk Factor Score: 3 Thrombosis Risk Factor Assessment Level: Moderate Risk Assessment and Plan Time with Patient: Greater than 30
[2023-12-15] MEDS: ATORVASTATIN 80 MG TAB PO SCH (20:27)
[2023-12-16] MEDS: ACETAMINOPHEN TAB 325 MG TAB PO PRN (01:01)
[2023-12-16] MEDS: FAMOTIDINE 20 MG TAB PO SCH (08:43)
[2023-12-16 08:53] VITALS: RESP 18; TEMP 97.6
[2023-12-16 09:17] LABS: Mean Platelet Volume 6.8; Platelet Count 524 k/uL (150-450)
--- NOTE | 2023-12-16 14:17 | P.PN ---
Subjective HISTORY OF PRESENT ILLNESS: Patient is status post cardiac catheterization with PCI to the mid LAD. Patient examined this morning at bedside. She denies chest pain or pressure. She denies shortness of breath. Echocardiogram completed revealing ejection fraction 55 to 60%. Femoral ultrasound negative for pseudoaneurysm. Vital signs are stable. She is hoping to be discharged home today. PHYSICAL EXAM: VITAL SIGNS: Reviewed. GENERAL: Well-developed in no acute distress. NECK: Supple. No JVD or thyromegaly LUNGS: Respirations even and unlabored. Lungs essentially clear to auscultation bilaterally. HEART: Regular rate and rhythm. S1 and S2 heard. EXTREMITIES: Normal range of motion. No clubbing or cyanosis. Peripheral pulses intact. No lower extremity edema ASSESSMENT: Non-STEMI Status post cardiac catheterization and PCI of the LAD DIRECTOR OF ASSESSING of the RCA Hyperlipidemia Nicotine dependence PLAN: Continue dual antiplatelet therapy with aspirin and Brilinta for 12 months Continue high intensity statin. LDL goal less than 70 Smoking cessation recommended. Patient to be referred to [place] quit line upon discharge Patient is stable for discharge home today from a cardiac standpoint She is to follow-up postdischarge in the office Nurse practitioner note has been reviewed by physician. Signing provider agrees with the documented findings, assessment, and plan of care documented by HEALTH SCIENCE INSTRUCTOR as a scribe. Objective - Vital Signs Vital signs: Vital Signs Temp 97.6 F 12/16/23 08:00 Pulse 84 12/16/23 08:00 Resp 18 12/16/23 08:00 BP 112/75 12/16/23 08:00 Pulse Ox 100 12/16/23 08:00 FiO2 Intake & Output 12/15/23 12/16/23 12/16/23 18:59 06:59 18:59 Intake Total 76.163 40 440 Output Total 1050 Balance -973.837 40 440 Weight 73.3 kg 70 kg Intake: IV 40 20 Invasive Line 1 20 10 Invasive Line 2 20 10 Intake, IV Titration 76.163 Amount Heparin Sod,Pork in 0.45% 76.163 NaCl 25,000 unit In 0.45 % NaCl 1 250ml.bag @ 12 UNITS/KG/HR 8.219 mls/hr IV .Q24H [facility] Rx#: [id number] Oral 420 Output: Urine 1050 Other: Voiding Method Toilet Toilet Toilet # Voids 1 2 2 ABP, PAP, CO, CI - Last Documented Arterial Blood Pressure 107/61 - Labs CBC & Chem 7: 12/16/23 08:13 12/15/23 11:41 Labs: Abnormal Lab Results - Last 24 Hours (Table) 12/16/23 Range/Units 08:13 Plt Count 524 H (150-450) k/uL
[2023-12-16 14:42] VITALS: BP 113/82; PULSE 80
--- NOTE | 2023-12-17 16:41 | P.DS ---
Providers Date of admission: 12/14/23 21:37 Expected date of discharge: 12/16/23 Attending physician: Breonna Diaz Consults: 12/14/23 21:35 Consult Physician Urgent Consulting Provider: Joaquin Berman Consult Reason/Comments: acs Do you want consulting provider notified?: Yes 12/14/23 22:56 Consult Physician Routine Consulting Provider: [facility] Consult Reason/Comments: Post Interventional patient Do you want consulting provider notified?: Already Contacted Primary care physician: Saleem [facility] Hospital Course: Final diagnosis Acute ST elevation myocardial infarction patient underwent emergent cardiac catheterization and underwent successful stenting of the LAD Coronary artery disease with chronic occlusion of the RCA History of hypertension currently low/normal History of asthma with no acute exacerbation History of gastric bypass History of COPD no acute exacerbation Chronic nicotine use, 1 pack per day smoker GI prophylaxis DVT prophylaxis Full code Discharge disposition Patient is being discharged in a stable condition with guarded prognosis to home. Patient will follow-up with Dr. Page in the outpatient setting upon discharge. Patient is to continue with current medications and close outpatient follow-up with cardiology as scheduled. Total time taken is greater than 35 minutes. Hospital course This is a 53-year-old female who was recently admitted with chest pain with acute STEMI with emergent cardiac catheterization underwent successful stenting of the LAD. Patient was reevaluated by cardiology today with no overnight events and reports to feeling well tolerating medications. Patient has been cleared for discharge with close outpatient follow-up. Patient has been instructed to follow-up with primary care provider as well. Please refer to cardiology notes for further HPI. Currently no reports of chest pain, shortness of breath, or palpitations. Patient is afebrile. No reports of nausea or vomiting and patient is tolerating diet. Patient will be discharged home today. Guarded prognosis Physical exam: Gen: This is a 53-year-old female who is awake, alert and oriented x 3, well- developed, well-nourished, elderly appearing HEENT: Head is atraumatic, normocephalic. Pupils equal, round. Sclerae is anicteric. NECK: Supple. No JVD. No lymphadenopathy. No thyromegaly. LUNGS: Clear to auscultation. No wheezes or rhonchi. No intercostal retractions. HEART: Regular rate and rhythm. No murmur. ABDOMEN: Soft. Bowel sounds are present. No masses. No tenderness. EXTREMITIES: No pedal edema. No calf tenderness. NEUROLOGICAL: Patient is awake, alert and oriented x3. Cranial nerves 2 through 12 are grossly intact. Please refer to medication reconciliation sheet for a list of medications. The impression and plan of care has been dictated by Ember Tyler, Nurse Practitioner as directed. Dr. Matt MD I have performed a history and examination and MDM of this patient, discussed the same with the dictator, and agree with the dictator's assessment and plan as written ,documented as a scribe. Based on total visit time, I have performed more than 50% of the visit. Patient Condition at Discharge: Fair Plan - Discharge Summary Discharge Rx Participant: Yes New Discharge Prescriptions: New Nicotine 21Mg/24Hr Patch [Habitrol] 1 patch TRANSDERM DAILY #30 patch Atorvastatin [Lipitor] 80 mg PO HS #30 tab Metoprolol Tartrate [Lopressor] 12.5 mg PO BID #60 tab Famotidine [Pepcid] 20 mg PO DAILY #14 tab Acetaminophen Tab [Tylenol] 650 mg PO Q6HR PRN tab PRN Reason: Fever And/ Or Pain Aspirin 81 mg PO DAILY #30 tab Ticagrelor [Brilinta] 90 mg PO BID #60 tab Nitroglycerin Sl Tabs [Nitrostat] 0.4 mg SUBLINGUAL Q5M PRN #20 tab PRN Reason: Chest Pain HYDROcodone/APAP 5-325MG [[place] 5-325] 1 each PO Q6HR PRN #6 tab PRN Reason: Pain Continue ALPRAZolam [Xanax] 1 mg PO HS Albuterol Sulfate [Albuterol Sulfate Hfa] 2 puff PO RT-BID ALPRAZolam [Xanax] 1 mg PO DAILY PRN PRN Reason: Anxiety Discontinued Olmesartan/Hydrochlorothiazide [Olmesartan-Hctz 20-12.5 mg Tab] 0.5 tab PO DAILY PRN PRN Reason: Blood Pressure - High Discharge Medication List ALPRAZolam [Xanax] 1 mg PO DAILY PRN 12/15/23 [History] ALPRAZolam [Xanax] 1 mg PO HS 12/15/23 [History] Albuterol Sulfate [Albuterol Sulfate Hfa] 2 puff PO RT-BID 12/15/23 [History] Acetaminophen Tab [Tylenol] 650 mg PO Q6HR PRN tab 12/16/23 [Rx] Aspirin 81 mg PO DAILY #30 tab 12/16/23 [Rx] Atorvastatin [Lipitor] 80 mg PO HS #30 tab 12/16/23 [Rx] Famotidine [Pepcid] 20 mg PO DAILY #14 tab 12/16/23 [Rx] HYDROcodone/APAP 5-325MG [[place] 5-325] 1 each PO Q6HR PRN #6 tab 12/16/23 [Rx] Metoprolol Tartrate [Lopressor] 12.5 mg PO BID #60 tab 12/16/23 [Rx] Nicotine 21Mg/24Hr Patch [Habitrol] 1 patch TRANSDERM DAILY #30 patch 12/16/23 [Rx] Nitroglycerin Sl Tabs [Nitrostat] 0.4 mg SUBLINGUAL Q5M PRN #20 tab 12/16/23 [Rx] Ticagrelor [Brilinta] 90 mg PO BID #60 tab 12/16/23 [Rx] Follow up Appointment(s)/Referral(s): Wesley Jacob MD [STAFF PHYSICIAN] - 1 Week (Office will call you with appointment date and time.) Saleem Page DO [Primary Care Provider] - 12/22/23 10:20 am Patient Instructions/Handouts: Heart Catheterization (DC) Activity/Diet/Wound Care/Special Instructions: Activity limited until follow-up Follow-up with primary care provider on discharge Follow-up with cardiology in 1 to 2 weeks Continue taking medications as prescribed Follow heart healthy diet Avoid tobacco use and exposure Discharge Disposition: HOME SELF-CARE
== END 2023-12-16 14:58 | disposition home or self-care (01) | DRG 174 ==
LOC: EC 20:55 → 2SICU 21:37 → 3SCARD 12-15 14:00
PROVIDERS: ADMIT Hospitalist; ATTEND Hospitalist
PROC: 027034Z Dilation of Coronary Artery, One Artery with Drug-eluting Intraluminal Device, Percutaneous Approach (ICD-10-PCS; principal; 2023-12-14 22:01)
PROC: B241ZZ3 Ultrasonography of Multiple Coronary Arteries, Intravascular (ICD-10-PCS; principal; 2023-12-14 22:01)
PROC: B2111ZZ Fluoroscopy of Multiple Coronary Arteries using Low Osmolar Contrast (ICD-10-PCS; 2023-12-14 22:01)
PROC: 4A023N7 Measurement of Cardiac Sampling and Pressure, Left Heart, Percutaneous Approach (ICD-10-PCS; 2023-12-14 22:01)
DX: I21.3 ST elevation (STEMI) myocardial infarction of unspecified site (principal); I25.10 Atherosclerotic heart disease of native coronary artery without angina pectoris; J44.89 Other specified chronic obstructive pulmonary disease; E78.5 Hyperlipidemia, unspecified; F17.210 Nicotine dependence, cigarettes, uncomplicated; Z71.6 Tobacco abuse counseling; F32.A Depression, unspecified; F41.9 Anxiety disorder, unspecified; I10 Essential (primary) hypertension; G43.909 Migraine, unspecified, not intractable, without status migrainosus; E66.9 Obesity, unspecified; M19.90 Unspecified osteoarthritis, unspecified site; G89.29 Other chronic pain; M54.9 Dorsalgia, unspecified; Z91.81 History of falling; Z87.442 Personal history of urinary calculi; Z88.6 Allergy status to analgesic agent; Z88.1 Allergy status to other antibiotic agents; Z88.0 Allergy status to penicillin; Z88.8 Allergy status to other drugs, medicaments and biological substances; Z79.02 Long term (current) use of antithrombotics/antiplatelets; Z79.82 Long term (current) use of aspirin; Z79.899 Other long term (current) drug therapy; Z91.51 Personal history of suicidal behavior; Z98.84 Bariatric surgery status; Z68.28 Body mass index [BMI] 28.0-28.9, adult
CPT/HCPCS: 36415; 71045; 80053; 80061; 82565; 83690; 83735; 83880; 84484; 85025; 85049; 85379; 85610; 85730; 92978; 93005; 93306; 93458; 93975; 96365; 96375; 99291

== ENCOUNTER 2024-03-04 00:45 | Emergency (ER) | payer OTHER ==
[2024-03-04 00:53] VITALS: RESP 18
--- NOTE | 2024-03-04 01:18 | ED ---
Extremity Problem HPI - General Chief complaint: Extremity Problem,Nontraumatic Stated complaint: Post op pain- right hip Time Seen by Provider: 03/04/24 01:18 Source: patient, RN notes reviewed Mode of arrival: ambulatory Limitations: no limitations - History of Present Illness Initial comments: 54-year-old female presented to the ER with a chief complaint of right hip pain. Patient states yesterday she underwent a ultrasound venous Doppler of her right lower extremity to rule out DVT. She states starting last night and into today she has been experiencing right groin pain with radiation about 2 inches down her inner thigh. She reports walking and bearing weight increases her pain. She denies any radiation or numbness down her right leg. No known injuries or traumas. She has been taking [id number] Tylenol and took 1 dose of ibuprofen for pain control without relief. No other complaints. - Related Data Home Medications Medication Instructions Recorded Confirmed ALPRAZolam [Xanax] 1 mg PO DAILY PRN 12/15/23 12/15/23 ALPRAZolam [Xanax] 1 mg PO HS 12/15/23 12/15/23 Albuterol Sulfate [Albuterol 2 puff PO RT-BID 12/15/23 12/15/23 Sulfate Hfa] Previous Rx's Medication Instructions Recorded Acetaminophen Tab [Tylenol] 650 mg PO Q6HR PRN tab 12/16/23 Aspirin 81 mg PO DAILY #30 tab 12/16/23 Atorvastatin [Lipitor] 80 mg PO HS #30 tab 12/16/23 Famotidine [Pepcid] 20 mg PO DAILY #14 tab 12/16/23 HYDROcodone/APAP 5-325MG [[place] 1 each PO Q6HR PRN #6 tab 12/16/23 5-325] Metoprolol Tartrate [Lopressor] 12.5 mg PO BID #60 tab 12/16/23 Nicotine 21Mg/24Hr Patch [Habitrol] 1 patch TRANSDERM DAILY #30 patch 12/16/23 Nitroglycerin Sl Tabs [Nitrostat] 0.4 mg SUBLINGUAL Q5M PRN #20 tab 12/16/23 Ticagrelor [Brilinta] 90 mg PO BID #60 tab 12/16/23 predniSONE 50 mg PO DAILY #5 tab 03/04/24 Allergies Allergy/AdvReac Type Severity Reaction Status Date / Time cephalexin [From Keflex] Allergy Anaphylaxis Verified 03/04/24 00:53 Penicillins Allergy Anaphylaxis Verified 03/04/24 00:53 sumatriptan [From Imitrex] Allergy Unknown Verified 03/04/24 00:53 sumatriptan succinate Allergy Unknown Verified 03/04/24 00:53 [From Imitrex] NSAIDS (Non-Steroidal AdvReac Unknown Verified 03/04/24 00:53 Anti-Inflamma Review of Systems ROS Statement: Those systems with pertinent positive or pertinent negative responses have been documented in the HPI. ROS Other: All systems not noted in ROS Statement are negative. Past Medical History Past Medical History: Asthma, Hypertension, Myocardial Infarction (LA) Additional Past Medical History / Comment(s): Past L mastoiditis with L otitis/vertigo and falls-had surgery and no longer a problem, nephrolithiasis, migraines, past chronic low back pain but pt states not much of a problem anymore, DJD, hypoglycemia, History of Any Multi-Drug Resistant Organisms: None Reported Past Surgical History: Adenoidectomy, Appendectomy, Bariatric Surgery, Breast Surgery, Cholecystectomy, Ear Surgery, Heart Catheterization With Stent, Hernia Repair, Hysterectomy, Orthopedic Surgery, Tonsillectomy, Tubal Ligation Additional Past Surgical History / Comment(s): Gastric bypass in 2008 with weight loss of 170 pounds, panniculectomy, L ear perforation with surgery, R knee open surgery as a child and x 2 arthroscopicL knee surgeries, R breast bx- benign, 2 umbilical hernias and 1 diaphragmatic hernia repairs, colonoscopy, mastoidectomy with Dr. Valderrama at [facility]. Past Anesthesia/Blood Transfusion Reactions: No Reported Reaction Date of Last Stent Placement:: 12/14/23 Past Psychological History: Anxiety, Depression Smoking Status: Current every day smoker Past Alcohol Use History: None Reported Past Drug Use History: None Reported - Past Family History Father Additional Family Medical History / Comment(s): Father from a aneurysm at the age of 72 yrs. he also had history of prostate cancer, aortic aneurysm, renal artery aneurysm. Mother Family Medical History: COPD Additional Family Medical History / Comment(s): Mother is 75 yrs old and has emphysema and hypertension. Brother(s) Additional Family Medical History / Comment(s): She has one brother with hypertension and plaque psoriasis. Sister(s) Additional Family Medical History / Comment(s): She has one sister with hypertension. Son(s) Additional Family Medical History / Comment(s): Patient has 3 children, one boy with ureteral obstruction and renal failure. 2 girls that are healthy without major medical problems. General Exam Limitations: no limitations General appearance: alert, in no apparent distress Respiratory exam: Present: normal lung sounds bilaterally. Absent: respiratory distress, wheezes, rales, rhonchi, stridor Cardiovascular Exam: Present: regular rate, normal rhythm, normal heart sounds. Absent: systolic murmur, diastolic murmur, rubs, gallop, clicks Extremities exam: Present: tenderness (Internal/external rotation of hip. Palpation of right groin. 2+ right dorsalis pedis pulse. Sensation intact. Strength intact.) Neurological exam: Present: alert, oriented X3, CN II-XII intact Skin exam: Present: warm, dry, intact, normal color. Absent: rash Course Vital Signs 03/04/24 03/04/24 00:50 04:23 Temperature 98.3 F 97.8 F Pulse Rate 72 69 Respiratory 18 18 Rate Blood Pressure 105/84 110/75 O2 Sat by Pulse 97 97 Oximetry Medical Decision Making - Medical Decision Making Was pt. sent in by a medical professional or institution (, PA, [employer]IFE [employer]INE, urgent care, hospital, or jail...) When possible be specific @ -No Did you speak to anyone other than the patient for history (EMS, parent, family, police, friend...)? What history was obtained from this source @ -No Did you review nursing and triage notes (agree or disagree)? Why? @ -I reviewed and agree with nursing and triage notes Were old charts reviewed (outside hosp., previous admission, EMS record, old EKG, old radiological studies, urgent care reports/EKG's, jail records)? Report findings @ -No old charts were reviewed Differential Diagnosis (chest pain, altered mental status, abdominal pain women, abdominal pain men, vaginal bleeding, weakness, fever, dyspnea, syncope, hea dache, dizziness, GI bleed, back pain, seizure, CVA, palpatations, mental health, musculoskeletal)? @ -Differential Musculoskeletal: Muscular strain, contusion, ligament sprain, fracture, arthritis, septic arthritis, bursitis, cellulitis, muscle spasm, nerve compression, DVT, arterial occlusion, herpes zoster, electrolyte abnormality, tumor.... This is not meant to be in all inclusive list EKG interpreted by me (3pts min.). @ -None done X-rays interpreted by me (1pt min.). @ -Right hip AP pelvis x-ray is negative for acute process. CT interpreted by me (1pt min.). @ -None done U/S interpreted by me (1pt. min.). @ -None done What testing was considered but not performed or refused? (CT, X-rays, U/S, labs)? Why? @ -None What meds were considered but not given or refused? Why? @ -None Did you discuss the management of the patient with other professionals (professionals i.e. , PA, K[employer]ACHINE, lab, RT, psych nurse, social staff worker, platform worker, teacher, flight radio officer, case checker)? Give summary @ -No Was smoking cessation discussed for >3mins.? @ -No Was critical care preformed (if so, how long)? @ -No Were there social determinants of health that impacted care today? How? (Homelessness, low income, unemployed, alcoholism, drug addiction, transportation, low edu. Level, literacy, decrease access to med. care, group home, rehab)? @ -No Was there de-escalation of care discussed even if they declined (Discuss DNR or withdrawal of care, Hospice)? DNR status @ -No What co-morbidities impacted this encounter? (DM, HTN, Smoking, COPD, CAD, Cancer, CVA, ARF, Chemo, Hep., AIDS, mental health diagnosis, sleep apnea, morbid obesity)? @ -None Was patient admitted / discharged? Hospital course, mention meds given and route, prescriptions, significant lab abnormalities, going to OR and other pertinent info. @ - Discharge. 54-year-old female presenting to the ER with a chief complaint of right groin pain status post right lower extremity ultrasound venous Doppler. History and physical exam completed. Vitals within normal limits. Patient no signs of acute distress. There is tenderness to palpation of right greater trochanter and anterior groin. Pain with internal extra rotation of hip. Right lower extremity neurovascular intact. X-rays obtained negative for acute process. Patient received symptomatic treatment in the ER, with improvement. Patient complaining of acid reflux after oral steroids and was given Protonix. Upon reevaluation, patient resting comfortably in exam room no signs of acute distress. Pain believed to be musculoskeletal in nature with a possible component of bursitis. As patient is taking blood thinning medications and cannot take NSAIDs prednisone was prescribed. Conservative treatment options discussed. Advise close follow-up with PCP and orthopedics, referral given. Strict return parameters discussed. Patient discharged in stable condition. Patient verbally expressed understanding and agreement with care plan. Case discussed with ED attending, Dr. Bazan. Undiagnosed new problem with uncertain prognosis? @ -No Drug Therapy requiring intensive monitoring for toxicity (Heparin, Nitro, Insulin, Cardizem)? @ -No Were any procedures done? @ -No Diagnosis/symptom? @ -Hip pain Acute, or Chronic, or Acute on Chronic? @ -Acute Uncomplicated (without systemic symptoms) or Complicated (systemic symptoms)? @ -Uncomplicated Side effects of treatment? @ -No Exacerbation, Progression, or Severe Exacerbation? @ -No Poses a threat to life or bodily function? How? (Chest pain, [place], [place], pneumonia, PE, COPD, DKA, ARF, appy, cholecystitis, CVA, Diverticulitis, Homicidal, Suicidal, threat to staff... and all critical care pts) @ -No - Radiology Data Radiology results: report reviewed, image reviewed Disposition Clinical Impression: Hip pain Disposition: HOME SELF-CARE Condition: Stable Instructions (If sedation given, give patient instructions): Hip Bursitis (ED) Additional Instructions: Follow-up with orthopedics if symptoms persist. Return to the ER for any new or worsening concerns. Prescriptions: predniSONE 50 mg PO DAILY #5 tab Is patient prescribed a controlled substance at d/c from ED?: No Referrals: Saleem Page DO [Primary Care Provider] - 1-2 days Dewey Davis MD [STAFF PHYSICIAN] - 1-2 days Time of Disposition: 03:49
[2024-03-04] MEDS: predniSONE 20 MG TAB PO STA (01:24)
[2024-03-04] MEDS: ACETAMINOPHEN TAB 500 MG TAB PO STA (01:24)
[2024-03-04] MEDS: HYDROmorphone 0.5 MG/0.5 ML SYRINGE IM STA (02:49)
--- NOTE | 2024-03-04 03:36 | XR ---
EXAM: XR Pelvis Complete, 3 or More Views CLINICAL HISTORY: ITS.REASON XR Reason: right groin pain TECHNIQUE: Frontal and lateral or oblique views of the pelvis. COMPARISON: No relevant prior studies available. FINDINGS: Bones/joints: No acute fracture. No dislocation. Soft tissues: Unremarkable. IMPRESSION: No acute findings.
[2024-03-04] MEDS: ACET/COD 300 MG/30 MG STARTER PACK 6 TAB BTL PO STA (04:19)
[2024-03-04] MEDS: PANTOPRAZOLE 40 MG TABLET PO STA (04:19)
[2024-03-04 04:25] VITALS: BP 110/75; PULSE 69; TEMP 97.8
== END 2024-03-04 04:24 | disposition home or self-care (01) ==
LOC: EC 00:45
CPT/HCPCS: 73502; 96372; 99283

== ENCOUNTER 2024-12-05 05:20 | Emergency (ER) | payer OTHER ==
--- NOTE | 2024-12-05 05:44 | ED ---
Weakness HPI - General Chief complaint: Back Pain/Injury Stated complaint: back pain leg cramps Time Seen by Provider: 12/05/24 05:35 Source: patient, RN notes reviewed, old records reviewed Mode of arrival: ambulatory Limitations: no limitations - History of Present Illness Complaint: generalized weakness, lack of energy, difficulty walking -: days(s) Location: generalized Severity: moderate Severity scale (1-10): 7 Quality: tingling, numbness, aching Consistency: constant Improves with: none Worsens with: none Context: recent illness, history of similar Associated Symptoms: denies other symptoms - Related Data Home Medications Medication Instructions Recorded Confirmed ALPRAZolam [Xanax] 1 mg PO DAILY PRN 12/15/23 12/15/23 ALPRAZolam [Xanax] 1 mg PO HS 12/15/23 12/15/23 Albuterol Sulfate [Albuterol 2 puff PO RT-BID 12/15/23 12/15/23 Sulfate Hfa] Previous Rx's Medication Instructions Recorded Acetaminophen Tab [Tylenol] 650 mg PO Q6HR PRN tab 12/16/23 Aspirin 81 mg PO DAILY #30 tab 12/16/23 Atorvastatin [Lipitor] 80 mg PO HS #30 tab 12/16/23 Famotidine [Pepcid] 20 mg PO DAILY #14 tab 12/16/23 HYDROcodone/APAP 5-325MG [[place] 1 each PO Q6HR PRN #6 tab 12/16/23 5-325] Metoprolol Tartrate [Lopressor] 12.5 mg PO BID #60 tab 12/16/23 Nicotine 21Mg/24Hr Patch [Habitrol] 1 patch TRANSDERM DAILY #30 patch 12/16/23 Nitroglycerin Sl Tabs [Nitrostat] 0.4 mg SUBLINGUAL Q5M PRN #20 tab 12/16/23 Ticagrelor [Brilinta] 90 mg PO BID #60 tab 12/16/23 predniSONE 50 mg PO DAILY #5 tab 03/04/24 Allergies Allergy/AdvReac Type Severity Reaction Status Date / Time cephalexin [From Keflex] Allergy Anaphylaxis Verified 12/05/24 05:26 Penicillins Allergy Anaphylaxis Verified 12/05/24 05:26 sumatriptan [From Imitrex] Allergy Unknown Verified 12/05/24 05:26 sumatriptan succinate Allergy Unknown Verified 12/05/24 05:26 [From Imitrex] NSAIDS (Non-Steroidal AdvReac Unknown Verified 12/05/24 05:26 Anti-Inflamma Review of Systems ROS Statement: Those systems with pertinent positive or pertinent negative responses have been documented in the HPI. ROS Other: All systems not noted in ROS Statement are negative. Past Medical History Past Medical History: Asthma, Hypertension, Myocardial Infarction (CA) Additional Past Medical History / Comment(s): Past L mastoiditis with L otitis/vertigo and falls-had surgery and no longer a problem, nephrolithiasis, migraines, past chronic low back pain but pt states not much of a problem anymore, DJD, hypoglycemia, History of Any Multi-Drug Resistant Organisms: None Reported Past Surgical History: Adenoidectomy, Appendectomy, Bariatric Surgery, Breast Surgery, Cholecystectomy, Ear Surgery, Heart Catheterization With Stent, Hernia Repair, Hysterectomy, Orthopedic Surgery, Tonsillectomy, Tubal Ligation Additional Past Surgical History / Comment(s): Gastric bypass in 2008 with weight loss of 170 pounds, panniculectomy, L ear perforation with surgery, R knee open surgery as a child and x 2 arthroscopicL knee surgeries, R breast bx- benign, 2 umbilical hernias and 1 diaphragmatic hernia repairs, colonoscopy, mastoidectomy with Dr. Valderrama at [facility]. Past Anesthesia/Blood Transfusion Reactions: No Reported Reaction Date of Last Stent Placement:: 12/14/23 Past Psychological History: Anxiety, Depression Smoking Status: Current every day smoker Past Alcohol Use History: None Reported Past Drug Use History: None Reported - Past Family History Father Additional Family Medical History / Comment(s): Father from a aneurysm at the age of 72 yrs. he also had history of prostate cancer, aortic aneurysm, renal artery aneurysm. Mother Family Medical History: COPD Additional Family Medical History / Comment(s): Mother is 75 yrs old and has emphysema and hypertension. Brother(s) Additional Family Medical History / Comment(s): She has one brother with hypertension and plaque psoriasis. Sister(s) Additional Family Medical History / Comment(s): She has one sister with hypertension. Son(s) Additional Family Medical History / Comment(s): Patient has 3 children, one boy with ureteral obstruction and renal failure. 2 girls that are healthy without major medical problems. General Exam Limitations: no limitations General appearance: alert, in no apparent distress Head exam: Present: atraumatic, normocephalic, normal inspection Eye exam: Present: normal appearance, PERRL, EOMI. Absent: scleral icterus, conjunctival injection, periorbital swelling ENT exam: Present: normal exam, mucous membranes moist Neck exam: Present: normal inspection. Absent: tenderness, meningismus, lymphadenopathy Respiratory exam: Present: normal lung sounds bilaterally. Absent: respiratory distress, wheezes, rales, rhonchi, stridor Cardiovascular Exam: Present: regular rate, normal rhythm, normal heart sounds. Absent: systolic murmur, diastolic murmur, rubs, gallop, clicks GI/Abdominal exam: Present: soft, normal bowel sounds. Absent: distended, tenderness, guarding, rebound, rigid Extremities exam: Present: normal inspection, full ROM, normal capillary refill. Absent: tenderness, pedal edema, joint swelling, calf tenderness Back exam: Present: normal inspection Neurological exam: Present: alert, oriented X3, CN II-XII intact Psychiatric exam: Present: normal affect, normal mood Skin exam: Present: warm, dry, intact, normal color. Absent: rash Course Vital Signs 12/05/24 05:23 Temperature 97.6 F Pulse Rate 92 Respiratory 18 Rate Blood Pressure 102/68 O2 Sat by Pulse 97 Oximetry - Reevaluation(s) Reevaluation #1: 12/05/24 06:35 Medical records reviewed Reevaluation #4: Was pt. sent in by a medical professional or institution (, PA, REGULAR SENIOR CARE PROVIDER, urgent care, hospital, or skilled nursing...) When possible be specific @ -no Did you speak to anyone other than the patient for history (EMS, parent, family, police, friend...)? What history was obtained from this source @ -no Did you review nursing and triage notes (agree or disagree)? Why? @ -agree Are old charts reviewed (outside hosp., previous admission, EMS record, old EKG, old radiological studies, urgent care reports/EKG's, skilled nursing records)? Report findings @ -yes Differential Diagnosis (chest pain, altered mental status, abdominal pain women, abdominal pain men, vaginal bleeding, weakness, fever, dyspnea, syncope, headache, dizziness, GI bleed, back pain, seizure, CVA, palpatations, mental health, musculoskeletal)? @ -prior EKG interpreted by me (3pts min.). @ -yes X-rays interpreted by me (1pt min.). @ -yes negative for acute disease CT interpreted by me (1pt min.). @ -no U/S interpreted by me (1pt. min.). @ -no What testing was considered but not performed or refused? (CT, X-rays, U/S, labs)? Why? @ -none What meds were considered but not given or refused? Why? @ -none Did you discuss the management of the patient with other professionals (professionals i.e. Dr., PA, REGULAR SENIOR CARE PROVIDER, lab, RT, psych nurse, pediatric social worker, plant operator, teacher, supply requirements officer, case liner)? Give summary @ -no Was smoking cessation discussed for >3mins.? @ -no Was critical care preformed (if so, how long)? @ -no Were there social determinants of health that impacted care today? How? (Homelessness, low income, unemployed, alcoholism, drug addiction, t ransportation, low edu. Level, literacy, decrease access to med. care, residential, rehab)? @ -none Was there de-escalation of care discussed even if they declined (Discuss DNR or withdrawal of care, Hospice)? DNR status @ -no What co-morbidities impacted this encounter? (DM, HTN, Smoking, COPD, CAD, Can cer, CVA, ARF, Chemo, Hep., AIDS, mental health diagnosis, sleep apnea, morbid obesity)? @ -none Was patient admitted / discharged? Hospital course, mention meds given and route, prescriptions, significant lab abnormalities, going to OR and other pertinent info. @ - Undiagnosed new problem with uncertain prognosis? @ -no Drug Therapy requiring intensive monitoring for toxicity (Heparin, Nitro, Insulin, Cardizem)? @ -no Were any procedures done? @ -no Diagnosis/symptom? @ - Acute, or Chronic, or Acute on Chronic? @ -Acute Uncomplicated (without systemic symptoms) or Complicated (systemic symptoms)? @ -Complicated Side effects of treatment? @ -no Exacerbation, Progression, or Severe Exacerbation? @ -exacerbation Poses a threat to life or bodily function? How? (Chest pain, [place], CA, pneumonia, PE, COPD, DKA, ARF, appy, cholecystitis, CVA, Diverticulitis, Homicidal, Suicidal, threat to staff... and all critical care pts) @ -yes Reevaluation #5: Differential Weakness: Hypoglycemia, shock, sepsis, hyponatremia, anemia, infection, CA, ETOH, adverse medicine reaction, overdose, stroke, this is not meant to be an all-inclusive list. Medical Decision Making - Lab Data Result diagrams: 12/05/24 06:11 Lab Results 12/05/24 Range/Units 06:11 Sodium 143 (137-145) mmol/L Potassium 3.8 (3.5-5.1) mmol/L Chloride 112 H (98-107) mmol/L Carbon Dioxide 21 L (22-30) mmol/L Anion Gap 10 mmol/L BUN 11 (7-17) mg/dL Creatinine 0.60 (0.52-1.04) mg/dL Est GFR (CKD-EPI)AfAm >90 (>60 ml/min/1.73 sqM) Est GFR (CKD-EPI)NonAf >90 (>60 ml/min/1.73 sqM) Glucose 72 L (74-99) mg/dL Calcium 9.8 (8.4-10.2) mg/dL Phosphorus 3.5 (2.5-4.5) mg/dL Magnesium 2.0 (1.6-2.3) mg/dL Total Bilirubin 0.3 (0.2-1.3) mg/dL AST 17 (14-36) U/L ALT 10 (4-34) U/L Alkaline Phosphatase 94 (38-126) U/L Total Protein 7.0 (6.3-8.2) g/dL Albumin 4.1 (3.5-5.0) g/dL Disposition Clinical Impression: Weakness Disposition: HOME SELF-CARE Condition: Good Instructions (If sedation given, give patient instructions): Weakness (ED) Is patient prescribed a controlled substance at d/c from ED?: No Referrals: None,Stated [Primary Care Provider] - 1-2 days Time of Disposition: 07:00
[2024-12-05] MEDS: SODIUM CHLORIDE 0.9% 1,000 ML IV ONE (06:12)
[2024-12-05] MEDS: MORPHINE SULFATE 4 MG/ML SYRINGE IV STA (06:13)
[2024-12-05 06:28] LABS: Basophils # (A) 0.06 10*3/uL (0.00-0.10); Basophils % (A) 0.4 %; Eosinophils # (A) 0.47 10*3/uL (0.04-0.35); Eosinophils % (A) 3.1 %; HCT 35.6 % (37.2-46.3); HGB 11.9 g/dL (12.0-15.0); Lymphocytes # (A) 6.37 10*3/uL (0.90-5.00); Lymphocytes % (A) 42.0 %; MCH 30.1 pg (27.0-32.0); MCHC 33.4 g/dL (32.0-37.0); MCV 89.9 fL (80.0-97.0); Monocytes # (A) 1.01 10*3/uL (0.20-1.00); Monocytes % (A) 6.7 %; Neutrophils # (A) 7.20 10*3/uL (1.80-7.70); Neutrophils % (A) 47.5 %; Platelet Count 444 10*3/uL (140-440); RBC 3.96 10*6/uL (4.10-5.20); RDW 15.6 % (11.5-14.5); WBC 15.16 10*3/uL (4.50-10.00)
[2024-12-05 06:38] LABS: ALT 10 U/L (4-34); AST 17 U/L (14-36); African American GFR (CKD) >90 (>60 ml/min/1.73 sqM); Albumin 4.1 g/dL (3.5-5.0); Alkaline Phosphatase 94 U/L (38-126); Anion Gap 10 mmol/L; Blood Urea Nitrogen 11 mg/dL (7-17); Calcium 9.8 mg/dL (8.4-10.2); Carbon Dioxide 21 mmol/L (22-30); Chloride 112 mmol/L (98-107); Glucose 72 mg/dL (74-99); Magnesium 2.0 mg/dL (1.6-2.3); Non-African American GFR(CKD) >90 (>60 ml/min/1.73 sqM); Potassium 3.8 mmol/L (3.5-5.1); Sodium 143 mmol/L (137-145); Total Protein 7.0 g/dL (6.3-8.2)
[2024-12-05] MEDS: POTASSIUM BICARBONATE/CIT AC 20 MEQ TABLET.EFF PO ONE (07:00)
[2024-12-05] MEDS: MAGNESIUM OXIDE 400 MG TAB PO STA (07:01)
[2024-12-05] MEDS: traMADol 50 MG STARTER PACK TAB BTL PO STA (07:22)
[2024-12-05] MEDS: ACET/COD 300 MG/30 MG STARTER PACK TAB BTL PO STA (07:22)
[2024-12-05] MEDS: HYDROmorphone 1 MG/ML 1 ML SYRINGE IM STA (07:22)
[2024-12-05] MEDS: HYDROmorphone 1 MG/ML 1 ML SYRINGE IVP STA (07:34)
[2024-12-05 07:45] VITALS: BP 123/81; PULSE 78; RESP 20; TEMP 98
== END 2024-12-05 07:45 | disposition home or self-care (01) ==
LOC: EC 05:20
DX: R53.1 Weakness (principal); F17.200 Nicotine dependence, unspecified, uncomplicated; Z88.0 Allergy status to penicillin; Z88.1 Allergy status to other antibiotic agents; Z88.6 Allergy status to analgesic agent
CPT/HCPCS: 36415; 80053; 83735; 84100; 85025; 99284; 96374; 96375; 96372; 96361; J2270; J3360; J1171